=== PATIENT | male | born 1960 | race Caucasian/White ===

== ENCOUNTER 2016-11-24 10:34 | Emergency (ER) | payer OTHER ==
[~2016-11-24] VITALS: Ht 193 cm; Wt 58.2 kg
[~2016-11-24 10:34] MED LIST: IBUP-1050 PO
[2016-11-24 10:36] VITALS: TEMP 36.3; Ht 193 cm; Wt 58.2 kg
--- NOTE | 2016-11-24 11:20 | EMERGENCY ROOM VISIT NOTE ---
History First contact with patient: 10:48 Chief Complaint: WOUND INFECTION Stated Complaint: LEFT FOOT Nursing Triage Summary: Patient has wound to left inner heel that believes from shoe rubbing. Patient states put bandaid over it when it was still closed and took it off to find it was an open wound. History of Present Illness The patient is a 56 year old male who presents to the Emergency Room via private vehicle with complaints of "left foot-wound infection". The patient states that he has a history of infections on the medial aspect of the left distal foot which she has been seen at the local wound care center for. He states that he had been doing well up until 2 weeks ago he noticed a smaller sore/ulceration just inferior to the left medial malleolus and superior to the heel. This region does have evidence of prior surgical procedure of which the patient states left discoloration. He is here stating that he is hoping to catch the wound before progresses to all, because in the past he has been experiencing a lot of pain as well as many months at the wound care center for large ulcerations. He states that his tetanus is up-to-date. Review of Systems A complete 10-point Review of Systems was discussed with the patient, with pertinent positives and negatives listed in the History of Present Illness. All remaining Review of Systems questions can be considered negative unless otherwise specified. Past Medical/Surgical History Medical Problems: (1) No Known Active Medical Problems Family History Cancer Heart disease Hypertension Social History Smoking Status: Current Every Day Smoker Alcohol Use: occasionally Drug Use: none Marital Status: single Housing Status: lives with roommate Occupation Status: employed Current/Historical Medications Scheduled Cephalexin Monohydrate (Keflex), 500 MG PO TID Allergies Coded Allergies: No Known Allergies (Unverified , 11/24/16) Physical Exam Vital Signs Date Time Temp Pulse Resp B/P Pulse Ox O2 Delivery O2 Flow Rate FiO2 11/24/16 12:09 59 18 121/83 97 11/24/16 10:36 36.3 77 18 142/87 99 Room Air Physical Exam VITAL SIGNS - Vital signs and nursing notes were reviewed. Patient is afebrile , hypertensive at 142/87, non-tachycardic and is saturating well on room air at 99%. GENERAL -56-year-old male appearing his stated age who is in no acute distress. Communicates well with provider and answers questions appropriately. SKIN - the skin overlying the left medial malleolus extending to the left heel is dark, with slight amount of scale with an ulceration there is 1 cm x 1 cm circular in nature. This appears to be consistent with venous insufficiency. There is no evidence of gross infection, however there is possibility of minimal cellulitis surrounding the region. He is neurovascularly intact in this region. EXTREMITIES - No clubbing or peripheral cyanosis. No pretibial edema present. No calf tenderness. +5/5 strength noted in UE/LE bilaterally. He is neurovascularly intact in the left lower extremity. Medical Decision & Procedures Medical Decision Patient was seen and evaluated as above. His previous visits were extensively reviewed, and it appears he has been here in the past for similar. He has followed with the wound clinic in the past. He presents with what appears to be a venous ulcer in the left lower extremity. No evidence of DVT. No evidence of vomit sialitis. I do suspect that this time the patient will benefit from wound care, particularly since he has been previously established with our local wound care here. I did discuss the case with our correctional counselor/case manager who are to help the patient establish an appointment with the wound care center. The patient states his insurance does not begin until December 15, therefore do believe it is appropriate to place him on a short term course of antibiotics to help prevent any spread of potential infection. He'll be placed upon Keflex 500 mg 3 times a day for 10 days. He was educated upon management, the wound was cleansed, dressed with a bacitracin dressing at the parameter of the wound was secured in place with Telfa and then this was secured with an Hunter wrap. He was educated upon management, had questions regarding discharge, and was discharged home in good condition. No evidence of trauma. In evaluation treatment this patient following differential diagnoses were entertained: DVT, cellulitis, venous insufficiency, ulcer, injury, among others. Impression Primary Impression: Foot ulcer, left Departure Information Dispostion Home / Self-Care Condition GOOD Prescriptions Cephalexin Monohydrate (KEFLEX) 500 Mg Cap 500 MG PO TID for 10 Days, #30 CAP Prov: Isidro Casey PA-C 11/24/16 Referrals No Doctor, Assigned (PCP) Patient Instructions My [facility] Additional Instructions You were seen in the emergency Department for the ulcer on your left foot. Our case management team has called the wound care center who is to call you. If he did not receive a phone call within the next 5 days please call back to the emergency department at [phone] and asked to speak to a case advocate. You have been prescribed Keflex. This is 500 mg 3 times daily for 10 days. Please return to emergency department with any new/concerning symptoms.
[2016-11-24] MEDS ORDERED: CEPH500C2 PO (11:59)
[2016-11-24 12:09] VITALS: BP 121/83; PULSE 59; O2SAT 97
[2016-12-16] MEDS ORDERED: CEPH500C2 PO (11:53)
[2016-12-28] MEDS ORDERED: LPT/40 PO (12:08)
[2016-12-28] MEDS ORDERED: ASPI1TAB83 PO (12:08)
== END 2016-11-24 12:10 | disposition home or self-care (01) ==
LOC: C.EDB 10:36 → C.EDC 12:10
DX: L97.529 Non-pressure chronic ulcer of other part of left foot with unspecified severity (principal); F17.200 Nicotine dependence, unspecified, uncomplicated; Z80.9 Family history of malignant neoplasm, unspecified; Z82.49 Family history of ischemic heart disease and other diseases of the circulatory system

== ENCOUNTER 2016-12-07 15:10 | Emergency (ER) | payer OTHER ==
[~2016-12-07] VITALS: Ht 193 cm; Wt 59.8 kg
[2016-12-07 15:35] VITALS: TEMP 36.7; Ht 193 cm; Wt 59.8 kg
[2016-12-07] MEDS ORDERED: CEPH500C2 PO (15:56)
[2016-12-07] MEDS ORDERED: NORCO 5/325MG HOME PACK PO STA (16:14)
[2016-12-07] MEDS ORDERED: HYDR-5688 PO (16:17)
--- NOTE | 2016-12-07 16:19 | EMERGENCY ROOM VISIT NOTE ---
History First contact with patient: 15:51 Chief Complaint: WOUND INFECTION Stated Complaint: NON HEALING WOUND R FOOT Nursing Triage Summary: patient to ED via triage, c/o wound infection to "left foot around heel", states "its been going on since october, its my third infection in the same spot in ten years. I need paperwork for work and pain medicine." History of Present Illness The patient is a 56 year old male who presents to the Emergency Room via private vehicle with complaints of "nonhealing wound right foot". The patient states that he is here because he is experiencing increasing pain of the left medial foot secondary to chronic ulcer as well as paperwork to verify his presents for his employer. He states that he was seen here previously for an ulcer and an appointment was scheduled with the wound clinic of which is this coming Thursday. He states it is at 2 PM. He states that he plans on attending this appointment. He did take Keflex without relief. He now notes pain as an 8 /10 at the right medial foot just below the ankle. He states this is the pain he has had in the past with previous ulcers. He denies any fevers, chills, nausea, vomiting. Review of Systems A complete 6-point Review of Systems was discussed with the patient, with pertinent positives and negatives listed in the History of Present Illness. All remaining Review of Systems questions can be considered negative unless otherwise specified. Past Medical/Surgical History Medical Problems: (1) No Known Active Medical Problems Foot ulcer. Family History Cancer Heart disease Hypertension Social History Smoking Status: Current Every Day Smoker Alcohol Use: occasionally Drug Use: none Marital Status: single Housing Status: lives with roommate Occupation Status: employed Current/Historical Medications Scheduled Cephalexin Monohydrate (Keflex), 500 MG PO TID Scheduled PRN Hydrocodone/Acetaminophen 5MG/325MG (Blandford 5MG/325MG), 1-2 TABLET PO Q6 PRN for Pain Allergies Coded Allergies: No Known Allergies (Unverified , 11/24/16) Physical Exam Vital Signs Date Time Temp Pulse Resp B/P Pulse Ox O2 Delivery O2 Flow Rate FiO2 12/07/16 16:28 70 18 128/84 96 12/07/16 15:35 36.7 81 20 119/62 96 Room Air Physical Exam VITAL SIGNS - Vital signs and nursing notes were reviewed. Patient is afebrile , normotensive, non-tachycardic and is saturating well on room air at 96%. GENERAL -56-year-old male appearing his stated age who is in no acute distress. Communicates well with provider and answers questions appropriately. SKIN - there is a darkened hue to the medial aspect of the left distal leg which is chronic and unchanged from previous exam. There is evidence of a chronic ulcer posterior to the left medial malleolus in between the heel. This region is slightly enlarged compared to previous. There is a layer of biofilm developing with granulation tissue deep. No evidence of cellulitis or lymphangitis. There is no streaking noted. There is full range of motion of the region. The ulcer measures approximately 2 cm x 1.75cm. Medical Decision & Procedures Medications Administered Medications (Trade) Dose Ordered Sig/Mendy Route Start Time Stop Time Status Last Admin Dose Admin Acetaminophen/ Hydrocodone Bitart (Blandford 5/325mg Home Pack) 1 homepack UD STAT PO 12/07/16 16:14 12/07/16 16:15 DC 12/07/16 16:14 1 HOMEPACK Medical Decision Patient was seen and evaluated as above. I have over the patient case and have treated him on a previous visit. Patient has a history of chronic ulcers, and presents with a slight worsening of his left medial malleolus/heel ulcer. This region is slightly enlarged from previous visit. There is no evidence of cellulitis. I suspect the patient will need careful and close follow-up with wound care center for potential debridement but this time do not believe that there is any additional intervention necessary here in the emergency department setting. He will be provided with a short-term supply of pain medication as well as a note verifying that he was here today. I do not believe antibiotics are warranted at this time. He was educated on the importance of follow-up on Thursday. He was educated upon worrisome symptoms which to return, had questions prior to discharge and was discharged home in good condition. In evaluation treatment this patient the following differential diagnoses were entertained: Chronic ulcer of left medial foot, sialitis, lymphangitis, drug- seeking behavior, among others. [place] Drug Monitoring Program Search Results: patient reviewed within database, no issues identified Impression Primary Impression: Chronic ulcer Departure Information Dispostion Home / Self-Care Condition GOOD Prescriptions Hydrocodone/Acetaminophen 5MG/325MG (Blandford 5MG/325MG) Tab 1-2 TABLET PO Q6 Y for Pain, #15 TAB For Initial Treatment Prov: Isidro Casey PA-C 12/07/16 Referrals No Doctor, Assigned (PCP) Patient Instructions My [facility] Additional Instructions You were seen in the emergency Department for an ulcer on your right foot. At this time I do not suspect an infection requiring antibiotics. Please continue the dressings you have been applying. Please keep the area clean. You have been prescribed NORCO to be used for pain control. This is a narcotic medication. You cannot drive or consume alcohol while on this medicine. This medicine should only be used for pain that cannot be controlled with over-the- counter pain medicines. Please do not take Tylenol with this as this medication R he has ended. You may also use: - Regular strength (200 mg/tab) Advil (ibuprofen) 1-2 tabs every 4-6 hours as needed. Do not exceed a dose of 3200 mg per day. Please keep your appointment with the wound care center on Thursday. Please return to the emergency department with any new/concerning symptoms.
[2016-12-07 16:28] VITALS: BP 128/84; PULSE 70; O2SAT 96
[2016-12-16] MEDS ORDERED: CEPH500C2 PO (11:53)
[2016-12-28] MEDS ORDERED: LPT/40 PO (12:08)
[2016-12-28] MEDS ORDERED: ASPI1TAB83 PO (12:08)
== END 2016-12-07 16:29 | disposition home or self-care (01) ==
LOC: C.EDB 15:11 → C.EDD 16:29
DX: L97.529 Non-pressure chronic ulcer of other part of left foot with unspecified severity (principal); F17.200 Nicotine dependence, unspecified, uncomplicated; Z80.9 Family history of malignant neoplasm, unspecified; Z82.49 Family history of ischemic heart disease and other diseases of the circulatory system

== ENCOUNTER 2016-12-27 10:54 | Inpatient (IN) | payer OTHER ==
[~2016-12-27] VITALS: Ht 193 cm; Wt 56.8 kg
[~2016-12-27 10:54] MED LIST changes: +CEPH500C2 PO; +HYDR-5688 PO; -IBUP-1050 PO
[2016-12-27] MEDS ORDERED: SODIUM CHLORIDE 0.9% 1000ML 1,000 ML IV SCH (11:25)
[2016-12-27 11:36] LABS: BASO % 0.6 %; BASO ABS # 0.04 K/uL (0-0.2); COMPLETE YES; EOS % 2.5 %; HEMATOCRIT 49.2 % (42-52); IG% 0.1 %; LYMPH % 30.6 %; LYMPH ABS # 2.07 K/uL (1.2-3.4); MEAN CELL VOLUME 85.7 fL (80-100); MEAN CORPUSCULAR HEMOGLOBIN 28.4 pg (25-34); MEAN CORPUSCULAR HGB CONC 33.1 g/dl (32-36); MEAN PLATELET VOLUME 9.3 fL (7.4-10.4); MONO % 6.2 %; PLATELET COUNT 281 K/uL (130-400); RED BLOOD COUNT 5.74 M/uL (4.7-6.1); WHITE BLOOD COUNT 6.77 K/uL (4.8-10.8)
[2016-12-27 11:46] LABS: INR 1.1 (0.9-1.1); PROTHROMBIN TIME (PATIENT) 11.4 SECONDS (9.0-12.0)
--- NOTE | 2016-12-27 11:54 | DIAGNOSTIC IMAGING REPORT ---
HEAD CT NONCONTRAST CT DOSE: 614.27 mGy.cm HISTORY: Stroke TECHNIQUE: Multiaxial CT images of the head were performed without the use of intravenous contrast. Automated exposure control was utilized for this study. Comparison: None. Findings: The paranasal sinuses and mastoid air cells are clear. The calvarium and skull base are intact. There is no mass, hematoma, midline shift, acute infarct. White matter hypodensity is nonspecific but suggestive of microvascular ischemic change. The ventricles and sulci demonstrate mild age-related involutional changes. Old lacunar infarcts seen within the left basal ganglia. Impression: No acute intracranial abnormality. Atrophy and microvascular ischemic changes. Electronically signed by: Paxton Hanson M.D. 12/27/2016 11:53 AM Dictated Date/Time: 12/27/2016 11:51 AM
[2016-12-27 11:57] LABS: BLOOD UREA NITROGEN 17 mg/dl (7-18); BUN/CREATININE RATIO 26.4 (10-20); CALCIUM 8.9 mg/dl (8.5-10.1); CARBON DIOXIDE 27 mmol/L (21-32); CHLORIDE 105 mmol/L (98-107); CREATININE 0.66 mg/dl (0.60-1.40); GLUCOSE 105 mg/dl (70-99); POTASSIUM 4.3 mmol/L (3.5-5.1); SODIUM 140 mmol/L (136-145)
--- NOTE | 2016-12-27 11:59 | DIAGNOSTIC IMAGING REPORT ---
CHEST ONE VIEW PORTABLE HISTORY: stroke COMPARISON: Chest 02/01/2015. FINDINGS: No change in the mild volume loss within the right hemithorax and blunting of the right lateral costophrenic sulcus. Emphysema. The heart is stable in size. The left lung is clear. No new focal lung consolidations. No pneumothorax. No evidence for pulmonary edema. IMPRESSION: No significant change compared to the prior study. No acute process. Electronically signed by: Paxton Hanson M.D. 12/27/2016 11:58 AM Dictated Date/Time: 12/27/2016 11:56 AM
[2016-12-27 12:03] LABS: CKMB/CK RATIO 4.6 (0-3.0)
[2016-12-27] MEDS ORDERED: ASPIRIN 81 MG CHEW PO STA (12:34)
--- NOTE | 2016-12-27 13:48 | Medical Student: [facility] ---
Med Student History & Physical Date & Time of Service: December 27, 2016 at 13:04 Chief Complaint: Numbness In Face & Arms Primary Care Physician: No Doctor, Assigned History of Present Illness Source: patient Mr. Israel Bravo is a 56 yo male who appears older than actual age who presents to the ED with numbness and weakness of his R face and upper extremity that began last night around 10PM. He decided to go to sleep, and awoke this morning with persistent symptoms. He also notes weakness with gripping his coffee cup this morning, which is when he came to the ED. He notes that the R sided facial numbness has improved to just being a feeling of coldness in his lips on the right side of his face, and he only has tingling and numbness in his fingers on the right hand. He no longer feels weakness or the generalized numbness from last night. He denies changes in his speech, although he has always had a pronounced speech impediment. He did not notice facial drooping or weakness. Mr. Bravo denies previous TIA, stroke or heart attack, but states that his mother suffered both a stroke and [place] before she . He provides no other medical history other than multiple non-healing ulcers in his feet for which he sees the wound clinic. He is unsure whether he has peripheral vascular disease , although clinically it appears so. Mr. Bravo has an ~80 pack year smoking history and recently cut down on his drinking to once every few months. Before he states he drank "quite a bit". He denies elicit drug use. He denies N/V, Diarrhea, constipation, change in urinary symptoms, chest pain, shortness of breath, or loss of consciousness. Family History Mother: heart disease, stroke (~2 packs (rolls his own, unfiltered)) Social History Smoking Status: Current Every Day Smoker Smokeless Tobacco Use: No Alcohol Use: occasionally (previously heavy drinker) Drug Use: none Marital Status: single Housing status: lives alone, lives with family (daughers check in on him often) Occupational Status: employed Immunizations History of Influenza Vaccine: No History of Tetanus Vaccine?: Yes History of Pneumococcal: No History of Hepatitis B Vaccine: Unknown Allergies Coded Allergies: No Known Allergies (Unverified , 12/27/16) Medications Cephalexin Monohydrate (Keflex), 500 MG PO TID Review of Systems Constitutional: + weakness (R hand and arm, now resolved), No chills, No fatigue, No fever, No sweats, No weight loss Eyes: No problem reported ENT: No problem reported Respiratory: No problem reported Cardiovascular: No problem reported Abdomen: No problem reported Musculoskeletal: No problem reported Genitourinary - Male: No problem reported Neurologic: + numbness/tingling (R face, arm, hand, now just in R lips and R fingertips), + weakness, No balance problems, No memory loss, No paralysis, No vertigo Psychiatric: No problem reported Endocrine: No problem reported Integumentary: + problem reported (persistent foot ulcer) Physical Exam Vital Signs (24 Hours) Date Time Temp Pulse Resp B/P Pulse Ox O2 Delivery O2 Flow Rate FiO2 12/27/16 12:00 127/89 12/27/16 11:54 62 19 12/27/16 11:31 142/83 12/27/16 11:24 77 17 12/27/16 11:15 99 Room Air 12/27/16 11:14 141/90 12/27/16 10:58 36.4 79 18 144/87 100 Room Air General Appearance: no apparent distress, + cachetic, + thin Head: normocephalic, atraumatic Eyes: PERRL, EOMI, + pertinent finding (horizontal nystagmus) ENT: normal ENT inspection, hearing grossly normal, pharynx normal, + pertinent finding (poor dentition) Neck: supple, no adenopathy, thyroid normal, no JVD, no carotid bruits, trachea midline Respiratory/Chest: chest non-tender, lungs clear, normal breath sounds, no respiratory distress, no accessory muscle use Cardiovascular: regular rate, rhythm, no edema, no gallop, no JVD, no murmur, + abnormal peripheral pulses (very weak in feet b/l) Abdomen/GI: normal bowel sounds, non tender, soft Back: normal inspection, no CVA tenderness, + pertinent finding (two superficial lipomas) Extremities/Musculoskelatal: normal range of motion, non-tender Neurologic/Psych: jackaroo II-XII nml as tested (with exception of decreased sensation of V2 on R side), alert, normal mood/affect, normal reflexes, oriented x 3, + abnormal jackaroo II-XII, + pertinent finding (Numbness/tingling to touch of R fingers. Sensation otherwise normal. Rapid alternating movements slow bilaterally, more slow on R side. Finger to nose significatnly slower on R side compared to L. ) Skin: + mottled, + pertinent finding (Poorly healing wound on L foot with discoloration of skin) Diagnostics Laboratory Results Results Past 24 Hours Test 12/27/16 11:22 12/27/16 11:34 12/27/16 11:35 Range/Units White Blood Count 6.77 4.8-10.8 K/uL Red Blood Count 5.74 4.7-6.1 M/uL Hemoglobin 16.3 14.0-18.0 g/dL Hematocrit 49.2 42-52 % Mean Corpuscular Volume 85.7 80-100 fL Mean Corpuscular Hemoglobin 28.4 25-34 pg Mean Corpuscular Hemoglobin Concent 33.1 32-36 g/dl Platelet Count 281 130-400 K/uL Mean Platelet Volume 9.3 7.4-10.4 fL Neutrophils (%) (Auto) 60.0 % Lymphocytes (%) (Auto) 30.6 % Monocytes (%) (Auto) 6.2 % Eosinophils (%) (Auto) 2.5 % Basophils (%) (Auto) 0.6 % Neutrophils # (Auto) 4.06 1.4-6.5 K/uL Lymphocytes # (Auto) 2.07 1.2-3.4 K/uL Monocytes # (Auto) 0.42 0.11-0.59 K/uL Eosinophils # (Auto) 0.17 0-0.5 K/uL Basophils # (Auto) 0.04 0-0.2 K/uL RDW Standard Deviation 48.5 36.4-46.3 fL RDW Coefficient of Variation 15.4 11.5-14.5 % Immature Granulocyte % (Auto) 0.1 % Immature Granulocyte # (Auto) 0.01 0.00-0.02 K/uL Prothrombin Time 11.4 9.0-12.0 SECONDS Prothromb Time International Ratio 1.1 0.9-1.1 Activated Partial Thromboplast Time 26.9 21.0-31.0 SECONDS Partial Thromboplastin Ratio 1.0 Sodium Level 140 136-145 mmol/L Potassium Level 4.3 3.5-5.1 mmol/L Chloride Level 105 98-107 mmol/L Carbon Dioxide Level 27 21-32 mmol/L Anion Gap 8.0 3-11 mmol/L Blood Urea Nitrogen 17 7-18 mg/dl Creatinine 0.66 0.60-1.40 mg/dl Est Creatinine Clear Calc Drug Dose 107.5 ml/min Estimated GFR () 126.1 Estimated GFR (Non- 108.8 BUN/Creatinine Ratio 26.4 10-20 Random Glucose 105 70-99 mg/dl Calcium Level 8.9 8.5-10.1 mg/dl Total Creatine Kinase 50 39-308 U/L Creatine Kinase MB 2.3 0.5-3.6 ng/ml Creatine Kinase MB Ratio 4.6 0-3.0 Troponin I < 0.015 0-0.045 ng/ml Bedside Prothrombin Time INR 1.1 0.9-1.1 Bedside Glucose 104 70-99 mg/dl Diagnostic Radiology No acute change on CXR. Persistent emphysema, blunted right costophrenic angle Impression Assessment and Plan Mr. Israel Bravo is 56 yo male with a history of numbness, tingling and weakness of his R face and UE which began last night at 2200 who presented to the ED this morning with persistent symptoms. CT shows no acute cerebrovascular changes, and his symptoms are now improving. TIA suspected, as patient has several risk factors for smoke including peripheral vascular disease, 80 pack year smoking history, family history of stroke. Assessment and plan is as follows: 1. Acute CVA: Symptoms are now improving. Ddx includes acute CVA/ TIA. Possibly left MCA distribution or right mid-lateral pontine syndrome. Will consult neurology for further evaluation. Will order head MRI to rule out stroke definitively. Will check cholesterol and A1c for stroke risk determination. Will start on statin, 81mg ASA and clopidogrel for risk reduction. 2. PVD: Continue keflex per wound clinic. 3. DVT prophylaxis: heparin 4. Disposition: Admit to med/surg. Normal diet. Level of Care Med/Surg Resuscitation Status FULL RESUSCITATION DVT Prophylaxis unfractionated heparin SQ
[2016-12-27] MEDS ORDERED: ZOLPIDEM TARTRATE 5 MG TAB PO PRN (14:00)
[2016-12-27] MEDS ORDERED: ALUMINUM/MAGNESIUM/SIMETH (MAALOX MAX) 30 ML UDC PO PRN (14:00)
[2016-12-27] MEDS ORDERED: POLYETHYLENE (MIRALAX) 17 GM PACK PO PRN (14:00)
[2016-12-27] MEDS ORDERED: MAGNESIUM HYDROXIDE SUSP 30 ML UDC PO PRN (14:00)
[2016-12-27] MEDS ORDERED: ONDANSETRON INJ 2 MG/ML 2 ML VIAL IV PRN (14:00)
[2016-12-27] MEDS ORDERED: PHARMACIST DISCHARGE MED REC CONSULT PRN (14:00)
[2016-12-27 14:07] LABS: ESTIMATED AVERAGE GLUCOSE 123 mg/dl; HA1C FLAG Normal (Normal)
--- NOTE | 2016-12-27 14:14 | Progress Note ---
Progress Note Date of Service December 27, 2016. Progress Note possible cva [phone]
[2016-12-27] MEDS ORDERED: ALBUT/IPRATROP 3MG/0.5MG NEB 3 ML VIAL INH PRN (14:15)
--- NOTE | 2016-12-27 14:24 | EMERGENCY ROOM VISIT NOTE ---
History Report prepared by Sarina: Bi Petersen Under the Supervision of: Dr. Rojas Farooq D.O. First contact with patient: 11:14 Chief Complaint: NEURO SYMPTOMS Stated Complaint: NUMBNESS IN FACE & ARMS Nursing Triage Summary: pt reports tingling in numbness in right face and right arm since 1999 last night feeling of numbness remains. denies any problems with speech or vision History of Present Illness The patient is a 56 year old male who presents to the Emergency Room with complaints of persistent neurologic symptoms since last night. The patient became dizzy at 1999 last night. He also developed numbness in his face and right arm. The entire arm is numb. The whole face was initially numb but now he only feels the numbness in the right cheek area. He also had trouble gripping with the right arm this morning which has improved. His left arm as well as both legs are normal. He has never had a stroke but does have a family history of stroke. 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 Patient denies headache, change in vision, fevers, chest pain, shortness of breath, nausea, vomiting, diarrhea, pain with urination, and melena. Source of History: patient Onset: last night at 1999 Position: other (neurologic) Quality: numbness Timing: other (persistent) Associated Symptoms: + weakness (trouble gripping), No SOB, No chest pain, No diarrhea, No fevers, No headache, No melena, No nausea, No urinary symptoms, No vomiting Review of Systems See HPI for pertinent positives & negatives. A total of 10 systems reviewed and were otherwise negative. Past Medical & Surgical Medical Problems: (1) cva (2) CVA (cerebral vascular accident) (3) No Known Active Medical Problems Family History Cancer Heart disease Hypertension Social History Smoking Status: Current Every Day Smoker Alcohol Use: occasionally Drug Use: none Marital Status: single Housing Status: lives with roommate Occupation Status: employed Current/Historical Medications Scheduled Cephalexin Monohydrate (Keflex), 500 MG PO TID Allergies Coded Allergies: No Known Allergies (Unverified , 12/27/16) Physical Exam Vital Signs Date Time Temp Pulse Resp B/P Pulse Ox O2 Delivery O2 Flow Rate FiO2 12/27/16 13:10 61 16 140/69 98 Room Air 12/27/16 12:00 127/89 5/13/17 11:54 62 19 12/27/16 11:31 142/83 12/27/16 11:24 77 17 12/27/16 11:15 99 Room Air 12/27/16 11:14 141/90 12/27/16 10:58 36.4 79 18 144/87 100 Room Air Physical Exam GENERAL: Sitting up in bed, cachectic, chronically ill appearing, no acute distress. EYE EXAM: normal conjunctiva, PERRL and EOM's intact OROPHARYNX: no exudate, no erythema, lips, buccal mucosa, and tongue normal and mucous membranes are moist NECK: supple, no nuchal rigidity, no adenopathy, non-tender LUNGS: Clear to auscultation. Normal chest wall mechanics HEART: no murmurs, S1 normal and S2 normal ABDOMEN: abdomen soft, non-tender, normo-active bowel sounds, no masses, no rebound or guarding. BACK: Back is symmetrical on inspection and there is no deformity, no midline tenderness, no CVA tenderness. SKIN: no rashes and no bruising UPPER EXTREMITIES: upper extremities are grossly normal. LOWER EXTREMITIES: No pitting edema. NEURO EXAM: Normal sensorium, cranial nerves II-XII intact, normal speech, no weakness of arms, no weakness of legs. No drift. Finger to nose intact. Gross sensation intact. Medical Decision & Procedures ER Provider Diagnostic Interpretation: Radiology results as stated below per my review and the radiologist's interpretation: CHEST ONE VIEW PORTABLE HISTORY: stroke COMPARISON: Chest 02/01/2015. FINDINGS: No change in the mild volume loss within the right hemithorax and blunting of the right lateral costophrenic sulcus. Emphysema. The heart is stable in size. The left lung is clear. No new focal lung consolidations. No pneumothorax. No evidence for pulmonary edema. IMPRESSION: No significant change compared to the prior study. No acute process. Electronically signed by: Paxton Hanson M.D. 12/27/2016 11:58 AM Dictated Date/Time: 12/27/2016 11:[address] NONCONTRAST CT DOSE: 614.27 mGy.cm HISTORY: Stroke TECHNIQUE: Multiaxial CT images of the head were performed without the use of intravenous contrast. Automated exposure control was utilized for this study. Comparison: None. Findings: The paranasal sinuses and mastoid air cells are clear. The calvarium and skull base are intact. There is no mass, hematoma, midline shift, acute infarct. White matter hypodensity is nonspecific but suggestive of microvascular ischemic change. The ventricles and sulci demonstrate mild age-related involutional changes. Old lacunar infarcts seen within the left basal ganglia. Impression: No acute intracranial abnormality. Atrophy and microvascular ischemic changes. Electronically signed by: Paxton Hanson M.D. 12/27/2016 11:53 AM Dictated Date/Time: 12/27/2016 11:51 AM Laboratory Results 12/27/16 11:22 Red Blood Count 5.74, Mean Corpuscular Volume 85.7, Mean Corpuscular Hemoglobin 28.4, Mean Corpuscular Hemoglobin Concent 33.1, Mean Platelet Volume 9.3, Neutrophils (%) (Auto) 60.0, Lymphocytes (%) (Auto) 30.6, Monocytes (%) (Auto) 6.2, Eosinophils (%) (Auto) 2.5, Basophils (%) (Auto) 0.6, Neutrophils # (Auto) 4.06, Lymphocytes # (Auto) 2.07, Monocytes # (Auto) 0.42, Eosinophils # (Auto) 0.17, Basophils # (Auto) 0.04 12/27/16 11:22 Test 12/27/16 11:22 12/27/16 11:34 12/27/16 11:35 White Blood Count 6.77 K/uL (4.8-10.8) Red Blood Count 5.74 M/uL (4.7-6.1) Hemoglobin 16.3 g/dL (14.0-18.0) Hematocrit 49.2 % (42-52) Mean Corpuscular Volume 85.7 fL (80-100) Mean Corpuscular Hemoglobin 28.4 pg (25-34) Mean Corpuscular Hemoglobin Concent 33.1 g/dl (32-36) Platelet Count 281 K/uL (130-400) Mean Platelet Volume 9.3 fL (7.4-10.4) Neutrophils (%) (Auto) 60.0 % Lymphocytes (%) (Auto) 30.6 % Monocytes (%) (Auto) 6.2 % Eosinophils (%) (Auto) 2.5 % Basophils (%) (Auto) 0.6 % Neutrophils # (Auto) 4.06 K/uL (1.4-6.5) Lymphocytes # (Auto) 2.07 K/uL (1.2-3.4) Monocytes # (Auto) 0.42 K/uL (0.11-0.59) Eosinophils # (Auto) 0.17 K/uL (0-0.5) Basophils # (Auto) 0.04 K/uL (0-0.2) RDW Standard Deviation 48.5 fL (36.4-46.3) RDW Coefficient of Variation 15.4 % (11.5-14.5) Immature Granulocyte % (Auto) 0.1 % Immature Granulocyte # (Auto) 0.01 K/uL (0.00-0.02) Prothrombin Time 11.4 SECONDS (9.0-12.0) Prothromb Time International Ratio 1.1 (0.9-1.1) Activated Partial Thromboplast Time 26.9 SECONDS (21.0-31.0) Partial Thromboplastin Ratio 1.0 Anion Gap 8.0 mmol/L (3-11) Est Creatinine Clear Calc Drug Dose 107.5 ml/min Estimated GFR () 126.1 Estimated GFR (Non- 108.8 BUN/Creatinine Ratio 26.4 (10-20) Estimated Average Glucose 123 mg/dl Hemoglobin A1c 5.9 % (4.5-5.6) Calcium Level 8.9 mg/dl (8.5-10.1) Total Creatine Kinase 50 U/L (39-308) Creatine Kinase MB 2.3 ng/ml (0.5-3.6) Creatine Kinase MB Ratio 4.6 (0-3.0) Troponin I < 0.015 ng/ml (0-0.045) Bedside Prothrombin Time INR 1.1 (0.9-1.1) Bedside Glucose 104 mg/dl (70-99) Laboratory results per my review. Medications Administered Medications (Trade) Dose Ordered Sig/Mendy Route Start Time Stop Time Status Last Admin Dose Admin Sodium Chloride (Nss 1000ml) 1,000 ml @ 50 mls/hr Q20H IV 12/27/16 11:25 01/26/17 11:24 12/27/16 11:41 50 MLS/HR Aspirin (Aspirin Chew) 81 mg NOW STAT PO 12/27/16 12:34 12/27/16 12:35 DC 12/27/16 13:10 81 MG ECG Indication: other (neuro symptoms) Rate (beats per minute): 58 Rhythm: sinus bradycardia Findings: other (PRR' in the septal leads. normal axis. ) ED Course ED COURSE: Vital signs were reviewed and were normal. The patients medical record was reviewed The above diagnostic studies were performed and reviewed. ED treatments and interventions as stated above. 1120: The patient was evaluated in room B8. A complete history and physical examination was performed. 1125: NSS 1000 ml @ 50 mls/hr. 1233: Discussed the case with Dr. Lin. [facility] Hospitalist. The patient will be evaluated. 1234: Aspirin 81 mg PO. 1235: Upon reevaluation, the patient is stable.I discussed my findings with the patient and he understands and agrees with the treatment plan. Based on the patients age, coexisting illnesses, exam and lab findings the decision to treat as an inpatient was made. The patient remained stable while under my care. The patient will be evaluated for further management. Medical Decision Differential Diagnosis includes but is not limited to ischemic Stroke, hemorrhagic stroke, bells palsy, mass, neoplasm, migraine headache, seizure, subarachnoid hemorrhage, TIA, and transient global amnesia. Patient is a 56-year-old male who presents the ER for right arm numbness and right facial numbness which started last night around 1999. He notes that this morning when he got up he had difficulty with his grass and grabbing at. The weakness in his arm has gone away the numbness improving. Labs including CBC, BMP, troponin was unremarkable. INR was normal. His neurologic exam is completely unremarkable with exception of paresthesias. CT head was negative. Chest x-ray was unremarkable. EKG was normal. Patient was updated bedside and given aspirin and fluids. He is admitted to internal medicine for a likely TIA with numbness and weakness which has completely resolved with exception of mild paresthesias. Consults Time Called: 1220 Consulting Physician: Dr. Lin. [facility] Hospitalist Returned Call: 1233 The patient will be evaluated. Impression Primary Impression: TIA (transient ischemic attack) Scribe Attestation The scribe's documentation has been prepared under my direction and personally reviewed by me in its entirety. I confirm that the note above accurately reflects all work, treatment, procedures, and medical decision making performed by me. Departure Information Dispostion Being Evaluated By Hospitalist Referrals No Doctor, Assigned (PCP) Patient Instructions My [facility] Stroke History Time Last Known Well 1999 last night Stroke t-PA Criteria Reviewed Does NOT meet criteria for t-PA Reason t-PA Not Given Treatment not indicated Problem Qualifiers Primary Impression: TIA (transient ischemic attack) Transient cerebral ischemia type: unspecified Qualified Codes: G45.9 - Transient cerebral ischemic attack, unspecified
--- NOTE | 2016-12-27 14:44 | HISTORY & PHYSICAL EXAMINATION ---
DATE OF ADMISSION: 12/27/2016 This is a level 3 inpatient admission 35 minutes. CHIEF COMPLAINT: Right-sided tingling and numbness. HISTORY OF PRESENT ILLNESS: The patient is a 56-year-old white male with a significant past medical history of peripheral artery disease, left foot chronic ulceration, tobacco abuse disorder, heavy alcohol intake history coming to the hospital Emergency Department because of the above chief complaint. The patient reported he was having right-sided numbness and weakness in his left face and upper extremities that began last night around 10 p.m. He decided to go to sleep and woke up this morning with persistent symptoms. He also has weakness with gripping his coffee cup this morning. For this reason, he came to the hospital Emergency Room. He was noted right-sided facial numbness has been improved, but for now still has some coldness in his lips of right side of his face. There was still some tingling and numbness in his fingers and right hand. No longer has any generalized numbness, tingling or weakness. Denied slurry speeches currently. When I interviewed with him, he awake, alert and orientated confirming the above information. PAST MEDICAL HISTORY: Like I mentioned peripheral artery disease, heavy alcohol intake, left foot ulceration chronic. SOCIAL HISTORY: Heavy tobacco abuse disorder, half pack per day for now. Social alcohol intake. Denied illicit drug abuse. ALLERGIES: No known drug allergies. CURRENT MEDICATIONS: Include Keflex for the foot ulceration. REVIEW OF SYSTEMS: Please see HPI, otherwise 14 points organ system review were negative. PHYSICAL EXAMINATION: VITAL SIGNS: Temperature is 36.4, pulse 79, respiratory rate 18, blood pressure 144/87, pulse ox was 100% in room air. GENERAL: The patient is a white male, looks much older than his age, looks very thin. HEAD: Normocephalic. EYES: Pupils equal, round responds to light. EARS: Ear was normal. NOSE: Normal. NECK: Supple. Thyroid no enlargement. Trachea midline. HEART: Regular rhythm. S1, S2. He has no murmur. Carotid artery area has no bruits, no JVD. LUNGS: Bilateral lungs significant decreased breathing sounds. There was no wheezing, rhonchi and crackles. ABDOMEN: Soft, nontender. Bowel sound was positive. Bilateral CVA was nontender. LOWER EXTREMITIES: Normal motion. However, in the left lower extremity has some chronic wounds. There was currently no open wounds for now. NEUROLOGIC EVALUATION: Cranial nerves in the right side V2 trigeminal nerve is having some decreased sensations. Otherwise, cranial nerves II-XII was intact. SKIN: Has some pigmentation in the left lower extremity. There was no obvious open wound. LABORATORY STUDIES: WBC 6, hemoglobin 16, platelet 281. PT/INR was 11/1. Sodium 140, potassium 4.3, BUN 17, creatinine 0.66. A1c is pending. Cardiac enzyme troponin was negative x1 set. IMAGING STUDIES: Chest x-ray studies, no acute disease. Head CT studies, no ischemic changes. ASSESSMENT AND PLAN: A 56-year-old white male with the conditions seen below. 1. Right-sided tingling and numbness, very possible cerebrovascular accident. 2. Heavy tobacco abuse disorder. 3. Peripheral artery disease with left lower leg chronic wounds. 4. History of heavy alcohol intake. PLAN: 1. Likely acute CVA in a patient is a 56-year-old, however he looks much older than his age. He was having heavy tobacco abuse disorder which caused his peripheral artery disease with chronic left lower extremity wounds. Bilateral upper and lower extremity pulse was significantly decreased. Therefore, I feel the patient is in high risk of acute CVA. 2. The patient has tobacco abuse disorder, will give nicotine patch. 3. Chronic left lower extremity wounds. Will continue Keflex. 4. Heavy tobacco abuse with history of COPD. We will give DuoNeb as needed. Will check brain MRI to rule out CVA per stroke protocol. PT, OT evaluation and treatment and then go from there. I do request Dr. Gonzalez to see the patient. My question is if need to start Plavix or if still okay to start aspirin. My feeling is patient has peripheral artery disease, heavy smoking, I would start Plavix for now. I feel he xu to be on Plavix for PAD already. 5. GI and DVT prophylaxis is covered. Discussed with patient about the care plan. I answered all the questions. ANIRUDH
[2016-12-27 15:37] VITALS: BP 151/73; PULSE 61; TEMP 36.7; O2SAT 98; Ht 193 cm; Wt 56.8 kg
[2016-12-27] MEDS ORDERED: CLOPIDOGREL BISULFATE 75 MG TAB PO STA (15:38)
--- NOTE | 2016-12-27 17:18 | DIAGNOSTIC IMAGING REPORT ---
MR ANGIOGRAM OF THE BRAIN CLINICAL HISTORY: Strokelike symptoms. COMPARISON STUDY: CT of the brain dated 12/27/2016. TECHNIQUE: 3-D [id number] MR angiography of the intracranial circulation is performed. 3-D tumble views are created and assessed. IV contrast was not administered for this examination. The Examination is modestly degraded by motion artifact. FINDINGS: The [place] of Dave is developmentally complete. The internal carotid arteries are widely patent bilaterally, as are the anterior and middle cerebral arteries. The vertebrobasilar system and posterior cerebral arteries are widely patent. The vertebral arteries are codominant. There is no aneurysm, high-grade stenosis, or focal vessel cutoff seen throughout the intracranial circulation. IMPRESSION: Unremarkable MR angiogram of the brain. Electronically signed by: Morgan Philippe M.D. 12/27/2016 5:17 PM Dictated Date/Time: 12/27/2016 5:15 PM
[2016-12-27] MEDS: CEPHALEXIN MONOHYDRATE 500 MG CAP PO SCH ×2 (17:49→20:28)
--- NOTE | 2016-12-27 17:54 | DIAGNOSTIC IMAGING REPORT ---
MRI OF THE BRAIN COMBO CLINICAL HISTORY: Strokelike symptoms. COMPARISON STUDY: CT of the brain dated 12/27/2016. TECHNIQUE: MRI of the brain was performed utilizing various T1 and T2-weighted sequences in the axial, sagittal, and coronal planes. Contrast-enhanced sequences were acquired following the administration of 6 cc of Gadavist. FINDINGS: Brain parenchyma: There is an 8 mm focus of restricted diffusion identified in the left thalamus. This is consistent with acute to subacute lacunar infarct. No additional foci of restricted diffusion are identified. There is mild to moderate patchy subcortical and periventricular microangiopathic disease. There is no hemorrhage or mass effect. Chronic lacunar infarcts are identified within the right cerebellar hemisphere and the left thalamus. No enhancing mass lesion is identified on the postcontrast images. Aviles-white matter differentiation is preserved. No extra-axial fluid collection is seen. The cerebellar tonsils are normal in configuration. Ventricles, sulci, and cisterns: Normal in configuration. Pituitary and sella: Unremarkable. Intracranial vasculature: Normal flow voids are maintained at the skull base. Orbits: The bony orbits are grossly intact. Orbital contents are normal in appearance. Sinuses and mastoids: There is trace mucosal thickening within the maxillary antra. The remaining paranasal sinuses are clear. There is a trace left mastoid effusion. Calvarium: Unremarkable. Cervical cord: Partially visualized cervical spinal cord is normal in morphology and signal intensity. IMPRESSION: 1. There is an acute to subacute lacunar infarct identified in the left thalamus. 2. No additional foci of acute ischemia are identified. 3. There is no hemorrhage, enhancing mass, or midline shift. Electronically signed by: Morgan Philippe M.D. 12/27/2016 5:53 PM Dictated Date/Time: 12/27/2016 5:49 PM
--- NOTE | 2016-12-27 18:10 | DIAGNOSTIC IMAGING REPORT ---
MR ANGIOGRAM OF THE NECK COMBO CLINICAL HISTORY: Left thalamic infarct. COMPARISON STUDY: No priors. TECHNIQUE: Axial 3-D [id number] MR angiography of the neck is performed. Subsequently, following the IV administration of 6 cc of Gadavist coronal MR angiogram of the neck was performed to corroborate the findings. 3-D reformats are created and assessed. All measurements were calculated based on NASCET criteria. Subtraction imaging was performed. FINDINGS: Visualized portions of the thoracic aorta are normal in caliber. The aortic arch demonstrates standard 3-vessel anatomy. The subclavian arteries are widely patent bilaterally. The right common carotid artery is widely patent, as are the right internal and external carotid arteries. The right internal carotid artery is tortuous. The left common carotid artery is widely patent, as are the left internal and external carotid arteries. The vertebral arteries are widely patent and codominant. The partially visualized intracranial vessels are patent. IMPRESSION: Unremarkable MR angiogram of the neck. Electronically signed by: Morgan Philippe M.D. 12/27/2016 6:08 PM Dictated Date/Time: 12/27/2016 6:06 PM
[2016-12-27] MEDS: ACETAMINOPHEN 325 MG TAB PO PRN (19:52)
[2016-12-27 20:13] VITALS: BP 144/82; PULSE 54; TEMP 36.4; O2SAT 96
[2016-12-27] MEDS ORDERED: ENOXAPARIN 40 MG/0.4 ML SYR SC SCH (21:00)
[2016-12-27 23:56] VITALS: BP 138/80; PULSE 52; TEMP 36.6; O2SAT 98
[2016-12-28 03:13] VITALS: BP 112/68; PULSE 82; TEMP 36.8; O2SAT 96
[2016-12-28 05:53] LABS: BASO ABS # 0.06 K/uL (0-0.2); COMPLETE YES; EOS % 3.2 %; HEMATOCRIT 48.4 % (42-52); IG% 0.2 %; LYMPH % 34.9 %; MEAN CELL VOLUME 85.5 fL (80-100); MEAN CORPUSCULAR HEMOGLOBIN 28.6 pg (25-34); MEAN CORPUSCULAR HGB CONC 33.5 g/dl (32-36); MEAN PLATELET VOLUME 9.2 fL (7.4-10.4); NEUT % 53.7 %; PLATELET COUNT 264 K/uL (130-400); RED BLOOD COUNT 5.66 M/uL (4.7-6.1)
[2016-12-28 06:36] LABS: CALCIUM 8.6 mg/dl (8.5-10.1); CREATININE 0.55 mg/dl (0.60-1.40)
[2016-12-28 06:40] LABS: CHOLESTEROL/HDL RATIO 4.4
[2016-12-28 07:26] VITALS: BP 124/79; PULSE 75; TEMP 36.7; O2SAT 96
[2016-12-28] MEDS: CEPHALEXIN MONOHYDRATE 500 MG CAP PO SCH (08:18)
[2016-12-28] MEDS: ACETAMINOPHEN 325 MG TAB PO PRN (08:20)
--- NOTE | 2016-12-28 08:32 | Neurology Consultation ---
Neurology Consultation Date of Consultation: December 28, 2016. Attending Physician: Jeovanny Duron MD, PhD Primary Care Physician: No Doctor, Assigned Reason for Consultation: Patient is a 56-year-old, who was asked to see the request of Dr. Duron, for neurologic consultation regarding stroke History of Present Illness Source: patient, caregiver, hospital records The patient has no history of heart disease, diabetes, hypertension, or stroke in the past. He is a longtime cigarette smoker with over 80 pack years. He rolls his own cigarettes and doesn't use a filter, but figures he smokes about a pack and a half a day. He was a very heavy alcohol drinker in the past for proximally 20 years drinking at least 2 quarts of beer per day, cutting back about 15 years ago. He says he only rarely has a drink of alcohol now. The patient was seen as an outpatient in the spring of 2014. He had had right lower lobe pneumonia and I see from the chart that he was very negligent in getting his outpatient antibiotics after discharge from the hospital. He did follow-up enough to finish the course. I note that his weight in December 2014 was 134 pounds. Patient had left foot wound issues stemming back to the summer of 2013 and was seen wound clinic then. 2 months ago he's had an open wound in his left foot which wasn't healing and he has seen wound care again. Around 2000 hours on December 26, while at work, he noted the sudden onset of considerable numbness in the whole left side of his face and his whole right arm. The worst of this lasted for some minutes and then got better. It was not completely resolved however. 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 His leg was not numb and he had no pain or headache. No vision or speech problems. He went to bed and woke up the next morning at 0800 hours still with the numbness although not as bad as the night before when it first started. He arrived at the emergency room at 1058 hours on December 27 with a temperature 36.4 , pulse of 79 and regular, respiratory rate 18 and comfortable, blood pressure 144/87, and O2 saturation 100% on room air. His neurologic examination was noted to be unremarkable with no deficits. Chest x-ray was unremarkable CT scan of the head showed no acute changes but did show old ischemic changes CBC, chem profile, and lipid profile were unremarkable. MR angiography of the head and neck were unremarkable, there was no evidence for stenosis or aneurysm. MRI of the brain showed a small (8 mm) acute infarct in the left thalamus. There was mild to moderate, scattered old ischemic change bilaterally and mild generalized atrophy. Nursing reported no deficits overnight and had an NIH stroke scale of 0. The patient feels that he is back to baseline today although he may have some residual numbness in his fingers on the right hand. Patient tells me that his clothes are looser and that is probably been losing weight. He thought he was about 140 pounds but he weighed in at the hospital at 127 pounds. Past Medical/Surgical History Medical Problems: (1) TIA (transient ischemic attack) Status: Acute Left foot wound issue followed by wound clinic - this is healing. History of pneumonia November 2014 Long-standing history of left eye movement problems No history of previous surgery Family History Mother age 62 heart disease and stroke. Father age 77 of colon cancer and he had hypertension Mother: heart disease, stroke (~2 packs (rolls his own, unfiltered)) Social History Patient continues to smoke about 1-1/2 packs of cigarettes per day. He rolls his own and does not use a filter. He's been smoking since his teen years in a very heavy fashion. Patient was heavy alcohol user in the past. He drank at least 2 quarts of beer per day for 20 years cutting back around 15 years ago. Currently he will have a drink once every 1-3 months. 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 Smoking Status: Current every day smoker Smokeless Tobacco Use: No Alcohol Use: occasionally (previously heavy drinker) Drug Use: none Marital Status: single Housing Status: lives with roommate Occupation Status: employed Allergies Coded Allergies: No Known Allergies (Unverified , 12/27/16) Current Inpatient Medications Current Inpatient Medications Medications (Trade) Dose Ordered Sig/Mendy Route Start Time Stop Time Status Last Admin Dose Admin Clopidogrel Bisulfate (plAVix TAB) 75 mg QAM PO 12/28/16 09:00 01/27/17 08:59 Miscellaneous Information (Pharmacist Discharge Med Rec Consult) 1 ea UD PRN N/A 12/27/16 14:00 01/26/17 13:59 Enoxaparin Sodium (Lovenox Inj) 40 mg Q24H SC 12/27/16 21:00 01/26/17 20:59 12/27/16 20:28 40 MG Acetaminophen (Tylenol Tab) 650 mg Q4H PRN PO 12/27/16 14:00 01/26/17 13:59 12/27/16 19:52 650 MG Al Hydrox/Mg Hydrox/Simethicone (Maalox Max Susp) 15 ml Q4H PRN PO 12/27/16 14:00 01/26/17 13:59 Magnesium Hydroxide (Milk Of Magnesia Susp) 30 ml Q12H PRN PO 12/27/16 14:00 01/26/17 13:59 Zolpidem Tartrate (Ambien Tab) 5 mg HSZ PRN PO 12/27/16 14:00 01/26/17 13:59 Ondansetron HCl (Zofran Inj) 4 mg Q6H PRN IV 12/27/16 14:00 01/26/17 13:59 Polyethylene (Miralax Powder Packet) 17 gm DAILY PRN PO 12/27/16 14:00 01/26/17 13:59 Cephalexin Monohydrate (Keflex Cap) 500 mg TID PO 12/27/16 14:00 01/06/17 13:59 12/27/16 20:28 500 MG Nicotine (Nicoderm Cq 7 Mg Patch) 1 patch QAM TD 12/28/16 09:00 01/27/17 08:59 Miscellaneous (Remove Nicoderm Patch) 1 ea HS N/A 12/27/16 21:00 01/26/17 20:59 Albuterol/ Ipratropium (Duoneb) 3 ml Q4R PRN INH 12/27/16 14:15 01/26/17 14:14 Review of Systems Constitutional: + weight loss, No fatigue, No weakness Eyes: No diplopia, No worsening of vision ENT: No hearing loss, No sore throat, No trouble swallowing Respiratory: + cough, No shortness of breath Cardiovascular: No chest pain, No palpitations Abdomen: No nausea, No pain Musculoskeletal: No joint pain, No muscle pain Genitourinary - Male: No dysuria, No urinary incontinence Neurologic: + balance problems, + numbness/tingling, No memory loss, No vertigo , No weakness Psychiatric: No anxiety, No depression symptoms Endocrine: No fatigue Hematologic / Lymphatic: No abnormal bleeding/bruising Integumentary: No rash Allergic / Immunologic: No hives Physical Exam Vital Signs (Past 24 Hrs): Date Time Temp Pulse Resp B/P Pulse Ox O2 Delivery O2 Flow Rate FiO2 12/28/16 07:26 36.7 75 16 124/79 96 Room Air 12/28/16 04:00 Room Air 12/28/16 03:13 36.8 82 18 112/68 96 Room Air 12/28/16 00:00 Room Air 12/27/16 23:56 36.6 52 16 138/80 98 Room Air 12/27/16 20:13 36.4 54 18 144/82 96 Room Air 12/27/16 20:00 Room Air 12/27/16 15:37 36.7 61 20 151/73 98 Room Air 12/27/16 14:57 57 18 118/72 96 Room Air 12/27/16 13:10 61 16 140/69 98 Room Air 12/27/16 12:00 127/89 12/27/16 11:54 62 19 12/27/16 11:31 142/83 12/27/16 11:24 77 17 12/27/16 11:15 99 Room Air 12/27/16 11:14 141/90 12/27/16 10:58 36.4 79 18 144/87 100 Room Air Patient is right-handed. The patient is awake and alert. Speech has a nasal/lisp he quality to it but he does not have any actual dysarthria or aphasia. Mentation and thought processes are reasonable with conversation. Mood and affect are normal and appropriate. Appearance and grooming are normal, although he is very thin throughout. The discs are sharp with positive venous pulsations. Pupils are 4mm bilaterally and reactive to light. Extraocular eye muscles are intact except his left eye will not go past midline to the left and there is no nystagmus. Visual acuity and visual sandoval seem normal grossly to confrontation. There are no deficits to sensation of the face bilaterally. Corneal reflexes are positive bilaterally. Facial strength and symmetry is normal bilaterally. Hearing seems intact grossly to voice and finger rub. Palate moves well without asymmetry. There is normal sternocleidomastoid and trapezius strength bilaterally. Tongue is midline with good strength bilaterally. Neck is with full range of motion without discomfort. There are no cervical bruits. There are no cranial or ocular bruits. Heart is without murmur. Cervical, thoracic, and lumbar spine are nontender to palpation. Gait is narrow based but cautious. He has good arm swing and turns although he is cautious with turns. With outstretched arms there is a very slight drift on the right. There are no resting, postural, or action tremors. There is no ataxia with [id number] testing. There is good facility in the hands. There are no abnormal involuntary movements noted. Motor strength is 5/5 diffusely in the arms bilaterally including deltoids, biceps, brachioradialis, wrist flexors and extensors, special needs bus driver, and intrinsic hand muscles. Motor strength is 5/5 diffusely in the legs bilaterally including hip flexors, quadriceps, hamstring, gastrocnemius, tibialis anterior, tibialis posterior, and peroneii muscles bilaterally. Toe extensors are normal and there is good bulk in the extensor digitorum brevis muscle bilaterally. The limbs have good tone without rigidity or spasticity, and there is no atrophy noted. Muscle bulk is normal, there is no tenderness, no myotonia noted to percussion, and no fasciculations seen. Sensory examination is intact to pin and touch throughout all four limbs. Reflexes are 2/4 in the biceps, triceps, brachioradialis, quadriceps, and Achilles tendons bilaterally. Toes are downgoing with plantar stimulation bilaterally. Peripheral pulses are present and of normal quality distally in all four limbs. There is no peripheral edema noted. Laboratory Results Past 24 Hours: 12/28/16 05:37 Red Blood Count 5.66, Mean Corpuscular Volume 85.5, Mean Corpuscular Hemoglobin 28.6, Mean Corpuscular Hemoglobin Concent 33.5, Mean Platelet Volume 9.2, Neutrophils (%) (Auto) 53.7, Lymphocytes (%) (Auto) 34.9, Monocytes (%) (Auto) 7.0, Eosinophils (%) (Auto) 3.2, Basophils (%) (Auto) 1.0, Neutrophils # (Auto) 3.39, Lymphocytes # (Auto) 2.20, Monocytes # (Auto) 0.44, Eosinophils # (Auto) 0.20, Basophils # (Auto) 0.06 12/28/16 05:37 Test 12/27/16 11:22 12/27/16 11:34 12/27/16 11:35 12/28/16 05:37 Prothrombin Time 11.4 SECONDS (9.0-12.0) Prothromb Time International Ratio 1.1 (0.9-1.1) Activated Partial Thromboplast Time 26.9 SECONDS (21.0-31.0) Partial Thromboplastin Ratio 1.0 Estimated Average Glucose 123 mg/dl Hemoglobin A1c 5.9 % (4.5-5.6) Total Creatine Kinase 50 U/L (39-308) Creatine Kinase MB 2.3 ng/ml (0.5-3.6) Creatine Kinase MB Ratio 4.6 (0-3.0) Troponin I < 0.015 ng/ml (0-0.045) Bedside Prothrombin Time INR 1.1 (0.9-1.1) Bedside Glucose 104 mg/dl (70-99) White Blood Count 6.30 K/uL (4.8-10.8) Red Blood Count 5.66 M/uL (4.7-6.1) Hemoglobin 16.2 g/dL (14.0-18.0) Hematocrit 48.4 % (42-52) Mean Corpuscular Volume 85.5 fL (80-100) Mean Corpuscular Hemoglobin 28.6 pg (25-34) Mean Corpuscular Hemoglobin Concent 33.5 g/dl (32-36) Platelet Count 264 K/uL (130-400) Mean Platelet Volume 9.2 fL (7.4-10.4) Neutrophils (%) (Auto) 53.7 % Lymphocytes (%) (Auto) 34.9 % Monocytes (%) (Auto) 7.0 % Eosinophils (%) (Auto) 3.2 % Basophils (%) (Auto) 1.0 % Neutrophils # (Auto) 3.39 K/uL (1.4-6.5) Lymphocytes # (Auto) 2.20 K/uL (1.2-3.4) Monocytes # (Auto) 0.44 K/uL (0.11-0.59) Eosinophils # (Auto) 0.20 K/uL (0-0.5) Basophils # (Auto) 0.06 K/uL (0-0.2) RDW Standard Deviation 48.3 fL (36.4-46.3) RDW Coefficient of Variation 15.3 % (11.5-14.5) Immature Granulocyte % (Auto) 0.2 % Immature Granulocyte # (Auto) 0.01 K/uL (0.00-0.02) Anion Gap 7.0 mmol/L (3-11) Est Creatinine Clear Calc Drug Dose 124.1 ml/min Estimated GFR () 136.0 Estimated GFR (Non- 117.3 BUN/Creatinine Ratio 25.0 (10-20) Calcium Level 8.6 mg/dl (8.5-10.1) Triglycerides Level 97 mg/dl (0-150) Cholesterol Level 188 mg/dl (0-200) HDL Cholesterol 43 mg/dl LDL Cholesterol, Calculated 126 mg/dl VLDL Cholesterol, Calculated 19 mg/dl Cholesterol/HDL Ratio 4.4 Imaging MRI OF THE BRAIN COMBO CLINICAL HISTORY: Strokelike symptoms. COMPARISON STUDY: CT of the brain dated 12/27/2016. TECHNIQUE: MRI of the brain was performed utilizing various T1 and T2-weighted sequences in the axial, sagittal, and coronal planes. Contrast-enhanced sequences were acquired following the administration of 6 cc of Gadavist. FINDINGS: Brain parenchyma: There is an 8 mm focus of restricted diffusion identified in the left thalamus. This is consistent with acute to subacute lacunar infarct. No additional foci of restricted diffusion are identified. There is mild to moderate patchy subcortical and periventricular microangiopathic disease. There is no hemorrhage or mass effect. Chronic lacunar infarcts are identified within the right cerebellar hemisphere and the left thalamus. No enhancing mass lesion is identified on the postcontrast images. Aviles-white matter differentiation is preserved. No extra-axial fluid collection is seen. The cerebellar tonsils are normal in configuration. Ventricles, sulci, and cisterns: Normal in configuration. Pituitary and sella: Unremarkable. Intracranial vasculature: Normal flow voids are maintained at the skull base. Orbits: The bony orbits are grossly intact. Orbital contents are normal in appearance. Sinuses and mastoids: There is trace mucosal thickening within the maxillary antra. The remaining paranasal sinuses are clear. There is a trace left mastoid effusion. Calvarium: Unremarkable. Cervical cord: Partially visualized cervical spinal cord is normal in morphology and signal intensity. IMPRESSION: 1. There is an acute to subacute lacunar infarct identified in the left thalamus. 2. No additional foci of acute ischemia are identified. 3. There is no hemorrhage, enhancing mass, or midline shift. Electronically signed by: Morgan Philippe M.D. 12/27/2016 5:53 PM Dictated Date/Time: 12/27/2016 5:49 PM Impression 1. Acute, small (8 mm) left thalamic stroke, likely ischemic in nature from small vessel disease He had right face and arm numbness which is markedly improved as well as some clumsiness in the right hand which is improved. He has some slight drift on exam and some slight balance issues but otherwise he has no focal neurologic deficits and his NIH stroke scale equals 0. He has no meningeal signs or encephalopathy. His major risk factor for stroke is his heavy cigarette smoking. He does not have obvious hypertension or diabetes. 2. Chronic cerebral ischemia with some generalized atrophy This may be a chronic reflection of his heavy alcohol use in the past as well as the cigarette smoking. 3. Weight loss He does appear quite thin and has lost weight recently. I cannot exclude an underlying cancer. His chest x-ray was unremarkable. 4. 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 Awaiting echocardiogram 2. I counseled the patient regarding discontinuing cigarettes 3. Normally, I would agree with clopidogrel 75 mg daily. The patient, however, does have a history of noncompliance with medication and has issues with expensive medicine. Therefore it would be reasonable to switch to Plavix to 81 mg aspirin daily if desired. 4. This patient should obtain an follow-up with a PCP. He did see Dr. Whitaker and 2014 and could follow up with her I also can follow up this patient as an outpatient, if desired. I spoke with Dr. Silva regarding this case including differential diagnosis and treatment options
[2016-12-28] MEDS ORDERED: NICOTINE 7 MG/24 HR TDSY TD SCH (09:00)
[2016-12-28] MEDS ORDERED: CLOPIDOGREL BISULFATE 75 MG TAB PO SCH (09:00)
[2016-12-28] MEDS ORDERED: PERFLUTREN LIPID MICROSPHERE (DEFINITY) IV ONE (09:48)
[2016-12-28 11:46] VITALS: BP 127/81; PULSE 53; TEMP 36.7; O2SAT 98
[2016-12-28] MEDS ORDERED: BOOST PLUS VANILLA PO SCH ×2 (12:00)
[2016-12-28] MEDS ORDERED: ASPI1TAB83 PO (12:08)
[2016-12-28] MEDS ORDERED: LPT/40 PO (12:08)
--- NOTE | 2016-12-28 12:10 | Discharge Instructions ---
Discharge Instructions Date of Service December 28, 2016. Admission Reason for Admission: CVA Discharge Discharge Diagnosis / Problem: CVA Discharge Goals Goal(s): Decrease discomfort, Improve function, Increase independence, Improve disease control, Learn about illness, Diagnostic testing, Prevent Disease Progression Activity Recommendations Activity Limitations: resume your previous activity Exercise/Sports Limitations: none . Instructions / Follow-Up Instructions / Follow-Up Patient to be discharged home Counseled on smoking cessation and increase risk of stroke Please take baby aspirin once a day and atorvastatin once a day as well Please set up PCP on discharge, will need to follow up in 1-2 weeks Risk Factors for Stroke: You can reduce your chances of stroke by working with your medical provider to adopt a healthy lifestyle. Some specific ways to lower your chance of stroke are: * If you are a smoker, now is the time to stop smoking cigarettes * If you are diabetic, improve the control of your blood sugars * Avoid excessive amounts of alcohol * Control high blood pressure * Lose weight if you are overweight * Be sure to lead an active lifestyle * Eat a healthy diet low in salt, cholesterol and fat You should know about other risk factors for stroke that you are unable to control. These include: * Age 55 years or older * Male gender * Certain racial groups: , or / * Family History of Stroke, Mini stroke or Heart Attack * Sickle Cell Disease Follow Up: It is important for you to keep your follow up appointments with your medical provider. Current Hospital Diet Patient's current hospital diet: Low Sodium Diet (2gm Na), Low Fat Diet Discharge Diet Recommended Diet: Low Fat Diet Pending Studies Studies pending at discharge: no Laboratory Results Hemoglobin A1c Test 12/27/16 11:22 Range/Units Estimated Average Glucose 123 mg/dl Hemoglobin A1c 5.9 H 4.5-5.6 % Lipid Panel Test 12/28/16 05:37 Range/Units Triglycerides Level 97 0-150 mg/dl Cholesterol Level 188 0-200 mg/dl HDL Cholesterol 43 mg/dl Cholesterol/HDL Ratio 4.4 LDL Cholesterol, Calculated 126 mg/dl Medical Emergencies . Who to Call and When: Medical Emergencies: Call 911 immediately if you experience any of the following warning signs and symptoms of Stroke: * Sudden numbness or weakness of the face, arm or leg, especially on one side of the body * Sudden confusion, trouble speaking or understanding * Sudden trouble seeing in one or both eyes * Sudden trouble walking, dizziness, loss of balance or coordination * Sudden severe headache with no cause Do not delay calling 911 if you experience any warning signs or symptoms of a stroke. Delay in seeking medical attention may affect what treatments can be given to you. . Non-Emergent Contact Non-Emergency issues call your: Primary Care Provider Call Non-Emergent contact if: you have a fever, your pain is worsening . . "Provider Documentation" section prepared by Jonathan Silva. . Stroke Core Measures Reason no t-PA for Stroke: Treatment not indicated Reason no antithrom by day 2: Treatment provided - N/A Reason no antithrom at D/C: Treatment provided - N/A Reason no statin at D/C: Treatment provided - N/A Reason no anticoag w/a fib: Treatment not indicated VTE Core Measure Inpt VTE Proph given/why not?: Other Anticoagulation
--- NOTE | 2016-12-28 13:00 | ECHOCARDIOGRAM REPORT ---
*NOTICE TO RECEIVING REPUBLICAN AGENCY This information is strictly Confidential and protected under [place] law. [place] law prohibits you from making any further disclosure of this information unless further disclosure is expressly permitted by the written consent of the person to whom it pertains or is authorized by law. A general authorization for the release of medical or other information is not sufficient for this purpose. Hospital accepts no responsibility if the information is made available to any other person, INCLUDING THE PATIENT. Interpretation Summary * Name: NAYAN LAUREN Study Date: 12/28/2016 09:18 AM BP: 124/79 mmHg * Patient Location: [facility]\S\N288\S\2 HR: 57 * : 1960 (M/d/yyyy) Gender: Male Height: 76 in * Age: 56 yrs Ethnicity: [place] Weight: 132 lb * Ordering Physician: Jeovanny Duron * Referring Physician: Self, Referred * Performed By: Hussein Ricketts RDCS * * Reason For Study: CVA * BSA: 1.9 m2 * -- Conclusions -- * Left ventricular systolic function is normal. * Injection of contrast documented no interatrial shunt. * Right ventricular systolic pressure is elevated at 30-40mmHg. Procedure Details * A complete two-dimensional transthoracic echocardiogram was performed (2D, M-mode, Doppler and color flow Doppler). * The study was technically difficult. * There were technical limitations due to a congenital abnormal chest structure. * A saline contrast injection was performed to assess for cardiac shunting. * The injection was performed through an intravenous line in the right arm. * The attending nurse who injected the saline contrast was HADLEY Aleman. * A total of 10 cc of agitated saline was given. * A contrast injection of Definity was performed to improve assessment of LV function. * Contrast was injected into an intravenous site in the right arm. * Expiration date 3. * One vial of Definity ultrasound contrast was diluted in normal saline to a total volume of 10 ml. A total of '3' ml of solution was administered during imaging. * Lot # [id number] of Definity utilized for procedure. * The attending nurse who injected the contrast agent was HADLEY Aleman. Left Ventricle * The left ventricle is normal in size. * There is normal left ventricular wall thickness. * Left ventricular systolic function is normal. * Ejection Fraction = 60-65%. Right Ventricle * The right ventricle is normal in size and function. Atria * The left atrial size is normal. * Right atrial size is normal. * Injection of contrast documented no interatrial shunt. Mitral Valve * The mitral valve is grossly normal. * Significant mitral regurgitation is absent. Tricuspid Valve * The tricuspid valve is not well visualized, but is grossly normal. * There is mild tricuspid regurgitation. * Right ventricular systolic pressure is elevated at 30-40mmHg. Aortic Valve * The aortic valve is trileaflet. * Some calcification of the left coronary cusp at the coaptation * No hemodynamically significant valvular aortic stenosis. * Trace aortic regurgitation. Great Vessels * The aortic root is normal size. Pericardium/Pleural * There is no pericardial effusion. Great Vessels * Normal inferior vena cava diameter and respiratory variation suggests normal central venous pressure. MMode 2D Measurements and Calculations IVSd 0.93 cm IVSs 1.3 cm LVIDd 4.0 cm LVIDs 2.8 cm LVPWd 0.98 cm LVPWs 1.3 cm IVS/LVPW 0.95 FS 29.6 % EDV(Teich) 69.5 ml ESV(Teich) 29.7 ml EF(Teich) 57.2 % EDV(cubed) 63.4 ml ESV(cubed) 22.1 ml EF(cubed) 65.1 % % IVS thick 44.1 % % LVPW thick 30.5 % LV mass(C)d 118.9 grams LV mass(C)dI 64.0 grams/m\S\2 LV mass(C)s 115.6 grams LV mass(C)sI 62.3 grams/m\S\2 SV(Teich) 39.7 ml SI(Teich) 21.4 ml/m\S\2 SV(cubed) 41.3 ml SI(cubed) 22.2 ml/m\S\2 EPSS 0.52 cm Ao root diam 2.8 cm Ao root area 6.3 cm\S\2 ACS 2.1 cm LA dimension 2.4 cm asc Aorta Diam 3.2 cm LA/Ao 0.84 LVOT diam 1.9 cm LVOT area 3.0 cm\S\2 LVAd ap4 31.2 cm\S\2 LVLd ap4 7.7 cm EDV(MOD-sp4) 103.0 ml LVAs ap4 16.3 cm\S\2 LVLs ap4 6.1 cm ESV(MOD-sp4) 37.0 ml EF(MOD-sp4) 64.1 % LVAd ap2 26.9 cm\S\2 LVLd ap2 8.5 cm EDV(MOD-sp2) 67.0 ml LVAs ap2 14.0 cm\S\2 LVLs ap2 6.8 cm ESV(MOD-sp2) 24.0 ml EF(MOD-sp2) 64.2 % SV(MOD-sp4) 66.0 ml SI(MOD-sp4) 35.5 ml/m\S\2 SV(MOD-sp2) 43.0 ml SI(MOD-sp2) 23.2 ml/m\S\2 Doppler Measurements and Calculations MV E max aldo 80.8 cm/sec MV A max aldo 77.1 cm/sec MV E/A 1.0 MV dec time 0.31 sec Ao V2 max 153.1 cm/sec Ao max PG 9.4 mmHg Ao max PG (full) 3.4 mmHg ANGEL(V,A) 2.4 cm\S\2 ANGEL(V,D) 2.4 cm\S\2 AI max aldo 382.0 cm/sec AI max PG 58.4 mmHg AI dec slope 105.0 cm/sec\S\2 AI P1/2t 1065.6 msec LV V1 max PG 6.0 mmHg LV V1 mean PG 2.8 mmHg LV V1 max 122.6 cm/sec LV V1 mean 76.4 cm/sec LV V1 VTI 23.9 cm SV(LVOT) 71.1 ml SI(LVOT) 38.3 ml/m\S\2 PA V2 max 158.0 cm/sec PA max PG 10.0 mmHg TR max aldo 272.8 cm/sec
--- NOTE | 2016-12-28 14:08 | Pharmacy Progress Note ---
Pharmacist Stroke Counseling Date of Service December 28, 2016. Scope Pharmacy has been consulted to provide medication discharge counseling for this patient admitted with ischemic stroke/hemorrhagic stroke/ transient ischemic attack as per the Pharmacist Discharge Counseling for Stroke Patients Protocol. Medications on Discharge New Medications: Aspirin (Aspirin) 81 Mg Tab 1 TAB PO DAILY for 30 Days, #30 TAB 3 Refills Atorvastatin (Lipitor) 40 Mg Tab 40 MG PO DAILY for 30 Days, #30 TAB Continued Medications: Cephalexin Monohydrate (Keflex) 500 Mg Cap 500 MG PO TID, #30 CAP Action The above medications, specifically ones for stroke treatment/prophylaxis, have been reviewed in detail with the patient and/or patient lead generation representative(s) prior to discharge. This includes indication, common adverse reactions, drug interactions, and medication administration. Medication counseling has been employed using the teach-back method to ensure understanding. Outcome The patient and/or patient lead generation representative(s) have demonstrated understanding of the medications. Please note, they are aware that the pharmacist will call them within 72 hours post-discharge to confirm that the appropriate medications are being taken and answer any further medication related questions the patient might have at that time. Contact information Individual to be contacted: Israel Bravo Relationship to patient (if applicable): Self Phone number: [phone] Best time to call: 10:00 AM (patient works in the evening, morning is best) Additional comments: - Per provider progress notes, patient has history of non-adherence with Rx, possibly due to costs. Patient says he now has insurance as of 12/15/16 (he did not have last month). Assured patient that his new medications are not expensive and that he should have no problems obtaining. Patient not on any chronic medications. His only other Rx is Keflex, which he needs to complete for LE cellulitis. - Recommended enteric coated ASA. Advised to monitor for s/sx bleeding, bruising. - Advised to take Lipitor and ASA at same time to help with adherence. Advised to monitor for s/sx myopathy, discuss with provider if any concerns or problems. He actually does not have a PCP currently; he needs to get one. - He is unsure how he feels about smoking cessation. He apparently used to abuse alcohol, but has now abstained. Encouraged patient to utilize same willpower he had to quit eTOH to quit smoking. He has never tried to stop smoking before and is reluctant to quit as he has smoked his "whole life". He has never tried any smoking cessation pharmacotherapy. Advised that he can either purchase OTC nicotine replacement therapy or talk with provider about Rx (also informed him that some insurances will pay for OTC NRT, but he needs Rx from a provider... who he currently does not have). He is aware smoking incr' risk for recurrent stroke. Thank you for allowing pharmacy to be involved in the care of this patient. Please call [phone] or [phone] with any additional questions
--- NOTE | 2016-12-28 15:01 | Discharge Summary ---
Discharge Summary Date of Service December 28, 2016. Discharge Summary Admission Date: December 27, 2016 at 13:58 Discharge Date: December 28, 2016 Discharge Disposition: Home Principal Diagnosis: CVA Immunizations: Have You Had Influenza Vaccine: No History of Tetanus Vaccine?: Yes History of Pneumococcal: No History of Hepatitis B Vaccine: Unknown Consultations: Neurology Medication Reconciliation New Medications: Aspirin (Aspirin) 81 Mg Tab 1 TAB PO DAILY for 30 Days, #30 TAB 3 Refills Atorvastatin (Lipitor) 40 Mg Tab 40 MG PO DAILY for 30 Days, #30 TAB Continued Medications: Cephalexin Monohydrate (Keflex) 500 Mg Cap 500 MG PO TID, #30 CAP Discharge Exam Review of Systems: Constitutional: No chills, No fever Eyes: No eye pain, No worsening of vision Respiratory: No cough, No sputum Cardiovascular: No chest pain, No orthopnea Abdomen: No nausea, No pain, No vomiting Musculoskeletal: No joint pain, No muscle pain Genitourinary - Male: No dysuria, No hematuria Physical Exam: General Appearance: WD/WN, no apparent distress Neck: supple, no adenopathy Respiratory/Chest: chest non-tender, lungs clear Cardiovascular: regular rate, rhythm, no edema, no gallop Abdomen / GI: normal bowel sounds, non tender, soft Neurologic/Psychiatric: site planner II-XII nml as tested, no motor/sensory deficits , alert, oriented x 3 Hospital Course Acute, small (8 mm) left thalamic stroke on brain MRI, likely ischemic in nature from small vessel disease Head/Neck MRA completed as well. He had right face and arm numbness which is markedly improved as well as some clumsiness in the right hand which is improved. He has some slight drift on exam and some slight balance issues but otherwise he has no focal neurologic deficits and his NIH stroke scale equals 0. His major risk factor for stroke is his heavy cigarette smoking. He does not have obvious hypertension or diabetes. Cont ASA and statin on discharge, will need to find new PCP. Smoking cessation discussed Total Time Spent: Greater than 30 minutes This includes examination of the patient, discharge planning, medication reconciliation, and communication with other providers. Discharge Instructions Please refer to the electronic Patient Visit Report (Discharge Instructions) for additional information.
--- NOTE | 2017-01-02 13:45 | Pharmacy Progress Note ---
Pharmacist Post D/C Phone Note Date of phone call: Left message for patient on 12/31/16 @ 10 am The patient and/or patient sales representative rural power(s) were unable to be reached for a follow-up phone call within the 72 hour time frame. Discharge counseling pharmacist contact information has already been provided to the patient should questions arise. Thank you for allowing us to be involved in the care of this patient.
== END 2016-12-28 14:37 | disposition home or self-care (01) | DRG 65 ==
LOC: ENRESERVDT → ENRESERVTM → C.EDB 10:56 → C.MED 13:58
PROVIDERS: ADMIT Hospitalist; ATTEND Hospitalist
DX: I63.8 Other cerebral infarction (principal); L97.329 Non-pressure chronic ulcer of left ankle with unspecified severity; F17.200 Nicotine dependence, unspecified, uncomplicated; I73.9 Peripheral vascular disease, unspecified; F10.21 Alcohol dependence, in remission

== ENCOUNTER 2017-03-01 15:36 | Emergency (ER) | payer OTHER ==
[~2017-03-01] VITALS: Ht 193 cm; Wt 59.9 kg
[~2017-03-01 15:36] MED LIST changes: +ASPI1TAB83 PO; -CEPH500C2 PO; -HYDR-5688 PO
[2017-03-01 15:41] VITALS: TEMP 36.9; Ht 193 cm; Wt 59.9 kg
[2017-03-01] MEDS ORDERED: SODIUM CHLORIDE 0.9% 1000ML 1,000 ML IV STA (15:47)
[2017-03-01] MEDS ORDERED: ONDANSETRON INJ 2 MG/ML 2 ML VIAL IV STA (15:47)
[2017-03-01 16:00] VITALS: O2SAT 98
[2017-03-01 16:05] LABS: BASO % 0.4 %; BASO ABS # 0.03 K/uL (0-0.2); COMPLETE YES; EOS % 0.5 %; HEMATOCRIT 47.1 % (42-52); IG% 0.4 %; LYMPH % 10.8 %; LYMPH ABS # 0.83 K/uL (1.2-3.4); MEAN CELL VOLUME 84.7 fL (80-100); MEAN CORPUSCULAR HEMOGLOBIN 29.7 pg (25-34); MEAN PLATELET VOLUME 9.5 fL (7.4-10.4); MONO % 5.8 %; NEUT % 82.1 %; PLATELET COUNT 214 K/uL (130-400); RED BLOOD COUNT 5.56 M/uL (4.7-6.1); WHITE BLOOD COUNT 7.72 K/uL (4.8-10.8)
[2017-03-01] MEDS ORDERED: KETOROLAC TROMETHAMINE 30 MG/ML VIAL IV STA (16:11)
[2017-03-01 16:20] LABS: ALT/SGPT 19 U/L (12-78); BLOOD UREA NITROGEN 11 mg/dl (7-18); BUN/CREATININE RATIO 14.2 (10-20); CALCIUM 9.2 mg/dl (8.5-10.1); CARBON DIOXIDE 27 mmol/L (21-32); CHLORIDE 104 mmol/L (98-107); CREATININE 0.79 mg/dl (0.60-1.40); GLUCOSE 116 mg/dl (70-99); POTASSIUM 3.5 mmol/L (3.5-5.1); SODIUM 137 mmol/L (136-145)
--- NOTE | 2017-03-01 16:21 | DIAGNOSTIC IMAGING REPORT ---
CHEST ONE VIEW PORTABLE CLINICAL HISTORY: ABDOMINAL PAIN/GI pain COMPARISON STUDY: 12/27/2016 FINDINGS: Moderate emphysematous change. Lungs are clear. Diaphragms are flattened. No evidence for cardiac enlargement. IMPRESSION: Emphysematous change. No acute process. The above report was generated using voice recognition software. It may contain grammatical, syntax or spelling errors. Electronically signed by: Edgar Murillo M.D. 03/01/2017 4:20 PM Dictated Date/Time: 03/01/2017 4:19 PM
[2017-03-01 16:25] LABS: ALKALINE PHOSPHATASE 73 U/L (45-117); AST/SGOT 12 U/L (15-37)
[2017-03-01] MEDS ORDERED: ATOR-24 PO (16:33)
[2017-03-01 16:42] LABS: URINE APPEARANCE CLEAR (CLEAR); URINE BILIRUBIN NEG (NEG); URINE COLOR YELLOW; URINE NITRITE NEG (NEG); URINE PH 7.5 (4.5-7.5); URINE SPECIFIC GRAVITY 1.019 (1.000-1.030); UROBILINOGEN NEG (NEG); ZZUR CULT IF INDIC CLEAN CATCH NO
[2017-03-01 16:44] LABS: MANUAL MICROSCOPIC REQUIRED? NO; REVIEW REQ? NO
--- NOTE | 2017-03-01 17:07 | DIAGNOSTIC IMAGING REPORT ---
HEAD WITHOUT CONTRAST (CT) CT DOSE: 537.48 mGy.cm HISTORY: Headache headache frontal, n/v TECHNIQUE: Multiaxial CT images of the head were performed without the use of intravenous contrast. Comparison: None. Findings: The paranasal sinuses and mastoid air cells are clear. The calvarium and skull base are intact. The ventricles and sulci are within normal limits. There is no mass, hematoma, midline shift, or acute infarct. Age-related chronic small vessel change and frontal atrophy Impression: No acute intracranial abnormality. Chronic age-related change The above report was generated using voice recognition software. It may contain grammatical, syntax or spelling errors. Electronically signed by: Edgar Murillo M.D. 03/01/2017 5:05 PM Dictated Date/Time: 03/01/2017 5:04 PM
[2017-03-01 17:35] VITALS: BP 116/82; PULSE 70; O2SAT 98
--- NOTE | 2017-03-01 17:40 | EMERGENCY ROOM VISIT NOTE ---
History Report prepared by Coleenibberkley: Fannie Caro Under the Supervision of: Dr. Jose Vega D.O. First contact with patient: 15:47 Chief Complaint: ILLNESS Stated Complaint: WEAKNESS,HEADACHE,NAUSEA, VOMITING History of Present Illness The patient is a 56 year old male who presents to the Emergency Room with complaints of a constant difficulty breathing beginning this morning. The patient states that he had pneumonia several years ago and his symptoms today feel similar. He notes a history of stroke a few months ago. He reports that when he woke up this morning he began to have some difficulty breathing. He complains of shortness of breath, cough, nausea, vomiting, weakness, and headache. He denies any fever. The patient states that he took Tylenol for his headache without relief of his symptoms. He rates the pain as a 5/10 in severity. Source of History: patient Onset: this morning Position: other (global) Symptom Intensity: 5/10 Quality: other (difficulty breathing) Timing: constant Modifying Factors (Relieving): other (none) Associated Symptoms: + headache, + cough, + SOB, + nausea, + vomiting, + weakness, No fevers Review of Systems See HPI for pertinent positives & negatives. A total of 10 systems reviewed and were otherwise negative. Past Medical & Surgical Medical Problems: (1) cva (2) CVA (cerebral vascular accident) (3) No Known Active Medical Problems Family History Cancer Heart disease Hypertension Social History Smoking Status: Current Every Day Smoker Alcohol Use: occasionally Drug Use: none Marital Status: single Housing Status: lives with roommate Occupation Status: employed Current/Historical Medications Scheduled Aspirin (Aspirin), 1 TAB PO DAILY Atorvastatin (Lipitor), 40 MG PO DAILY Allergies Coded Allergies: No Known Allergies (Unverified , 12/27/16) Physical Exam Vital Signs Date Time Temp Pulse Resp B/P (MAP) Pulse Ox O2 Delivery O2 Flow Rate FiO2 03/01/17 17:35 70 16 116/82 98 Room Air 03/01/17 16:00 98 Room Air 03/01/17 16:00 64 03/01/17 15:41 36.9 79 18 126/75 95 Room Air Physical Exam CONSTITUTIONAL/VITAL SIGNS: Reviewed / noted above. GENERAL: Non-toxic in appearance. INTEGUMENTARY: Warm, dry, and [place]. HEAD: Normocephalic. EYES: without scleral icterus or trauma. ENT/OROPHARYNX: clear and moist. LYMPHADENOPATHY/NECK: Is supple without lymphadenopathy or meningismus. RESPIRATORY: Lungs clear and equal. CARDIOVASCULAR: Regular rate and rhythm. GI/ABDOMEN: Soft and nontender. No organomegaly or pulsatile mass. No rebound or guarding. Normal bowel sounds. EXTREMITIES: Warm and well perfused. BACK: No CVA tenderness. NEUROLOGICAL: Intact without focal deficits. PSYCHIATRIC: normal affect. MUSCULOSKELETAL: Normally developed with good muscle tone. Medical Decision & Procedures ER Provider Diagnostic Interpretation: Radiology results as stated below per my review and radiologist interpretation: CHEST ONE VIEW PORTABLE FINDINGS: Moderate emphysematous change. Lungs are clear. Diaphragms are flattened. No evidence for cardiac enlargement. IMPRESSION: Emphysematous change. No acute process. The above report was generated using voice recognition software. It may contain grammatical, syntax or spelling errors. Electronically signed by: Edgar Murillo M.D. 03/01/2017 4:20 PM Dictated Date/Time: 03/01/2017 4:19 PM HEAD WITHOUT CONTRAST (CT) Findings: The paranasal sinuses and mastoid air cells are clear. The calvarium and skull base are intact. The ventricles and sulci are within normal limits. There is no mass, hematoma, midline shift, or acute infarct. Age-related chronic small vessel change and frontal atrophy Impression: No acute intracranial abnormality. Chronic age-related change The above report was generated using voice recognition software. It may contain grammatical, syntax or spelling errors. Electronically signed by: Edgar Murillo M.D. 03/01/2017 5:05 PM Dictated Date/Time: 03/01/2017 5:04 PM Laboratory Results 03/01/17 15:55 Red Blood Count 5.56, Mean Corpuscular Volume 84.7, Mean Corpuscular Hemoglobin 29.7, Mean Corpuscular Hemoglobin Concent 35.0, Mean Platelet Volume 9.5, Neutrophils (%) (Auto) 82.1, Lymphocytes (%) (Auto) 10.8, Monocytes (%) (Auto) 5.8, Eosinophils (%) (Auto) 0.5, Basophils (%) (Auto) 0.4, Neutrophils # (Auto) 6.34, Lymphocytes # (Auto) 0.83, Monocytes # (Auto) 0.45, Eosinophils # (Auto) 0.04, Basophils # (Auto) 0.03 03/01/17 15:55 Test 03/01/17 15:55 03/01/17 16:28 White Blood Count 7.72 K/uL (4.8-10.8) Red Blood Count 5.56 M/uL (4.7-6.1) Hemoglobin 16.5 g/dL (14.0-18.0) Hematocrit 47.1 % (42-52) Mean Corpuscular Volume 84.7 fL (80-100) Mean Corpuscular Hemoglobin 29.7 pg (25-34) Mean Corpuscular Hemoglobin Concent 35.0 g/dl (32-36) Platelet Count 214 K/uL (130-400) Mean Platelet Volume 9.5 fL (7.4-10.4) Neutrophils (%) (Auto) 82.1 % Lymphocytes (%) (Auto) 10.8 % Monocytes (%) (Auto) 5.8 % Eosinophils (%) (Auto) 0.5 % Basophils (%) (Auto) 0.4 % Neutrophils # (Auto) 6.34 K/uL (1.4-6.5) Lymphocytes # (Auto) 0.83 K/uL (1.2-3.4) Monocytes # (Auto) 0.45 K/uL (0.11-0.59) Eosinophils # (Auto) 0.04 K/uL (0-0.5) Basophils # (Auto) 0.03 K/uL (0-0.2) RDW Standard Deviation 46.1 fL (36.4-46.3) RDW Coefficient of Variation 14.8 % (11.5-14.5) Immature Granulocyte % (Auto) 0.4 % Immature Granulocyte # (Auto) 0.03 K/uL (0.00-0.02) Anion Gap 6.0 mmol/L (3-11) Est Creatinine Clear Calc Drug Dose 89.5 ml/min Estimated GFR () 117.2 Estimated GFR (Non- 101.1 BUN/Creatinine Ratio 14.2 (10-20) Calcium Level 9.2 mg/dl (8.5-10.1) Total Bilirubin 1.3 mg/dl (0.2-1) Direct Bilirubin 0.2 mg/dl (0-0.2) Aspartate Amino Transf (AST/SGOT) 12 U/L (15-37) Alanine Aminotransferase (ALT/SGPT) 19 U/L (12-78) Alkaline Phosphatase 73 U/L (45-117) Troponin I < 0.015 ng/ml (0-0.045) Total Protein 7.5 gm/dl (6.4-8.2) Albumin 4.1 gm/dl (3.4-5.0) Lipase 130 U/L (73-393) Urine Color YELLOW Urine Appearance CLEAR (CLEAR) Urine pH 7.5 (4.5-7.5) Urine Specific [place] 1.019 (1.000-1.030) Urine Protein NEG (NEG) Urine Glucose (UA) NEG (NEG) Urine Ketones NEG (NEG) Urine Occult Blood NEG (NEG) Urine Nitrite NEG (NEG) Urine Bilirubin NEG (NEG) Urine Urobilinogen NEG (NEG) Urine Leukocyte Esterase SMALL (NEG) Urine WBC (Auto) 1-5 /hpf (0-5) Urine RBC (Auto) 0-4 /hpf (0-4) Urine Hyaline Casts (Auto) 0 /lpf (0-5) Urine Epithelial Cells (Auto) 10-20 /lpf (0-5) Urine Bacteria (Auto) NEG (NEG) Laboratory results as stated above per my review. Medications Administered Medications (Trade) Dose Ordered Sig/Mendy Route Start Time Stop Time Status Last Admin Dose Admin Sodium Chloride 1,000 ml @ 999 mls/hr Q1H1M STAT IV 03/01/17 15:47 03/01/17 16:47 DC 03/01/17 16:23 999 MLS/HR Ondansetron HCl (Zofran Inj) 4 mg NOW STAT IV 03/01/17 15:47 03/01/17 15:50 DC 03/01/17 16:24 4 MG Ketorolac Tromethamine (Toradol Inj) 30 mg NOW STAT IV 03/01/17 16:11 03/01/17 16:13 DC 03/01/17 16:24 30 MG ECG Indication: weakness Rate (beats per minute): 75 Rhythm: normal sinus Findings: no acute ischemic change, no ectopy ED Course 1547: Previous medical records were reviewed. The patient was evaluated in room B8. A complete history and physical examination was performed. 1547: Zofran Inj 4mg IV, Sodium Chloride 1000 ml @ 999 mls/hr IV. 1611: Toradol Inj 30mg IV. 1740: On reevaluation, the patient is doing well. I discussed the results and findings with the patient. He verbalized agreement of the treatment plan. The patient was discharged home. Medical Decision Differential includes acute coronary syndrome, myocardial infarction, CVA, TIA, anemia, infection, pneumonia, UTI, pyelonephritis, poor nutrition, dehydration, electrolyte disturbance,hypoglycemia. Medication Reconciliation: I attest that I have personally reviewed the patient' s current medication list. Blood pressure Screening: Patient was found to have normal blood pressure on screening and does not require follow-up. This is a 56-year-old male who presents to the ED with a chief complaint of some trouble breathing and a slight cough as well as a headache and some nausea and vomiting. The symptoms started this morning. They continued through the day today. The patient states his cough is nonproductive. He has not had fevers. No chest pains. No abdominal pains. No bloody stools. The patient's vital signs are normal. His physical exam was unremarkable. CT scan of the brain did not show acute process. Chest x-ray did not show acute process. CBC , complete metabolic panel, troponin, urine were within normal limits. EKG shows a normal sinus rhythm. The patient was treated with IV fluids, IV Zofran and IV Toradol. He was told the results the test. He is felt to be stable for discharge and outpatient follow-up. Impression Primary Impression: Headache Additional Impressions: Dyspnea Vomiting Scribe Attestation The scribe's documentation has been prepared under my direction and personally reviewed by me in its entirety. I confirm that the note above accurately reflects all work, treatment, procedures, and medical decision making performed by me. Departure Information Dispostion Home / Self-Care Referrals No Doctor, Assigned (PCP) Forms HOME CARE DOCUMENTATION FORM, IMPORTANT VISIT INFORMATION, WORK / SCHOOL INSTRUCTIONS Patient Instructions My [facility] Additional Instructions Follow-up with your doctor for further care and evaluation in 1-2 days. Return to the emergency department for worsening or new symptoms or any concerns. You have been examined and treated today on an emergency basis only. This is not a substitute for, or an effort to provide, complete comprehensive medical care. It is impossible to recognize and treat all injuries or illnesses in a single emergency department visit. It is therefore important that you follow up closely with your doctor. Call as soon as possible for an appointment. Problem Qualifiers
== END 2017-03-01 18:04 | disposition home or self-care (01) ==
LOC: C.EDB 15:37
DX: R51 Headache (principal); R06.00 Dyspnea, unspecified; R11.10 Vomiting, unspecified; Z86.73 Personal history of transient ischemic attack (TIA), and cerebral infarction without residual deficits; Z80.9 Family history of malignant neoplasm, unspecified; Z82.49 Family history of ischemic heart disease and other diseases of the circulatory system; F17.210 Nicotine dependence, cigarettes, uncomplicated; Z79.82 Long term (current) use of aspirin; Z79.899 Other long term (current) drug therapy

== ENCOUNTER → 2017-04-04 | Outpatient (CLI) | payer OTHER ==
[~2017-04-04] MED LIST changes: +ATOR-24 PO
[2017-04-04 10:58] LABS: THYROID STIMULATING HORMONE 0.918 uIu/ml (0.300-4.500)
== END | disposition home or self-care (01) ==
LOC: C.LAB 09:24
PROVIDERS: ATTEND Nurse Practitioner Family
DX: Z11.59 Encounter for screening for other viral diseases (principal); R63.4 Abnormal weight loss

== ENCOUNTER 2023-03-29 10:15 | Inpatient (IN) ==
[2023-03-29] MEDS ORDERED: ONDANSETRON INJ 2 MG/ML 2 ML VIAL IV STA ×2 (10:33→15:04)
[2023-03-29] MEDS ORDERED: HYDROmorphone INJ 1 MG/ML SYRINGE IV STA ×3 (10:33→13:48)
[2023-03-29] MEDS ORDERED: SODIUM CHLORIDE 0.9% 1000ML 1,000 ML IV ONE ×2 (10:33→11:25)
--- NOTE | 2023-03-29 10:38 | Emergency Department Note ---
Impression & Plan Cancer related pain, Left lower lobe pneumonia, Mass of left lung ED Provider Note Name: NAYAN LAUREN Age: 62 Sex: M Arrives Via: Walk-In Informant: Patient ED Provider: Jeovanny Lua MD Chief Complaint: Chest pain Impression: As per impressions above Medical Decision Makin-year-old gentleman with recently read diagnosis of lung cancer with metastasis. He is having pathologic fractures and is having significant pain due to his cancer. He arrives due to worsening pain, chills, cough, hypotension. Patient looks quite unwell on arrival. Blood cultures lactic acid along with other labs ordered. He was given empiric 2 and half liters IV fluids with improvement in his blood pressure. He had pain controlled with IV narcotics. He was given empiric IV Zosyn for concern for infection. Laboratory work-up with elevated white blood cell count. In the setting of hypotension elevated white count and concern for infection he likely does meet sepsis criteria. Following fluids patient is much improved. CT of the chest was obtained given amount of pain he is having. Necrotic mass consistent with his lung cancer noted which is worsening. He also has a left lower lobe pneumonia. Given these findings will need hospitalization especially given the fact he is a bit acidotic. Hospitalist consulted for further management. Prior Medical Record and Triage/Nursing Notes reviewed by Me Extensive external chart reviewed including outpatient primary care provider notes and hospitalization records Differentials:Pneumonia, pneumothorax, effusion, sepsis, ACS, dissection, PE, many other pathologies considered Vital Signs: reviewed and remarkable for hypertension Interventions: Normal saline bolus 2.5 L IV, Dilaudid 1 mg IV x3, Zosyn 4.5 g IV Labs:Reviewed and remarkable for elevated white blood cell count Imagin view chest x-ray reveals mass in the left mid chest no pneumothorax or large effusion appreciated. Old rib fractures on left ribs noted EKG:As per my interpretation. Indication sepsis. Normal sinus rhythm at 82 bpm QTc of 448. There is no ectopy no ischemia. When compared to an EKG of March 20, 2023 there is no significant change. Cardiac/Tele Monitoring: Cardiac Monitoring: An Order was placed for continuous cardiac monitoring. The monitor shows a rate of 80 with a normal sinus rhythm. Consults:Dr Green of the [facility] Hospitalist service Plan: Disposition: Hospitalization Condition: Fair History of Present Illness:62-year-old male arrives for evaluation of left chest pain. Patient notes posterior left chest pain over the last 1 to 2 weeks gradually worsening. Patient has a known history of metastatic lung cancer which is felt to be likely the but is awaiting further oncology input. Patient states the pain is getting so bad he is just vomiting constantly. He has been unable to keep any of his pain medications down has not been eating or drinking anything for the last few days. He gets lightheaded with standing. Patient admits diffuse entire body pains as well but primarily the left lower lateral ribs. Worse with deep inspiration and any movement. Does have some pain in the upper abdomen. He denies any syncope, headache, neck pain, fevers, concerning signs or symptoms. Taking Oxy IR at home but continues to vomited up. Past History:See Below Home Medications:See Below Allergies:See Below Vitals:Blood Pressure: 99/54, Pulse 87, RR 28, T 36.5C, O2 97% on RA Physical Exam: GENERAL: Patient is unwell/cachectic appearing and in moderate distress. Severely uncomfortable appearing. Dehydrated. RESPIRATORY: Patient is tachypneic and dyspneic without crackles or wheezing. CARDIOVASCULAR: Regular rate and rhythm.No murmurs, rubs, gallops appreciated. GASTROINTESTINAL: Abdomen soft, non-tender, no peritonitis.Bowel sounds positive.No masses appreciated. BACK: No midline tenderness, no CVA tenderness EXTREMITIES: Normal motion all extremities, no cyanosis, no edema. NEUROLOGIC: Alert and oriented, no focal neurologic deficit appreciated SKIN: No rash, no jaundice, no diaphoresis. PSYCH: Appropriate GCS: 15 ED Course: Times/Reassessments: Many repeat evaluations the patient throughout his stay. He is improving with IV pain medications he is comfortable with hospitalization. Repeat volume status exam. 1:30 PM. Patient is awake alert oriented he is breathing much more comfortably. He is still having some pain. Vital signs blood pressure 130/80, pulse 90, O2 sat 98% on room air. He has good cap refill. He has no significant distress other than the pain and review of systems is negative other than the pain he is having. Jeovanny Lua MD Past Med/Surg History Medical History Advanced care planning/counseling discussion Bladder diverticulum Bladder outlet obstruction Cachectic COPD with emphysema CVA (cerebral vascular accident) Approximately 6 years ago, no deficits History of CVA (cerebrovascular accident) History of rib fracture 2.5 months ago, medical management Hyperlipidemia Lower extremity ulceration Lymphadenopathy Pancreatic lesion Venous stasis ulcer resolved, "took out vein" Surgical History History of tooth extraction Hx of colonoscopy Status post left foot surgery Family History Mother Myocardial infarction Father Prostate cancer Family hx of colon cancer Hypertension Sister Diabetes Brother Lung cancer Thyroid cancer Other No family history of adverse response to anesthesia Denies family history of Ovarian cancer Breast cancer Social History Smoking Status: Current every day smoker Tobacco Type: Cigarettes Age Started Using Tobacco: 10; packs per day: 1; Cigarettes Per Day: at least 1 pack per day; Second Hand Exposure: Yes; Do You Dip or Chew Tobacco: No; Hx Alcohol Use: No (hx-quit 15-20 years ago) Hx Substance Use: No Preferred Language: Citizen Of [place] Communication Ability: Effective Visual Impairment: No Limitations Hearing Ability: Normal Proposal Review Analyst Required: No Beliefs That Will Affect Care: None marital status: Single Current Living Situation: Other Current Living Situation Comment: roommate current occupational status: unemployed 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 Feels Safe at Home: Yes Childhood Exposure to Second-Hand Smoke: No Diet: regular during the past year weight has: remained stable Dental Care, Regularly: No Physical Activity Frequency: Does not Exercise Seatbelt Use: always Sunscreen Use: No Do you think of yourself as: straight/heterosexual Assistive Devices: Glasses Allergies Allergies Allergy/AdvReac Type Severity Reaction Status Date / Time No Known Allergies Allergy Verified 03/29/23 13:34 Home Meds Home Medications Medication Instructions Recorded Confirmed acetaminophen 325 mg tablet 650 mg PO QID PRN Pain 01/03/21 03/29/23 (Tylenol) aspirin 81 mg tablet,delayed 81 mg PO QAM 01/03/21 03/29/23 release mirtazapine 15 mg tablet (Remeron) 15 mg PO HS 03/29/23 03/29/23 sennosides 8.6 mg tablet (Natural 8.6 mg PO HS 03/29/23 03/29/23 Senna Laxative) Previous Rx's Medication Instructions Recorded gabapentin 300 mg capsule 300 mg PO BID #60 caps 02/07/21 albuterol sulfate 90 mcg/actuation 1 inh inhalation Q4H PRN shortness 03/24/23 aerosol inhaler (Ventolin HFA) of breath or wheezing #18 grams fluticasone 250 mcg-salmeterol 50 1 inh inhalation QPM #60 ea 03/24/23 mcg/dose blistr powdr for inhalation (Advair Diskus) oxycodone 5 mg tablet 5 mg PO Q4H pain 30 days #180 tabs 03/24/23 Results & Data (ED) Vital Signs Vital Signs - 24 hr 03/29/23 10:18 03/29/23 10:36 03/29/23 10:48 Temperature 36.5 C Temperature Source Oral Pulse Rate 87 87 73 Respiratory Rate 28 H 20 Blood Pressure 99/54 L 107/71 Blood Pressure Mean 69 83 Blood Pressure Position Sitting Pulse Oximetry 97 95 Oxygen Delivery Method Room Air Room Air Sepsis Recent Fever Within 48 Hours No Sepsis New/Unexplained Change in Mental Status No Sepsis Action Taken by Nursing No Action Required 03/29/23 11:00 03/29/23 12:00 03/29/23 12:30 Temperature Temperature Source Pulse Rate 82 85 87 Respiratory Rate 20 20 20 Blood Pressure 109/68 113/66 103/67 Blood Pressure Mean 81 81 79 Blood Pressure Position Pulse Oximetry 96 98 98 Oxygen Delivery Method Room Air Room Air Room Air Sepsis Recent Fever Within 48 Hours Sepsis New/Unexplained Change in Mental Status Sepsis Action Taken by Nursing 03/29/23 13:31 Temperature Temperature Source Pulse Rate 90 Respiratory Rate 20 Blood Pressure 130/80 Blood Pressure Mean 96 Blood Pressure Position Pulse Oximetry 98 Oxygen Delivery Method Room Air Sepsis Recent Fever Within 48 Hours Sepsis New/Unexplained Change in Mental Status Sepsis Action Taken by Nursing Laboratory Data 03/29/23 10:37 03/29/23 12:25 Lab Results 03/29/23 03/29/23 03/29/23 Range/Units 10:37 10:37 10:37 WBC 17.15 H (4.8-10.8) K/ul RBC 4.12 L (4.70-6.10) M/uL Hgb 12.4 L (14.0-18.0) g/dl Hct 37.5 L (42.0-52.0) % MCV 91.0 (80.0-100.0) fL MCH 30.1 (25.0-34.0) pg MCHC 33.1 (32.0-36.0) g/dL RDW Std Deviation 50.4 H (36.4-46.3) fL RDW Coeff of Juan 15.1 H (11.5-14.5) % Plt Count 903 H (130-400) K/uL MPV 8.8 L (9.4-12.4) fL Immature Gran % (Auto) 0.4 % Neut % (Auto) 87.3 % Lymph % (Auto) 8.0 % Barron % (Auto) 3.3 % Eos % (Auto) 0.8 % Baso % (Auto) 0.2 % Neut # (Auto) 14.98 H (1.40-6.50) K/uL Lymph # (Auto) 1.37 (1.2-3.4) K/uL Barron # (Auto) 0.56 (0.11-0.59) K/uL Eos # (Auto) 0.13 (0-0.50) K/uL Baso # (Auto) 0.04 (0-0.2) K/uL Immature Gran # (Auto) 0.07 (0.01-0.20) K/uL VBG pH (7.36-7.41) Sodium Cancelled Potassium Cancelled Chloride Cancelled Carbon Dioxide Cancelled Anion Gap Cancelled BUN Cancelled Creatinine Cancelled Est Cr Clr Drug Dosing Cancelled Est GFR ( Amer) Cancelled Est GFR (Non-Af Amer) Cancelled BUN/Creatinine Ratio Cancelled Glucose Cancelled Lactate (0.4-2.0) mmol/L Calcium Cancelled Magnesium Cancelled Total Bilirubin Cancelled Direct Bilirubin Cancelled AST Cancelled ALT Cancelled Alkaline Phosphatase Cancelled Total Creatine Kinase Cancelled Troponin I High Sens Cancelled Total Protein Cancelled Albumin Cancelled Lipase Cancelled Procalcitonin Cancelled Urine Color Urine Appearance (Clear) Urine pH (4.5-7.5) Ur Specific Cornell (1.000-1.030) Urine Protein (Negative) Urine Glucose (UA) (Negative) Urine Ketones (Negative) Urine Blood (Negative) Urine Nitrite (Negative) Urine Bilirubin (Negative) Urine Urobilinogen (Negative) Ur Leukocyte Esterase (Negative) 03/29/23 03/29/23 03/29/23 Range/Units 11:35 12:25 12:59 WBC (4.8-10.8) K/ul RBC (4.70-6.10) M/uL Hgb (14.0-18.0) g/dl Hct (42.0-52.0) % MCV (80.0-100.0) fL MCH (25.0-34.0) pg MCHC (32.0-36.0) g/dL RDW Std Deviation (36.4-46.3) fL RDW Coeff of Juan (11.5-14.5) % Plt Count (130-400) K/uL MPV (9.4-12.4) fL Immature Gran % (Auto) % Neut % (Auto) % Lymph % (Auto) % Barron % (Auto) % Eos % (Auto) % Baso % (Auto) % Neut # (Auto) (1.40-6.50) K/uL Lymph # (Auto) (1.2-3.4) K/uL Barron # (Auto) (0.11-0.59) K/uL Eos # (Auto) (0-0.50) K/uL Baso # (Auto) (0-0.2) K/uL Immature Gran # (Auto) (0.01-0.20) K/uL VBG pH 7.30 L (7.36-7.41) Sodium 135 L Potassium 4.1 Chloride 102 Carbon Dioxide 27 Anion Gap 6 BUN 16 Creatinine 0.38 L Est Cr Clr Drug Dosing 166.9 Est GFR ( Amer) > 150.0 Est GFR (Non-Af Amer) 130.9 BUN/Creatinine Ratio 42.1 H Glucose 131 H Lactate 0.9 (0.4-2.0) mmol/L Calcium 8.2 L Magnesium 2.0 Total Bilirubin 0.5 Direct Bilirubin 0.2 AST 11 L ALT 20 Alkaline Phosphatase 246 H Total Creatine Kinase 11 L Troponin I High Sens 6.1 Total Protein 6.0 Albumin 3.0 L Lipase 4 L Procalcitonin Urine Color Urine Appearance (Clear) Urine pH (4.5-7.5) Ur Specific Cornell (1.000-1.030) Urine Protein (Negative) Urine Glucose (UA) (Negative) Urine Ketones (Negative) Urine Blood (Negative) Urine Nitrite (Negative) Urine Bilirubin (Negative) Urine Urobilinogen (Negative) Ur Leukocyte Esterase (Negative) 03/29/23 Range/Units 13:09 WBC (4.8-10.8) K/ul RBC (4.70-6.10) M/uL Hgb (14.0-18.0) g/dl Hct (42.0-52.0) % MCV (80.0-100.0) fL MCH (25.0-34.0) pg MCHC (32.0-36.0) g/dL RDW Std Deviation (36.4-46.3) fL RDW Coeff of Juan (11.5-14.5) % Plt Count (130-400) K/uL MPV (9.4-12.4) fL Immature Gran % (Auto) % Neut % (Auto) % Lymph % (Auto) % Barron % (Auto) % Eos % (Auto) % Baso % (Auto) % Neut # (Auto) (1.40-6.50) K/uL Lymph # (Auto) (1.2-3.4) K/uL Barron # (Auto) (0.11-0.59) K/uL Eos # (Auto) (0-0.50) K/uL Baso # (Auto) (0-0.2) K/uL Immature Gran # (Auto) (0.01-0.20) K/uL VBG pH (7.36-7.41) Sodium Potassium Chloride Carbon Dioxide Anion Gap BUN Creatinine Est Cr Clr Drug Dosing Est GFR ( Amer) Est GFR (Non-Af Amer) BUN/Creatinine Ratio Glucose Lactate (0.4-2.0) mmol/L Calcium Magnesium Total Bilirubin Direct Bilirubin AST ALT Alkaline Phosphatase Total Creatine Kinase Troponin I High Sens Total Protein Albumin Lipase Procalcitonin Urine Color Yellow Urine Appearance Clear (Clear) Urine pH 6.5 (4.5-7.5) Ur Specific Cornell 1.044 H (1.000-1.030) Urine Protein Negative (Negative) Urine Glucose (UA) Negative (Negative) Urine Ketones Negative (Negative) Urine Blood Negative (Negative) Urine Nitrite Negative (Negative) Urine Bilirubin Negative (Negative) Urine Urobilinogen Negative (Negative) Ur Leukocyte Esterase Negative (Negative) Administered Medications Discontinued Medications Hydromorphone HCl (Hydromorphone Inj 1 Mg/Ml Syringe) 1 mg IV NOW STA Stop: 03/29/23 10:34 Last Admin: 03/29/23 10:43 Dose: 1 mg Documented By: LAST Hydromorphone HCl (Hydromorphone Inj 1 Mg/Ml Syringe) 1 mg IV NOW STA Stop: 03/29/23 11:31 Last Admin: 03/29/23 11:50 Dose: 1 mg Documented By: LAST Sodium Chloride (Nss 1000ml) 1,000 mls @ 999 mls/hr IV .Q1H1M ONE Stop: 03/29/23 11:33 Last Infusion: 03/29/23 11:46 Dose: 0 mls/hr Documented By: Admin: 03/29/23 10:44 Dose: 999 mls/hr Documented By: LAST Sodium Chloride (Nss 1000ml) 1,000 mls @ 999 mls/hr IV .Q1H1M ONE Stop: 03/29/23 12:25 Last Infusion: 03/29/23 13:28 Dose: 0 mls/hr Documented By: Admin: 03/29/23 12:26 Dose: 999 mls/hr Documented By: LAST Sodium Chloride (Nss) 500 mls @ 999 mls/hr IV .Q31M ONE Stop: 03/29/23 11:55 Last Infusion: 03/29/23 12:22 Dose: 0 mls/hr Documented By: Admin: 03/29/23 11:51 Dose: 999 mls/hr Documented By: LAST Piperacillin Sod/Tazobactam Sod (Zosyn) 4.5 gm in 120 mls @ 240 mls/hr IV NOW ONE Stop: 03/29/23 11:54 Last Infusion: 03/29/23 12:22 Dose: 0 mls/hr Documented By: Admin: 03/29/23 11:51 Dose: 240 mls/hr Documented By: LAST Ioversol (Ioversol 350 Mg 125ml Prefilled Syringe) 120 ml IV ONCE ONE Stop: 03/29/23 12:46 Last Admin: 03/29/23 12:45 Dose: 120 ml Documented By: CORI Ondansetron HCl (Ondansetron Inj 2 Mg/Ml 2 Ml Vial) 4 mg IV NOW STA Stop: 03/29/23 10:34 Last Admin: 03/29/23 10:44 Dose: 4 mg Documented By: ANG Imaging Data Radiologist's Impression: Chest X-Ray 03/29/23 10:34 XR chest 1V portable CLINICAL HISTORY: left chest pain TECHNIQUE: Single frontal radiograph of the chest was obtained. Comparison: Comparison is made to chest radiograph 03/20/2023 FINDINGS: No lines and tubes are seen. The cardiomediastinal silhouette is normal. Left upper lobe mass is unchanged. Emphysema is again seen. No evidence of pleural effusion or pneumothorax. Left rib fractures are seen. IMPRESSION: No acute chest disease. ACT 112: Negative or not required by law. Electronically signed by: Ronaldo Hernández M.D. 03/29/2023 11:11 AM Chest CTA 03/29/23 11:30 CT angio chest PE protocol CLINICAL HISTORY: PE TECHNIQUE: Multidetector row helical CT of the chest was performed with angiographic protocol. Coronal and sagittal reformations were obtained. Coronal and sagittal MIPS were obtained from the axial data set and were submitted for review. Automated dose lowering techniques and/or adjustment according to patient size were utilized for this exam. CT DOSE: 563.98 mGy.cm Comparison: Comparison is made to CT chest 03/13/2023 and PET/CT 03/19/2023 FINDINGS: Lungs and pleura: Loculated mass the left upper lung is again seen, measuring approximately 87 x 70 mm compared to 79 x 16 mm on PET/CT. It has developed a few foci of cavitation. Emphysema is seen. There there are tree in bud nodular opacities in the left lower lung. A few tiny groundglass opacities are seen in the right lung, unchanged. Heart and pericardium: Heart size is normal. No pericardial effusion. Vessels: No evidence of pulmonary embolism. Mediastinum and vasquez: Multiple enlarged mediastinal lymph nodes measure up to 11 mm in diameter. Chest wall and lower neck: Unremarkable. Abdomen: Unremarkable. Bones: Unremarkable. IMPRESSION: 1. Interval mild enlargement of the left upper lobe mass with development of loculation and fluid. This may represent necrotic tumor. 2. Lymphadenopathy is again noted, likely metastatic. 3. Groundglass opacities are again noted in the right lung. 4. Left lower lung airspace opacities are seen, new from prior exam, which may represent pneumonia. ACT 112: Negative or not required by law. Electronically signed by: Ronaldo Hernández M.D. 03/29/2023 1:33 PM Discharge Plan Visit Data Chief Complaint: Back Injury/Pain Stated Complaint: BACK PAIN, CANCER PT ED Provider: Jeovanny Lua Discharge Problem: Cancer related pain, Left lower lobe pneumonia, Mass of left lung Forms Stand Alone Forms: [facility] Prescriptions Prescriptions: No Action albuterol sulfate [Ventolin HFA] 90 mcg/actuation HFA aerosol inhaler 1 inh inhalation Q4H PRN (Reason: shortness of breath or wheezing) Qty: 18 3RF fluticasone propion-salmeterol [Advair Diskus] 250-50 mcg/dose blister with device 1 inh inhalation QPM Qty: 60 3RF oxycodone 5 mg tablet 5 mg PO Q4H 30 Days Qty: 180 0RF gabapentin 300 mg capsule 300 mg PO BID Qty: 60 5RF acetaminophen [Tylenol] 325 mg Tablet 650 mg PO QID PRN (Reason: Pain) aspirin 81 mg Tablet,Delayed Release (Dr/Ec) 81 mg PO QAM sennosides [Natural Senna Laxative] 8.6 mg tablet 8.6 mg PO HS mirtazapine [Remeron] 15 mg tablet 15 mg PO HS Referrals Referrals: Libra Arciniega DO [Primary Care Provider] - Left lower lobe pneumonia Qualifiers: Pneumonia type: due to unspecified organism Qualified Code(s): J18.9 - Pneumonia, unspecified organism
--- NOTE | 2023-03-29 11:12 | XRay Report ---
XR chest 1V portable CLINICAL HISTORY: left chest pain TECHNIQUE: Single frontal radiograph of the chest was obtained. Comparison: Comparison is made to chest radiograph 03/20/2023 FINDINGS: No lines and tubes are seen. The cardiomediastinal silhouette is normal. Left upper lobe mass is unch anged. Emphysema is again seen. No evidence of pleural effusion or pneumothorax. Left rib fractures a re seen. IMPRESSION: No acute chest disease. ACT 112: Negative or not required by law. Electronically signed by: Ronaldo Hernández M.D. 03/29/2023 11:11 AM
[2023-03-29 11:18] LABS: Basophils # (auto) 0.04 K/uL (0-0.2); Basophils % (auto) 0.2 %; Eosinophils # (auto) 0.13 K/uL (0-0.50); Eosinophils % (auto) 0.8 %; Hematocrit (blood only) 37.5 % (42.0-52.0); Hemoglobin 12.4 g/dl (14.0-18.0); Immature Granulocytes # (auto) 0.07 K/uL (0.01-0.20); Immature Granulocytes % (auto) 0.4 %; Lymphocytes # (auto) 1.37 K/uL (1.2-3.4); Mean Corpuscular Hemoglobin 30.1 pg (25.0-34.0); Mean Corpuscular Hgb Conc 33.1 g/dL (32.0-36.0); Mean Platelet Volume 8.8 fL (9.4-12.4); Monocytes # (auto) 0.56 K/uL (0.11-0.59); Monocytes % (auto) 3.3 %; Neutrophils # (auto) 14.98 K/uL (1.40-6.50); Neutrophils % (auto) 87.3 %; Platelet Count 903 K/uL (130-400); RDW Coefficient of Variation 15.1 % (11.5-14.5); RDW Standard Deviation 50.4 fL (36.4-46.3); Red Blood Count 4.12 M/uL (4.70-6.10); White Blood Count 17.15 K/ul (4.8-10.8)
[2023-03-29] MEDS ORDERED: SODIUM CHLORIDE 0.9% 500 ML IV ONE (11:25)
[2023-03-29] MEDS ORDERED: PIPERACILLIN/TAZOBACTAM 4.5 GM/120 ML BAG IV ONE (11:25)
--- NOTE | 2023-03-29 11:52 | Electrocardiogram Report ---
Test Reason : Blood Pressure : / mmHG Vent. Rate : 082 BPM Atrial Rate : 082 BPM P-R Int : 138 ms QRS Dur : 084 ms QT Int : 384 ms P-R-T Axes : 061 100 067 degrees QTc Int : 448 ms Normal sinus rhythm Possible Left atrial enlargement Rightward axis Anterior infarct , age undetermined Abnormal ECG When compared with ECG of 20-MAR-2023 08:43, Premature atrial complexes are no longer Present Confirmed by Lanre Vargas ([id number]) on 03/29/2023 11:51:42 AM Referred By: REFERRED SELF Confirmed By:Lanre Vargas
--- NOTE | 2023-03-29 12:41 | History & Physical Report ---
Date of Service March 29, 2023 Assessment & Plan (1) Lung cancer: Plan: Attending: Dr. Green Israel Bravo is a 62-year-old male with a past medical history of recently diagnosed left upper lobe mass non-small cell lung adenocarcinoma, pancreatic cyst, COPD, tobacco use who presents for chest pain evaluation with gradually worsening constant pain over 1 to 2 weeks with suspected pathologic fractures. Patient underwent diagnostic EBUS 03/13/[address] Quijano. Pathology with transbronchial biopsy to the left upper lobe revealed non-small cell lung carcinoma consistent with adenocarcinoma. PET/CT performed 03/19/2023 showed FDG avid metastatic uptake the left suprahilar lymph region. There is also evidence of FDG avidity to the centrally necrotic mass lesion left upper lobe. No brain imaging has been performed as patient cannot lay flat. Patient has not seen oncology at this point. Hypotensive in ER to 99/50s Acute leukocytosis of 17, neutrophilic predominance without left shift CMP: Electrolytes currently are stable. Sodium is at 135. Other electrolytes are within normal limits. - VBG with pH of 7.30 Lactate normal, 0.9 Patient received a bolus of normal saline in the emergency department and systolic blood pressure improved and is currently maintaining stability at 119 systolically. -We will continue with normal saline at 125 mL/h on transfer to the floor. Repeat BMP at 8:00 tonight. Chest pain No acute findings. Chronic left rib fractures noted. No pleural effusion or pneumothorax Subacute rib fractures were previously noted on CT/CTA 02/2023; 6.5 cm left upper lobe mass suggestive of bronchogenic carcinoma and pathologic left suprahilar lymphadenopathy.. Partially healed displaced fractures were seen at the left eighth, ninth, 10th, 11th ribs. No lesions suggestive of bony metastasis were noted at that time -Patient tender to palpation on examination but no evidence of displaced rib. -In addition to narcotic analgesia, will prescribe Lidoderm pain patch to be applied at the area of the most sensitivity per patient. -Dilaudid 1 mg IV to be ordered every 4 hours as needed for severe pain. Patient currently is nauseous and not able to retain medications once ingested. We will continue with patient's oxycodone 5 mg every 4 hours scheduled per outpatient regimen. NSCL/Adenocarcinoma of the Lung - CT-A/P 01/2023: 6.5 cm spiculated and centrally necrotic mass lesion at the posterior left apex. There is metastatic left suprahilar lymphadenopathy. Additional small pulmonary nodules and groundglass pulmonary lesions as above. The groundglass lesions in the right lung are suspicious for additional adenomatous neoplasms. There is an approximately 6 cm septated/cystic lesion which may arise from the posterior aspect of the pancreas. A lesion such as a serous cystadenoma is favored. -PET/CT copied below suspicious for multi focal neoplasm, additional lymphoproliferative process, and unchanged pancreatic lesion without FDG uptake suspicious for cyst. No evidence of bony metastasis. - PET/CT 03/2023:1. A large and centrally necrotic mass lesion in the left upper lobe is markedly FDG avid and similar to the 03/13/2023 examination. There is FDG avid metastatic left suprahilar lymphadenopathy. There are 2 groundglass lesions identified in the right lung, one of which shows faint FDG uptake. These are highly suspicious for low-grade adenomatous lesions and favor multifocal neoplasm as opposed to metastatic disease. A 5 mm right lower lobe pulmonary nodule is indeterminate and too small for PET characterization. Again seen is bulky retroperitoneal and mesenteric lymphadenopathy. This was not demonstrably FDG avid, and the appearance is not typical for metastatic lung cancer. A lymphoproliferative process is favored. A septated cystic lesion arising from or posterior to the pancreas is unchanged. This did not show abnormal FDG uptake. -Patient reports that he is scheduled to see oncology on Thursday but has not seen anyone yet. We will request oncology consultation comment due to the apparent severity of the patient's malignancy. -At this time, patient has no evidence of hemoptysis. We will treat necrosis with Zosyn 4.5 mg every 8 hours IV. Patient has elevation of procalcitonin. No need to trend at this time. -Patient has not had any imaging of the brain at this time as he is not able to lay flat. 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 - Follows with Dr. Quijano in the outpatient clinic - Will continue with ICS/LAMA/LABA while inpatient and also order as needed Duonebs Venous stasis ulcer Class V recurrent left ankle venous stasis ulcer in the past which had gradually healed, last follow-up 02/2021 Tobacco abuse - Current everyday smoker - Will order nicoderm patch and request smoking cessation information on discharge History of bladder outlet obstruction -Patient denies difficulty with uriniation - Bladder scan q6h as needed - Follow I&Os Cachexia -Known malignancy with recent 20 pound weight loss -Nutrition/pet care worker consulted -Boost daily and as requested in between meals Thrombocytosis -Current platelet count is 903k/uL -Continue outpatient ASA 81mg daily -Heme/onc consulted for lung CA as above Patient seen and examined, chart reviewed, case discussed with Morgan Ellsworth PA-C and I agree with the assessment and plan as above except as otherwise noted Labs and images reviewed. Seen at bedside. Patient is cachectic, reports he has chronic shortness of breath and labored breathing although this has not changed. His pain improves after oxycodone, currently is pending a dose at around 730 but feels otherwise unchanged. Lungs are grossly clear without wheezes/rales, patient is ill and frail appearing. Case reviewed and agree with assessment and plan as noted in detailed above (2) Left lower lobe pneumonia: (3) COPD with emphysema: (4) Cachectic: History of Present Illness Chief Complaint: Refractory pain Primary Care Provider: Libra Arciniega DO Attending: Dr. Green Israel Bravo is a 62-year-old male with a past medical history of recently diagnosed left upper lobe mass non-small cell lung adenocarcinoma, pancreatic cyst, COPD, tobacco use who presents for chest pain evaluation with gradually worsening constant pain over 1 to 2 weeks with suspected pathologic fractures. Patient underwent diagnostic EBUS 03/13/[address] Quijano. Pathology with transbronchial biopsy to the left upper lobe revealed non-small cell lung carcinoma consistent with adenocarcinoma. PET/CT performed 03/19/2023 showed FDG avid metastatic uptake the left suprahilar lymph region. There is also evidence of FDG avidity to the centrally necrotic mass lesion left upper lobe. No brain imaging has been performed as patient cannot lay flat. Patient has not seen oncology at this point. Patient reports that he currently has significant back pain on the left flank and around ribs 10 through 12 on the left. He also is having nausea secondary to pain. Patient does have significant cough but has no hemoptysis and no significant sputum production. Patient denies any fever, chills, sweats, rigors. He does report weakness but is ambulating at home. Patient has never been and has no children. He currently lives with roommates. Heterosexual. No history of HIV, hepatitis. No prior blood transfusions. 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 Current everyday smoker. Allergies Allergy/AdvReac Type Severity Reaction Status Date / Time No Known Allergies Allergy Verified 03/29/23 13:34 Home Medications Medication Instructions Recorded Confirmed Type acetaminophen 325 mg tablet 650 mg PO QID PRN Pain 01/03/21 03/29/23 History (Tylenol) aspirin 81 mg tablet,delayed 81 mg PO QAM 01/03/21 03/29/23 History release gabapentin 300 mg capsule 300 mg PO BID #60 caps 02/07/21 03/29/23 Rx albuterol sulfate 90 mcg/actuation 1 inh inhalation Q4H PRN shortness 03/24/23 03/29/23 Rx aerosol inhaler (Ventolin HFA) of breath or wheezing #18 grams fluticasone 250 mcg-salmeterol 50 1 inh inhalation QPM #60 ea 03/24/23 03/29/23 Rx mcg/dose blistr powdr for inhalation (Advair Diskus) oxycodone 5 mg tablet 5 mg PO Q4H pain 30 days #180 tabs 03/24/23 03/29/23 Rx mirtazapine 15 mg tablet (Remeron) 15 mg PO HS 03/29/23 03/29/23 History sennosides 8.6 mg tablet (Natural 8.6 mg PO HS 03/29/23 03/29/23 History Senna Laxative) Past Med/Surg History Medical History Advanced care planning/counseling discussion Bladder diverticulum Bladder outlet obstruction Cachectic COPD with emphysema CVA (cerebral vascular accident) Approximately 6 years ago, no deficits History of CVA (cerebrovascular accident) History of rib fracture 2.5 months ago, medical management Hyperlipidemia Lower extremity ulceration Lymphadenopathy Pancreatic lesion Venous stasis ulcer resolved, "took out vein" Surgical History History of tooth extraction Hx of colonoscopy Status post left foot surgery Family History Mother Myocardial infarction Father Prostate cancer Family hx of colon cancer Hypertension Sister Diabetes Brother Lung cancer Thyroid cancer Other No family history of adverse response to anesthesia Denies family history of Ovarian cancer Breast cancer Social History Smoking Status: Current every day smoker Tobacco Type: Cigarettes Age Started Using Tobacco: 10; packs per day: 1; Cigarettes Per Day: 2-3; Second Hand Exposure: Yes; Do You Dip or Chew Tobacco: No; Hx Alcohol Use: No Hx Substance Use: No Preferred Language: Yoruba Communication Ability: Effective Visual Impairment: No Limitations Hearing Ability: Normal Mold Insert Changer Required: No Beliefs That Will Affect Care: None marital status: Single Current Living Situation: Other Current Living Situation Comment: Roomate- [place] current occupational status: unemployed 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 Cachectic. No acute distress but appears ill EYES: No icterus, gaze conjugate NOSE: No evidence of epistaxis MOUTH: No lesions or candidiasis NECK: Supple LUNGS: CTA B/L, no wheezes, rales or rhonchi HEART: Regular, rate controlled BACK: Posteriro left back lesion that appeared ulcerated without discharge ABDOMEN: Soft, NT, ND, BS Present EXTREMITIES: No LE edema, pedal pulses intact NEURO: A&OX3 Results & Data Results & Data Vital Signs (Past 12 Hours) Vital Signs Temp Pulse Resp BP Pulse Ox O2 Del Method 03/29/23 10:36 87 03/29/23 10:18 36.5 C 87 28 H 99/54 L 97 Room Air Critical Care Results & Data Vital Signs (Past 12 Hours) Vital Signs Temp Pulse Resp BP Pulse Ox O2 Del Method 03/29/23 14:40 81 21 119/94 96 Room Air 03/29/23 14:00 85 20 124/80 99 Room Air 03/29/23 14:22 82 03/29/23 13:31 90 20 130/80 98 Room Air 03/29/23 12:30 87 20 103/67 98 Room Air 03/29/23 12:00 85 20 113/66 98 Room Air 03/29/23 11:00 82 20 109/68 96 Room Air 03/29/23 10:48 73 20 107/71 95 Room Air 03/29/23 10:36 87 03/29/23 10:18 36.5 C 87 28 H 99/54 L 97 Room Air Lab & Micro Results (Past 24 Hours) RBC 4.12 M/uL (4.70-6.10) L 03/29/23 WBC 17.15 K/ul (4.8-10.8) H 03/29/23 Hgb 12.4 g/dl (14.0-18.0) L 03/29/23 Hct 37.5 % (42.0-52.0) L 03/29/23 MCV 91.0 fL (80.0-100.0) 03/29/23 MCH 30.1 pg (25.0-34.0) 03/29/23 MCHC 33.1 g/dL (32.0-36.0) 03/29/23 RDW Standard Deviation 50.4 fL (36.4-46.3) H 03/29/23 RDW Coefficient of Variation 15.1 % (11.5-14.5) H 03/29/23 Plt Count 903 K/uL (130-400) H 03/29/23 MPV 8.8 fL (9.4-12.4) L 03/29/23 Neutrophils (%) (Auto) 87.3 % 03/29/23 Lymphocytes (%) (Auto) 8.0 % 03/29/23 Monocytes # (Auto) 0.56 K/uL (0.11-0.59) 03/29/23 Eosinophils # (Auto) 0.13 K/uL (0-0.50) 03/29/23 Immature Granulocyte % (Auto) 0.4 % 03/29/23 Neutrophils # (Auto) 14.98 K/uL (1.40-6.50) H 03/29/23 Lymphocytes # (Auto) 1.37 K/uL (1.2-3.4) 03/29/23 Monocytes # (Auto) 0.56 K/uL (0.11-0.59) 03/29/23 Eosinophils # (Auto) 0.13 K/uL (0-0.50) 03/29/23 Basophils # (Auto) 0.04 K/uL (0-0.2) 03/29/23 Immature Granulocyte # (Auto) 0.07 K/uL (0.01-0.20) 3 Na 135 mmol/L (136-145) L 03/29/23 K 4.1 mmol/L (3.5-5.1) 03/29/23 Cl 102 mmol/L (98-107) 03/29/23 CO2 27 mmol/L (21-32) 03/29/23 Anion Gap 6 (3-11) 03/29/23 BUN 16 mg/dl (6-23) 03/29/23 Creatinine 0.38 mg/dl (0.6-1.4) L 03/29/23 Estimated GFR ( Amer) > 150.0 ml/min 03/29/23 Estimated GFR (Non-Af Amer) 130.9 ml/min 03/29/23 BUN/Creatinine Ratio 42.1 (10-20) H 03/29/23 Glu 131 mg/dl (70-99(Fasting)) H 03/29/23 Ca 8.2 mg/dl (8.6-10.3) L 03/29/23 Total Bilirubin 0.5 mg/dl (0.2-1.0) 03/29/23 Direct Bilirubin 0.2 mg/dl (0-0.2) 03/29/23 AST 11 U/L (13-39) L 03/29/23 ALT 20 U/L (7-52) 03/29/23 Alkaline Phosphatase 246 U/L (34-104) H 03/29/23 TP 6.0 gm/dl (6.0-8.3) 03/29/23 Albumin 3.0 gm/dl (3.4-5.0) L 03/29/23 Mg 2.0 mg/dl (1.7-2.4) 03/29/23 12:25 Calcium Level 8.2 mg/dl (8.6-10.3) L 03/29/23 12:25 Venous Blood pH 7.30 (7.36-7.41) L 03/29/23 12:59 Diagnostic Findings (Past 24 Hours) Chest X-Ray 03/29/23 10:34 XR chest 1V portable CLINICAL HISTORY: left chest pain TECHNIQUE: Single frontal radiograph of the chest was obtained. Comparison: Comparison is made to chest radiograph 03/20/2023 FINDINGS: No lines and tubes are seen. The cardiomediastinal silhouette is normal. Left upper lobe mass is unchanged. Emphysema is again seen. No evidence of pleural effusion or pneumothorax. Left rib fractures are seen. IMPRESSION: No acute chest disease. ACT 112: Negative or not required by law. Electronically signed by: Ronaldo Hernández M.D. 03/29/2023 11:11 AM Chest CTA 03/29/23 11:30 CT angio chest PE protocol CLINICAL HISTORY: PE TECHNIQUE: Multidetector row helical CT of the chest was performed with an giographic protocol. Coronal and sagittal reformations were obtained. Coronal and sagittal MIPS were obtained from the axial data set and were submitted for review. Automated dose lowering techniques and/or adjustment according to patient size were utilized for this exam. CT DOSE: 563.98 mGy.cm Comparison: Comparison is made to CT chest 03/13/2023 and PET/CT 03/19/2023 FINDINGS: Lungs and pleura: Loculated mass the left upper lung is again seen, measuring approximately 87 x 70 mm compared to 79 x 16 mm on PET/CT. It has developed a few foci of cavitation. Emphysema is seen. There there are tree in bud nodular opacities in the left lower lung. A few tiny groundglass opacities are seen in t he right lung, unchanged. Heart and pericardium: Heart size is normal. No pericardial effusion. Vessels: No evidence of pulmonary embolism. Mediastinum and vasquez: Multiple enlarged mediastinal lymph nodes measure up to 11 mm in diameter. Chest wall and lower neck: Unremarkable. Abdomen: Unremarkable. Bones: Unremarkable. IMPRESSION: 1. Interval mild enlargement of the left upper lobe mass with development of loculation and fluid. This may represent necrotic tumor. 2. Lymphadenopathy is again noted, likely metastatic. 3. Groundglass opacities are again noted in the right lung. 4. Left lower lung airspace opacities are seen, new from prior exam, which may represent pneumonia. ACT 112: Negative or not required by law. Electronically signed by: Ronaldo Hernández M.D. 03/29/2023 1:33 PM I & O Totals 24 Hours 03/28/23 03/29/23 03/30/23 06:59 06:59 06:59 Intake Total 2620 / 2620 Balance 2620 / 2620 Cumulative 03/29/23 10:15 thru 03/29/23 13:28 Intake Total 2620 Balance 2620 RT Ventilator Mngmt (Last Documented) Ventilator Ordered Settings Respiratory Rate 21 03/29/23 14:40 Ventilator - PT Measurements Respiratory Rate 21 Code Status & VTE Plan Code Status Patient desires to be full resuscitation. PG Care Time/CCT Total # of Minutes Spent Total Time Spent with Patient: Total time spent is greater than 50% in coordination of care (as documented) at patient's floor/unit and/or counseling patient: 80 minutes Coding Level of Care Code 89399 INT INP/OBS CARE 3/75MIN Diagnoses Lung cancer C34.90 Left lower lobe pneumonia J18.9 Pneumonia type: due to unspecified organism COPD with emphysema J43.9 Emphysema type: unspecified Cachectic R64 Time Spent (min) 80 (2) Left lower lobe pneumonia Pneumonia type: due to unspecified organism Qualified Code(s): J18.9 - Pneumonia, unspecified organism (3) COPD with emphysema Emphysema type: unspecified Qualified Code(s): J43.9 - Emphysema, unspecified
[2023-03-29] MEDS ORDERED: IOVERSOL 350 MG 125mL Prefilled Syringe IV ONE (12:45)
[2023-03-29 13:15] LABS: Alanine Aminotransferase 20 U/L (7-52); Alkaline Phosphatase 246 U/L (34-104); Anion Gap 6 (3-11); Aspartate Aminotransferase 11 U/L (13-39); BUN Creatinine Ratio 42.1 (10-20); Bilirubin Direct 0.2 mg/dl (0-0.2); Bilirubin,Total 0.5 mg/dl (0.2-1.0); Blood Urea Nitrogen 16 mg/dl (6-23); Calcium 8.2 mg/dl (8.6-10.3); Carbon Dioxide 27 mmol/L (21-32); Chloride 102 mmol/L (98-107); Creatine Kinase 11 U/L (30-223); Creatinine Clr Calc Pharmacy 166.9 ml/min; Est GFR (African American) > 150.0 ml/min; Est GFR (Non-African American) 130.9 ml/min; Glucose 131 mg/dl (70-99(Fasting)); Lipase 4 U/L (11-82); Potassium 4.1 mmol/L (3.5-5.1); Sodium 135 mmol/L (136-145)
[2023-03-29 13:21] LABS: Troponin I High Sensitivity 6.1 pg/ml (0-20)
[2023-03-29 13:36] LABS: Appearance Urine Clear (Clear); Bilirubin Urine Negative (Negative); Blood Urine Negative (Negative); Color Urine Yellow; Glucose Urine UA Negative (Negative); Ketones Urine Negative (Negative); Leukocyte Esterase Urine Negative (Negative); Nitrite Urine Negative (Negative); Protein Urine Negative (Negative); Specific Gravity Urine 1.044 (1.000-1.030); Urobilinogen Urine Negative (Negative); pH Urine 6.5 (4.5-7.5)
--- NOTE | 2023-03-29 13:36 | CT Scan Report ---
CT angio chest PE protocol CLINICAL HISTORY: PE TECHNIQUE: Multidetector row helical CT of the chest was performed with angiographic protocol. Dave l and sagittal reformations were obtained. Coronal and sagittal MIPS were obtained from the axial maxwell a set and were submitted for review. Automated dose lowering techniques and/or adjustment according to patient size were utilized for this exam. CT DOSE: 563.98 mGy.cm Comparison: Comparison is made to CT chest 03/13/2023 and PET/CT 03/19/2023 FINDINGS: Lungs and pleura: Loculated mass the left upper lung is again seen, measuring approximately 87 x 70 m m compared to 79 x 16 mm on PET/CT. It has developed a few foci of cavitation. Emphysema is seen. The re there are tree in bud nodular opacities in the left lower lung. A few tiny groundglass opacities a re seen in the right lung, unchanged. Heart and pericardium: Heart size is normal. No pericardial effusion. Vessels: No evidence of pulmonary embolism. Mediastinum and vasquez: Multiple enlarged mediastinal lymph nodes measure up to 11 mm in diameter. Chest wall and lower neck: Unremarkable. Abdomen: Unremarkable. Bones: Unremarkable. IMPRESSION: 1. Interval mild enlargement of the left upper lobe mass with development of loculation and fluid. T his may represent necrotic tumor. 2. Lymphadenopathy is again noted, likely metastatic. 3. Groundglass opacities are again noted in the right lung. 4. Left lower lung airspace opacities are seen, new from prior exam, which may represent pneumonia. ACT 112: Negative or not required by law. Electronically signed by: Ronaldo Hernández M.D. 03/29/2023 1:33 PM
[2023-03-29] MEDS ORDERED: HYDROmorphone INJ 1 MG/ML SYRINGE IV PRN (13:48)
[2023-03-29] MEDS ORDERED: SODIUM CHLORIDE 0.9% 1000ML 1,000 ML IV SCH (14:00)
[2023-03-29] MEDS ORDERED: ONDANSETRON 4 MG OD TAB PO PRN (17:03)
[2023-03-29] MEDS ORDERED: ALBUTEROL HFA 8 GM INHALER INH PRN (17:03)
[2023-03-29] MEDS ORDERED: IPRATROPIUM BROMIDE/ALBUTEROL respimat INH INH PRN (17:03)
[2023-03-29] MEDS ORDERED: NALOXONE HCL 0.4 MG/1 ML VIAL/CARP IV PRN (17:03)
[2023-03-29] MEDS: oxyCODONE HCL IR 5 MG TAB (IMMEDIATE RELEASE) PO SCH ×2 (17:36→21:42)
[2023-03-29] MEDS: ONDANSETRON INJ 2 MG/ML 2 ML VIAL IV PRN (17:36)
[2023-03-29] MEDS: LIDOCAINE 5% 1 PATCH TD SCH (18:22)
[2023-03-29] MEDS: PIPERACILLIN/TAZOBACTAM 4.5 GM in DEXTROSE 5% 100 ML IV SCH (18:23)
[2023-03-29] MEDS: HEPARIN SOD 5,000 UNIT/0.5 ML VIAL SQ SCH ×2 (18:23→21:43)
[2023-03-29] MEDS: SODIUM CHLORIDE 0.9% 1000ML 1,000 ML IV SCH (18:33)
[2023-03-29] MEDS: ALBUTEROL HFA 8 GM INHALER INH SCH (19:19)
[2023-03-29] MEDS: IPRATROPIUM BROMIDE HFA INHALER INH SCH (19:20)
[2023-03-29] MEDS: HYDROmorphone INJ 1 MG/ML SYRINGE IV PRN (19:51)
[2023-03-29] MEDS: MIRTAZAPINE TAB 15 MG TAB PO SCH (20:03)
[2023-03-29] MEDS: GABAPENTIN 300 MG CAP PO SCH (20:03)
[2023-03-29] MEDS: SENNA 8.6 MG TAB PO SCH (20:04)
--- NOTE | 2023-03-29 22:07 | XRay Report ---
XR chest 1V portable CLINICAL HISTORY: Necrotic Lung Cancer TECHNIQUE: Single frontal radiograph of the chest was obtained. Comparison: Comparison is made to chest radiograph 03/29/2023 and CTA chest 03/29/2023 FINDINGS: No lines and tubes are seen. The cardiomediastinal silhouette is normal. Cavitary appearing mass in t he left upper lobe is unchanged. Faint airspace opacities in the left lower lung slightly more conspi cuous than in the prior exam. No evidence of pleural effusion or pneumothorax. Left rib fractures are again seen. IMPRESSION: Interval stability of left upper lobe pulmonary mass. More conspicuous airspace opacities in the left lower lung likely represent worsening pneumonia, atelectasis, and/or aspiration. ACT 112: Negative or not required by law. Electronically signed by: Ronaldo Hernández M.D. 03/29/2023 10:06 PM
[2023-03-30] MEDS: PIPERACILLIN/TAZOBACTAM 4.5 GM in DEXTROSE 5% 100 ML IV SCH ×3 (02:05→17:50)
[2023-03-30] MEDS: SODIUM CHLORIDE 0.9% 1000ML 1,000 ML IV SCH ×2 (02:05→09:07)
[2023-03-30] MEDS: oxyCODONE HCL IR 5 MG TAB (IMMEDIATE RELEASE) PO SCH ×6 (02:05→22:08)
[2023-03-30] MEDS: HEPARIN SOD 5,000 UNIT/0.5 ML VIAL SQ SCH ×3 (06:00→17:04)
[2023-03-30] MEDS: ALBUTEROL HFA 8 GM INHALER INH SCH ×4 (07:16→19:34)
[2023-03-30] MEDS: IPRATROPIUM BROMIDE HFA INHALER INH SCH ×4 (07:17→19:34)
--- NOTE | 2023-03-30 07:29 | XRay Report ---
XR chest 1V portable HISTORY: Necrotic Lung Cancer COMPARISON: Chest 03/29/2023. FINDINGS: No pneumothorax. No pleural effusions. The heart is normal in size. There is diffuse inters titial thickening, unchanged. Left mid to lower lung zone airspace opacities have slightly progressed . The left upper lobe cavitary mass is again noted. There is emphysema. Healing left lower rib fractu res. IMPRESSION: 1. Interval progression of the left mid to lower lung zone airspace opacities. This is consistent wit h a pneumonia and could be due to aspiration. 2. The cavitary left upper lobe mass is again noted. 3. Emphysema. ACT 112: Negative or not required by law. Electronically signed by: Paxton Hanson M.D. 03/30/2023 7:28 AM
[2023-03-30 07:49] LABS: Basophils # (auto) 0.04 K/uL (0-0.2); Basophils % (auto) 0.2 %; Eosinophils # (auto) 0.12 K/uL (0-0.50); Eosinophils % (auto) 0.6 %; Hematocrit (blood only) 30.3 % (42.0-52.0); Hemoglobin 10.3 g/dl (14.0-18.0); Immature Granulocytes # (auto) 0.14 K/uL (0.01-0.20); Immature Granulocytes % (auto) 0.7 %; Lymphocytes # (auto) 1.89 K/uL (1.2-3.4); Lymphocytes % (auto) 9.7 %; Mean Corpuscular Hemoglobin 30.7 pg (25.0-34.0); Mean Corpuscular Volume 90.2 fL (80.0-100.0); Mean Platelet Volume 8.4 fL (9.4-12.4); Monocytes # (auto) 0.76 K/uL (0.11-0.59); Monocytes % (auto) 3.9 %; Neutrophils # (auto) 16.47 K/uL (1.40-6.50); Neutrophils % (auto) 84.9 %; Platelet Count 886 K/uL (130-400); RDW Coefficient of Variation 14.8 % (11.5-14.5); RDW Standard Deviation 48.5 fL (36.4-46.3); Red Blood Count 3.36 M/uL (4.70-6.10); White Blood Count 19.42 K/ul (4.8-10.8)
[2023-03-30 08:03] LABS: Albumin Level 2.6 gm/dl (3.4-5.0); BUN Creatinine Ratio 17.5 (10-20); Bilirubin Direct 0.2 mg/dl (0-0.2); Bilirubin,Total 0.5 mg/dl (0.2-1.0); Calcium 7.9 mg/dl (8.6-10.3); Creatinine Clr Calc Pharmacy 167.9 ml/min; Est GFR (African American) 148.6 ml/min; Est GFR (Non-African American) 128.2 ml/min; Magnesium 1.8 mg/dl (1.7-2.4); Phosphorus 2.5 mg/dl (2.5-4.9); Potassium 3.7 mmol/L (3.5-5.1); Total Protein 5.1 gm/dl (6.0-8.3)
--- NOTE | 2023-03-30 08:18 | Hospitalist Progress Note ---
Date of Service March 30, 2023 Assessment & Plan (1) Lung cancer: Plan: 62-year-old male with a past medical history of recently diagnosed left upper lobe mass non-small cell lung adenocarcinoma, pancreatic cyst, COPD, tobacco use who presents for chest pain evaluation with gradually worsening constant pain over 1 to 2 weeks with suspected pathologic fractures along with 15lb weight loss over past 6 months. [id number] on admission. Lactic 0.9, hypotension w/ BP 99/50s NSCL/Adenocarcinoma of the Lung/Pneumonia CT-A/P 01/2023: 6.5 cm spiculated and centrally necrotic mass lesion at the posterior left apex. There is metastatic left suprahilar lymphadenopathy. Additional small pulmonary nodules and groundglass pulmonary lesions as above. The groundglass lesions in the right lung are suspicious for additional adenom atous neoplasms. There is an approximately 6 cm septated/cystic lesion which may arise from the posterior aspect of the pancreas. A lesion such as a serous cystadenoma is favored. PET/CT suspicious for multi focal neoplasm, additional lymphoproliferative process, and unchanged pancreatic lesion without FDG uptake suspicious for cyst. No evidence of bony metastasis. * PET/CT 03/2023:1. A large and centrally necrotic mass lesion in the left upper lobe is markedly FDG avid and similar to the 03/13/2023 examination. There is FDG avid metastatic left suprahilar lymphadenopathy. There are 2 groundglass lesions identified in the right lung, one of which shows faint FDG uptake. These are highly suspicious for low-grade adenomatous lesions and favor multifocal neoplasm as opposed to metastatic disease. A 5 mm right lower lobe pulmonary nodule is indeterminate and too small for PET characterization. Again seen is bulky retroperitoneal and mesenteric lymphadenopathy. This was not demonstrably FDG avid, and the appearance is not typical for metastatic lung cancer. A lymphoproliferative process is favored. A septated cystic lesion arising from or posterior to the pancreas is unchanged. This did not show abnormal FDG uptake. s/p diagnostic EBUS 03/13/[address] Quijano. Pathology with transbronchial biopsy to the left upper lobe revealed non-small cell lung carcinoma consistent with adenocarcinoma. PET/CT performed 03/19/2023 showed FDG avid metastatic uptake the left suprahilar lymph region. There is also evidence of FDG avidity to the centrally necrotic mass lesion left upper lobe. Reports feeling better this morning, less pain since starting antibiotics/IVF on admission for hypotension, no further chest pain reported (aside from rib pain, remote fractures in November reported, noted on CT February as below) * Subacute rib fractures were previously noted on CT/CTA 02/2023; 6.5 cm left u pper lobe mass suggestive of bronchogenic carcinoma and pathologic left suprahilar lymphadenopathy.. Partially healed displaced fractures were seen at the left eighth, ninth, 10th, 11th ribs. No lesions suggestive of bony metastasis were noted at that time Continue ABX to treat necrosis with IV Zosyn. Procal 12.6 PNA most likely from malignant tumor, Quant gold/AFB negative as outpatient, no need for isolation at this time Aspiration precautions in place, will consult speech Blood cultures pending Incentive spirometer added, flutter valve. Albuterol/atrovent QID scheduled, albuterol HFA prn Supplemental O2 if needed -- currently on room air Smoking cessation encouraged -- reported quit a couple of days ago, declined nicotine patch at present Pain control w/ IV dilaudid utilized w/ good response. Continues on home oxycodone scheduled as well. Could consider starting low dose fentayl patch/titrating for pain Antiemetics as prn - one episode emesis this morning, nothing further reported Checking iron studies/B12/folate given anemia/thrombocytosis/elevated procalcitonin Reporting able to lay flat today and MRI BRAIN w/wo contrast ordered, read pending. ?need for radiation/oncology consult/steroids/etc pending results if evidence for metastasis Heme/onc consulted -- pending Although patient may be a candidate for palliative care consultation, at this time we will await comment from oncology given patient reporting wanting any/all treatments that would be available Monitor labs on repeat (2) Hypotension: Plan: Hypotensive in ER to 99/50s Secondary to n/v, dehydration, infection. VBG 7.3, lactic wnl 0.9 Received 2.5L IVF on admission, continued on 125cc/hr overnight which was decreased to 75cc/hr this morning . Suspect Na level likely 2nd to lung ca as above BP 110/68 given BP remaining stable will discontinue for now. 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 Follows with Dr. 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 daily and as requested in between meals (6) Thrombocytosis: Plan: Plt 903k on admission, 886k on repeat Remains on ASA 81mg daily Heme/onc consulted as above, iron studies/b12/folate added Monitor (7) Nicotine dependence: Plan: Most recent everyday smoker -- reports quit a couple days ago, suspect in light of new diagnosis as above Continued cessation encouraged Can order nicotine patch if needed (8) Bladder outlet obstruction: Plan: Patient denies difficulty with urination however no output recorded in system Placed order for I&O for today to ensure no issues, also order for bladder scan as needed Follow I&Os (9) Chest pain: Plan: CXR No acute findings. Chronic left rib fractures noted. No pleural effusion or pneumothorax Subacute rib fractures were previously noted on CT/CTA 02/2023; 6.5 cm left upper lobe mass suggestive of bronchogenic carcinoma and pathologic left suprahilar lymphadenopathy.. Partially healed displaced fractures were seen at the left eighth, ninth, 10th, 11th ribs. No lesions suggestive of bony metastasis were noted at that time Patient tender to palpation on examination but no evidence of displaced rib and rx for lidocaine patch as well as IV Dilaudid for breakthrough w/ usual home oxycodone q4h prn scheduled ordered and can transition to prn for tomorrow as long as pain remains stable Consider reaching out to palliative about recs for pain control moving forward ?consideration for fentanyl given oxycodone (10) Cancer related pain: Plan: as above, ,?consideration for starting low dose fentanyl patch to help with pain monitor IV Dilaudid use w/ his baseline oxycodone DVT prophylaxis: Heparin SQ given high risk/cancer Admission and Anticipated Discharge Date Admission Date: March 29, 2023 Supervising Physician Co-Signing Physician Notes PA Supervision Note: I did not personally see or examine the patient. I verified all mcclain points and agree with DEVAN Diez with the following exceptions and/or additions: none Subjective Eval this afternoon, just got back from MRI. Reports pain much improved since admission and antibiotics and not having as much at all this morning. Had one episode of emesis, reports his breath made him nauseated, brushed his teeth. Feeling better, no further emesis or nausea reported. He notes about 15lb weight loss over past 6 months, broken ribs in november. Aware of lung dx but awaiting MRI to see if need for radiation/oncology. He is agreeable to any/all treatment that would be available. Questions/concerns addressed at this time. Physical Exam Physical Exam: GENERAL :thin, cachectic , ill appearing male sitting up in bed, just got back from MRI, NAD HEENT: head normocephalic, atraumatic, pupils anicteric, EOMI intact chest: tender to palpation, lidocaine patch in place Resp: no distress, RR ~22, +cough at times, no significant wheezing/rales, slightly diminished in the bases/associated crackles, on room air CV: regular rhythm, rates 90-100s, no significant m/r/g, no pitting edema or calf tenderness bilaterally, cap refill wnl GI: +BS, soft/NT : no rucker MSK/Neuro: no focal deficits, answering questions appropriately but slightly muffled speech Psych: alert to person/place/time, cooperative with exam Results & Data Results & Data Vital Signs (Past 12 Hours) Vital Signs Temp Pulse Resp BP Pulse Ox O2 Del Method 03/30/23 07:38 Room Air 03/30/23 07:19 86 18 92 Room Air 03/30/23 06:53 37.5 C 91 H 18 110/68 94 Room Air 03/29/23 20:37 37 C 98 H 18 117/58 L 94 Room Air Laboratory Results 03/30/23 03/30/23 03/30/23 Range/Units 07:07 07:07 07:07 WBC 19.42 H (4.8-10.8) K/ul RBC 3.36 L (4.70-6.10) M/uL Hgb 10.3 L (14.0-18.0) g/dl Hct 30.3 L (42.0-52.0) % MCV 90.2 (80.0-100.0) fL MCH 30.7 (25.0-34.0) pg MCHC 34.0 (32.0-36.0) g/dL RDW Std Deviation 48.5 H (36.4-46.3) fL RDW Coeff of Juan 14.8 H (11.5-14.5) % Plt Count 886 H (130-400) K/uL MPV 8.4 L (9.4-12.4) fL Immature Gran % (Auto) 0.7 % Neut % (Auto) 84.9 % Lymph % (Auto) 9.7 % Hartley % (Auto) 3.9 % Eos % (Auto) 0.6 % Baso % (Auto) 0.2 % Neut # (Auto) 16.47 H (1.40-6.50) K/uL Lymph # (Auto) 1.89 (1.2-3.4) K/uL Hartley # (Auto) 0.76 H (0.11-0.59) K/uL Eos # (Auto) 0.12 (0-0.50) K/uL Baso # (Auto) 0.04 (0-0.2) K/uL Immature Gran # (Auto) 0.14 (0.01-0.20) K/uL Sodium 134 L (136-145) mmol/L Potassium 3.7 (3.5-5.1) mmol/L Chloride 102 (98-107) mmol/L Carbon Dioxide 25 (21-32) mmol/L Anion Gap 7 (3-11) BUN 7 (6-23) mg/dl Creatinine 0.40 L (0.6-1.4) mg/dl Est Cr Clr Drug Dosing 167.9 ml/min Est GFR ( Amer) 148.6 ml/min Est GFR (Non-Af Amer) 128.2 ml/min BUN/Creatinine Ratio 17.5 (10-20) Glucose 92 (70-99(Fasting)) mg/dl Calcium 7.9 L (8.6-10.3) mg/dl Phosphorus 2.5 (2.5-4.9) mg/dl Magnesium 1.8 (1.7-2.4) mg/dl Iron 11 L (35-175) mcg/dl TIBC 152 L (250-450) mcg/dl Unsaturated IBC 141 L (155-355) mcg/dl Transferrin % Sat 7 L (20-50) % Ferritin 159.3 (8-388) ng/ml Total Bilirubin 0.5 (0.2-1.0) mg/dl Direct Bilirubin 0.2 (0-0.2) mg/dl AST 9 L (13-39) U/L ALT 13 (7-52) U/L Alkaline Phosphatase 195 H (34-104) U/L Total Protein 5.1 L (6.0-8.3) gm/dl Albumin 2.6 L (3.4-5.0) gm/dl Vitamin B12 873 (180-914) pg/ml Folate 8.97 (>5.38) ng/ml Procalcitonin (0-0.5) ng/ml 03/29/23 Range/Units 12:25 WBC (4.8-10.8) K/ul RBC (4.70-6.10) M/uL Hgb (14.0-18.0) g/dl Hct (42.0-52.0) % MCV (80.0-100.0) fL MCH (25.0-34.0) pg MCHC (32.0-36.0) g/dL RDW Std Deviation (36.4-46.3) fL RDW Coeff of Juan (11.5-14.5) % Plt Count (130-400) K/uL MPV (9.4-12.4) fL Immature Gran % (Auto) % Neut % (Auto) % Lymph % (Auto) % Hartley % (Auto) % Eos % (Auto) % Baso % (Auto) % Neut # (Auto) (1.40-6.50) K/uL Lymph # (Auto) (1.2-3.4) K/uL Hartley # (Auto) (0.11-0.59) K/uL Eos # (Auto) (0-0.50) K/uL Baso # (Auto) (0-0.2) K/uL Immature Gran # (Auto) (0.01-0.20) K/uL Sodium (136-145) mmol/L Potassium (3.5-5.1) mmol/L Chloride (98-107) mmol/L Carbon Dioxide (21-32) mmol/L Anion Gap (3-11) BUN (6-23) mg/dl Creatinine (0.6-1.4) mg/dl Est Cr Clr Drug Dosing ml/min Est GFR ( Amer) ml/min Est GFR (Non-Af Amer) ml/min BUN/Creatinine Ratio (10-20) Glucose (70-99(Fasting)) mg/dl Calcium (8.6-10.3) mg/dl Phosphorus (2.5-4.9) mg/dl Magnesium (1.7-2.4) mg/dl Iron (35-175) mcg/dl TIBC (250-450) mcg/dl Unsaturated IBC (155-355) mcg/dl Transferrin % Sat (20-50) % Ferritin (8-388) ng/ml Total Bilirubin (0.2-1.0) mg/dl Direct Bilirubin (0-0.2) mg/dl AST (13-39) U/L ALT (7-52) U/L Alkaline Phosphatase (34-104) U/L Total Protein (6.0-8.3) gm/dl Albumin (3.4-5.0) gm/dl Vitamin B12 (180-914) pg/ml Folate (>5.38) ng/ml Procalcitonin 12.62 H (0-0.5) ng/ml Diagnostic Findings Chest X-Ray 03/29/23 10:34 XR chest 1V portable CLINICAL HISTORY: left chest pain TECHNIQUE: Single frontal radiograph of the chest was obtained. Comparison: Comparison is made to chest radiograph 03/20/2023 FINDINGS: No lines and tubes are seen. The cardiomediastinal silhouette is normal. Left upper lobe mass is unchanged. Emphysema is again seen. No evidence of pleural effusion or pneumothorax. Left rib fractures are seen. IMPRESSION: No acute chest disease. ACT 112: Negative or not required by law. Electronically signed by: Ronaldo Hernández M.D. 03/29/2023 11:11 AM Chest CTA 03/29/23 11:30 CT angio chest PE protocol CLINICAL HISTORY: PE TECHNIQUE: Multidetector row helical CT of the chest was performed with angiographic protocol. Coronal and sagittal reformations were obtained. Coronal and sagittal MIPS were obtained from the axial data set and were submitted for review. Automated dose lowering techniques and/or adjustment according to pa tient size were utilized for this exam. CT DOSE: 563.98 mGy.cm Comparison: Comparison is made to CT chest 03/13/2023 and PET/CT 03/19/2023 FINDINGS: Lungs and pleura: Loculated mass the left upper lung is again seen, measuring approximately 87 x 70 mm compared to 79 x 16 mm on PET/CT. It has developed a few foci of cavitation. Emphysema is seen. There there are tree in bud nodular opacities in the left lower lung. A few tiny groundglass opacities are seen in the right lung, unchanged. Heart and pericardium: Heart size is normal. No pericardial effusion. Vessels: No evidence of pulmonary embolism. Mediastinum and vasquez: Multiple enlarged mediastinal lymph nodes measure up to 11 mm in diameter. Chest wall and lower neck: Unremarkable. Abdomen: Unremarkable. Bones: Unremarkable. IMPRESSION: 1. Interval mild enlargement of the left upper lobe mass with development of loculation and fluid. This may represent necrotic tumor. 2. Lymphadenopathy is again noted, likely metastatic. 3. Groundglass opacities are again noted in the right lung. 4. Left lower lung airspace opacities are seen, new from prior exam, which may represent pneumonia. ACT 112: Negative or not required by law. Electronically signed by: Ronaldo Hernández M.D. 03/29/2023 1:33 PM Chest X-Ray 03/29/23 17:03 XR chest 1V portable CLINICAL HISTORY: Necrotic Lung Cancer TECHNIQUE: Single frontal radiograph of the chest was obtained. Comparison: Comparison is made to chest radiograph 03/29/2023 and CTA chest 03/29/2023 FINDINGS: No lines and tubes are seen. The cardiomediastinal silhouette is normal. Cavitary appearing mass in the left upper lobe is unchanged. Faint airspace opacities in the left lower lung slightly more conspicuous than in the prior exam. No evidence of pleural effusion or pneumothorax. Left rib fractures are again seen. IMPRESSION: Interval stability of left upper lobe pulmonary mass. More conspicuous airspace opacities in the left lower lung likely represent worsening pneumonia, atelectasis, and/or aspiration. ACT 112: Negative or not required by law. Electronically signed by: Ronaldo Hernández M.D. 03/29/2023 10:06 PM Brain MRI 03/30/23 11:40 MR brain wo/w con HISTORY: 62 years-old Male lung ca, eval brain mets Screening study in a patient with lung cancer and possible intracranial metastasis. COMPARISON: Head CT 03/19/2023, brain MRI 12/27/2016. TECHNIQUE: Multiplanar and multisequence MRI of the brain was obtained both with and without IV contrast. FINDINGS: No restricted diffusion. Midline structures are unremarkable. Degenerative changes of the imaged cervical spine. No acute intracranial hemorrhage, midline shift, abnormal extra-axial collection, hydrocephalus or intracranial mass. Cerebral venous sinuses and major arterial flow voids appear patent. The skull, orbits and soft tissues are unremarkable. Trace mastoid effusions. Mild mucosal thickening of the paranasal sinuses. Involutional changes with extensive T2/FLAIR hyperintense foci throughout the white matter, progressed from prior. Encephalomalacia and gliosis are noted within the portions of the right front oparietal lobes, new from prior suggestive of chronic infarcts. Additional chronic lacunar infarcts of the basal ganglia and left thalamus. There is no abnormal enhancement. IMPRESSION: 1. No acute intracranial abnormality. 2. No abnormal intracranial enhancement to suggest metastatic disease. 3. Involutional changes with advanced chronic microvascular ischemic disease. 4. Chronic infarcts as above. ACT 112: Negative or not required by law. The above report was generated using voice recognition software. It may contain grammatical, syntax or spelling errors. Dictated: 03/30/2023 1:33 PM Transcribed: 03/30/2023 2:00 PM Rafael [id number] [email or web address] Electronically signed by: Tristan Vick M.D. 03/30/2023 2:19 PM Chest X-Ray 03/30/23 17:03 XR chest 1V portable HISTORY: Necrotic Lung Cancer COMPARISON: Chest 03/29/2023. FINDINGS: No pneumothorax. No pleural effusions. The heart is normal in size. There is diffuse interstitial thickening, unchanged. Left mid to lower lung zone airspace opacities have slightly progressed. The left upper lobe cavitary mass is again noted. There is emphysema. Healing left lower rib fractures. IMPRESSION: 1. Interval progression of the left mid to lower lung zone airspace opacities. This is consistent with a pneumonia and could be due to aspiration. 2. The cavitary left upper lobe mass is again noted. 3. Emphysema. ACT 112: Negative or not required by law. Electronically signed by: Paxton Hanson M.D. 03/30/2023 7:28 AM PG Care Time/CCT Total # of Minutes Spent Total Time Spent with Patient: Total time spent is greater than 50% in coordination of care (as documented) at patient's floor/unit and/or counseling patient: Coding Level of Care Code 56914 SUB INP/OBS CARE 3/50MIN Diagnoses Lung cancer C34.90 Hypotension I95.9 Left lower lobe pneumonia J18.9 Pneumonia type: due to unspecified organism COPD with emphysema J43.9 Emphysema type: unspecified Cachectic R64 Thrombocytosis D47.3 Nicotine dependence F17.210 Nicotine product type: cigarettes Substance use status: uncomplicated Bladder outlet obstruction N32.0 Chest pain R07.9 Cancer related pain G89.3 (3) Left lower lobe pneumonia Pneumonia type: due to unspecified organism Qualified Code(s): J18.9 - Pneumonia, unspecified organism (4) COPD with emphysema Emphysema type: unspecified Qualified Code(s): J43.9 - Emphysema, unspecified (7) Nicotine dependence Nicotine product type: cigarettes Substance use status: uncomplicated Dhaval lified Code(s): F17.210 - Nicotine dependence, cigarettes, uncomplicated
[2023-03-30] MEDS: GABAPENTIN 300 MG CAP PO SCH ×2 (09:10→20:21)
[2023-03-30] MEDS: ASPIRIN 81 MG ECTAB PO SCH (09:10)
[2023-03-30] MEDS: LIDOCAINE 5% 1 PATCH TD SCH (09:11)
[2023-03-30 10:33] LABS: Folate (Folic Acid),Ser orPlas 8.97 ng/ml (>5.38)
[2023-03-30] MEDS: HYDROmorphone INJ 1 MG/ML SYRINGE IV PRN ×2 (11:21→20:17)
[2023-03-30] MEDS ORDERED: GADOBUTROL 65ML VIAL IV ONE (12:49)
[2023-03-30 13:45] LABS: Ferritin 159.3 ng/ml (8-388)
--- NOTE | 2023-03-30 14:20 | Magnetic Resonance Report ---
MR brain wo/w con HISTORY: 62 years-old Male lung ca, eval brain mets Screening study in a patient with lung cancer an d possible intracranial metastasis. COMPARISON: Head CT 03/19/2023, brain MRI 12/27/2016. TECHNIQUE: Multiplanar and multisequence MRI of the brain was obtained both with and without IV contr ast. FINDINGS: No restricted diffusion. Midline structures are unremarkable. Degenerative changes of the imaged cerv ical spine. No acute intracranial hemorrhage, midline shift, abnormal extra-axial collection, hydroce phalus or intracranial mass. Cerebral venous sinuses and major arterial flow voids appear patent. The skull, orbits and soft tissues are unremarkable. Trace mastoid effusions. Mild mucosal thickening of the paranasal sinuses. Involutional changes with extensive T2/FLAIR hyperintense foci throughout the white matter, progressed from prior. Encephalomalacia and gliosis are noted within the portions of t he right frontoparietal lobes, new from prior suggestive of chronic infarcts. Additional chronic lacu marlo infarcts of the basal ganglia and left thalamus. There is no abnormal enhancement. IMPRESSION: 1. No acute intracranial abnormality. 2. No abnormal intracranial enhancement to suggest metastatic disease. 3. Involutional changes with advanced chronic microvascular ischemic disease. 4. Chronic infarcts as above. ACT 112: Negative or not required by law. The above report was generated using voice recognition software. It may contain grammatical, syntax o r spelling errors. Dictated: 03/30/2023 1:33 PM Transcribed: 03/30/2023 2:00 PM Rafael [id number] [email or web address] Electronically signed by: Tristan Vick M.D. 03/30/2023 2:19 PM
[2023-03-30] MEDS ORDERED: ALBUT/IPRATROP 3MG/0.5MG NEB 3 ML VIAL NEB PRN (14:33)
--- NOTE | 2023-03-30 14:57 | Oncology Consultation ---
Date of Consultation March 30, 2023 Assessment & Plan (1) Left lower lobe pneumonia: (2) Adenocarcinoma of left lung: Plan Gentleman recently diagnosed with at least stage III lung cancer admitted for pneumonia. Symptoms appear to have improved since he was started on antibiotics. For recently diagnosed lung cancer, PET/CT and brain MRI does not show any evidence to suggest distant metastatic disease and so he would likely require concurrent chemoradiation treatment followed by 1 year of immunotherapy with durvalumab. This was discussed briefly with patient today. Plan to see him outpatient to discuss this in detail. We will check with radiation oncology to make sure he has an appointment with them as well. Thank you for this consult. Oncology will plan to see him in clinic upon discharge. Please feel free to call if you have any further questions History of Present Illness Reason for Consultation: Lung cancer Attending Physician: Radha Longoria, DO History of Present Illness Very pleasant 62-year-old male who was recently diagnosed with at least stage III adenocarcinoma of the left lung who presented with worsening chest pain. Chest x-ray obtained on admission revealed Interval stability of left upper lobe pulmonary mass, more conspicuous airspace opacities in the left lower lung likely represent worsening pneumonia, atelectasis, and/or aspiration.he was started on Zosyn for possible pneumonia. During my evaluation of patient today, he indicates that his chest pain has significantly improved since admission. He was scheduled to see me for initial oncology visit at [facility] tomorrow Allergies Allergy/AdvReac Type Severity Reaction Status Date / Time No Known Allergies Allergy Verified 03/29/23 13:34 Home Medications Medication Instructions Recorded Confirmed Type acetaminophen 325 mg tablet 650 mg PO QID PRN Pain 01/03/21 03/29/23 History (Tylenol) aspirin 81 mg tablet,delayed 81 mg PO QAM 01/03/21 03/29/23 History release gabapentin 300 mg capsule 300 mg PO BID #60 caps 02/07/21 03/29/23 Rx albuterol sulfate 90 mcg/actuation 1 inh inhalation Q4H PRN shortness 03/24/23 03/29/23 Rx aerosol inhaler (Ventolin HFA) of breath or wheezing #18 grams fluticasone 250 mcg-salmeterol 50 1 inh inhalation QPM #60 ea 03/24/23 03/29/23 Rx mcg/dose blistr powdr for inhalation (Advair Diskus) oxycodone 5 mg tablet 5 mg PO Q4H pain 30 days #180 tabs 03/24/23 03/29/23 Rx mirtazapine 15 mg tablet (Remeron) 15 mg PO HS 03/29/23 03/29/23 History sennosides 8.6 mg tablet (Natural 8.6 mg PO HS 03/29/23 03/29/23 History Senna Laxative) Patient History Medical History Advanced care planning/counseling discussion Bladder diverticulum Bladder outlet obstruction Cachectic COPD with emphysema CVA (cerebral vascular accident) Approximately 6 years ago, no deficits History of CVA (cerebrovascular accident) History of rib fracture 2.5 months ago, medical management Hyperlipidemia Lower extremity ulceration Lymphadenopathy Pancreatic lesion Venous stasis ulcer resolved, "took out vein" Surgical History History of tooth extraction Hx of colonoscopy Status post left foot surgery Family History Mother Myocardial infarction Father Prostate cancer Family hx of colon cancer Hypertension Sister Diabetes Brother Lung cancer Thyroid cancer Other No family history of adverse response to anesthesia Denies family history of Ovarian cancer Breast cancer Social History Smoking Status: Current every day smoker Tobacco Type: Cigarettes Age Started Using Tobacco: 10; packs per day: 1; Cigarettes Per Day: 2-3; Second Hand Exposure: Yes; Do You Dip or Chew Tobacco: No; Hx Alcohol Use: No Hx Substance Use: No Preferred Language: German Communication Ability: Effective Visual Impairment: No Limitations Hearing Ability: Normal Chief Contract Officer Required: No Beliefs That Will Affect Care: None marital status: Single Current Living Situation: Other Current Living Situation Comment: [facility]ate- [place] current occupational status: unemployed 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 Results & Data Vital Signs (Past 12 Hours) Vital Signs Temp Pulse Resp BP Pulse Ox O2 Del Method 03/30/23 11:09 96 H 22 90 Room Air 03/30/23 07:38 Room Air 03/30/23 07:19 86 18 92 Room Air 03/30/23 06:53 37.5 C 91 H 18 110/68 94 Room Air (1) Left lower lobe pneumonia Pneumonia type: due to unspecified organism Qualified Code(s): J18.9 - Pneumonia, unspecified organism
[2023-03-30] MEDS: ONDANSETRON INJ 2 MG/ML 2 ML VIAL IV PRN (15:12)
[2023-03-30] MEDS: SENNA 8.6 MG TAB PO SCH (20:21)
[2023-03-30] MEDS: MIRTAZAPINE TAB 15 MG TAB PO SCH (20:21)
[2023-03-30] MEDS: ACETAMINOPHEN 325 MG TAB PO PRN (20:31)
[2023-03-30] MEDS: FLUTICASONE/VILANTEROL 100/25MCG 14 PUFFS/INHALER INH SCH (21:54)
[2023-03-31] MEDS: oxyCODONE HCL IR 5 MG TAB (IMMEDIATE RELEASE) PO SCH ×3 (02:08→09:29)
[2023-03-31] MEDS: PIPERACILLIN/TAZOBACTAM 4.5 GM in DEXTROSE 5% 100 ML IV SCH ×3 (02:09→18:16)
[2023-03-31] MEDS: HEPARIN SOD 5,000 UNIT/0.5 ML VIAL SQ SCH ×2 (05:45→16:21)
--- NOTE | 2023-03-31 07:25 | XRay Report ---
XR chest 1V portable HISTORY: 62 years-old Male Necrotic Lung Cancer acute shortness of breath COMPARISON: CT chest 03/29/2023 TECHNIQUE: AP view of the chest FINDINGS: Cardiomediastinal and hilar silhouettes are unchanged. Large cavitary left upper lobe mass redemonstr ated. Additional patchy airspace opacities throughout the left greater than right lungs redemonstrate d, mildly progressed in the left lung base. Small left pleural effusion. Unchanged appearance of the left-sided rib fractures. Pulmonary emphysema. IMPRESSION: 1. Mildly progressive left lung base predominant airspace opacities suggestive of pneumonia. 2. Large cavitary left upper lobe mass redemonstrated. ACT 112: Negative or not required by law. The above report was generated using voice recognition software. It may contain grammatical, syntax o r spelling errors. Electronically signed by: Tristan Vick M.D. 03/31/2023 7:23 AM
[2023-03-31] MEDS: ALBUTEROL HFA 8 GM INHALER INH SCH ×4 (07:33→19:18)
[2023-03-31] MEDS: IPRATROPIUM BROMIDE HFA INHALER INH SCH ×4 (07:33→19:18)
[2023-03-31 08:23] LABS: Basophils # (auto) 0.04 K/uL (0-0.2); Basophils % (auto) 0.2 %; Eosinophils # (auto) 0.18 K/uL (0-0.50); Eosinophils % (auto) 1.1 %; Hematocrit (blood only) 30.5 % (42.0-52.0); Immature Granulocytes # (auto) 0.13 K/uL (0.01-0.20); Immature Granulocytes % (auto) 0.8 %; Lymphocytes # (auto) 1.69 K/uL (1.2-3.4); Lymphocytes % (auto) 10.2 %; Mean Corpuscular Hemoglobin 29.7 pg (25.0-34.0); Mean Corpuscular Hgb Conc 32.8 g/dL (32.0-36.0); Mean Corpuscular Volume 90.5 fL (80.0-100.0); Mean Platelet Volume 8.1 fL (9.4-12.4); Monocytes # (auto) 0.55 K/uL (0.11-0.59); Monocytes % (auto) 3.3 %; Neutrophils # (auto) 13.96 K/uL (1.40-6.50); Neutrophils % (auto) 84.4 %; Platelet Count 806 K/uL (130-400); RDW Coefficient of Variation 14.6 % (11.5-14.5); RDW Standard Deviation 48.7 fL (36.4-46.3); Red Blood Count 3.37 M/uL (4.70-6.10); White Blood Count 16.55 K/ul (4.8-10.8)
--- NOTE | 2023-03-31 08:30 | Hospitalist Progress Note ---
Date of Service March 31, 2023 Assessment & Plan (1) Lung cancer: Plan: 62-year-old male with a past medical history of recently diagnosed left upper lobe mass non-small cell lung adenocarcinoma, pancreatic cyst, COPD, tobacco use who presents for chest pain evaluation with gradually worsening constant pain over 1 to 2 weeks with suspected pathologic fractures along with 15lb weight loss over past 6 months. [id number] on admission. Lactic 0.9, hypotension w/ BP 99/50s NSCL/Adenocarcinoma of the Lung/Pneumonia CT-A/P 01/2023: 6.5 cm spiculated and centrally necrotic mass lesion at the posterior left apex. There is metastatic left suprahilar lymphadenopathy. Additional small pulmonary nodules and groundglass pulmonary lesions as above. The groundglass lesions in the right lung are suspicious for additional adenom atous neoplasms. There is an approximately 6 cm septated/cystic lesion which may arise from the posterior aspect of the pancreas. A lesion such as a serous cystadenoma is favored. PET/CT suspicious for multi focal neoplasm, additional lymphoproliferative process, and unchanged pancreatic lesion without FDG uptake suspicious for cyst. No evidence of bony metastasis. * PET/CT 03/2023:1. A large and centrally necrotic mass lesion in the left upper lobe is markedly FDG avid and similar to the 03/13/2023 examination. There is FDG avid metastatic left suprahilar lymphadenopathy. There are 2 groundglass lesions identified in the right lung, one of which shows faint FDG uptake. These are highly suspicious for low-grade adenomatous lesions and favor multifocal neoplasm as opposed to metastatic disease. A 5 mm right lower lobe pulmonary nodule is indeterminate and too small for PET characterization. Again seen is bulky retroperitoneal and mesenteric lymphadenopathy. This was not demonstrably FDG avid, and the appearance is not typical for metastatic lung cancer. A lymphoproliferative process is favored. A septated cystic lesion arising from or posterior to the pancreas is unchanged. This did not show abnormal FDG uptake. s/p diagnostic EBUS 03/13/[address] Quijano. Pathology with transbronchial biopsy to the left upper lobe revealed non-small cell lung carcinoma consistent with adenocarcinoma. PET/CT performed 03/19/2023 showed FDG avid metastatic uptake the left suprahilar lymph region. There is also evidence of FDG avidity to the centrally necrotic mass lesion left upper lobe. Reports feeling better/less pain since starting antibiotics/IVF on admission for hypotension Hypotension resolved and no further IVF no further chest pain reported (aside from rib pain, remote fractures in November reported, noted on CT February as below) Subacute rib fractures were previously noted on CT/CTA 02/2023; 6.5 cm left upper lobe mass suggestive of bronchogenic carcinoma and pathologic left suprahilar lymphadenopathy.. Partially healed displaced fractures were seen at the left eig hth, ninth, 10th, 11th ribs. No lesions suggestive of bony metastasis were noted at that time Continue ABX to treat necrosis with IV Zosyn. Procal 12.6 PNA most likely from malignant tumor, Quant gold/AFB negative as outpatient, no need for isolation at this time Aspiration precautions in place, will consult speech -- possible silent aspiration, further eval for tomorrow Blood cultures remain NGTD WBC improving on labs today however low grade temps 37.7C . Will check MRSA nares/consider adding coverage but typically necrotic covered w/ gram neg/anaerobe but will monitor Pulmonary toilet with added IS/flutter valve/nebs on 03/30 O2 overnight but on room air this morning Utilizing IV Dilaudid/usual pain medications --> discussed w/ patient as wants to be full code. Initially held off palliative consult however discussed with Dr Shell as received outpt message from Dr Barrios about seeing patient as he will be following with CCP and consult placed Plan to start fentayl patch 25mcg and monitor response Heme/onc consulted Brain MRI NEGATIVE for metastatic disease. Planning outpt tx w/ chemoradiation to be discussed w/ radiation oncology. Outpt f/u to be arranged at discharge Nutrition consulted -- supplements provided. Vit D checked given COPD/malnutrition and low -- supplementation started Patient hopeful to dc when able. Discussed monitoring blood cultures to ensure n egative and possible transition to PO tomorrow at earliest if BCx remain negative Would plan to 2step prior to discharge to ensure no supplemental O2 required Monitor labs in AM on repeat (2) Hypotension: Plan: Hypotensive in ER to 99/50s Secondary to n/v, dehydration, infection. VBG 7.3, lactic wnl 0.9 Received 2.5L IVF on admission, continued on 125cc/hr overnight of admission which decreased to 75cc/hr and discontinued BP stable off IVF, good PO intake. 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 Follows with Dr. Quijano in the outpatient clinic Will continue with ICS/LAMA/LABA while inpatient and also order as needed Duonebs Venous stasis ulcer Class V recurrent left ankle venous stasis ulcer in the past which had gradually healed, last follow-up 02/2021 would 2step prior to discharge (5) Cachectic: Plan: Known malignancy with recent 20 pound weight loss Boost daily and as requested in between meals SEVERE protein calorie malnutrition, dietary/nutriton consulted and following. Vit D supplementation (6) Thrombocytosis: Plan: Plt 903k Remains on ASA 81mg daily Heme/onc consulted as above, iron studies/b12/folate added iron c/w acute on chronic anemia, b12/folate wnl Plt trending down on repeat w/ abx/tx above On heparin SQ for DVT prophylaxis Monitor (7) Nicotine dependence: Plan: Most recent everyday smoker -- reports quit a couple days ago, suspect in light of new diagnosis as above Continued cessation encouraged Can order nicotine patch if needed (8) Bladder outlet obstruction: Plan: Patient denies difficulty with urination however no output recorded in system Placed order for I&O for today to ensure no issues, also order for bladder scan as needed Follow I&Os (9) Chest pain: Plan: CXR No acute findings. Chronic left rib fractures noted. No pleural effusion or pneumothorax Subacute rib fractures were previously noted on CT/CTA 02/2023; 6.5 cm left upper lobe mass suggestive of bronchogenic carcinoma and pathologic left suprahilar lymphadenopathy.. Partially healed displaced fractures were seen at the left eighth, ninth, 10th, 11th ribs. No lesions suggestive of bony metastasis were noted at that time Patient tender to palpation on examination but no evidence of displaced rib and rx for lidocaine patch as well as IV Dilaudid for breakthrough w/ usual home oxycodone q4h scheduled Pain control as outlined - see below (10) Cancer related pain: Plan: as above, ,?consideration for starting low dose fentanyl patch to help with pain monitor IV Dilaudid use w/ his baseline oxycodone Palliative consulted --> starting fentanyl patch 03/31, monitor response Will need outpt f/u DVT prophylaxis: Heparin SQ given high risk/cancer (11) Adenocarcinoma of left lung: (12) Severe protein-calorie malnutrition: Admission and Anticipated Discharge Date Admission Date: March 29, 2023 Supervising Physician Co-Signing Physician Notes PA Supervision Note: I did not personally see or examine the patient. I verified all mcclain points and agree with DEVAN Diez with the following exceptions and/or additions: none Subjective eval this afternoon with lunch, doing well, great improvement in appetite and reports typically gets meals on wheels and difficult to eat. Seen by speech, also palliative for cancer related pain. He was hopeful for dc but I discussed monitoring his fever/WBC/exam and blood cultures but if negative tomorrow could CONSIDER discharge on oral abx but wanting to ensure services/follow up arranged. Discussed brain MRI negative. He is currently on room air but will check 2step prior to dischage but hold off testing until tomorrow to ensure good within 48 hours. Starting low dose fentanyl patch for pain and will monitor response and have f/u with Dr Shell at discharge. Questions/concerns addressed at this time. Physical Exam Physical Exam: GENERAL :thin, cachectic , ill appearing male sitting up in bed, eating lunch, reporting good appetite, no acute distress, on room air HEENT: head normocephalic, atraumatic, pupils anicteric, EOMI intact chest: tender to palpation L sided, lidocaine patch in place Resp: no distress, occasional cough, diminished int he bases with associated crackles, L posterior crackles, no wheezing, on room air, no tachypnea CV: regular rhythm, rates 80-90s today, no significant m/r/g, no pitting edema or calf tenderness bilaterally, cap refill wnl GI: +BS, soft/NT : no rucker MSK/Neuro: no focal deficits, answering questions appropriately, ?intellectual deficit at baseline Psych: alert to person/place/time, cooperative with exam Results & Data Results & Data Vital Signs (Past 12 Hours) Vital Signs Temp Pulse Resp BP Pulse Ox O2 Del Method O2 Flow Rate 03/31/23 07:35 94 H 24 92 Nasal Cannula 3 03/31/23 07:08 37.7 C H 94 H 16 103/54 L 94 Nasal Cannula 3 03/31/23 02:00 86 L Room Air 03/31/23 02:10 37.4 C 93 Nasal Cannula 3 03/30/23 20:34 94 Nasal Cannula 3 Laboratory Results 03/31/23 03/31/23 03/31/23 Range/Units 07:49 07:49 07:49 WBC 16.55 H (4.8-10.8) K/ul RBC 3.37 L (4.70-6.10) M/uL Hgb 10.0 L (14.0-18.0) g/dl Hct 30.5 L (42.0-52.0) % MCV 90.5 (80.0-100.0) fL MCH 29.7 (25.0-34.0) pg MCHC 32.8 (32.0-36.0) g/dL RDW Std Deviation 48.7 H (36.4-46.3) fL RDW Coeff of Juan 14.6 H (11.5-14.5) % Plt Count 806 H (130-400) K/uL MPV 8.1 L (9.4-12.4) fL Immature Gran % (Auto) 0.8 % Neut % (Auto) 84.4 % Lymph % (Auto) 10.2 % [place] % (Auto) 3.3 % Eos % (Auto) 1.1 % Baso % (Auto) 0.2 % Neut # (Auto) 13.96 H (1.40-6.50) K/uL Lymph # (Auto) 1.69 (1.2-3.4) K/uL [place] # (Auto) 0.55 (0.11-0.59) K/uL Eos # (Auto) 0.18 (0-0.50) K/uL Baso # (Auto) 0.04 (0-0.2) K/uL Immature Gran # (Auto) 0.13 (0.01-0.20) K/uL Sodium 134 L (136-145) mmol/L Potassium 3.7 (3.5-5.1) mmol/L Chloride 100 (98-107) mmol/L Carbon Dioxide 28 (21-32) mmol/L Anion Gap 6 (3-11) BUN 8 (6-23) mg/dl Creatinine 0.48 L (0.6-1.4) mg/dl Est Cr Clr Drug Dosing 138.9 ml/min Est GFR ( Amer) 137.9 ml/min Est GFR (Non-Af Amer) 118.9 ml/min BUN/Creatinine Ratio 16.7 (10-20) Glucose 101 H (70-99(Fasting)) mg/dl Calcium 8.2 L (8.6-10.3) mg/dl Phosphorus 2.5 (2.5-4.9) mg/dl Magnesium 1.8 (1.7-2.4) mg/dl Iron (35-175) mcg/dl TIBC (250-450) mcg/dl Unsaturated IBC (155-355) mcg/dl Transferrin % Sat (20-50) % Ferritin (8-388) ng/ml Triglycerides 110 (0-150) mg/dl Cholesterol 74 (0-200) mg/dl LDL Cholesterol, Calc 33 mg/dl VLDL Cholesterol, Calc 22 (0-30) mg/dl HDL Cholesterol 19 mg/dl Cholesterol/HDL Ratio 3.9 (0-5) Vitamin B12 (180-914) pg/ml 25-OH Vitamin D Total Pending Folate (>5.38) ng/ml 03/30/23 03/30/23 Range/Units 07:07 07:07 WBC (4.8-10.8) K/ul RBC (4.70-6.10) M/uL Hgb (14.0-18.0) g/dl Hct (42.0-52.0) % MCV (80.0-100.0) fL MCH (25.0-34.0) pg MCHC (32.0-36.0) g/dL RDW Std Deviation (36.4-46.3) fL RDW Coeff of Juan (11.5-14.5) % Plt Count (130-400) K/uL MPV (9.4-12.4) fL Immature Gran % (Auto) % Neut % (Auto) % Lymph % (Auto) % [place] % (Auto) % Eos % (Auto) % Baso % (Auto) % Neut # (Auto) (1.40-6.50) K/uL Lymph # (Auto) (1.2-3.4) K/uL [place] # (Auto) (0.11-0.59) K/uL Eos # (Auto) (0-0.50) K/uL Baso # (Auto) (0-0.2) K/uL Immature Gran # (Auto) (0.01-0.20) K/uL Sodium (136-145) mmol/L Potassium (3.5-5.1) mmol/L Chloride (98-107) mmol/L Carbon Dioxide (21-32) mmol/L Anion Gap (3-11) BUN (6-23) mg/dl Creatinine (0.6-1.4) mg/dl Est Cr Clr Drug Dosing ml/min Est GFR ( Amer) ml/min Est GFR (Non-Af Amer) ml/min BUN/Creatinine Ratio (10-20) Glucose (70-99(Fasting)) mg/dl Calcium (8.6-10.3) mg/dl Phosphorus (2.5-4.9) mg/dl Magnesium (1.7-2.4) mg/dl Iron 11 L (35-175) mcg/dl TIBC 152 L (250-450) mcg/dl Unsaturated IBC 141 L (155-355) mcg/dl Transferrin % Sat 7 L (20-50) % Ferritin 159.3 (8-388) ng/ml Triglycerides (0-150) mg/dl Cholesterol (0-200) mg/dl LDL Cholesterol, Calc mg/dl VLDL Cholesterol, Calc (0-30) mg/dl HDL Cholesterol mg/dl Cholesterol/HDL Ratio (0-5) Vitamin B12 873 (180-914) pg/ml 25-OH Vitamin D Total Folate 8.97 (>5.38) ng/ml Diagnostic Findings Brain MRI 03/30/23 11:40 MR brain wo/w con HISTORY: 62 years-old Male lung ca, eval brain mets Screening study in a patient with lung cancer and possible intracranial metastasis. COMPARISON: Head CT 03/19/2023, brain MRI 12/27/2016. TECHNIQUE: Multiplanar and multisequence MRI of the brain was obtained both with and without IV contrast. FINDINGS: No restricted diffusion. Midline structures are unremarkable. Degenerative changes of the imaged cervical spine. No acute intracranial hemorrhage, midline shift, abnormal extra-axial collection, hydrocephalus or intracranial mass. Cerebral venous sinuses and major arterial flow voids appear patent. The skull, orbits and soft tissues are unremarkable. Trace mastoid effusions. Mild mucosal thickening of the paranasal sinuses. Involutional changes with extensive T2/FLAIR hyperintense foci throughout the white matter, progressed from prior. Encephalomalacia and gliosis are noted within the portions of the right frontoparietal lobes, new from prior suggestive of chronic infarcts. Additional chronic lacunar infarcts of the basal ganglia and left thalamus. There is no abnormal enhancement. IMPRESSION: 1. No acute intracranial abnormality. 2. No abnormal intracranial enhancement to suggest metastatic disease. 3. Involutional changes with advanced chronic microvascular ischemic disease. 4. Chronic infarcts as above. ACT 112: Negative or not required by law. The above report was generated using voice recognition software. It may contain grammatical, syntax or spelling errors. Dictated: 03/30/2023 1:33 PM Transcribed: 03/30/2023 2:00 PM Rafael [id number] [email or web address] Electronically signed by: Tristan Vick M.D. 03/30/2023 2:19 PM Chest X-Ray 03/31/23 17:03 XR chest 1V portable HISTORY: 62 years-old Male Necrotic Lung Cancer acute shortness of breath COMPARISON: CT chest 03/29/2023 TECHNIQUE: AP view of the chest FINDINGS: Cardiomediastinal and hilar silhouettes are unchanged. Large cavitary left upper lobe mass redemonstrated. Additional patchy airspace opacities throughout the left greater than right lungs redemonstrated, mildly progressed in the left lung base. Small left pleural effusion. Unchanged appearance of the left-sided rib fractures. Pulmonary emphysema. IMPRESSION: 1. Mildly progressive left lung base predominant airspace opacities suggestive of pneumonia. 2. Large cavitary left upper lobe mass redemonstrated. ACT 112: Negative or not required by law. The above report was generated using voice recognition software. It may contain grammatical, syntax or spelling errors. Electronically signed by: Tristan Vick M.D. 03/31/2023 7:23 AM PG Care Time/CCT Total # of Minutes Spent Total Time Spent with Patient: Total time spent is greater than 50% in coordination of care (as documented) at patient's floor/unit and/or counseling patient: Coding Level of Care Code 04956 SUB INP/OBS CARE 350MIN Diagnoses Lung cancer C34.90 Hypotension I95.9 Left lower lobe pneumonia J18.9 Pneumonia type: due to unspecified organism COPD with emphysema J43.9 Emphysema type: unspecified Cachectic R64 Thrombocytosis D47.3 Nicotine dependence F17.210 Nicotine product type: cigarettes Substance use status: uncomplicated Bladder outlet obstruction N32.0 Chest pain R07.9 Cancer related pain G89.3 Adenocarcinoma of left lung C34.92 Severe protein-calorie malnutrition E43 (3) Left lower lobe pneumonia Pneumonia type: due to unspecified organism Qualified Code(s): J18.9 - Pneumonia, unspecified organism (4) COPD with emphysema Emphysema type: unspecified Qualified Code(s): J43.9 - Emphysema, unspecified (7) Nicotine dependence Nicotine product type: cigarettes Substance use status: uncomplicated Qualified Code(s): F17.210 - Nicotine dependence, cigarettes, uncomplicated
[2023-03-31] MEDS: ASPIRIN 81 MG ECTAB PO SCH (08:31)
[2023-03-31] MEDS: GABAPENTIN 300 MG CAP PO SCH ×2 (08:31→20:08)
[2023-03-31] MEDS: LIDOCAINE 5% 1 PATCH TD SCH (08:31)
[2023-03-31 08:36] LABS: BUN Creatinine Ratio 16.7 (10-20); Calcium 8.2 mg/dl (8.6-10.3); Chol HDL Ratio 3.9 (0-5); Creatinine Clr Calc Pharmacy 138.9 ml/min; Est GFR (African American) 137.9 ml/min; Est GFR (Non-African American) 118.9 ml/min; Magnesium 1.8 mg/dl (1.7-2.4); Phosphorus 2.5 mg/dl (2.5-4.9); Potassium 3.7 mmol/L (3.5-5.1)
[2023-03-31] MEDS: CHOLECALCIFEROL 5,000 UNITS 125 MCG TAB PO SCH (10:36)
--- NOTE | 2023-03-31 10:58 | Palliative Care Consultation ---
Date of Consultation March 31, 2023 Assessment & Plan (1) Cancer related pain: Cancer related pain is the most important concern in patients suffering with cancer. More than 80% with advanced disease experience cancer related pain caused by their tumor invasion. This severe cancer pain disturbs their ADLs and deteriorates their QOL. Pt is currently is using oxycodone 35mg PO daily without optimal pain relief. Oxy 35mg PO = MS 70mg PO = 23.3 mg IV MS equiv Initial conversion from 10-20mg/day oral oxycodone to 12.5mcg TDF is generally safe and reasonable. TDF is an alternative analgesic option for stable cancer pain in patients with thoracic malignancies (Oseas S, Lorene T, Anthony T, et al. Opioid switch from low dose of oral oxycodone to transdermal fentanyl matrix patch for patients with stable thoracic malignancy-related pain. [facility]iat [facility]. 2014;13:46.) Will begin TDF 25mcg/hr q72h, new orders written as follows: * TDF 25mcg / hr q72hr * Stop OXY IR q4h ATC * Move to OxyIR 5mg PO q4h prn BTP/HOLD for somnolence or RR<14/min, document RR with each dose administration * Move Dilaudid to 1mg IV q4h prn very severe BTP or dyspnea unrelieved by oral meds/HOLD for somnolence or RR<14/min, document RR with each dose administration (2) Dyspnea and respiratory abnormalities: see #1 above (3) Palliative care by specialist: Met with pt at bedside. I provided overview of Palliative Medicine, a subspecialty that provides specialized medical care for people living with a serious illness by offering a focus on quality of life. Palliative Medicine is often conflated with hospice: I advised patient/family that Palliative and hospice can be partners but we are not the same. we reviewed how it is important to understand the difference so that we may be informed, and not afraid. Palliative Medicine works to improve QOL through reduction of symptom burden/more control over their illness, for both the patient and family. Palliative medicine clinicians are board certified, specially-trained and another member of the patient's medical care team. We often provide an extra layer of support because our care is based on the needs of the patient, not the prognosis; as such, it's appropriate at any age/advancing stage of a serious illness and can be provided along with curative treatment. We discussed that cancer patients experience significant symptom and psychosocial burden for which the early integration of supportive oncology with palliative medicine (early findings from the research of [place]) help address a growing need to manage patients comprehensively, with an emphasis on symptom control, nutritional and psychosocial support, and pharmaceutical review. Palliative care consultation in patients with advanced cancer is not only associated with an improvement in the quality of oncology care, but also a reduction in downstream healthcare utilization. In Haris et al 2017, when the automatic palliative medicine consult was triggered by specific oncology criteria, 30-day readmission rates and use of chemotherapy after discharge declined, whereas hospice referrals and uptake of support services post- discharge increased. Patients with advanced cancer admitted to an acute care hospital often have short life expectancies and high morbidity - for these patients, the integration of palliative care has improved symptom burden, reduced patient and caregiver distress, increased referral to hospice, and improved outcomes. (4) Advanced care planning/counseling discussion: face to face ACP with pt approx 35min Krishna wants "everything" but is less specific about what everything may entail. For now he interprets "everything" as treating the cancer to "get rid of it." He perceives this is going to be a short term of therapy ("a couple of doses then I'll be fine") and he does not want to complete an AD. He is not close with his brother or sister. He identifies roommate Coreen as his best friend but her capacity to be engaged in his care/how much she can help/can she help make decisions etc., remains unknown. It also does not appear that she drives as pt commented "she stays in the trailer, she can't go out." We briefly spoke about CPR which he understands as "keep my heart going for the chemo." (5) Intellectual disability: (6) Dysphagia: Plan * Krishna has some limited insight to his illness and was unable to fully engage in a exploratory discussion about goals of care for advanced care planning. He perceives that for now "just do everything and get rid of the cancer, and let me go home, you can manage things there." Advised we cannot administer current IV Abtx and meds from home nor can chemo be given at home. He will need to come to [facility] for ongoing treatment. He is very non specific about how he will come for appt/could not elucidate a plan. * Krishna lives in a trailer home with roommate and friend of 20+ years, "Coreen." She does not drive. He has a brother and sister but they are not close. They are not involved in his care. He is unsure how he will come to [facility] for appointments. I advised him there are cancer clinic navigators who are there to assist with these issues. I will communicate his case to them and cc this note to them as well. * He is agreeable to long acting pain med options, as having to take oxy so frequently can be overwhelming. We reviewed the TDF patch and how it works. I specifically advised him it is not a medicine that works "right away" and will take some to come up to effect, anticipate approx 16hr. In the meantime he can use Oxy 5mg q4h prn and I have added the hold parameters for safety. * I will continue cancer pain and sx mgt in [facility], he was advised I have clinic on and he can be seen on those days. * Patient should ideally have a cognitive assessment once dc and back to his usual baseline. Suspect there is a degree of intell disability. He could not tell me if he was dx with any learning disorders but did state he has trouble understanding large amounts of information or "big words." He comprehends and learns better when information is presented simply and in short bursts over time. He does not read very much and may not be able to comprehend chemo education. He will need face to face chemo education with simplified language and ongoing, close supervision and monitoring from cancer navigators and home VNS if he can be approved for this at discharge. * TS 75min Thank you for allowing us to participate in the ongoing care of this patient. Please don't hesitate to call or page with any additional concerns. Dr. Michelle Shell DNP Director, Palliative Care History of Present Illness Reason for Consultation: On 03/31/23 @ 10:42 Lidya Diez Wrote To Michelle Shell cancer related pain, provider aware of consult Attending Physician: Radha Longoria, DO History of Present Illness Israel Bravo is a 62yo male with hx recently diagnosed ROSA M NSCLC (adenocarcino ma), pancreatic cyst, along with COPD, active tobacco abuse who came to our ED with c/o chest pain worsening x 2 weeks, ? pathologic fractures. He is seen bedside, no family present. He tells me he knows he has a lung cancer. He does not comprehend it is related to his smoking He believes " a few doses of the chemo will fix it" and states he wants to go home He shares a trailer home with Coreen, friend, x 20+ years He has a brother and sister who are not local and he is not close to either sibling He demonstrates some impaired speech with a ?impediment Concern for stroke/brain mets led to Brain MRI yesterday which found some chronic infarcts and advanced chronic microvascular ischemic disease. He has been losing weight, not eating and was found here to have s/s aspiration - video swallow pending. Oncology met with pt yesterday. He has at least stage III lung adenoca (NSCLC) and they are planning chemoradiation. Imaging review: Diagnostic EBUS 03/13/[address] Quijano. Pathology with transbronchial biopsy to the left upper lobe revealed non-small cell lung carcinoma consistent with adenocarcinoma. PET/CT performed 03/19/2023 showed FDG avid metastatic uptake the left suprahilar lymph region. There is also evidence of FDG avidity to the centrally necrotic mass lesion left upper lobe. CXR this mornin. Mildly progressive left lung base predominant airspace opacities suggestive of pneumonia. 2. Large cavitary left upper lobe mass redemonstrated. 03/30/23 BRAIN MRI revealed the followin. No acute intracranial abnormality. 2. No abnormal intracranial enhancement to suggest metastatic disease. 3. Involutional changes with advanced chronic microvascular ischemic disease. 4. Chronic infarcts as above. Chest CTA 03/30/23: 1. Interval mild enlargement of the left upper lobe mass with development of loculation and fluid. This may represent necrotic tumor. 2. Lymphadenopathy is again noted, likely metastatic. 3. Groundglass opacities are again noted in the right lung. 4. Left lower lung airspace opacities are seen, new from prior exam, which may represent pneumonia. PETCT 03/19/23: 1. A large and centrally necrotic mass lesion in the left upper lobe is markedly FDG avid and similar to the 03/13/2023 examination. 2. There is FDG avid metastatic left suprahilar lymphadenopathy. 3. There are 2 groundglass lesions identified in the right lung, one of which shows faint FDG uptake. These are highly suspicious for low-grade adenomatous lesions and favor multifocal neoplasm as opposed to metastatic disease. 4. A 5 mm right lower lobe pulmonary nodule is indeterminate and too small for PET characterization. Attention at follow-up is recommend. 5. Again seen is bulky retroperitoneal and mesenteric lymphadenopathy. This was not demonstrably FDG avid, and the appearance is not typical for metastatic lung cancer. A lymphoproliferative process is favored. 6. No additional foci of FDG avid disease are identified. 7. Emphysema. 8. Trace left pleural effusion. 9. A septated cystic lesion arising from or posterior to the pancreas is unchanged. This did not show abnormal FDG uptake. 10. Additional findings as above. Allergies Allergy/AdvReac Type Severity Reaction Status Date / Time No Known Allergies Allergy Verified 03/29/23 13:34 Home Medications Medication Instructions Recorded Confirmed Type acetaminophen 325 mg tablet 650 mg PO QID PRN Pain 01/03/21 03/29/23 History (Tylenol) aspirin 81 mg tablet,delayed 81 mg PO QAM 01/03/21 03/29/23 History release gabapentin 300 mg capsule 300 mg PO BID #60 caps 02/07/21 03/29/23 Rx albuterol sulfate 90 mcg/actuation 1 inh inhalation Q4H PRN shortness 03/24/23 03/29/23 Rx aerosol inhaler (Ventolin HFA) of breath or wheezing #18 grams fluticasone 250 mcg-salmeterol 50 1 inh inhalation QPM #60 ea 03/24/23 03/29/23 Rx mcg/dose blistr powdr for inhalation (Advair Diskus) oxycodone 5 mg tablet 5 mg PO Q4H pain 30 days #180 tabs 03/24/23 03/29/23 Rx mirtazapine 15 mg tablet (Remeron) 15 mg PO HS 03/29/23 03/29/23 History sennosides 8.6 mg tablet (Natural 8.6 mg PO HS 03/29/23 03/29/23 History Senna Laxative) Patient History Medical History (Updated 03/31/23 @ 12:36 by Michelle Shell DNP) Advanced care planning/counseling discussion Bladder diverticulum Bladder outlet obstruction Cachectic Cancer related pain COPD with emphysema CVA (cerebral vascular accident) Approximately 6 years ago, no deficits History of CVA (cerebrovascular accident) History of rib fracture 2.5 months ago, medical management Hyperlipidemia Intellectual disability Lower extremity ulceration Lymphadenopathy Pancreatic lesion Venous stasis ulcer resolved, "took out vein" Surgical History History of tooth extraction Hx of colonoscopy Status post left foot surgery ulcer on left foot Family History Mother Myocardial infarction Father Prostate cancer Family hx of colon cancer Hypertension Sister Diabetes Brother Lung cancer Thyroid cancer Other No family history of adverse response to anesthesia Denies family history of Ovarian cancer Breast cancer Social History Smoking Status: Current every day smoker Tobacco Type: Cigarettes Age Started Using Tobacco: 10; packs per day: 1; Cigarettes Per Day: 2-3; Second Hand Exposure: Yes; Do You Dip or Chew Tobacco: No; Hx Alcohol Use: No Hx Substance Use: No Preferred Language: Tam[place] Communication Ability: Effective Visual Impairment: No Limitations Hearing Ability: Normal Ceo & Founder Required: No Beliefs That Will Affect Care: None marital status: Single Current Living Situation: Other Current Living Situation Comment: [employer] current occupational status: unemployed 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 Review of Systems Constitutional: + fever, + body aches, + fatigue, + weakness, + anorexia and + weight loss Ear, Nose, Mouth, Throat: + dry mouth, + dental caries, + loose teeth and + dysphagia Respiratory: + cough, + dyspnea and + dyspnea on exertion Cardiovascular: + dyspnea, + dyspnea on exertion and + orthopnea Gastrointestinal: + early satiety, + heartburn and + change in bowel habits Musculoskeletal: + stiffness, + limited range of motion, + myalgia, + muscle weakness and + muscle atrophy Integumentary: + dry skin and + unusual bruising Neurologic: + generalized weakness Endocrine: + fatigue Hematologic / Lymphatic: + easy bruising and + unexplained weight loss Physical Exam Constitutional: + cachectic and + frail appearing Eyes: PERRL, conjunctivae normal, anicteric sclerae ENMT: Nose: + dry nasal mucous membranes Mouth: + dry oral mucous membranes, + dentition abnormality, + dental caries, + edentulous, + poor dentition and + chipped teeth Throat: uvula midline Neck: trachea midline, no thyromegaly Respiratory: + cough, able to speak in complete sentences and + prolonged expiratory phase Auscultation: + diminished lung sounds, + crackles and + wheezes diminished to near absent LLL Cardiovascular: Rate/Rhythm: + tachycardic Heart Sounds: normal S1 and normal S2 Palpation: normal PMI Vessels: normal peripheral pulses Extremities: normal capillary refill Gastrointestinal (Abdomen): normal bowel sounds, soft, nontender, no hepatosplenomegaly Musculoskeletal: gen weakness Skin: pale, dry, warm scatt blocked comedones back/upper shoulder blades dry patches back healed scar lower back/mid line, hyperpigmented multiple ovoid and circular brown to ward flat lesions, no crusting or oozing Neurologic: AAOx3, sometimes slow to reply to more complex questions following simple commands strength equal bilat but diminished insight and comprehension limited Results & Data Vital Signs (Past 12 Hours) Vital Signs Temp Pulse Resp BP Pulse Ox O2 Del Method O2 Flow Rate 03/31/23 07:40 Room Air 03/31/23 07:35 94 H 24 92 Nasal Cannula 3 03/31/23 07:08 37.7 C H 94 H 16 103/54 L 94 Nasal Cannula 3 03/31/23 02:00 86 L Room Air 03/31/23 02:10 37.4 C 93 Nasal Cannula 3 Laboratory Results data reviewed/see HPI Diagnostic Findings data reviewed/see HPI PG Care Time/CCT Total # of Minutes Spent Total Time Spent: 75 Total Time Spent with Patient: Total time spent is greater than 50% in coordination of care (as documented) at patient's floor/unit and/or counseling patient: I spent 75 minutes overall addressing this case: 15 in medical data review/discussion with referring provider(s) and/or preparation for the visit 15 in direct interaction with the patient 35 Advance Care Planning/Goals of Care discussions as detailed above in note (must be >16min) 5 in subsequent review and synthesis of assessment and plan 5 in communicating with other providers regarding the patient's case: [] Advanced Care Planning 96745 Advanced Care Planning 30 [place] [address] IN/OBS CONSULT LVL 5,80M Patient Type New Medical Decision Making High Complexity Diagnoses Cancer related pain G89.3 Dyspnea and respiratory abnormalities R06.00; R06.89 Palliative care by specialist Z51.5 Advanced care planning/counseling discussion Z71.89 Intellectual disability F79 Dysphagia R13.10 Additional Codes Advanced Care Planning - 30326 Advanced Care Planning 30 Min: 57597 Advanced Care Planning 30 Min ([id number])
[2023-03-31] MEDS ORDERED: HYDROmorphone INJ 1 MG/ML SYRINGE IV PRN (11:48)
[2023-03-31] MEDS: fentaNYL 25 MCG/HR TDSY TD SCH (12:24)
[2023-03-31] MEDS: CHECK fentaNYL PATCH PLACEMENT SCH ×2 (16:20→23:10)
[2023-03-31] MEDS: oxyCODONE HCL IR 5 MG TAB (IMMEDIATE RELEASE) PO PRN (18:23)
[2023-03-31] MEDS: FLUTICASONE/VILANTEROL 100/25MCG 14 PUFFS/INHALER INH SCH (20:07)
[2023-03-31] MEDS: MIRTAZAPINE TAB 15 MG TAB PO SCH (20:08)
[2023-03-31] MEDS: SENNA 8.6 MG TAB PO SCH (20:10)
[2023-03-31] MEDS: ACETAMINOPHEN 325 MG TAB PO PRN (22:25)
[2023-04-01] MEDS: PIPERACILLIN/TAZOBACTAM 4.5 GM in DEXTROSE 5% 100 ML IV SCH ×2 (01:16→10:14)
[2023-04-01] MEDS: HEPARIN SOD 5,000 UNIT/0.5 ML VIAL SQ SCH ×2 (05:11→17:30)
[2023-04-01] MEDS: IPRATROPIUM BROMIDE HFA INHALER INH SCH ×3 (07:18→14:55)
[2023-04-01] MEDS: ALBUTEROL HFA 8 GM INHALER INH SCH ×3 (07:18→14:55)
[2023-04-01] MEDS: CHECK fentaNYL PATCH PLACEMENT SCH ×3 (08:11→23:58)
[2023-04-01] MEDS: GABAPENTIN 300 MG CAP PO SCH ×2 (08:12→19:35)
[2023-04-01] MEDS: CHOLECALCIFEROL 5,000 UNITS 125 MCG TAB PO SCH (08:12)
[2023-04-01] MEDS: ASPIRIN 81 MG ECTAB PO SCH (08:12)
[2023-04-01] MEDS: LIDOCAINE 5% 1 PATCH TD SCH (08:12)
[2023-04-01 08:18] LABS: Basophils # (auto) 0.03 K/uL (0-0.2); Basophils % (auto) 0.2 %; Eosinophils % (auto) 1.3 %; Hematocrit (blood only) 29.8 % (42.0-52.0); Immature Granulocytes # (auto) 0.11 K/uL (0.01-0.20); Immature Granulocytes % (auto) 0.7 %; Lymphocytes # (auto) 1.66 K/uL (1.2-3.4); Lymphocytes % (auto) 10.5 %; Mean Corpuscular Hemoglobin 29.8 pg (25.0-34.0); Mean Corpuscular Hgb Conc 33.6 g/dL (32.0-36.0); Mean Corpuscular Volume 88.7 fL (80.0-100.0); Mean Platelet Volume 8.2 fL (9.4-12.4); Monocytes # (auto) 0.52 K/uL (0.11-0.59); Monocytes % (auto) 3.3 %; Neutrophils # (auto) 13.26 K/uL (1.40-6.50); Platelet Count 853 K/uL (130-400); RDW Coefficient of Variation 14.8 % (11.5-14.5); Red Blood Count 3.36 M/uL (4.70-6.10); White Blood Count 15.78 K/ul (4.8-10.8)
[2023-04-01 08:46] LABS: Calcium 8.2 mg/dl (8.6-10.3); Creatinine Clr Calc Pharmacy 141.9 ml/min; Est GFR (African American) 139.1 ml/min; Potassium 3.4 mmol/L (3.5-5.1)
[2023-04-01] MEDS: CEFEPIME 2,000 MG in SYRINGE 0 ML IV SCH ×2 (11:20→18:16)
[2023-04-01] MEDS: DOXYCYCLINE HYCLATE 100 MG in DEXTROSE 5% 100 ML IV SCH ×2 (11:20→21:46)
[2023-04-01] MEDS: ADVANCED PROBIOTIC 1250 MG CAPSULE PO SCH (11:20)
[2023-04-01] MEDS: metroNIDAZOLE 500 MG/100 ML BAG IV SCH ×2 (12:34→17:31)
[2023-04-01 13:09] LABS: Influenza A virus by PCR Negative (Neg); Influenza B virus by PCR Negative (Neg); RSV by PCR Negative (Neg); SARS CoV2 RNA(COVID-19) Ceph NEGATIVE (Negative)
--- NOTE | 2023-04-01 14:35 | Palliative Care Progress Note ---
Date of Service April 01, 2023 Assessment & Plan (1) Cancer related pain: (2) Palliative care by specialist: (3) Dyspnea and respiratory abnormalities: Plan * Pin improved, minimal use of BTP med x 1 dose and no use of IV option [facility] of TDF 25mcg dose to see if he needs prior auth, this should be completed prior to dc * patient has been offered follow up with me however prior to this admission his OSH provider ordered referral to [facility], so will defer final decision to pt. For now it is unclear who he will be following with but oncology or PCP can provide routine refills if his pain remains stable. * TS 45min Thank you for allowing us to participate in the ongoing care of this patient. Please don't hesitate to call or page with any additional concerns. Dr. Michelle Shell DNP Director, Palliative Care Admission and Anticipated Discharge Date Admission Date: March 29, 2023 Subjective pain better used one dose BTP oxy IR and no IV Dilaudid Review of Systems Review of Systems: All systems reviewed & are unremarkable except as noted in Subjective Physical Exam Constitutional: + cachectic and + frail appearing Eyes: PERRL, conjunctivae normal, anicteric sclerae ENMT: Nose: + dry nasal mucous membranes Mouth: + dry oral mucous membrane s, + dentition abnormality, + dental caries, + edentulous, + poor dentition and + chipped teeth Throat: uvula midline Neck: trachea midline, no thyromegaly Respiratory: + cough, able to speak in complete sentences and + prolonged expiratory phase Auscultation: + diminished lung sounds, + crackles and + wheezes diminished to near absent LLL Cardiovascular: Rate/Rhythm: regular rate, regular rhythm and + tachycardic Heart Sounds: normal S1 and normal S2 Palpation: normal PMI Vessels: normal peripheral pulses Extremities: normal capillary refill Gastrointestinal (Abdomen): normal bowel sounds, soft, nontender, no hepatosplenomegaly Musculoskeletal: gen weakness Skin: pale, dry, warm scatt blocked comedones back/upper shoulder blades dry patches back healed scar lower back/mid line, hyperpigmented multiple ovoid and circular brown to ward flat lesions, no crusting or oozing Neurologic: AAOx3, sometimes slow to reply to more complex questions following simple commands strength equal bilat but diminished insight and comprehension limited Results & Data Vital Signs (Past 12 Hours) Vital Signs Temp Pulse Resp BP Pulse Ox O2 Del Method O2 Flow Rate 04/01/23 11:27 83 12 95 Nasal Cannula 2 04/01/23 07:53 Nasal Cannula 2 04/01/23 07:33 37.0 C 81 17 107/65 95 Nasal Cannula 2 04/01/23 07:19 84 22 95 Nasal Cannula 2 PG Care Time/CCT Total # of Minutes Spent Total Time Spent: 45 Total Time Spent with Patient: Total time spent is greater than 50% in coordination of care (as documented) at patient's floor/unit and/or counseling patient: Coding [place] [address] SUB INP/OBS CARE 3/50MIN Patient Type Established History Comprehensive Exam Comprehensive Medical Decision Making Moderate Complexity Diagnoses Cancer related pain G89.3 Palliative care by specialist Z51.5 Dyspnea and respiratory abnormalities R06.00; R06.89
[2023-04-01] MEDS: oxyCODONE HCL IR 5 MG TAB (IMMEDIATE RELEASE) PO PRN (17:32)
[2023-04-01] MEDS ORDERED: POTASSIUM CHLORIDE CRTAB 20 MEQ TABCR PO STA (17:34)
--- NOTE | 2023-04-01 17:51 | Hospitalist Progress Note ---
Date of Service April 01, 2023 Assessment & Plan (1) Pneumonia: Plan: b/l as seen on CTA chest and mulitiple cxr's despite zosyn therapy he continues with fevers & leukocytosis he has increased work of breathing on examination will stop zosyn change to cefepime/doxy/flagyl MRSA swab neg - defer on MRSA coverage for now I ordered RSV/COVID/flu today COREMAKER BENCH swab --> negative if he fails to improve then pulmonary consultation - perhaps he has MDR pathogen or atypical pathogen (fungus, etc) ?? 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 Follows with Dr. Quijano in the outpatient clinic Will continue with ICS/LAMA/LABA while inpatient and also order SCHEDULED Duonebs (4) Cachectic: Plan: SEVERE protein calorie malnutrition 2nd lung cancer eating has been better here in the hospital (5) Thrombocytosis: Plan: cont asa 81mg daily suspect reactive to his pneumonia iron deficiency can also contribute daily CBC (6) Nicotine dependence: Plan: quit just prior to admission (7) Bladder outlet obstruction: Plan: has been able to void on own w/o rucker (8) Chest pain: Plan: 2nd to partially healed displaced fractures of left eighth, ninth, 10th, 11th ribs pain improved with fentanyl patch, etc appreciate palliative care consult & recs (9) Cancer related pain: Plan: fentanyl patch started 03/31 and tolerating such thus far dilaudid prn oxycodone prn (10) Adenocarcinoma of left lung: Plan: dx made via bronch biopsies by Dr Quijano on 03/13/23 (11) Severe protein-calorie malnutrition: Plan: add MVI cont remeron (12) CVA (cerebral vascular accident): Plan: recent MRI brain with multiple old CVAs no brain mets on that MRI (13) Acute respiratory failure with hypoxia: Plan: 2nd to pneumonia + lung cancer see above Plan DVT proph - heparin 5000 BID Admission and Anticipated Discharge Date Admission Date: March 29, 2023 Subjective pt's pain over left ribs improved today s/p fentanyl patch instituted by palliative he is definitely more comfortable has dyspnea with just moving from the bed to the chair ongoing cough with some sputum had fever last pm appetite is surprisingly ok/good; he likes the food here no chills is weak & tired continues with NC O2 requirement Review of Systems Review of Systems: gen - weight loss last few months; fatigue gi - no diarrhea or pain pulm - ongoing cough/congestion/dyspnea GI - no nausea or emesis during the visit he was using an albuterol inhaler; he states he has taken 10+ puffs today Physical Exam Physical Exam: gen - cachectic, dysmorphic in appearance, tachypneic with some retractions neck - no JVD mouth - MMM w/o lesions heart - RRR, s1 s2 lungs - rales L anterior chest; rales b/l bases worse on right posterior; mild end-exp wheeze; tachypnea abd - soft NT ND BS+ ext - no edema, pulses 2+ b/l Results & Data Results & Data Vital Signs (Past 12 Hours) Vital Signs Temp Pulse Resp BP Pulse Ox O2 Del Method O2 Flow Rate 04/01/23 14:59 37.1 C 86 19 119/63 94 Nasal Cannula 2 04/01/23 14:57 87 24 92 Room Air 04/01/23 11:27 83 12 95 Nasal Cannula 2 04/01/23 07:53 Nasal Cannula 2 04/01/23 07:33 37.0 C 81 17 107/65 95 Nasal Cannula 2 04/01/23 07:19 84 22 95 Nasal Cannula 2 Laboratory Results Laboratory Results - last 24 hr 04/01/23 04/01/23 04/01/23 07:38 07:38 Unknown WBC 15.78 H RBC 3.36 L Hgb 10.0 L Hct 29.8 L MCV 88.7 MCH 29.8 MCHC 33.6 RDW Std Deviation 48.0 H RDW Coeff of Juan 14.8 H Plt Count 853 H MPV 8.2 L Immature Gran % (Auto) 0.7 Neut % (Auto) 84.0 Lymph % (Auto) 10.5 [place] % (Auto) 3.3 Eos % (Auto) 1.3 Baso % (Auto) 0.2 Neut # (Auto) 13.26 H Lymph # (Auto) 1.66 [place] # (Auto) 0.52 Eos # (Auto) 0.20 Baso # (Auto) 0.03 Immature Gran # (Auto) 0.11 Sodium 136 Potassium 3.4 L Chloride 99 Carbon Dioxide 31 Anion Gap 6 BUN 8 Creatinine 0.47 L Est Cr Clr Drug Dosing 141.9 Est GFR ( Amer) 139.1 Est GFR (Non-Af Amer) 120.0 BUN/Creatinine Ratio 17.0 Glucose 132 H Calcium 8.2 L SARS-CoV-2 (PCR) NEGATIVE Influenza Type A (PCR) Negative Influenza Type B (PCR) Negative RSV (RT-PCR) Negative PG Care Time/CCT Total # of Minutes Spent Total Time Spent with Patient: Total time spent is greater than 50% in coordination of care (as documented) at patient's floor/unit and/or counseling patient: Coding Level of Care Code 91192 SUB INP/OBS CARE 235MIN Diagnoses Pneumonia J18.9 Hypotension I95.9 COPD with emphysema J43.9 Emphysema type: unspecified Cachectic R64 Thrombocytosis D47.3 Nicotine dependence F17.210 Nicotine product type: cigarettes Substance use status: uncomplicated Bladder outlet obstruction N32.0 Chest pain R07.9 Cancer related pain G89.3 Adenocarcinoma of left lung C34.92 Severe protein-calorie malnutrition E43 CVA (cerebral vascular accident) I63.9 Acute respiratory failure with hypoxia J96.01 (3) COPD with emphysema Emphysema type: unspecified Qualified Code(s): J43.9 - Emphysema, unspecified (6) Nicotine dependence Nicotine product type: cigarettes Substance use status: uncomplicated Qualified Code(s): F17.210 - Nicotine dependence, cigarettes, uncomplicated
[2023-04-01] MEDS: FLUTICASONE/VILANTEROL 100/25MCG 14 PUFFS/INHALER INH SCH (19:33)
[2023-04-01] MEDS: MIRTAZAPINE TAB 15 MG TAB PO SCH (19:34)
[2023-04-01] MEDS: SENNA 8.6 MG TAB PO SCH (19:35)
[2023-04-01] MEDS: ALBUT/IPRATROP 3MG/0.5MG NEB 3 ML VIAL NEB SCH (20:18)
[2023-04-02] MEDS: metroNIDAZOLE 500 MG/100 ML BAG IV SCH ×3 (02:29→18:12)
[2023-04-02] MEDS: CEFEPIME 2,000 MG in SYRINGE 0 ML IV SCH ×3 (02:29→18:10)
[2023-04-02] MEDS: HEPARIN SOD 5,000 UNIT/0.5 ML VIAL SQ SCH ×2 (03:39→16:05)
[2023-04-02] MEDS: ALBUT/IPRATROP 3MG/0.5MG NEB 3 ML VIAL NEB SCH ×4 (07:29→19:03)
[2023-04-02 07:59] LABS: Basophils # (auto) 0.04 K/uL (0-0.2); Basophils % (auto) 0.2 %; Eosinophils # (auto) 0.18 K/uL (0-0.50); Hemoglobin 9.9 g/dl (14.0-18.0); Immature Granulocytes # (auto) 0.16 K/uL (0.01-0.20); Immature Granulocytes % (auto) 0.9 %; Lymphocytes # (auto) 1.78 K/uL (1.2-3.4); Lymphocytes % (auto) 9.9 %; Mean Corpuscular Hemoglobin 29.9 pg (25.0-34.0); Mean Corpuscular Hgb Conc 34.1 g/dL (32.0-36.0); Mean Corpuscular Volume 87.6 fL (80.0-100.0); Mean Platelet Volume 8.3 fL (9.4-12.4); Monocytes # (auto) 0.76 K/uL (0.11-0.59); Monocytes % (auto) 4.2 %; Neutrophils # (auto) 15.15 K/uL (1.40-6.50); Neutrophils % (auto) 83.8 %; Platelet Count 886 K/uL (130-400); RDW Coefficient of Variation 14.7 % (11.5-14.5); RDW Standard Deviation 47.5 fL (36.4-46.3); Red Blood Count 3.31 M/uL (4.70-6.10); White Blood Count 18.07 K/ul (4.8-10.8)
[2023-04-02 08:08] LABS: BUN Creatinine Ratio 21.4 (10-20); C Reactive Protein 8.82 mg/dl (0-0.5); Calcium 8.3 mg/dl (8.6-10.3); Creatinine Clr Calc Pharmacy 158.8 ml/min; Est GFR (African American) 145.6 ml/min; Est GFR (Non-African American) 125.7 ml/min
[2023-04-02] MEDS: CHECK fentaNYL PATCH PLACEMENT SCH ×3 (08:19→23:53)
[2023-04-02] MEDS: ASPIRIN 81 MG ECTAB PO SCH (08:20)
[2023-04-02] MEDS: CHOLECALCIFEROL 5,000 UNITS 125 MCG TAB PO SCH (08:20)
[2023-04-02] MEDS: GABAPENTIN 300 MG CAP PO SCH ×2 (08:21→19:20)
[2023-04-02] MEDS: LIDOCAINE 5% 1 PATCH TD SCH (08:21)
[2023-04-02] MEDS: ADVANCED PROBIOTIC 1250 MG CAPSULE PO SCH (08:21)
[2023-04-02] MEDS: oxyCODONE HCL IR 5 MG TAB (IMMEDIATE RELEASE) PO PRN ×2 (08:26→18:11)
[2023-04-02] MEDS: DOXYCYCLINE HYCLATE 100 MG in DEXTROSE 5% 100 ML IV SCH ×2 (11:01→21:43)
[2023-04-02] MEDS: FLUTICASONE/VILANTEROL 100/25MCG 14 PUFFS/INHALER INH SCH (19:19)
[2023-04-02] MEDS: SENNA 8.6 MG TAB PO SCH (19:21)
[2023-04-02] MEDS: MIRTAZAPINE TAB 15 MG TAB PO SCH (19:21)
--- NOTE | 2023-04-02 20:30 | Hospitalist Progress Note ---
Date of Service April 02, 2023 Assessment & Plan (1) Pneumonia: Plan: b/l as seen on CTA chest and mulitiple cxr's improving - no fever now in 48 hours although wbc count is still high he looks better today cont cefepime/doxy/flagyl - day #2 of each MRSA swab neg - deferred on MRSA coverage RSV/COVID/flu negative if he fails to improve then pulmonary consultation - perhaps he has MDR pathogen or atypical pathogen (fungus, etc) ?? 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 Follows with Dr. Quijano in the outpatient clinic Will continue with ICS/LAMA/LABA while inpatient and also order SCHEDULED Duonebs (4) Cachectic: Plan: SEVERE protein calorie malnutrition 2nd lung cancer 20+ pounds of weight loss by report he is eating 100% of meals here (5) Thrombocytosis: Plan: cont asa 81mg daily suspect reactive to his pneumonia iron deficiency can also contribute daily CBC (6) Nicotine dependence: Plan: quit just prior to admission (7) Bladder outlet obstruction: Plan: has been able to void on own w/o rucker (8) Chest pain: Plan: 2nd to partially healed displaced fractures of left eighth, ninth, 10th, 11th ribs pain improved with fentanyl patch, etc appreciate palliative care consult & recs adjust pain meds as needed (9) Cancer related pain: Plan: fentanyl patch started 03/31 and tolerating such thus far dilaudid prn oxycodone prn (10) Adenocarcinoma of left lung: Plan: dx made via bronch biopsies by Dr Quijano on 03/13/23 (11) Severe protein-calorie malnutrition: Plan: MVI cont remeron (12) CVA (cerebral vascular accident): Plan: recent MRI brain with multiple old CVAs no brain mets on that MRI (13) Acute respiratory failure with hypoxia: Plan: 2nd to pneumonia + lung cancer see above slowly improving (14) Phlebitis: Plan: left arm - 2nd to recent IV (this area is just distal to elbow) warm compresses elevate arm if the area worsens then doppler of left arm to rule out DVT Plan DVT proph - heparin 5000 BID need to update pt's sister dispo - SNF Admission and Anticipated Discharge Date Admission Date: March 29, 2023 Subjective still w/ mild pain over L rib cage cough improved no dyspnea at rest wheezing improved eating 100% of meals had BM today asks when he can leave asks when he can start doing chemo for his cancer Review of Systems Review of Systems: gen - no fevers or chills; +weakness cv - no chest pain pulm - no dyspnea at rest GI - no nausea/emesis Physical Exam Physical Exam: gen - cachectic, dysmorphic in appearance, increased work of breathing improved today neck - no JVD mouth - MMM w/o lesions heart - RRR, s1 s2, no murmur lungs - rales L anterior chest (mild); rales right base; wheezes - improved; tachypnea and increased work of breathing improved today abd - soft NT ND BS+ ext - no edema, pulses 2+ b/l vascular - left forearm - small area of superficial phlebitis just distal to left elbow; about 4-5cm in length with palpable cord Results & Data Results & Data Vital Signs (Past 12 Hours) Vital Signs Temp Pulse Resp BP Pulse Ox O2 Del Method O2 Flow Rate 04/02/23 19:03 89 18 90 Room Air 04/02/23 15:29 37.5 C 83 20 105/62 94 Room Air 04/02/23 15:17 18 Room Air 04/02/23 11:04 87 18 96 Nasal Cannula 2 Laboratory Results Laboratory Results - last 24 hr 04/02/23 04/02/23 06:56 06:56 WBC 18.07 H RBC 3.31 L Hgb 9.9 L Hct 29.0 L MCV 87.6 MCH 29.9 MCHC 34.1 RDW Std Deviation 47.5 H RDW Coeff of Juan 14.7 H Plt Count 886 H MPV 8.3 L Immature Gran % (Auto) 0.9 Neut % (Auto) 83.8 Lymph % (Auto) 9.9 [place] % (Auto) 4.2 Eos % (Auto) 1.0 Baso % (Auto) 0.2 Neut # (Auto) 15.15 H Lymph # (Auto) 1.78 [place] # (Auto) 0.76 H Eos # (Auto) 0.18 Baso # (Auto) 0.04 Immature Gran # (Auto) 0.16 Sodium 133 L Potassium 4.0 Chloride 98 Carbon Dioxide 30 Anion Gap 5 BUN 9 Creatinine 0.42 L Est Cr Clr Drug Dosing 158.8 Est GFR ( Amer) 145.6 Est GFR (Non-Af Amer) 125.7 BUN/Creatinine Ratio 21.4 H Glucose 108 H Calcium 8.3 L C-Reactive Protein 8.82 H PG Care Time/CCT Total # of Minutes Spent Total Time Spent with Patient: Total time spent is greater than 50% in coordination of care (as documented) at patient's floor/unit and/or counseling patient: Coding Level of Care Code 67598 SUB INP/OBS CARE 2MIN Diagnoses Pneumonia J18.9 Hypotension I95.9 COPD with emphysema J43.9 Emphysema type: unspecified Cachectic R64 Thrombocytosis D47.3 Nicotine dependence F17.210 Nicotine product type: cigarettes Substance use status: uncomplicated Bladder outlet obstruction N32.0 Chest pain R07.9 Cancer related pain G89.3 Adenocarcinoma of left lung C34.92 Severe protein-calorie malnutrition E43 CVA (cerebral vascular accident) I63.9 Acute respiratory failure with hypoxia J96.01 Phlebitis I80.9 (3) COPD with emphysema Emphysema type: unspecified Qualified Code(s): J43.9 - Emphysema, unspecified (6) Nicotine dependence Nicotine product type: cigarettes Substance use status: uncomplicated Qualified Code(s): F17.210 - Nicotine dependence, cigarettes, uncomplicated
[2023-04-03] MEDS: metroNIDAZOLE 500 MG/100 ML BAG IV SCH ×3 (02:30→18:03)
[2023-04-03] MEDS: CEFEPIME 2,000 MG in SYRINGE 0 ML IV SCH ×3 (02:30→18:01)
[2023-04-03] MEDS: HEPARIN SOD 5,000 UNIT/0.5 ML VIAL SQ SCH ×2 (03:40→16:25)
[2023-04-03] MEDS: oxyCODONE HCL IR 5 MG TAB (IMMEDIATE RELEASE) PO PRN ×3 (03:45→20:10)
[2023-04-03] MEDS: ALBUT/IPRATROP 3MG/0.5MG NEB 3 ML VIAL NEB SCH ×4 (07:09→19:13)
[2023-04-03] MEDS: GABAPENTIN 300 MG CAP PO SCH ×2 (08:35→20:07)
[2023-04-03] MEDS: CHOLECALCIFEROL 5,000 UNITS 125 MCG TAB PO SCH (08:35)
[2023-04-03] MEDS: ADVANCED PROBIOTIC 1250 MG CAPSULE PO SCH (08:35)
[2023-04-03] MEDS: ASPIRIN 81 MG ECTAB PO SCH (08:36)
[2023-04-03] MEDS: LIDOCAINE 5% 1 PATCH TD SCH (08:37)
[2023-04-03] MEDS: CHECK fentaNYL PATCH PLACEMENT SCH ×2 (08:39→16:23)
[2023-04-03] MEDS: DOXYCYCLINE HYCLATE 100 MG in DEXTROSE 5% 100 ML IV SCH ×2 (10:21→22:15)
[2023-04-03] MEDS: CEROVITE ADV FORMULA TAB PO SCH (10:26)
[2023-04-03 10:27] LABS: Basophils # (auto) 0.06 K/uL (0-0.2); Basophils % (auto) 0.3 %; Eosinophils # (auto) 0.15 K/uL (0-0.50); Eosinophils % (auto) 0.7 %; Hematocrit (blood only) 32.4 % (42.0-52.0); Hemoglobin 10.7 g/dl (14.0-18.0); Immature Granulocytes # (auto) 0.12 K/uL (0.01-0.20); Immature Granulocytes % (auto) 0.6 %; Lymphocytes # (auto) 1.43 K/uL (1.2-3.4); Lymphocytes % (auto) 6.8 %; Mean Corpuscular Hemoglobin 29.6 pg (25.0-34.0); Mean Corpuscular Volume 89.8 fL (80.0-100.0); Mean Platelet Volume 8.2 fL (9.4-12.4); Monocytes # (auto) 0.51 K/uL (0.11-0.59); Monocytes % (auto) 2.4 %; Neutrophils # (auto) 18.61 K/uL (1.40-6.50); Neutrophils % (auto) 89.2 %; Platelet Count 889 K/uL (130-400); RDW Coefficient of Variation 14.6 % (11.5-14.5); Red Blood Count 3.61 M/uL (4.70-6.10); White Blood Count 20.88 K/ul (4.8-10.8)
[2023-04-03 10:38] LABS: Calcium 8.8 mg/dl (8.6-10.3); Creatinine Clr Calc Pharmacy 133.4 ml/min; Est GFR (African American) 135.6 ml/min; Potassium 3.6 mmol/L (3.5-5.1)
[2023-04-03] MEDS: fentaNYL 25 MCG/HR TDSY TD SCH (11:56)
--- NOTE | 2023-04-03 13:33 | XRay Report ---
XR chest 2V PA/lateral HISTORY: 62 years-old Male pneumonia/lung ca, interval change follow-up study in a patient with left -sided pneumonia COMPARISON: 03/31/2023, 03/29/2023 TECHNIQUE: PA and lateral views of the chest FINDINGS: Cardiomediastinal and hilar silhouettes are unchanged. Large cavitary left upper lobe mass redemonstr ated. Additional patchy airspace opacities throughout the left greater than right lungs redemonstrate d, mildly progressed within the left mid lung and mildly improved within the left lung base. Interval development of mild right midlung airspace densities as well. Small left pleural effusion. Probable chondromalacia proximal right humerus. Unchanged appearance of the left-sided rib fractures. Pulmonar y emphysema. IMPRESSION: 1. Persistent left lung airspace opacities suggestive of multifocal pneumonia with interval developme nt of mild airspace opacities throughout the right lung. 2. Large cavitary left upper lobe mass redemonstrated. ACT 112: Negative or not required by law. The above report was generated using voice recognition software. It may contain grammatical, syntax o r spelling errors. Electronically signed by: Tristan Vick M.D. 04/03/2023 1:32 PM
[2023-04-03] MEDS ORDERED: SODIUM CHLORIDE 0.9% 1000ML 500 ML IV ONE (16:06)
[2023-04-03] MEDS: ACETAMINOPHEN 325 MG TAB PO PRN (16:16)
--- NOTE | 2023-04-03 17:50 | Hospitalist Progress Note ---
Date of Service April 03, 2023 Assessment & Plan (1) Pneumonia: Plan: b/l as seen on CTA chest and mulitiple cxr's today's cxr - worsening infiltrates this is consistent with ongoing low-grade fevers (37.8 today) and worsening leukocytosis despite broadspectrum IV abx therapy fortunately he does not look worse clinically at the bedside - 2 L NC O2 requirement, still eating robustly, etc remains on cefepime/doxy/flagyl - day #3 of each cxr today with obvious air-fluid level of ROSA M mass - developing pulmonary abscess component?? MRSA swab neg - deferred on MRSA coverage RSV/COVID/flu negative could consider a full [employer] panel I am going to consult Dr Montoya from [facility] [place] [facility] due to the above factors - perhaps he has MDR pathogen or atypical pathogen (fungus, PJP, etc) ?? However, cultures from bronch from late February [address] Quijano neg for fungus and neg for AFB he did vomit yesterday multiple times - did he aspirate then? low-grade fever theoretically could also be from phlebitis seen in left arm await Dr Montoya's consult for additional recs add a sputum cx if he can produce (2) Hypotension: Plan: resolved -- 2nd dehydration at time of admission then recurred today in context of fever - s/p fluid bolus with resolution consider restarting maintenance fluids (3) COPD with emphysema: Plan: COPD with emphysema and chronic bronchitis Gold class II/C on Advair/Spiriva at home PFTs 02/2023: FVC 3.57 (64% predicted), FEV1 2.23 (53% predicted), FEV1/FVC 62, moderate obstructive dysfunction insignificant bronchodilator response, severe decrease in DLCO. Follows with Dr. Quijano in the outpatient clinic Will continue with ICS/LAMA/LABA while inpatient and also SCHEDULED Duonebs defer on systemic steroids (4) Cachectic: Plan: SEVERE protein calorie malnutrition 2nd lung cancer 20+ pounds of weight loss by report he is eating 100% of meals here (5) Thrombocytosis: Plan: cont asa 81mg daily suspect reactive to his pneumonia iron deficiency can also contribute daily CBC for stability (6) Nicotine dependence: Plan: quit just prior to admission (7) Bladder outlet obstruction: Plan: has been able to void on own w/o rucker (8) Chest pain: Plan: 2nd to partially healed displaced fractures of left eighth, ninth, 10th, 11th ribs pain improved with fentanyl patch, etc appreciate palliative care consult & recs adjust pain meds as needed (9) Cancer related pain: Plan: fentanyl patch started 03/31 and tolerating such thus far dilaudid prn oxycodone prn (10) Adenocarcinoma of left lung: Plan: dx made via bronch biopsies by Dr Quijano on 03/13/[address] x-[address] CT suggest necrosis of the ROSA M mass there is obvious air-fluid level on today's CXR does he now have abscess?? (11) Severe protein-calorie malnutrition: Plan: MVI cont remeron (12) CVA (cerebral vascular accident): Plan: recent MRI brain with multiple old CVAs no brain mets on that MRI (13) Acute respiratory failure with hypoxia: Plan: 2nd to pneumonia + lung cancer see above ongoing (14) Phlebitis: Plan: left arm - 2nd to recent IV (this area is just distal to elbow) lengthy of phlebitis is worse today will obtain doppler to make sure no DVT and to measure size of phlebitis warm compresses elevate arm increase aspirin to 325mg daily Plan DVT proph - heparin 5000 BID called pt's sister this evening - no answer, left message for her on voicemail dispo - SNF Admission and Anticipated Discharge Date Admission Date: March 29, 2023 Subjective patient had low-grade fever this afternoon along with low BP in the 90s systolic gave 500cc saline bolus + tylenol --> fever resolved, BP improved I saw him shortly after the fever he did endorse feeling very warm and unwell this afternoon he states his cough is improved but while I was with him he was coughing frequently denies PERDOMO states he had multiple episodes of emesis yesterday (post-tussive ??) but none today moving bowels Review of Systems Review of Systems: gen - some chills, some fatigue cv - no orthopnea or PND pulm - some wheezing GI - no abd pain - voiding ok Physical Exam Physical Exam: gen - cachectic, dysmorphic in appearance, increased work of breathing (mild tachypnea) present neck - no JVD mouth - MMM w/o lesions, poor dentition heart - RRR, s1 s2, no murmur lungs - rales L anterior chest (mild); rales b/l bases - worse today; scattered wheezes b/l; mild tachypnea but no retractions today abd - soft NT ND BS+ ext - no edema, pulses 2+ b/l vascular - left forearm - superficial phlebitis just distal to left elbow has worsened; it now extends proximally past the elbow with palpable cord, mild overlying erythema, and mild tenderness to palpation Results & Data Results & Data Vital Signs (Past 12 Hours) Vital Signs Temp Pulse Resp BP Pulse Ox O2 Del Method O2 Flow Rate 04/03/23 17:04 37.5 C 82 18 115/65 94 Nasal Cannula 2 04/03/23 15:10 37.7 C H 96 H 18 95/54 L 95 Nasal Cannula 2 04/03/23 15:02 37.8 C H 94 H 22 98/59 L 93 Nasal Cannula 2 04/03/23 10:51 97 H 18 92 Nasal Cannula 2 04/03/23 07:23 Nasal Cannula 2 04/03/23 08:08 36.8 C 82 20 107/57 L 94 Nasal Cannula 2 04/03/23 07:09 87 16 95 Nasal Cannula 3 Laboratory Results Laboratory Results - last 24 hr 04/03/23 04/03/23 09:53 09:53 WBC 20.88 H RBC 3.61 L Hgb 10.7 L Hct 32.4 L MCV 89.8 MCH 29.6 MCHC 33.0 RDW Std Deviation 48.0 H RDW Coeff of Juan 14.6 H Plt Count 889 H MPV 8.2 L Immature Gran % (Auto) 0.6 Neut % (Auto) 89.2 Lymph % (Auto) 6.8 [place] % (Auto) 2.4 Eos % (Auto) 0.7 Baso % (Auto) 0.3 Neut # (Auto) 18.61 H Lymph # (Auto) 1.43 [place] # (Auto) 0.51 Eos # (Auto) 0.15 Baso # (Auto) 0.06 Immature Gran # (Auto) 0.12 Sodium 133 L Potassium 3.6 Chloride 96 L Carbon Dioxide 29 Anion Gap 8 BUN 14 Creatinine 0.50 L Est Cr Clr Drug Dosing 133.4 Est GFR ( Amer) 135.6 Est GFR (Non-Af Amer) 117.0 BUN/Creatinine Ratio 28.0 H Glucose 144 H Calcium 8.8 Diagnostic Findings Chest X-Ray 04/03/23 11:00 XR chest 2V PA/lateral HISTORY: 62 years-old Male pneumonia/lung ca, interval change follow-up study in a patient with left-sided pneumonia COMPARISON: 03/31/2023, 03/29/2023 TECHNIQUE: PA and lateral views of the chest FINDINGS: Cardiomediastinal and hilar silhouettes are unchanged. Large cavitary left upper lobe mass redemonstrated. Additional patchy airspace opacities throughout the left greater than right lungs redemonstrated, mildly progressed within the left mid lung and mildly improved within the left lung base. Interval development of mild right midlung airspace densities as well. Small left pleural effusion. Probable chondromalacia proximal right humerus. Unchanged appearance of the left-sided rib fractures. Pulmonary emphysema. IMPRESSION: 1. Persistent left lung airspace opacities suggestive of multifocal pneumonia with interval development of mild airspace opacities throughout the right lung. 2. Large cavitary left upper lobe mass redemonstrated. ACT 112: Negative or not required by law. The above report was generated using voice recognition software. It may contain grammatical, syntax or spelling errors. PG Care Time/CCT Total # of Minutes Spent Total Time Spent with Patient: Total time spent is greater than 50% in coordination of care (as documented) at patient's floor/unit and/or counseling patient: Coding Level of Care Code 83968 SUB INP/OBS CARE 3/50MIN Diagnoses Pneumonia J18.9 Hypotension I95.9 COPD with emphysema J43.9 Emphysema type: unspecified Cachectic R64 Thrombocytosis D47.3 Nicotine dependence F17.210 Nicotine product type: cigarettes Substance use status: uncomplicated Bladder outlet obstruction N32.0 Chest pain R07.9 Cancer related pain G89.3 Adenocarcinoma of left lung C34.92 Severe protein-calorie malnutrition E43 CVA (cerebral vascular accident) I63.9 Acute respiratory failure with hypoxia J96.01 Phlebitis I80.9 (3) COPD with emphysema Emphysema type: unspecified Qualified Code(s): J43.9 - Emphysema, unspecified (6) Nicotine dependence Nicotine product type: cigarettes Substance use status: uncomplicated Qualified Code(s): F17.210 - Nicotine dependence, cigarettes, uncomplicated
[2023-04-03] MEDS: FLUTICASONE/VILANTEROL 100/25MCG 14 PUFFS/INHALER INH SCH (20:06)
[2023-04-03] MEDS: MIRTAZAPINE TAB 15 MG TAB PO SCH (20:07)
[2023-04-03] MEDS: SENNA 8.6 MG TAB PO SCH (20:08)
[2023-04-04] MEDS: CHECK fentaNYL PATCH PLACEMENT SCH ×4 (00:11→23:04)
--- NOTE | 2023-04-04 01:00 | Ultrasound Report ---
Exam(s): US VENOUS LEFT UPPER EXTREMITY EXAM: US Duplex Left Upper Extremity Veins CLINICAL HISTORY: Reason for exam: area of phlebitis near L elbow; assess 4 DVT. TECHNIQUE: Real-time duplex ultrasound scan of the left upper extremity veins integrating B-mode two-dimensional vascular structure, Doppler spectral analysis, color flow Doppler imaging and compression. COMPARISON: No relevant prior studies available. FINDINGS: Deep veins: Unremarkable. No evidence for deep venous thrombosis. Superficial veins: There is superficial venous thrombosis within the left forearm. Soft tissues: No acute findings. IMPRESSION: Superficial venous thrombosis within the left forearm without evidence for deep and thrombosis. Electronically signed by: Santana Huggins MD 04/04/23 00:59 AM
[2023-04-04] MEDS: metroNIDAZOLE 500 MG/100 ML BAG IV SCH (02:13)
[2023-04-04] MEDS: CEFEPIME 2,000 MG in SYRINGE 0 ML IV SCH ×3 (02:14→10:17)
[2023-04-04] MEDS: HEPARIN SOD 5,000 UNIT/0.5 ML VIAL SQ SCH ×2 (04:48→16:29)
[2023-04-04] MEDS: oxyCODONE HCL IR 5 MG TAB (IMMEDIATE RELEASE) PO PRN ×3 (07:20→20:42)
[2023-04-04] MEDS: ALBUT/IPRATROP 3MG/0.5MG NEB 3 ML VIAL NEB SCH ×4 (07:53→19:13)
[2023-04-04] MEDS: LIDOCAINE 5% 1 PATCH TD SCH (08:17)
[2023-04-04] MEDS: ADVANCED PROBIOTIC 1250 MG CAPSULE PO SCH (08:19)
[2023-04-04] MEDS: CEROVITE ADV FORMULA TAB PO SCH (08:19)
[2023-04-04] MEDS: ASPIRIN 325 MG ECTAB PO SCH (08:19)
[2023-04-04] MEDS: GABAPENTIN 300 MG CAP PO SCH ×2 (08:21→20:39)
[2023-04-04] MEDS: CHOLECALCIFEROL 5,000 UNITS 125 MCG TAB PO SCH (08:21)
[2023-04-04] MEDS ORDERED: metroNIDAZOLE 500 MG TAB PO SCH (09:00)
[2023-04-04] MEDS ORDERED: DOXYCYCLINE HYCLATE 100 MG CAP PO SCH (09:00)
[2023-04-04 10:01] LABS: Basophils # (auto) 0.07 K/uL (0-0.2); Basophils % (auto) 0.4 %; Eosinophils # (auto) 0.24 K/uL (0-0.50); Eosinophils % (auto) 1.3 %; Hematocrit (blood only) 29.7 % (42.0-52.0); Hemoglobin 10.1 g/dl (14.0-18.0); Immature Granulocytes # (auto) 0.12 K/uL (0.01-0.20); Immature Granulocytes % (auto) 0.7 %; Lymphocytes # (auto) 1.55 K/uL (1.2-3.4); Lymphocytes % (auto) 8.4 %; Mean Corpuscular Hemoglobin 30.3 pg (25.0-34.0); Mean Corpuscular Volume 89.2 fL (80.0-100.0); Mean Platelet Volume 8.1 fL (9.4-12.4); Monocytes % (auto) 3.3 %; Neutrophils # (auto) 15.78 K/uL (1.40-6.50); Neutrophils % (auto) 85.9 %; Platelet Count 890 K/uL (130-400); RDW Coefficient of Variation 14.5 % (11.5-14.5); RDW Standard Deviation 46.6 fL (36.4-46.3); Red Blood Count 3.33 M/uL (4.70-6.10); White Blood Count 18.36 K/ul (4.8-10.8)
[2023-04-04 10:14] LABS: Anion Gap 8 (3-11); BUN Creatinine Ratio 35.9 (10-20); Blood Urea Nitrogen 14 mg/dl (6-23); C Reactive Protein 12.68 mg/dl (0-0.5); Calcium 8.6 mg/dl (8.6-10.3); Carbon Dioxide 27 mmol/L (21-32); Chloride 98 mmol/L (98-107); Creatinine Clr Calc Pharmacy 165.1 ml/min; Est GFR (African American) > 150.0 ml/min; Est GFR (Non-African American) 129.5 ml/min; Glucose 173 mg/dl (70-99(Fasting)); Potassium 3.8 mmol/L (3.5-5.1); Sodium 133 mmol/L (136-145)
--- NOTE | 2023-04-04 11:46 | Pulmonary Consultation ---
Date of Consultation April 04, 2023 Assessment & Plan (1) Lung abscess: (2) Adenocarcinoma of left lung: (3) Leukocytosis: Plan Impression: 62-year-old male with recent diagnosis of T4 N1/N0 M0 adenocarcinoma of the lung (stage IIIa). Does have underlying COPD. He was admitted with pain issues which have improved. He has been treated empirically for pneumonia/lung abscess with improvement in procalcitonin his white count has remained elevated although it is decreasing today. Patient is not toxic and is on room air. Recommendations: 1. Potential lung abscess: Cultures from bronchoscopy if showed no growth to date and his procalcitonin is improving suggestive of appropriate treatment of infectious etiologies. I think his antibiotic regimen can be de-escalated down to Augmentin oral and would plan on completing 3 weeks of antimicrobial therapy with follow-up CT scan. It is difficult to ascertain how much of this may be infection and how much may be necrotic tumor. Again he is improving procalcitonin and lack of fever and other respiratory symptoms is somewhat encouraging. No role for repeat bronchoscopy currently. 2. Advanced adenocarcinoma of the lung: The patient's performance status is poor. Recommended therapy would be concurrent chemoradiation therapy. Unclear if the patient's performance status would tolerate and if his psychosocial situation would allow for concurrent therapy. Follow-up in the outpatient setting with medical oncology. It appears the palliative care consultations in the outpatient setting have been initiated. Unclear if the patient wishes to pursue aggressive chemo/radiation therapy at this point in time. 3. Patient does have adenopathy that lights up in his retroperitoneum and abdomen. This may be consistent with a low-grade lymphoproliferative disorder as it did not demonstrate significant PET avidity. This could be the etiology of his leukocytosis as well. Follow-up imaging per medical oncology. 4. COPD: Not bronchospastic. No indication for steroids currently. Use inhalers on an as-needed basis. The patient appears to be stable at this point in time. If the patient can tolerate oral antibiotics, he can likely be dismissed from the hospital outpatient follow-up CT scan in 3 to 4 weeks. The opportunity participating the care of this patient. Feel free to contact us with questions or concerns History of Present Illness Attending Physician: Cortez Gonzalez MD History of Present Illness Asked by hospitalist to assist in evaluation management of this patient with recently diagnosed adenocarcinoma of the lung and CT scan showing necrotic tumor with air-fluid levels versus lung abscess. Was concerned about persistent infection given his persistently elevated white blood cell count and pulmonary was consulted for additional evaluation and management. The patient is established and follows with Dr. Quijano in the outpatient setting but follow-up is difficult due to the patient's logistical issues and psychosocial limitations. This 62-year-old male initially seen by pulmonary back in 2020. He was lost to follow-up due to insurance issues. He represented and was found to have a left upper lobe mass. He was taken to bronchoscopy. Biopsies were taken which revealed adenocarcinoma staining for a lung primary. His EBUS mediastinal evaluation was negative. Patient's antibiotic history is as follows: 03/29-03/31 Zosyn 04/01 to current cefepime doxycycline Flagyl Cultures including bronchoscopic cultures no growth to date. This includes fungal and AFB cultures as well as routine respiratory cultures Procalcitonin down to 0.67 from 12.6 He has been afebrile throughout this hospitalization. He reports occasional cough and some phlegm production. He is not wheezing. He denies any chest pain. Allergies Allergy/AdvReac Type Severity Reaction Status Date / Time No Known Allergies Allergy Verified 03/29/23 13:34 Home Medications Medication Instructions Recorded Confirmed Type acetaminophen 325 mg tablet 650 mg PO QID PRN Pain 01/03/21 03/29/23 History (Tylenol) aspirin 81 mg tablet,delayed 81 mg PO QAM 01/03/21 03/29/23 History release gabapentin 300 mg capsule 300 mg PO BID #60 caps 02/07/21 03/29/23 Rx albuterol sulfate 90 mcg/actuation 1 inh inhalation Q4H PRN shortness 03/24/23 03/29/23 Rx aerosol inhaler (Ventolin HFA) of breath or wheezing #18 grams fluticasone 250 mcg-salmeterol 50 1 inh inhalation QPM #60 ea 03/24/23 03/29/23 Rx mcg/dose blistr powdr for inhalation (Advair Diskus) oxycodone 5 mg tablet 5 mg PO Q4H pain 30 days #180 tabs 03/24/23 03/29/23 Rx mirtazapine 15 mg tablet (Remeron) 15 mg PO HS 03/29/23 03/29/23 History sennosides 8.6 mg tablet (Natural 8.6 mg PO HS 03/29/23 03/29/23 History Senna Laxative) fentanyl 25 mcg/hr transdermal 25 mcg transdermal Q72H #10 ea 04/02/23 Rx patch Patient History Medical History (Updated 04/04/23 @ 11:58 by Thom Montoya MD) Advanced care planning/counseling discussion Bladder diverticulum Bladder outlet obstruction Cachectic Cancer related pain COPD with emphysema CVA (cerebral vascular accident) Approximately 6 years ago, no deficits History of CVA (cerebrovascular accident) History of rib fracture 2.5 months ago, medical management Hyperlipidemia Intellectual disability Lower extremity ulceration Lymphadenopathy Pancreatic lesion Venous stasis ulcer resolved, "took out vein" Surgical History History of tooth extraction Hx of colonoscopy Status post left foot surgery ulcer on left foot Family History Mother Myocardial infarction Father Prostate cancer Family hx of colon cancer Hypertension Sister Diabetes Brother Lung cancer Thyroid cancer Other No family history of adverse response to anesthesia Denies family history of Ovarian cancer Breast cancer Social History Smoking Status: Current every day smoker Tobacco Type: Cigarettes Age Started Using Tobacco: 10; packs per day: 1; Cigarettes Per Day: 2-3; Second Hand Exposure: Yes; Do You Dip or Chew Tobacco: No; Hx Alcohol Use: No Hx Substance Use: No Preferred Language: Icelandic Communication Ability: Effective Visual Impairment: No Limitations Hearing Ability: Normal Bag 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 Required: No Beliefs That Will Affect Care: None marital status: Single Current Living Situation: Other Current Living Situation Comment: [facility]- [facility] current occupational status: unemployed 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 Review of Systems Review of Systems: Please refer to the hospitalist note. No additions or deletions Physical Exam Constitutional: + cachectic and + frail appearing Eyes: PERRL, conjunctivae normal, anicteric sclerae ENMT: Nose: + dry nasal mucous membranes Mouth: + dry oral mucous membranes, + dentition abnormality, + dental caries, + edentulous, + poor dentition and + chipped teeth Throat: uvula midline Neck: trachea midline, no thyromegaly Respiratory: + cough, able to speak in complete sentences and + prolonged expiratory phase Auscultation: + diminished lung sounds, + crackles and + wheezes diminished to near absent LLL Cardiovascular: Rate/Rhythm: regular rate, regular rhythm and + tachycardic Heart Sounds: normal S1 and normal S2 Palpation: normal PMI Vessels: normal peripheral pulses Extremities: normal capillary refill Gastrointestinal (Abdomen): normal bowel sounds, soft, nontender, no hepatosplenomegaly Musculoskeletal: gen weakness Skin: pale, dry, warm scatt blocked comedones back/upper shoulder blades dry patches back healed scar lower back/mid line, hyperpigmented multiple ovoid and circular brown to ward flat lesions, no crusting or oozing Neurologic: AAOx3, sometimes slow to reply to more complex questions following simple commands strength equal bilat but diminished insight and comprehension limited Results & Data Results & Data Vital Signs (Past 12 Hours) Vital Signs Temp Pulse Resp BP Pulse Ox O2 Del Method O2 Flow Rate 04/04/23 11:04 85 18 95 Room Air 04/04/23 07:15 Nasal Cannula 2 04/04/23 07:55 80 18 92 Room Air 04/04/23 06:25 37.0 C 83 16 102/54 L 96 Nasal Cannula 2.0 Laboratory Results Cultures no growth today Diagnostic Findings Brain MRI 03/30/2023 without metastatic disease. PET/CT 03/19/23 independently reviewed CLINICAL HISTORY: Lung mass. COMPARISON STUDY: Chest CT dated 03/13/2023. CT scan of the abdomen and pelvis dated 02/02/2023. TECHNIQUE: One hour following the IV administration of 12.54 mCi of F-18 FDG, PET/CT examination was performed from the orbital meatal line through the bony pelvis. Noncontrast CT is performed for the purposes of anatomic correlation and attenuation correction. Note that this does not reflect a diagnostic CT examination. Images were reviewed on a separate [employer] independent workstation. Fused images were obtained. Standard uptake values reported are maximum values within the region of interest expressed in gm/mL. FINDINGS: PET FINDINGS: Head and neck: There is expected physiologic activity within the visualized brain parenchyma at the skull base and the salivary glands. Thorax: Evaluation of the thorax demonstrates expected physiologic myocardial activity. Again seen is a centrally necrotic mass lesion at the left apex with surrounding consolidation. The lesion measures approximately 8 x 6 cm in axial dimension. This closely approximates and may cross the major fissure, and the lesion demonstrates a maximum SUV of 11.0. There is FDG avid left suprahilar lymphadenopathy. This is not well-visualized on low-dose CT images and shows a maximum SUV of 8.3. No pathologically enlarged or FDG avid mediastinal lymph nodes are seen. There are additional groundglass lesions in the right upper lobe on image #68 and the right lower lobe on the major fissure on image #88. The lesion on image #88 was previously measured 1.4 cm and shows low level FDG uptake with a maximum SUV of 0.9. A 5 mm right lower lobe pulmonary nodule image #98 is indeterminate and too small for PET characterization. Abdomen and pelvis: There is expected activity within the liver, spleen, kidneys, renal collecting system, and bladder. Low-level bowel activity is likely within physiologic limits. A 4.7 x 1.8 cm multiloculated lesion arising from or adjacent to the pancreatic head is again seen on image #170. Again seen is retroperitoneal and mesenteric lymphadenopathy. A mesenteric dereck aggregate on image #199 measures 4.6 x 2.9 cm and a left periaortic dereck aggregate on image #163 measures 2.7 x 1.8 cm. The lymphadenopathy is not demonstrated FDG avid. Unenhanced CT images: The visualized brain parenchyma at the skull base is normal in appearance. The bony orbits are intact. Orbital contents are within normal limits. There is trace mucosal thickening in the right maxillary antrum. Remaining paranasal sinuses are clear. The mastoid air cells are well pneumatized. The salivary glands are normal in appearance. The thyroid gland is heterogeneous. No cervical lymphadenopathy is seen. The thoracic aorta is normal in course and caliber. The heart is normal in size and without pericardial effusion. Emphysematous change is noted. Trace left pleural effusion is noted. See above under PET findings for discussion of lung lesions. No axillary lymphadenopathy is seen. The unenhanced liver, gallbladder, spleen, adrenal glands, and kidneys are grossly normal. A multiloculated cystic lesion is again seen adjacent to the pancreas. See above. The unenhanced pancreas is otherwise grossly unremarkable. The abdominal aorta is normal in course and caliber noting moderate atherosclerotic calcification. There is no bowel obstruction. A normal appendix is seen in the right lower quadrant. There is colonic diverticulosis without CT evidence of acute diverticulitis. No intraperitoneal free air or abdominal ascites is seen. The prostate gland is mildly enlarged and heterogeneous. The bladder is distended, the wall appears thickened/trabeculated indicating chronic outlet obstruction. A 7.5 cm bladder diverticulum is again seen posteriorly on the right. The patient is cachectic. The skeletal structures are osteopenic. No lytic or blastic lesion is identified. There are subacute- appearing left-sided rib fractures. These show faint FDG uptake. A benign- appearing chondroid lesion is again seen in the right proximal humerus. IMPRESSION: 1. A large and centrally necrotic mass lesion in the left upper lobe is markedly FDG avid and similar to the 03/13/2023 examination. 2. There is FDG avid metastatic left suprahilar lymphadenopathy. 3. There are 2 groundglass lesions identified in the right lung, one of which shows faint FDG uptake. These are highly suspicious for low-grade adenomatous lesions and favor multifocal neoplasm as opposed to metastatic disease. 4. A 5 mm right lower lobe pulmonary nodule is indeterminate and too small for PET characterization. Attention at follow-up is recommend. 5. Again seen is bulky retroperitoneal and mesenteric lymphadenopathy. This was not demonstrably FDG avid, and the appearance is not typical for metastatic lung cancer. A lymphoproliferative process is favored. 6. No additional foci of FDG avid disease are identified. 7. Emphysema. 8. Trace left pleural effusion. 9. A septated cystic lesion arising from or posterior to the pancreas is unchanged. This did not show abnormal FDG uptake. 10. Additional findings as above. Critical Care Results & Data Vital Signs (Past 12 Hours) Vital Signs Temp Pulse Resp BP Pulse Ox O2 Del Method O2 Flow Rate 04/04/23 11:04 85 18 95 Room Air 04/04/23 07:15 Nasal Cannula 2 04/04/23 07:55 80 18 92 Room Air 04/04/23 06:25 37.0 C 83 16 102/54 L 96 Nasal Cannula 2.0 Lab & Micro Results (Past 24 Hours) RBC 3.33 M/uL (4.70-6.10) L 04/04/23 WBC 18.36 K/ul (4.8-10.8) H 04/04/23 Hgb 10.1 g/dl (14.0-18.0) L 04/04/23 Hct 29.7 % (42.0-52.0) L 04/04/23 MCV 89.2 fL (80.0-100.0) 04/04/23 MCH 30.3 pg (25.0-34.0) 04/04/23 MCHC 34.0 g/dL (32.0-36.0) 04/04/23 RDW Standard Deviation 46.6 fL (36.4-46.3) H 04/04/23 RDW Coefficient of Variation 14.5 % (11.5-14.5) 04/04/23 Plt Count 890 K/uL (130-400) H 04/04/23 MPV 8.1 fL (9.4-12.4) L 04/04/23 Neutrophils (%) (Auto) 85.9 % 04/04/23 Lymphocytes (%) (Auto) 8.4 % 04/04/23 Monocytes # (Auto) 0.60 K/uL (0.11-0.59) H 04/04/23 Eosinophils # (Auto) 0.24 K/uL (0-0.50) 04/04/23 Immature Granulocyte % (Auto) 0.7 % 04/04/23 Neutrophils # (Auto) 15.78 K/uL (1.40-6.50) H 04/04/23 Lymphocytes # (Auto) 1.55 K/uL (1.2-3.4) 04/04/23 Monocytes # (Auto) 0.60 K/uL (0.11-0.59) H 04/04/23 Eosinophils # (Auto) 0.24 K/uL (0-0.50) 04/04/23 Basophils # (Auto) 0.07 K/uL (0-0.2) 04/04/23 Immature Granulocyte # (Auto) 0.12 K/uL (0.01-0.20) 3 Na 133 mmol/L (136-145) L 04/04/23 K 3.8 mmol/L (3.5-5.1) 04/04/23 Cl 98 mmol/L (98-107) 04/04/23 CO2 27 mmol/L (21-32) 04/04/23 Anion Gap 8 (3-11) 04/04/23 BUN 14 mg/dl (6-23) 04/04/23 Creatinine 0.39 mg/dl (0.6-1.4) L 04/04/23 Estimated GFR ( Amer) > 150.0 ml/min 04/04/23 Estimated GFR (Non-Af Amer) 129.5 ml/min 04/04/23 BUN/Creatinine Ratio 35.9 (10-20) H 04/04/23 Glu 173 mg/dl (70-99(Fasting)) H 04/04/23 Ca 8.6 mg/dl (8.6-10.3) 04/04/23 Calcium Level 8.6 mg/dl (8.6-10.3) 04/04/23 09:30 Microbiology 03/29/23 11:35 Aerobic Blood Culture - Final Blood No growth in Aerobic bottle after 5 days. Anaerobic Blood Culture - Final No growth in Anaerobic bottle after 5 days. 03/29/23 11:35 Aerobic Blood Culture - Final Blood No growth in Aerobic bottle after 5 days. Anaerobic Blood Culture - Final No growth in Anaerobic bottle after 5 days. Diagnostic Findings (Past 24 Hours) Chest X-Ray 04/03/23 11:00 XR chest 2V PA/lateral HISTORY: 62 years-old Male pneumonia/lung ca, interval change follow-up study in a patient with left-sided pneumonia COMPARISON: 03/31/2023, 03/29/2023 TECHNIQUE: PA and lateral views of the chest FINDINGS: Cardiomediastinal and hilar silhouettes are unchanged. Large cavitary left upper lobe mass redemonstrated. Additional patchy airspace opacities throughout the left greater than right lungs redemonstrated, mildly progressed within the left mid lung and mildly improved within the left lung base. Interval development of mild right midlung airspace densities as well. Small left pleural effusion. Probable chondromalacia proximal right humerus. Unchanged appearance of the left-sided rib fractures. Pulmonary emphysema. IMPRESSION: 1. Persistent left lung airspace opacities suggestive of multifocal pneumonia with interval development of mild airspace opacities throughout the right lung. 2. Large cavitary left upper lobe mass redemonstrated. ACT 112: Negative or not required by law. The above report was generated using voice recognition software. It may contain grammatical, syntax or spelling errors. Electronically signed by: Tristan Vick M.D. 04/03/2023 1:32 PM Extremity Venous Study 04/03/23 17:49 Exam(s): US VENOUS LEFT UPPER EXTREMITY EXAM: US Duplex Left Upper Extremity Veins CLINICAL HISTORY: Reason for exam: area of phlebitis near L elbow; assess 4 DVT. TECHNIQUE: Real-time duplex ultrasound scan of the left upper extremity veins integrating B-mode two-dimensional vascular structure, Doppler spectral analysis, color flow Doppler imaging and compression. COMPARISON: No relevant prior studies available. FINDINGS: Deep veins: Unremarkable. No evidence for deep venous thrombosis. Superficial veins: There is superficial venous thrombosis within the left forearm. Soft tissues: No acute findings. IMPRESSION: Superficial venous thrombosis within the left forearm without evidence for deep and thrombosis. Electronically signed by: Santana Huggins MD 04/04/23 00:59 AM I & O Totals 24 Hours 04/03/23 04/04/23 04/05/23 06:59 06:59 06:59 Intake Total 1390 / 1390 1730 / 1730 Output Total Balance 1389 / 1389 1730 / 1730 Cumulative 03/29/23 10:15 thru 04/04/23 06:25 Intake Total 23803.750 Output Total 1751 Balance 69647.750 RT Ventilator Mngmt (Last Documented) Ventilator Ordered Settings Respiratory Rate 18 04/04/23 11:04 Ventilator - PT Measurements Respiratory Rate 18 PG Care Time/CCT Total # of Minutes Spent Total Time Spent with Patient: Total time spent is greater than 50% in coordination of care (as documented) at patient's floor/unit and/or counseling patient: Coding Level of Care Code 52792 IN/OBS CONSULT LVL 4,60M Diagnoses Lung abscess J85.2 Adenocarcinoma of left lung C34.92 Leukocytosis D72.829
[2023-04-04] MEDS: AMOXICILLIN/CLAVULANATE 875 MG TAB PO SCH (16:28)
--- NOTE | 2023-04-04 20:13 | Hospitalist Progress Note ---
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 Follows with Dr. Quijano in the outpatient clinic Will continue with ICS/LAMA/LABA while inpatient and also SCHEDULED Duonebs defer on systemic steroids (6) Cachectic: Plan: SEVERE protein calorie malnutrition 2nd lung cancer 20+ pounds of weight loss by report he is eating 100% of meals here (7) Thrombocytosis: Plan: cont asa 81mg daily suspect reactive to his pneumonia iron deficiency can also contribute check CBC QOD for stability (8) Nicotine dependence: Plan: quit tobacco just prior to admission (9) Bladder outlet obstruction: Plan: has been able to void on own w/o rucker (10) Chest pain: Plan: 2nd to partially healed displaced fractures of left eighth, ninth, 10th, 11th ribs pain improved with fentanyl patch, etc but using oxy 3-4 times a day consider increasing oxy to 10mg q6h prn appreciate palliative care consult & recs (11) Cancer related pain: Plan: fentanyl patch started 03/31 and tolerating such thus far dilaudid prn oxycodone prn see above (12) Adenocarcinoma of left lung: Plan: dx made via bronch biopsies by Dr Quijano on 03/13/[address] x-rays [address] CT suggest necrosis of the ROSA M mass there is obvious air-fluid level on CXRs pulmonary abscess? 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 Admission and Anticipated Discharge Date Admission Date: March 29, 2023 Subjective no new issues overnight cough improved eating 100% of meals no dyspnea only complaint is his pain over the left chest wall but he is very comfortable during my visit asks about discharge Review of Systems Review of Systems: cv - left chest wall pain pulm - no dyspnea; no PERDOMO GI - no abd pain gen - feels good Physical Exam Physical Exam: gen - cachectic, dysmorphic in appearance, looks good today neck - no JVD mouth - MMM w/o lesions, poor dentition heart - RRR, s1 s2, no murmur lungs - rales L anterior chest (mild); rales b/l bases improved; no wheezes b/l; no tachypnea or retractions today abd - soft NT ND BS+ ext - no edema, pulses 2+ b/l vascular - left forearm - superficial phlebitis just distal to left elbow with mild overlying erythema; no worsening of the palpable cord present; nontender Results & Data Results & Data Vital Signs (Past 12 Hours) Vital Signs Temp Pulse Resp BP Pulse Ox O2 Del Method O2 Flow Rate 04/04/23 20:00 Room Air 04/04/23 19:13 87 20 93 Nasal Cannula 04/04/23 15:32 37.0 C 79 20 100/51 L 96 Nasal Cannula 2 04/04/23 14:14 88 22 98 Nasal Cannula 2 04/04/23 11:04 85 18 95 Room Air Laboratory Results Laboratory Results - last 24 hr 04/04/23 04/04/23 04/04/23 09:30 09:30 09:30 WBC 18.36 H RBC 3.33 L Hgb 10.1 L Hct 29.7 L MCV 89.2 MCH 30.3 MCHC 34.0 RDW Std Deviation 46.6 H RDW Coeff of Juan 14.5 Plt Count 890 H MPV 8.1 L Immature Gran % (Auto) 0.7 Neut % (Auto) 85.9 Lymph % (Auto) 8.4 [place] % (Auto) 3.3 Eos % (Auto) 1.3 Baso % (Auto) 0.4 Neut # (Auto) 15.78 H Lymph # (Auto) 1.55 [place] # (Auto) 0.60 H Eos # (Auto) 0.24 Baso # (Auto) 0.07 Immature Gran # (Auto) 0.12 Sodium 133 L Potassium 3.8 Chloride 98 Carbon Dioxide 27 Anion Gap 8 BUN 14 Creatinine 0.39 L Est Cr Clr Drug Dosing 165.1 Est GFR ( Amer) > 150.0 Est GFR (Non-Af Amer) 129.5 BUN/Creatinine Ratio 35.9 H Glucose 173 H Calcium 8.6 C-Reactive Protein 12.68 H Procalcitonin 0.67 H PG Care Time/CCT Total # of Minutes Spent Total Time Spent with Patient: Total time spent is greater than 50% in coordination of care (as documented) at patient's floor/unit and/or counseling patient: Coding Level of Care Code 59692 SUB INP/OBS CARE 235MIN Diagnoses Pneumonia J18.9 Lung abscess J85.2 Sepsis A41.9 Hypotension I95.9 COPD with emphysema J43.9 Emphysema type: unspecified Cachectic R64 Thrombocytosis D47.3 Nicotine dependence F17.210 Nicotine product type: cigarettes Substance use status: uncomplicated Bladder outlet obstruction N32.0 Chest pain R07.9 Cancer related pain G89.3 Adenocarcinoma of left lung C34.92 Severe protein-calorie malnutrition E43 CVA (cerebral vascular accident) I63.9 Acute respiratory failure with hypoxia J96.01 Phlebitis I80.9 (5) COPD with emphysema Emphysema type: unspecified Qualified Code(s): J43.9 - Emphysema, unspecified (8) Nicotine dependence Nicotine product type: cigarettes Substance use status: uncomplicated Qualified Code(s): F17.210 - Nicotine dependence, cigarettes, uncomplicated
[2023-04-04] MEDS: SENNA 8.6 MG TAB PO SCH (20:38)
[2023-04-04] MEDS: FLUTICASONE/VILANTEROL 100/25MCG 14 PUFFS/INHALER INH SCH (20:39)
[2023-04-04] MEDS: MIRTAZAPINE TAB 15 MG TAB PO SCH (20:39)
[2023-04-05] MEDS: HEPARIN SOD 5,000 UNIT/0.5 ML VIAL SQ SCH ×2 (05:16→16:26)
[2023-04-05] MEDS: ALBUT/IPRATROP 3MG/0.5MG NEB 3 ML VIAL NEB SCH ×4 (07:54→20:12)
--- NOTE | 2023-04-05 08:24 | Pulmonology Progress Note ---
Date of Service April 05, 2023 Assessment & Plan (1) Lung abscess: (2) Adenocarcinoma of left lung: (3) Leukocytosis: Plan Impression: 62-year-old male with recent diagnosis of T4 N1/N0 M0 adenocarcinoma of the lung (stage IIIa). Does have underlying COPD. He was admitted with pain issues which have improved. He has been treated empirically for pneumonia/lung abscess with improvement in procalcitonin his white count has remained elevated although it is decreasing today. Patient is not toxic and is on room air. Recommendations: 1. Probable lung abscess: Cultures from bronchoscopy if showed no growth to date and his procalcitonin is improving suggestive of appropriate treatment of infectious etiologies. Complete 21-day course of Augmentin. It is difficult to ascertain how much of this may be infection and how much may be necrotic tumor. Again he is improving procalcitonin and lack of fever and other respiratory symptoms is somewhat encouraging. No role for repeat bronchoscopy currently. 2. Advanced adenocarcinoma of the lung: The patient's performance status is poor. Recommended therapy would be concurrent chemoradiation therapy. Unclear if the patient's performance status would tolerate and if his psychosocial situation would allow for concurrent therapy. Follow-up in the outpatient setting with medical oncology. It appears the palliative care consultations in the outpatient setting have been initiated. Unclear if the patient wishes to pursue aggressive chemo/radiation therapy at this point in time. 3. Patient does have adenopathy in his retroperitoneum and abdomen. This may be consistent with a low-grade lymphoproliferative disorder as it did not demonstrate significant PET avidity. This could be the etiology of his leukocytosis as well. Follow-up imaging per medical oncology. 4. COPD: Not bronchospastic. No indication for steroids currently. Use inhalers on an as-needed basis. The patient appears to be stable at this point in time. Disposition per primary service. Pulmonary will sign off. Feel free to contact us with questions or concerns Admission and Anticipated Discharge Date Admission Date: March 29, 2023 Subjective Patient seen and examined. EMR reviewed. He is awake alert and conversant. He does not report any chest pain. No cough. No fevers chills or night sweats. He is tolerating a diet. Review of Systems Review of Systems: All systems reviewed & are unremarkable except as noted in Subjective Physical Exam Constitutional: + cachectic and + frail appearing Eyes: PERRL, conjunctivae normal, anicteric sclerae ENMT: Nose: + dry nasal mucous membranes Mouth: + dry oral mucous membranes, + dentition abnormality, + dental caries, + edentulous, + poor dentition and + chipped teeth Throat: uvula midline Neck: trachea midline, no thyromegaly Respiratory: + cough, able to speak in complete sentences and + prolonged expiratory phase Auscultation: + diminished lung sounds, + crackles and + wheezes Cardiovascular: Rate/Rhythm: regular rate, regular rhythm and + tachycardic Heart Sounds: normal S1 and normal S2 Palpation: normal PMI Vessels: normal peripheral pulses Extremities: normal capillary refill Gastrointestinal (Abdomen): normal bowel sounds, soft, nontender, no hepatosplenomegaly Results & Data Results & Data Vital Signs (Past 12 Hours) Vital Signs Temp Pulse Resp BP Pulse Ox O2 Del Method O2 Flow Rate 04/04/23 21:14 36.9 C 87 16 117/67 96 Nasal Cannula 2.0 Laboratory Results No labs from today Diagnostic Findings No new image PG Care Time/CCT Total # of Minutes Spent Total Time Spent with Patient: Total time spent is greater than 50% in coordination of care (as documented) at patient's floor/unit and/or counseling patient: Coding Level of Care Code 48741 SUB INP/OBS CARE 2/35MIN Diagnoses Lung abscess J85.2 Adenocarcinoma of left lung C34.92 Leukocytosis D72.829
[2023-04-05] MEDS: LIDOCAINE 5% 1 PATCH TD SCH (08:30)
[2023-04-05] MEDS: CHOLECALCIFEROL 5,000 UNITS 125 MCG TAB PO SCH (08:31)
[2023-04-05] MEDS: ADVANCED PROBIOTIC 1250 MG CAPSULE PO SCH (08:31)
[2023-04-05] MEDS: CEROVITE ADV FORMULA TAB PO SCH (08:31)
[2023-04-05] MEDS: GABAPENTIN 300 MG CAP PO SCH ×2 (08:31→20:21)
[2023-04-05] MEDS: AMOXICILLIN/CLAVULANATE 875 MG TAB PO SCH ×2 (08:31→16:24)
[2023-04-05] MEDS: ASPIRIN 325 MG ECTAB PO SCH (08:31)
[2023-04-05] MEDS: CHECK fentaNYL PATCH PLACEMENT SCH ×2 (08:32→16:23)
[2023-04-05] MEDS: oxyCODONE HCL IR 5 MG TAB (IMMEDIATE RELEASE) PO PRN ×2 (11:36→20:20)
[2023-04-05] MEDS: ACETAMINOPHEN 325 MG TAB PO PRN (15:15)
[2023-04-05] MEDS: FLUTICASONE/VILANTEROL 100/25MCG 14 PUFFS/INHALER INH SCH (20:08)
[2023-04-05] MEDS: SENNA 8.6 MG TAB PO SCH (20:09)
[2023-04-05] MEDS: MIRTAZAPINE TAB 15 MG TAB PO SCH (20:22)
--- NOTE | 2023-04-05 21:19 | Hospitalist Progress Note ---
Date of Service April 05, 2023 Assessment & Plan (1) Pneumonia: Plan: b/l, with possible pulmonary abscess of ROSA M where his adenocarcinoma mass is located was seen by Dr Montoya, pulmonary, in consult - he advises 3 week course of augmentin in the event he indeed has an abscess his cefepime/doxy/flagyl were d/c and augmentin was started BID MRSA swab neg - deferred on MRSA coverage RSV/COVID/flu negative appreciate Dr Montoya's assistance (2) Lung abscess: Plan: see #1 above ROSA M (3) Sepsis: Plan: 2nd #1, #2 resolving cbc in am no further fever (4) Hypotension: Plan: resolved 2nd to sepsis from #1 (5) COPD with emphysema: Plan: COPD with emphysema and chronic bronchitis Gold class II/C on Advair/Spiriva at home PFTs 02/2023: FVC 3.57 (64% predicted), FEV1 2.23 (53% predicted), FEV1/FVC 62, moderate obstructive dysfunction insignificant bronchodilator response, severe decrease in DLCO. Follows with Dr. Quijano in the outpatient clinic Will continue with ICS/LAMA/LABA while inpatient and also SCHEDULED Duonebs defer on systemic steroids (6) Cachectic: Plan: SEVERE protein calorie malnutrition 2nd lung cancer 20+ pounds of weight loss by report he is eating 100% of meals here (7) Thrombocytosis: Plan: cont asa 81mg daily suspect reactive to his pneumonia iron deficiency can also contribute check CBC in am (8) Nicotine dependence: Plan: quit tobacco just prior to admission but tried to elope last night to smoke (9) Bladder outlet obstruction: Plan: has been able to void on own w/o rucker (10) Chest pain: Plan: 2nd to partially healed displaced fractures of left eighth, ninth, 10th, 11th ribs pain improved with fentanyl patch, etc but using oxy 3-4 times a day I increased the oxy to 10mg q6h prn yesterday appreciate palliative care consult & recs (11) Cancer related pain: Plan: fentanyl patch started 03/31 and tolerating such thus far dilaudid prn oxycodone prn see above (12) Adenocarcinoma of left lung: Plan: dx made via bronch biopsies by Dr Quijano on 03/13/[address] x-rays and CT suggest necrosis of the ROSA M mass there is obvious air-fluid level on CXRs pulmonary abscess? 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 no brain mets on that MRI (15) Acute respiratory failure with hypoxia: Plan: 2nd to pneumonia + lung cancer see above ongoing reinforced with patient that he needs to use the oxygen with ambulation asked nursing staff to get longer tubing to accommodate such will need 2-step at d/c (16) Phlebitis: Plan: left arm - 2nd to recent IV (this area is just distal to elbow) doppler of LUE without DVT warm compresses elevate arm cont aspirin 325mg daily IMPROVED nicely Plan DVT proph - heparin 5000 BID called & spoke with pt's sister by phone yesterday evening plan of care discussed in detail PT/OT notes reviewed - can return home with HH services?? will d/w social work tomorrow - I am concerned about him living alone after d/c Admission and Anticipated Discharge Date Admission Date: March 29, 2023 Subjective when I walked in the room the patient had just walked from the bathroom he was visibly & audibly dyspneic with retractions and tachypnea he had not worn the O2 during the walk I placed the O2 back on took a few minutes for above symptoms to improve after things calmed down he stated he "felt fine" consistently tells me that the cough is better but most days he is coughing in the room continues to eat well apparently last night pt tried to elope to smoke a cigarette downstairs Review of Systems Review of Systems: cv - left sided rib pain/chest pain continue pulm - see HPI GI - no abd pain Physical Exam Physical Exam: gen - cachectic, dysmorphic in appearance, severe pulmonary distress upon walking to bed - resolved after about 2 minutes neck - no JVD mouth - MMM w/o lesions, poor dentition heart - RRR, s1 s2, no murmur lungs - b/l rales with increased work of breathing as above abd - soft NT ND BS+ ext - no edema, pulses 2+ b/l vascular - left forearm - superficial phlebitis just distal to left elbow improved today with less redness ; nontender to palpation Results & Data Results & Data Vital Signs (Past 12 Hours) Vital Signs Temp Pulse Resp BP Pulse Ox O2 Del Method O2 Flow Rate 04/05/23 20:55 36.6 C 85 16 108/54 L 100 Nasal Cannula 3.0 04/05/23 20:13 78 22 98 Nasal Cannula 3 04/05/23 20:28 Nasal Cannula 2 04/05/23 15:12 36.6 C 87 18 119/74 96 Room Air 04/05/23 14:54 90 18 96 Room Air 04/05/23 10:21 89 20 95 Room Air PG Care Time/CCT Total # of Minutes Spent Total Time Spent with Patient: Total time spent is greater than 50% in coordination of care (as documented) at patient's floor/unit and/or counseling patient: Coding Level of Care Code 21714 SUB INP/OBS CARE 2MIN Diagnoses Pneumonia J18.9 Lung abscess J85.2 Sepsis A41.9 Hypotension I95.9 COPD with emphysema J43.9 Emphysema type: unspecified Cachectic R64 Thrombocytosis D47.3 Nicotine dependence F17.210 Nicotine product type: cigarettes Substance use status: uncomplicated Bladder outlet obstruction N32.0 Chest pain R07.9 Cancer related pain G89.3 Adenocarcinoma of left lung C34.92 Severe protein-calorie malnutrition E43 CVA (cerebral vascular accident) I63.9 Acute respiratory failure with hypoxia J96.01 Phlebitis I80.9 (5) COPD with emphysema Emphysema type: unspecified Qualified Code(s): J43.9 - Emphysema, unspecified (8) Nicotine dependence Nicotine product type: cigarettes Substance use status: uncomplicated Q ualified Code(s): F17.210 - Nicotine dependence, cigarettes, uncomplicated
[2023-04-06] MEDS: CHECK fentaNYL PATCH PLACEMENT SCH ×3 (00:55→16:05)
[2023-04-06] MEDS: HEPARIN SOD 5,000 UNIT/0.5 ML VIAL SQ SCH ×2 (05:18→16:29)
[2023-04-06] MEDS: ALBUT/IPRATROP 3MG/0.5MG NEB 3 ML VIAL NEB SCH ×4 (07:19→19:25)
[2023-04-06 07:24] LABS: Basophils # (auto) 0.07 K/uL (0-0.2); Basophils % (auto) 0.4 %; Eosinophils # (auto) 0.29 K/uL (0-0.50); Eosinophils % (auto) 1.8 %; Hematocrit (blood only) 31.4 % (42.0-52.0); Hemoglobin 10.4 g/dl (14.0-18.0); Immature Granulocytes # (auto) 0.15 K/uL (0.01-0.20); Immature Granulocytes % (auto) 0.9 %; Lymphocytes # (auto) 1.57 K/uL (1.2-3.4); Lymphocytes % (auto) 9.6 %; Mean Corpuscular Hgb Conc 33.1 g/dL (32.0-36.0); Mean Corpuscular Volume 87.5 fL (80.0-100.0); Mean Platelet Volume 8.2 fL (9.4-12.4); Monocytes # (auto) 0.94 K/uL (0.11-0.59); Monocytes % (auto) 5.7 %; Neutrophils # (auto) 13.35 K/uL (1.40-6.50); Neutrophils % (auto) 81.6 %; Platelet Count 915 K/uL (130-400); RDW Coefficient of Variation 14.6 % (11.5-14.5); RDW Standard Deviation 46.7 fL (36.4-46.3); Red Blood Count 3.59 M/uL (4.70-6.10); White Blood Count 16.37 K/ul (4.8-10.8)
[2023-04-06 07:44] LABS: BUN Creatinine Ratio 31.1 (10-20); C Reactive Protein 12.92 mg/dl (0-0.5); Calcium 8.7 mg/dl (8.6-10.3); Creatinine Clr Calc Pharmacy 143.1 ml/min; Est GFR (African American) 141.6 ml/min; Est GFR (Non-African American) 122.1 ml/min; Potassium 4.1 mmol/L (3.5-5.1)
[2023-04-06] MEDS: LIDOCAINE 5% 1 PATCH TD SCH (08:13)
[2023-04-06] MEDS: GABAPENTIN 300 MG CAP PO SCH ×2 (08:14→20:58)
[2023-04-06] MEDS: CHOLECALCIFEROL 5,000 UNITS 125 MCG TAB PO SCH (08:15)
[2023-04-06] MEDS: ADVANCED PROBIOTIC 1250 MG CAPSULE PO SCH (08:15)
[2023-04-06] MEDS: ASPIRIN 325 MG ECTAB PO SCH (08:15)
[2023-04-06] MEDS: CEROVITE ADV FORMULA TAB PO SCH (08:16)
[2023-04-06] MEDS: AMOXICILLIN/CLAVULANATE 875 MG TAB PO SCH ×2 (08:16→16:31)
[2023-04-06] MEDS: oxyCODONE HCL IR 5 MG TAB (IMMEDIATE RELEASE) PO PRN ×2 (09:04→16:04)
--- NOTE | 2023-04-06 12:33 | XRay Report ---
TWO VIEW CHEST CLINICAL HISTORY: Lung cancer. Cough. FINDINGS: PA and lateral chest radiographs are compared to study dated 04/03/2023 and correlated with chest CT dated 03/29/2023. The cardiomediastinal silhouette is unremarkable. Emphysema and chronic int erstitial thickening is similar to previous. A rounded masslike opacity at the left apex with air-flu id level is similar to previous. Patchy airspace consolidation is seen in the left midlung. There is a small left pleural effusion. The right lung is grossly clear. No pneumothorax is identified. The sk eletal structures are osteopenic. The bony thorax appears intact. IMPRESSION: 1. Emphysema. 2. An ovoid masslike opacity with an air-fluid level at the left apex is similar to previous. 3. Patchy airspace consolidation is seen more inferiorly in the left lung and there is a left pleural effusion. ACT 112: Negative or not required by law. Electronically signed by: Morgan Philippe M.D. 04/06/2023 12:32 PM
[2023-04-06] MEDS: fentaNYL 25 MCG/HR TDSY TD SCH (12:53)
--- NOTE | 2023-04-06 14:47 | Palliative Care Progress Note ---
Date of Service April 06, 2023 Assessment & Plan (1) Cancer related pain: Plan: Krishna used Oxy IR 30mg in 24hr which is 60mg PO MS equivalent or 20mg IV MS equivalent No change to TDF 25mcg dose now. IF use of oxy OR increases to 5 or more tabs per day, please adjust dose to 50mcg. I do not believe pt will do well using multiple patches for a dose. Please dc home with VNS for ongoing medication mgt and oversight. He will not be able to handle his med regimen on his own. (2) Dyspnea and respiratory abnormalities: Plan: See #1 (3) Palliative care by specialist: (4) Intellectual disability: Plan: Pt will require VNS and intensive cancer navigator support for his cancer journey. He has an undefined level of intellectual disability. He has not required support for his day to day routine so long as things stayed predictable and in a regular routine i.e., work, home, activities. (5) Adenocarcinoma of left lung: (6) Severe protein-calorie malnutrition: Plan * Pt will need VNS and intensive cancer navigator support moving forward from hospital DC * Continue TDF 25mcg and use Oxy IR 10mg PO q4h prn for BTP, hold for somnolence or RR< 14 * Pt can be followed in [facility] for ongoing supportive oncology TS 35min Thank you for allowing us to participate in the ongoing care of this patient. Please don't hesitate to call or page with any additional concerns. Dr. Michelle Shell DNP Director, Palliative Care Admission and Anticipated Discharge Date Admission Date: March 29, 2023 Subjective pain is better he has used oxycodone 30mg po in past 24hr no use of IV Dilaudid remains on TDF 25mcg awaiting repeat CXR Review of Systems Review of Systems: All systems reviewed & are unremarkable except as noted in Subjective Physical Exam Constitutional: + cachectic and + frail appearing Eyes: PERRL, conjunctivae normal, anicteric sclerae ENMT: Nose: + dry nasal mucous membranes Mouth: + dry oral mucous membranes, + dentition abnormality, + dental caries, + edentulous, + poor dentition and + chipped teeth Throat: uvula midline Neck: trachea midline, no thyromegaly Respiratory: + cough, able to speak in complete sentences and + prolonged expiratory phase Auscultation: + diminished lung sounds, + crackles and + wheezes diminished to near absent LLL Cardiovascular: Rate/Rhythm: regular rate, regular rhythm and + tachycardic Heart Sounds: normal S1 and normal S2 Palpation: normal PMI Vessels: normal peripheral pulses Extremities: normal capillary refill Gastrointestinal (Abdomen): normal bowel sounds, soft, nontender, no hepatosplenomegaly Musculoskeletal: gen weakness Skin: pale, dry, warm scatt blocked comedones back/upper shoulder blades dry patches back healed scar lower back/mid line, hyperpigmented multiple ovoid and circular brown to ward flat lesions, no crusting or oozing Neurologic: AAOx3, sometimes slow to reply to more complex questions Insight and comprehension limited Results & Data Vital Signs (Past 12 Hours) Vital Signs Temp Pulse Resp BP Pulse Ox O2 Del Method O2 Flow Rate 04/06/23 14:29 76 24 97 Nasal Cannula 2 04/06/23 10:46 90 18 95 Nasal Cannula 2 04/06/23 08:11 37.2 C 99 H 18 99/60 L 96 Nasal Cannula 2 04/06/23 07:43 Nasal Cannula 2 04/06/23 07:20 82 20 95 Nasal Cannula 2 Laboratory Results data reviewed Diagnostic Findings data reviewedw PG Care Time/CCT Total # of Minutes Spent Total Time Spent: 35 Total Time Spent with Patient: Total time spent is greater than 50% in coordination of care (as documented) at patient's floor/unit and/or counseling patient: Coding [place] [address] SUB INP/OBS CARE 2/35MIN Patient Type Established History Comprehensive Exam Comprehensive Medical Decision Making Moderate Complexity Diagnoses Cancer related pain G89.3 Dyspnea and respiratory abnormalities R06.00; R06.89 Palliative care by specialist Z51.5 Intellectual disability F79 Adenocarcinoma of left lung C34.92 Severe protein-calorie malnutrition E43
--- NOTE | 2023-04-06 14:49 | Pulmonology Progress Note ---
Date of Service April 06, 2023 Assessment & Plan (1) Lung abscess: (2) Adenocarcinoma of left lung: (3) Leukocytosis: (4) Acute respiratory failure with hypoxia: Plan Impression: 62-year-old male with recent diagnosis of T4 N1/N0 M0 adenocarcinoma of the lung (stage IIIa). Does have underlying COPD. He was admitted with pain issues which have improved. He has been treated empirically for pneumonia/lung abscess with improvement in procalcitonin his white count has remained elevated although it is decreasing today -- Acute hypoxic respiratory failure with abnormal chest CT Patient had necrotic adenocarcinoma of the left upper lobe Patient was spiking fever The cancer itself could also be one of the reason for spiking fever along with leukocytosis Okay to give antibiotic for total of 21 days O2 supplementation to keep oxygen saturation between 90-92% --Adenocarcinoma of the left upper lobe S/p navigational bronchoscopy 03/13/2020 Left upper lobe 6.5 cm spiculated Has left hilar lymphadenopathy No other mediastinal lymphadenopathy Patient was incarcerated for 1 year in [id number]. No other exposure to tuberculosis, goal QuantiFERON negative CT chest 3personally reviewed: Centrilobular emphysema appreciated bilaterally Left upper lobe 6.5 x 5.7 cm spiculated nodule Mixed solid groundglass pulmonary nodule right lower lobe perifissural 13 mm, l ingular 4 mm pulmonary nodule on the periphery Another solid 4 mm right lower lobe pulmonary nodule Station 10 L lymphadenopathy, no other mediastinal lymphadenopathy Minimal left-sided pleural effusion -- Multiple pulmonary nodules Groundglass up to13 mmright upper and right lower lobe We will need continuous surveillance given the significant smoking history --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 Yoo on 03/30/2023. Note personally reviewed. Patient has at least stage III adenocarcinoma of the left lung. It would be in the best interest of the patient to be started on chemoradiation as soon as possible. There has been issues with the patient with getting appointment given this social-economical status. Complete the course of antibiotics for total 21 days. Case was discussed with Dr. Gonzalez Please note the above document was generated using voice recognition software. It may contain grammatical, syntax or spelling errors.Any formal questions or concerns about the content, text or information contained within the body of this dictation should be directly addressed to the provider for clarification. Admission and Anticipated Discharge Date Admission Date: March 29, 2023 Subjective Patient seen and examined at bedside. No acute distress, no adverse events overnight He was saturating 98% on 2 L nasal cannula at rest He said overall he is feeling better compared to before Coughing and bringing up clear phlegm. No hemoptysis Does complain of some left-sided chest pain. It is nonpleuritic. No headache, blurry vision Fair appetite Review of Systems Review of Systems: All systems reviewed & are unremarkable except as noted in Subjective Physical Exam Physical Exam: Constitutional: No acute distress HEENT: EOMI, PERRLA frail-appearing Respiratory system: Decreased air entry bilaterally, no wheeze, no rhonchi, positive crackles bilateral lower lobes CVS: S1-S2 positive, no murmurs or gallops Abdomen: Soft, nontender, nondistended, positive bowel sounds x4 Extremities: +2 pulses bilaterally radialis/ dorsalis pedis, no cyanosis, no edema Neuro: Awake alert oriented x3 Psych: Normal mood and affect G/U: No Posada Results & Data Results & Data Vital Signs (Past 12 Hours) Vital Signs Temp Pulse Resp BP Pulse Ox O2 Del Method O2 Flow Rate 04/06/23 14:29 76 24 97 Nasal Cannula 2 04/06/23 10:46 90 18 95 Nasal Cannula 2 04/06/23 08:11 37.2 C 99 H 18 99/60 L 96 Nasal Cannula 2 04/06/23 07:43 Nasal Cannula 2 04/06/23 07:20 82 20 95 Nasal Cannula 2 Laboratory Results 04/06/23 06:41 04/06/23 06:41 PG Care Time/CCT Total # of Minutes Spent Total Time Spent with Patient: Total time spent is greater than 50% in coordination of care (as documented) at patient's floor/unit and/or counseling patient: Coding Level of Care Code 80309 SUB INP/OBS CARE 50MIN Diagnoses Lung abscess J85.2 Adenocarcinoma of left lung C34.92 Leukocytosis D72.829 Acute respiratory failure with hypoxia J96.01
[2023-04-06] MEDS: SODIUM CHLORIDE 1 GM TABLET PO SCH ×2 (16:05→20:57)
--- NOTE | 2023-04-06 19:43 | Hospitalist Progress Note ---
Date of Service April 06, 2023 Assessment & Plan (1) Pneumonia: Plan: b/l, with possible pulmonary abscess of ROSA M where his adenocarcinoma mass is located was seen by Dr Montoya, pulmonary, in consult - he advises 3 week course of augmentin in the event he indeed has an abscess his cefepime/doxy/flagyl were d/c and augmentin was started BID on 04/04/23 MRSA swab neg - deferred on MRSA coverage RSV/COVID/flu negative appreciate Dr Montoya's assistance appreciate Dr Quijano's assistance (2) Lung abscess: Plan: see #1 above ROSA M possible thus, Rx x 3 weeks with augmentin (3) Sepsis: Plan: 2nd #1, #2 resolving no further fever leukocytosis improved today (4) Hypotension: Plan: resolved 2nd to sepsis from #1 (5) COPD with emphysema: Plan: COPD with emphysema and chronic bronchitis Gold class II/C on Advair/Spiriva at home PFTs 02/2023: FVC 3.57 (64% predicted), FEV1 2.23 (53% predicted), FEV1/FVC 62, moderate obstructive dysfunction insignificant bronchodilator response, severe decrease in DLCO. Follows with Dr. Quijano in the outpatient clinic Will continue with ICS/LAMA/LABA while inpatient and also SCHEDULED Duonebs defer on systemic steroids (6) Cachectic: Plan: SEVERE protein calorie malnutrition 2nd lung cancer 20+ pounds of weight loss by report he is eating 100% of meals here (7) Thrombocytosis: Plan: cont asa daily; 81mg dose increased to 325mg due to phlebitis on left arm suspect high platelet count is reactive to his pneumonia iron deficiency can also contribute check CBC in am for stability (8) Nicotine dependence: Plan: quit tobacco just prior to admission but tried to elope over the weekend to smoke outside declines nicoderm patch declines nicorette gum counseled him that if he goes home on O2 he CANNOT SMOKE INSIDE WITH O2 DUE TO HIGH RISK OF A HOUSE FIRE (9) Bladder outlet obstruction: Plan: has been able to void on own w/o rucker (10) Chest pain: Plan: 2nd to partially healed displaced fractures of left eighth, ninth, 10th, 11th ribs pain improved with fentanyl patch + oxy 10mg q6h prn appreciate palliative care consult & recs (11) Cancer related pain: Plan: fentanyl patch started 03/31 and tolerating such thus far oxycodone prn see above (12) Adenocarcinoma of left lung: Plan: dx made via bronch biopsies by Dr Quijano on 03/13/[address] x-rays [address] CT suggest necrosis of the ROSA M mass there is obvious air-fluid level on CXRs pulmonary abscess? 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 no brain mets on that MRI (15) Acute respiratory failure with hypoxia: Plan: 2nd to pneumonia + lung cancer see above ongoing BUT only on small amount of NC O2 reinforced with patient that he needs to use the oxygen with ambulation will need 2-step at d/c (16) Phlebitis: Plan: left arm - 2nd to recent IV (this area is just distal to elbow) doppler of LUE without DVT warm compresses elevate arm cont aspirin 325mg daily IMPROVED nicely -- nearly resolved today (17) Periodontal disease, unspecified: Plan: tooth pain, right maxillary molars easily could have dental abscess the augmentin for his lungs will cover the oral cavity start Peridex rinse BID as well (18) Intellectual disability: Plan: there are times when it is uncertain if patient truly has insight into the seriousness of his lung cancer and how much understanding he has of what lies ahead in terms of treatment, etc I have considerable concerns about his ability to continue living independently and safely social work aware of his situation (19) Hyponatremia: Plan: patient appears euvolemic urine Osm is high urine Na is high check serum Osm in am 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 04/08? care d/w Dr Quijaon from pulmonary patient was seen by Dr Kaitlin Yoo early in admission he will need f/u within a week or two of discharge in Dr Yoo's clinic to discuss Rx options Admission and Anticipated Discharge Date Admission Date: March 29, 2023 Subjective patient resting comfortably in bed during my visit shortly after I came to see him his sister & niece arrived for a visit we discussed plan of care, potential d/c date (Tomorrow??), possible need for home O2 and that the smoking cannot happen due to risk of house-fire, etc I did share my concerns about him living independently; although he has a roommate that person doesn't help him with day to day activities patient continues to eat well drinking well cough/dyspnea is about the same as usual apparently he has had a maxillary tooth on the right that has been hurting him "for months" just unable to get to a dentist Review of Systems Review of Systems: gen - no fevers or chills cv - no chest pain pulm - no dyspnea at rest; ongoing PERDOMO GI - no pain or Nausea/Emesis Physical Exam Physical Exam: gen - cachectic, dysmorphic in appearance, comfortable at rest, making jokes today neck - no JVD mouth - MMM w/o lesions, poor dentition including broken teeth right maxillary molars; there is considerable gingivitis with gum swelling near these tooth remnants heart - RRR, s1 s2, no murmur lungs - b/l rales improved today; no wheeze abd - soft NT ND BS+ ext - no edema, pulses 2+ b/l vascular - left forearm - superficial phlebitis just distal to left elbow nearly resolved; minimal erythema today; nontender Results & Data Results & Data Vital Signs (Past 12 Hours) Vital Signs Temp Pulse Resp BP Pulse Ox O2 Del Method O2 Flow Rate 04/06/23 19:27 88 18 94 Nasal Cannula 1 04/06/23 15:45 36.6 C 87 16 111/64 99 Room Air 04/06/23 14:29 76 24 97 Nasal Cannula 2 04/06/23 10:46 90 18 95 Nasal Cannula 2 04/06/23 08:11 37.2 C 99 H 18 99/60 L 96 Nasal Cannula 2 Laboratory Results Laboratory Results - last 24 hr 04/06/23 04/06/23 04/06/23 06:41 06:41 12:36 WBC 16.37 H RBC 3.59 L Hgb 10.4 L Hct 31.4 L MCV 87.5 MCH 29.0 MCHC 33.1 RDW Std Deviation 46.7 H RDW Coeff of Juan 14.6 H Plt Count 915 H MPV 8.2 L Immature Gran % (Auto) 0.9 Neut % (Auto) 81.6 Lymph % (Auto) 9.6 [place] % (Auto) 5.7 Eos % (Auto) 1.8 Baso % (Auto) 0.4 Neut # (Auto) 13.35 H Lymph # (Auto) 1.57 [place] # (Auto) 0.94 H Eos # (Auto) 0.29 Baso # (Auto) 0.07 Immature Gran # (Auto) 0.15 Sodium 131 L Potassium 4.1 Chloride 94 L Carbon Dioxide 30 Anion Gap 7 BUN 14 Creatinine 0.45 L Est Cr Clr Drug Dosing 143.1 Est GFR ( Amer) 141.6 Est GFR (Non-Af Amer) 122.1 BUN/Creatinine Ratio 31.1 H Glucose 109 H Calcium 8.7 C-Reactive Protein 12.92 H Urine Osmolality 568 Ur Random Sodium 04/06/23 Unknown WBC RBC Hgb Hct MCV MCH MCHC RDW Std Deviation RDW Coeff of Juan Plt Count MPV Immature Gran % (Auto) Neut % (Auto) Lymph % (Auto) [place] % (Auto) Eos % (Auto) Baso % (Auto) Neut # (Auto) Lymph # (Auto) [place] # (Auto) Eos # (Auto) Baso # (Auto) Immature Gran # (Auto) Sodium Potassium Chloride Carbon Dioxide Anion Gap BUN Creatinine Est Cr Clr Drug Dosing Est GFR ( Amer) Est GFR (Non-Af Amer) BUN/Creatinine Ratio Glucose Calcium C-Reactive Protein Urine Osmolality Ur Random Sodium 108 PG Care Time/CCT Total # of Minutes Spent Total Time Spent with Patient: Total time spent is greater than 50% in coordination of care (as documented) at patient's floor/unit and/or counseling patient: Coding Level of Care Code 91570 SUB INP/OBS CARE 3/50MIN Diagnoses Pneumonia J18.9 Lung abscess J85.2 Sepsis A41.9 Hypotension I95.9 COPD with emphysema J43.9 Emphysema type: unspecified Cachectic R64 Thrombocytosis D47.3 Nicotine dependence F17.210 Nicotine product type: cigarettes Substance use status: uncomplicated Bladder outlet obstruction N32.0 Chest pain R07.9 Cancer related pain G89.3 Adenocarcinoma of left lung C34.92 Severe protein-calorie malnutrition E43 CVA (cerebral vascular accident) I63.9 Acute respiratory failure with hypoxia J96.01 Phlebitis I80.9 Periodontal disease, unspecified K05.6 Intellectual disability F79 Hyponatremia E87.1 (5) COPD with emphysema Emphysema type: unspecified Qualified Code(s): J43.9 - Emphysema, unspecified (8) Nicotine dependence Nicotine product type: cigarettes Substance use status: uncomplicated Qualified Code(s): F17.210 - Nicotine dependence, cigarettes, uncomplicated
[2023-04-06] MEDS: FLUTICASONE/VILANTEROL 100/25MCG 14 PUFFS/INHALER INH SCH (20:55)
[2023-04-06] MEDS: ACETAMINOPHEN 325 MG TAB PO PRN (20:55)
[2023-04-06] MEDS: CHLORHEXIDINE GLUCONATE 0.12% 480 ML MT SCH (20:56)
[2023-04-06] MEDS: SENNA 8.6 MG TAB PO SCH (20:57)
[2023-04-06] MEDS: MIRTAZAPINE TAB 15 MG TAB PO SCH (20:58)
[2023-04-07] MEDS: CHECK fentaNYL PATCH PLACEMENT SCH ×4 (00:05→23:22)
[2023-04-07] MEDS: HEPARIN SOD 5,000 UNIT/0.5 ML VIAL SQ SCH ×2 (04:24→15:39)
[2023-04-07] MEDS: ALBUT/IPRATROP 3MG/0.5MG NEB 3 ML VIAL NEB SCH ×4 (07:35→19:48)
[2023-04-07 07:56] LABS: Hematocrit (blood only) 31.7 % (42.0-52.0); Hemoglobin 10.3 g/dl (14.0-18.0); Mean Corpuscular Hemoglobin 29.7 pg (25.0-34.0); Mean Corpuscular Hgb Conc 32.5 g/dL (32.0-36.0); Mean Corpuscular Volume 91.4 fL (80.0-100.0); Mean Platelet Volume 8.1 fL (9.4-12.4); Platelet Count 860 K/uL (130-400); RDW Coefficient of Variation 14.4 % (11.5-14.5); RDW Standard Deviation 47.8 fL (36.4-46.3); Red Blood Count 3.47 M/uL (4.70-6.10); White Blood Count 12.91 K/ul (4.8-10.8)
[2023-04-07 08:14] LABS: BUN Creatinine Ratio 39.1 (10-20); Calcium 8.8 mg/dl (8.6-10.3); Est GFR (African American) 140.3 ml/min; Potassium 4.2 mmol/L (3.5-5.1)
--- NOTE | 2023-04-07 08:37 | Pulmonology Progress Note ---
Date of Service April 07, 2023 Assessment & Plan (1) Lung abscess: (2) Adenocarcinoma of left lung: (3) Leukocytosis: (4) Acute respiratory failure with hypoxia: Plan Impression: 62-year-old male with recent diagnosis of T4 N1/N0 M0 adenocarcinoma of the lung (stage IIIa). Does have underlying COPD. He was admitted with pain issues which have improved. He has been treated empirically for pneumonia/lung abscess with improvement in procalcitonin his white count has remained elevated although it is decreasing today -- Acute hypoxic respiratory failure with abnormal chest CT Patient had necrotic adenocarcinoma of the left upper lobe Patient was spiking fever The cancer itself could also be one of the reason for spiking fever along with leukocytosis Okay to give antibiotic for total of 21 days O2 supplementation to keep oxygen saturation between 90-92%. Off O2 at this time. --Adenocarcinoma of the left upper lobe S/p navigational bronchoscopy 03/13/2020 Left upper lobe 6.5 cm spiculated Has left hilar lymphadenopathy No other mediastinal lymphadenopathy Patient was incarcerated for 1 year in [id number]. No other exposure to tuberculosis, goal QuantiFERON negative CT chest 3personally reviewed: Centrilobular emphysema appreciated bilaterally Left upper lobe 6.5 x 5.7 cm spiculated nodule Mixed solid groundglass pulmonary nodule right lower lobe perifissural 13 mm, lingular 4 mm pulmonary nodule on the periphery Another solid 4 mm right lower lobe pulmonary nodule Station 10 L lymphadenopathy, no other mediastinal lymphadenopathy Minimal left-sided pleural effusion -- Multiple pulmonary nodules Groundglass up to13 mmright upper and right lower lobe We will need continuous surveillance given the significant smoking history --COPD with emphysema and chronic bronchitis Gold class E On Advair Diskus 250-50 and Spiriva at home Absolute eosinophil count 110 on 05/10/2020 PFTs 08/20/2020: Moderate obstructive lung dysfunction with no bronchodilator response, air trapping, moderate decrease in DLCO which partially corrects for VA FVC 4.06 L, 74%, FEV1 2.57 L, 60%, FEV1/FVC 63%, RV 169%, TLC 95%, RV/TLC 171%, DLCO 45%, DLCO/VA 63% --Active smoker Greater than 22-oiez-jawh smoking history Importance of quitting explained to the patient in depth Please note the above document was generated using voice recognition software. It may contain grammatical, syntax or spelling errors.Any formal questions or concerns about the content, text or information contained within the body of this dictation should be directly addressed to the provider for clarification. Admission and Anticipated Discharge Date Admission Date: March 29, 2023 Supervising Physician Co-Signing Physician Notes I saw and evaluated the patient with Quentin Ragland PA-C, and agree with findings and plan as documented in the note. Patient seen and examined at bedside. No acute distress, no adverse events overnight Patient said he is feeling better compared to yesterday Bringing up clear phlegm. Denies any hemoptysis No left-sided chest pain today. He was saturating 97% on room air at the time of examination with heart rate in the high 100s Constitutional: No acute distress HEENT: EOMI, PERRLA, frail-appearing Respiratory system: Decreased air entry bilaterally, no wheeze, no rhonchi, positive crackles bilateral lower lobes CVS: S1-S2 positive, no murmurs or gallops Abdomen: Soft, nontender, nondistended, positive bowel sounds x4 Extremities: +2 pulses bilaterally radialis/ dorsalis pedis, no cyanosis, no edema Neuro: Awake alert oriented x3 Psych: Normal mood and affect G/U: No [place]ada Plan: Patient was seen by Dr. Yoo on 03/30/2023. Note personally reviewed. Patient has at least stage III adenocarcinoma of the left lung. It would be in the best interest of the patient to be started on chemoradiation as soon as possible. Complete the course of antibiotics for total 21 days. Case was discussed with Dr. Gonzalez No further recommendation from pulmonary perspective. We will sign off, please call directly with any questions Please note the above document was generated using voice recognition software. It may contain grammatical, syntax or spelling errors.Any formal questions or concerns about the content, text or information contained within the body of this dictation should be directly addressed to the provider for clarification. Subjective Patient seen and evaluated today. He reports that he is breathing well, but does report persistent cough. He is off oxygen at this time. He reports no pain. He offers no other complaints at this time. Review of Systems Review of Systems: Please refer to the hospitalist note. No additions or deletions Physical Exam Physical Exam: VITAL SIGNS - Vital signs and nursing notes were reviewed. GENERAL - 62-year-old male appearing his stated age who is in no acute distress. Communicates well with provider and answers questions appropriately. LUNGS - Auscultation reveals coarse breath sounds without wheezes, rales, or rhonchi. CARDIAC - RRR with S1/S2. No murmur, rubs, or gallops appreciated. PSYCH - A&Ox3 and cooperates fully with examiner. Pt is very pleasant and interacts well with examiner. Results & Data Results & Data Vital Signs (Past 12 Hours) Vital Signs Temp Pulse Resp BP Pulse Ox O2 Del Method O2 Flow Rate 04/07/23 08:16 36.9 C 82 16 106/59 L 93 Room Air 04/07/23 08:02 Room Air 04/07/23 07:37 84 20 94 Room Air 04/06/23 21:05 Nasal Cannula 2 PG Care Time/CCT Total # of Minutes Spent Total Time Spent with Patient: Total time spent is greater than 50% in coordination of care (as documented) at patient's floor/unit and/or counseling patient: Coding Level of Care Code 85930 SUB INP/OBS CARE 2/35MIN Diagnoses Lung abscess J85.2 Adenocarcinoma of left lung C34.92 Leukocytosis D72.829 Acute respiratory failure with hypoxia J96.01
[2023-04-07] MEDS: LIDOCAINE 5% 1 PATCH TD SCH (08:49)
[2023-04-07] MEDS: GABAPENTIN 300 MG CAP PO SCH ×2 (08:50→20:01)
[2023-04-07] MEDS: ADVANCED PROBIOTIC 1250 MG CAPSULE PO SCH (08:51)
[2023-04-07] MEDS: SODIUM CHLORIDE 1 GM TABLET PO SCH ×2 (08:51→20:01)
[2023-04-07] MEDS: CHOLECALCIFEROL 5,000 UNITS 125 MCG TAB PO SCH (08:51)
[2023-04-07] MEDS: CEROVITE ADV FORMULA TAB PO SCH (08:51)
[2023-04-07] MEDS: ASPIRIN 325 MG ECTAB PO SCH (08:52)
[2023-04-07] MEDS: AMOXICILLIN/CLAVULANATE 875 MG TAB PO SCH ×2 (08:52→17:06)
[2023-04-07] MEDS: CHLORHEXIDINE GLUCONATE 0.12% 480 ML MT SCH ×2 (08:53→20:01)
[2023-04-07] MEDS: oxyCODONE HCL IR 5 MG TAB (IMMEDIATE RELEASE) PO PRN ×2 (11:11→20:05)
[2023-04-07] MEDS: ACETAMINOPHEN 325 MG TAB PO PRN (14:04)
--- NOTE | 2023-04-07 18:14 | Hospitalist Progress Note ---
Date of Service April 07, 2023 Assessment & Plan (1) Pneumonia: Plan: b/l, with possible pulmonary abscess of ROSA M where his adenocarcinoma mass is located was seen by pulmonary, in consult - advises 3 week course of augmentin in the event he indeed has an abscess his cefepime/doxy/flagyl were d/c and augmentin was started BID on 04/04/23 MRSA swab neg - deferred on MRSA coverage RSV/COVID/flu negative Appreciate pulmonary input (2) Lung abscess: Plan: see #1 above ROSA M possible thus, Rx x 3 weeks with augmentin (3) Sepsis: Plan: 2nd #1, #2 resolving no further fever leukocytosis continues to improve (4) Hypotension: Plan: resolved 2nd to sepsis from #1 (5) COPD with emphysema: Plan: COPD with emphysema and chronic bronchitis Gold class II/C on Advair/Spiriva at home PFTs 02/2023: FVC 3.57 (64% predicted), FEV1 2.23 (53% predicted), FEV1/FVC 62, moderate obstructive dysfunction insignificant bronchodilator response, severe decrease in DLCO. Follows with Dr. Quijano in the outpatient clinic Will continue with ICS/LAMA/LABA while inpatient and also SCHEDULED Duonebs defer on systemic steroids (6) Cachectic: Plan: SEVERE protein calorie malnutrition 2nd lung cancer 20+ pounds of weight loss by report he is eating 100% of meals here (7) Thrombocytosis: Plan: cont asa daily; 81mg dose increased to 325mg due to phlebitis on left arm suspect high platelet count is reactive to his pneumonia iron deficiency can also contribute check CBC in am for stability (8) Nicotine dependence: Plan: quit tobacco just prior to admission but tried to elope over the weekend to smoke outside declines nicoderm patch declines nicorette gum counseled him that if he goes home on O2 he CANNOT SMOKE INSIDE WITH O2 DUE TO HIGH RISK OF A HOUSE FIRE (9) Bladder outlet obstruction: Plan: has been able to void on own w/o rucker (10) Chest pain: Plan: 2nd to partially healed displaced fractures of left eighth, ninth, 10th, 11th ribs pain improved with fentanyl patch + oxy 10mg q6h prn appreciate palliative care consult & recs (11) Cancer related pain: Plan: fentanyl patch started 03/31 and tolerating such thus far oxycodone prn see above (12) Adenocarcinoma of left lung: Plan: dx made via bronch biopsies by Dr Quijano on 03/13/[address] x-rays [address] CT suggest necrosis of the ROSA M mass there is obvious air-fluid level on CXRs pulmonary abscess? 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 no brain mets on that MRI (15) Acute respiratory failure with hypoxia: Plan: 2nd to pneumonia + lung cancer see above ongoing BUT only on small amount of NC O2 reinforced with patient that he needs to use the oxygen with ambulation will need 2-step at d/c (16) Phlebitis: Plan: left arm - 2nd to recent IV (this area is just distal to elbow) doppler of LUE without DVT warm compresses elevate arm cont aspirin 325mg daily IMPROVED nicely -- nearly resolved today (17) Periodontal disease, unspecified: Plan: tooth pain, right maxillary molars easily could have dental abscess the augmentin for his lungs will cover the oral cavity start Peridex rinse BID as well (18) Intellectual disability: Plan: there are times when it is uncertain if patient truly has insight into the seriousness of his lung cancer and how much understanding he has of what lies ahead in terms of treatment, etc I have considerable concerns about his ability to continue living independently and safely social work aware of his situation (19) Hyponatremia: Plan: patient appears euvolemic urine Osm is high urine Na is high check serum Osm in am suspect he has SIADH from his lung ca start NaCL tabs - 1gm BID repeat BMP am Plan DVT proph - heparin 5000 BID home with [facility] care d/w Dr Quijano from pulmonary patient was seen by Dr Kaitlin Yoo early in admission he will need f/u within a week or two of discharge in Dr Yoo's clinic to discuss Rx options Admission and Anticipated Discharge Date Admission Date: March 29, 2023 Subjective Patient feels better overall. Less short of breath. Pain is improving. Not using IV Dilaudid. Using oxycodone for pain relief. Review of Systems Review of Systems: All systems reviewed & are unremarkable except as noted in Subjective Physical Exam Physical Exam: General: Awake, conversant, cachectic, frail looking Heart: S1, S2/regular rate and rhythm, no murmur rubs or gallops Lungs: Diminished breath sounds bilaterally. Normal effort Abdomen: Soft/nontender/nondistended. No hepatosplenomegaly Extremities: No clubbing/cyanosis. No edema Behavior: Appropriate, cooperative Results & Data Results & Data Vital Signs (Past 12 Hours) Vital Signs Temp Pulse Resp BP Pulse Ox O2 Del Method O2 Flow Rate 04/07/23 16:13 37.1 C 84 16 107/62 98 Room Air 04/07/23 14:38 84 18 96 Room Air 04/07/23 11:20 89 18 97 Nasal Cannula 2 04/07/23 08:16 36.9 C 82 16 106/59 L 93 Room Air 04/07/23 08:02 Room Air 04/07/23 07:37 84 20 94 Room Air Laboratory Results Abnormal lab results 04/07/23 04/07/23 04/07/23 Range/Units 07:23 07:23 07:52 WBC 12.91 H (4.8-10.8) K/ul RBC 3.47 L (4.70-6.10) M/uL Hgb 10.3 L (14.0-18.0) g/dl Hct 31.7 L (42.0-52.0) % RDW Std Deviation 47.8 H (36.4-46.3) fL Plt Count 860 H (130-400) K/uL MPV 8.1 L (9.4-12.4) fL Chloride 97 L (98-107) mmol/L Creatinine 0.46 L (0.6-1.4) mg/dl BUN/Creatinine Ratio 39.1 H (10-20) Glucose 125 H (70-99(Fasting)) mg/dl POC Glucose 126 H (70-99) mg/dl PG Care Time/CCT Total # of Minutes Spent Total Time Spent with Patient: Total time spent is greater than 50% in coordination of care (as documented) at patient's floor/unit and/or counseling patient: Coding Level of Care Code 20686 SUB INP/OBS CARE 2/35MIN Diagnoses Pneumonia J18.9 Lung abscess J85.2 Sepsis A41.9 Hypotension I95.9 COPD with emphysema J43.9 Emphysema type: unspecified Cachectic R64 Thrombocytosis D47.3 Nicotine dependence F17.210 Nicotine product type: cigarettes Substance use status: uncomplicated Bladder outlet obstruction N32.0 Chest pain R07.9 Cancer related pain G89.3 Adenocarcinoma of left lung C34.92 Severe protein-calorie malnutrition E43 CVA (cerebral vascular accident) I63.9 Acute respiratory failure with hypoxia J96.01 Phlebitis I80.9 Periodontal disease, unspecified K05.6 Intellectual disability F79 Hyponatremia E87.1 Time Spent (min) 35 (5) COPD with emphysema Emphysema type: unspecified Qualified Code(s): J43.9 - Emphysema, unspecified (8) Nicotine dependence Nicotine product type: cigarettes Substance use status: uncomplicated Qualified Code(s): F17.210 - Nicotine dependence, cigarettes, uncomplicated
[2023-04-07] MEDS: FLUTICASONE/VILANTEROL 100/25MCG 14 PUFFS/INHALER INH SCH (20:00)
[2023-04-07] MEDS: SENNA 8.6 MG TAB PO SCH (20:01)
[2023-04-07] MEDS: MIRTAZAPINE TAB 15 MG TAB PO SCH (20:01)
[2023-04-08] MEDS: oxyCODONE HCL IR 5 MG TAB (IMMEDIATE RELEASE) PO PRN ×2 (05:08→12:23)
[2023-04-08] MEDS: HEPARIN SOD 5,000 UNIT/0.5 ML VIAL SQ SCH (05:09)
[2023-04-08] MEDS: ALBUT/IPRATROP 3MG/0.5MG NEB 3 ML VIAL NEB SCH ×2 (07:13→11:25)
[2023-04-08] MEDS: LIDOCAINE 5% 1 PATCH TD SCH (08:02)
[2023-04-08] MEDS: ASPIRIN 325 MG ECTAB PO SCH (08:03)
[2023-04-08] MEDS: CHLORHEXIDINE GLUCONATE 0.12% 480 ML MT SCH (08:03)
[2023-04-08] MEDS: SODIUM CHLORIDE 1 GM TABLET PO SCH (08:03)
[2023-04-08] MEDS: CEROVITE ADV FORMULA TAB PO SCH (08:03)
[2023-04-08] MEDS: ADVANCED PROBIOTIC 1250 MG CAPSULE PO SCH (08:03)
[2023-04-08] MEDS: CHOLECALCIFEROL 5,000 UNITS 125 MCG TAB PO SCH (08:03)
[2023-04-08] MEDS: GABAPENTIN 300 MG CAP PO SCH (08:03)
[2023-04-08] MEDS: AMOXICILLIN/CLAVULANATE 875 MG TAB PO SCH (08:04)
[2023-04-08] MEDS: CHECK fentaNYL PATCH PLACEMENT SCH (08:09)
--- NOTE | 2023-04-08 11:33 | Pulmonology Progress Note ---
Date of Service April 08, 2023 Assessment & Plan (1) Lung abscess: (2) Adenocarcinoma of left lung: (3) Leukocytosis: (4) Acute respiratory failure with hypoxia: Plan Impression: 62-year-old male with recent diagnosis of T4 N1/N0 M0 adenocarcinoma of the lung (stage IIIa). Does have underlying COPD. He was admitted with pain issues which have improved. He has been treated empirically for pneumonia/lung abscess with improvement in procalcitonin his white count has remained elevated although it is decreasing today -- Acute hypoxic respiratory failure with abnormal chest CT Patient had necrotic adenocarcinoma of the left upper lobe Patient was spiking fever The cancer itself could also be one of the reason for spiking fever along with leukocytosis Okay to give antibiotic for total of 21 days O2 supplementation to keep oxygen saturation between 90-92%. Off O2 at this time. --Adenocarcinoma of the left upper lobe S/p navigational bronchoscopy 03/13/2020 Left upper lobe 6.5 cm spiculated Has left hilar lymphadenopathy No other mediastinal lymphadenopathy Patient was seen by Dr. Yoo on 03/30/2023. Note personally reviewed. Patient was incarcerated for 1 year in [id number]. No other exposure to tuberculosis, GOLD QuantiFERON negative CT chest 3personally reviewed: Centrilobular emphysema appreciated bilaterally Left upper lobe 6.5 x 5.7 cm spiculated nodule Mixed solid groundglass pulmonary nodule right lower lobe perifissural 13 mm, lingular 4 mm pulmonary nodule on the periphery Another solid 4 mm right lower lobe pulmonary nodule Station 10 L lymphadenopathy, no other mediastinal lymphadenopathy Minimal left-sided pleural effusion -- Multiple pulmonary nodules Groundglass up to13 mmright upper and right lower lobe We will need continuous surveillance given the significant smoking history --COPD with emphysema and chronic bronchitis Gold class E On Advair Diskus 250-50 and Spiriva at home Absolute eosinophil count 110 on 05/10/2020 PFTs 08/20/2020: Moderate obstructive lung dysfunction with no bronchodilator response, air trapping, moderate decrease in DLCO which partially corrects for VA FVC 4.06 L, 74%, FEV1 2.57 L, 60%, FEV1/FVC 63%, RV 169%, TLC 95%, RV/TLC 171%, DLCO 45%, DLCO/VA 63% --Active smoker Greater than 23-[id number] smoking history Importance of quitting explained to the patient in depth Plan: Complete the course of antibiotics for total 21 days. Patient has at least stage III adenocarcinoma of the left lung. It would be in the best interest of the patient to be started on chemoradiation as soon as possible. No further recommendation from pulmonary perspective. Please note the above document was generated using voice recognition software. It may contain grammatical, syntax or spelling errors.Any formal questions or concerns about the content, text or information contained within the body of this dictation should be directly addressed to the provider for clarification. Admission and Anticipated Discharge Date Admission Date: March 29, 2023 Subjective Patient seen and examined at bedside. No acute distress, no devices overnight He was saturating 95 to 96% on room air As per the patient he had a walk around the corridor he did not desaturate He is excited to go home today. No cough, no hemoptysis Review of Systems Review of Systems: All systems reviewed & are unremarkable except as noted in Subjective Physical Exam Physical Exam: Constitutional: No acute distress HEENT: EOMI, PERRLA frail-appearing Respiratory system: Decreased air entry bilaterally, no wheeze, no rhonchi, positive crackles bilateral lower lobes CVS: S1-S2 positive, no murmurs or gallops Abdomen: Soft, nontender, nondistended, positive bowel sounds x4 Extremities: +2 pulses bilaterally radialis/ dorsalis pedis, no cyanosis, no edema Neuro: Awake alert oriented x3 Psych: Normal mood and affect G/U: No Posada Results & Data Results & Data Vital Signs (Past 12 Hours) Vital Signs Temp Pulse Pulse Pulse Pulse Resp Resp 04/08/23 11:26 76 18 04/08/23 07:30 04/08/23 08:59 36.7 C 59 L 20 04/08/23 08:57 111 H 98 H 93 H 22 04/08/23 07:41 36.7 C 82 14 04/08/23 07:13 86 18 Resp Resp BP Pulse Ox Pulse Ox Pulse Ox Pulse Ox 04/08/23 11:26 95 04/08/23 07:30 04/08/23 08:59 111/68 92 04/08/23 08:57 20 18 96 94 95 04/08/23 07:41 95/57 L 93 04/08/23 07:13 92 O2 Del Method 04/08/23 11:26 Room Air 04/08/23 07:30 Room Air 04/08/23 08:59 Room Air 04/08/23 08:57 04/08/23 07:41 Room Air 04/08/23 07:13 Room Air Laboratory Results 04/07/23 07:23 04/07/23 07:23 PG Care Time/CCT Total # of Minutes Spent Total Time Spent with Patient: Total time spent is greater than 50% in coordination of care (as documented) at patient's floor/unit and/or counseling patient: Coding Level of Care Code 86434 SUB INP/OBS CARE 2/35MIN Diagnoses Lung abscess J85.2 Adenocarcinoma of left lung C34.92 Leukocytosis D72.829 Acute respiratory failure with hypoxia J96.01
--- NOTE | 2023-04-08 13:38 | Discharge Summary ---
Date of Service April 08, 2023 Admission HPI Per Admitting Provider Attending: Dr. Green Israel Bravo is a 62-year-old male with a past medical history of recently diagnosed left upper lobe mass non-small cell lung adenocarcinoma, pancreatic cyst, COPD, tobacco use who presents for chest pain evaluation with gradually worsening constant pain over 1 to 2 weeks with suspected pathologic fractures. Patient underwent diagnostic EBUS 03/13/[address] Quijano. Pathology with transbronchial biopsy to the left upper lobe revealed non-small cell lung carcinoma consistent with adenocarcinoma. PET/CT performed 03/19/2023 showed FDG avid metastatic uptake the left suprahilar lymph region. There is also evidence of FDG avidity to the centrally necrotic mass lesion left upper lobe. No brain imaging has been performed as patient cannot lay flat. Patient has not seen oncology at this point. Patient reports that he currently has significant back pain on the left flank and around ribs 10 through 12 on the left. He also is having nausea secondary to pain. Patient does have significant cough but has no hemoptysis and no significant sputum production. Patient denies any fever, chills, sweats, rigors. He does report weakness but is ambulating at home. Patient has never been and has no children. He currently lives with roommates. Heterosexual. No history of HIV, hepatitis. No prior blood transfusions. 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 Current everyday smoker. Admission Exam Per Admitting Provider GENERAL : No acute distress. Cachectic. No acute distress but appears ill EYES: No icterus, gaze conjugate NOSE: No evidence of epistaxis MOUTH: No lesions or candidiasis NECK: Supple LUNGS: CTA B/L, no wheezes, rales or rhonchi HEART: Regular, rate controlled BACK: Posteriro left back lesion that appeared ulcerated without discharge ABDOMEN: Soft, NT, ND, BS Present EXTREMITIES: No LE edema, pedal pulses intact NEURO: A&OX3 Principal Diagnosis bilateral pneumonia with possible pulmonary abscess of left upper lobe Sepsis, present on admission, now resolved Cachexia with severe protein calorie malnutrition Thrombocytosis Nicotine dependence Adenocarcinoma of the left lung, recently diagnosed. Will need to follow-up with oncology and palliative care Left rib fractures Discharge Exam General: Awake, conversant, cachectic, frail looking Heart: S1, S2/regular rate and rhythm, no murmur rubs or gallops Lungs: Diminished breath sounds bilaterally. Normal effort Abdomen: Soft/nontender/nondistended. No hepatosplenomegaly Extremities: No clubbing/cyanosis. No edema Behavior: Appropriate, cooperative Discharge Data Allergies Allergy/AdvReac Type Severity Reaction Status Date / Time No Known Allergies Allergy Verified 03/29/23 13:34 Consultations 03/29/23 17:03 Consult Oncology Routine 03/31/23 10:42 Consult Palliative Care Routine 04/03/23 13:38 Consult Pulmonology Routine Ordered Studies 03/29/23 11:30 CT angio chest PE protocol Stat 03/30/23 11:40 MRI Brain [MR brain wo/w con] Urgent 04/03/23 17:49 US venous doppler UE LT Urgent Hospital Course (1) Pneumonia: b/l, with possible pulmonary abscess of ROSA M where his adenocarcinoma mass is located was seen by pulmonary, in consult - advises 3 week course of augmentin in the event he indeed has an abscess his cefepime/doxy/flagyl were d/c and augmentin was started BID on 04/04/23. End date 04/25/2023 MRSA swab neg - deferred on MRSA coverage RSV/COVID/flu negative Appreciate pulmonary input (2) Lung abscess: see #1 above ROSA M possible thus, Rx x 3 weeks with augmentin (3) Sepsis: 2nd #1, #2 resolving no further fever leukocytosis continues to improve (4) Hypotension: resolved 2nd to sepsis from #1 (5) COPD with emphysema: COPD with emphysema and chronic bronchitis Gold class II/C on Advair/Spiriva at home PFTs 02/2023: FVC 3.57 (64% predicted), FEV1 2.23 (53% predicted), FEV1/FVC 62, moderate obstructive dysfunction insignificant bronchodilator response, severe decrease in DLCO. Follows with Dr. Quijano in the outpatient clinic Will continue with ICS/LAMA/LABA while inpatient and also SCHEDULED Duonebs defer on systemic steroids (6) Cachectic: SEVERE protein calorie malnutrition 2nd lung cancer 20+ pounds of weight loss by report he is eating 100% of meals here (7) Thrombocytosis: cont asa daily; 81mg dose increased to 325mg due to phlebitis on left arm suspect high platelet count is reactive to his pneumonia iron deficiency can also contribute (8) Nicotine dependence: quit tobacco just prior to admission but tried to elope over the weekend to smoke outside declines nicoderm patch declines nicorette gum counseled him that if he goes home on O2 he CANNOT SMOKE INSIDE WITH O2 DUE TO HIGH RISK OF A HOUSE FIRE (9) Bladder outlet obstruction: has been able to void on own w/o rucker (10) Chest pain: 2nd to partially healed displaced fractures of left eighth, ninth, 10th, 11th ribs pain improved with fentanyl patch + oxy 10mg q6h prn appreciate palliative care consult & recs (11) Cancer related pain: fentanyl patch started 03/31 and tolerating such thus far oxycodone prn see above (12) Adenocarcinoma of left lung: dx made via bronch biopsies by Dr Quijano on 03/13/23 x-rays and CT suggest necrosis of the ROSA M mass there is obvious air-fluid level on CXRs patient will need close follow-up with oncology to be started on chemotherapy. I personally spoke to his sister who will take care of his follow-up appointments. Patient agreed to home health services. (13) Severe protein-calorie malnutrition: MVI cont remeron (14) CVA (cerebral vascular accident): recent MRI brain with multiple old CVAs no brain mets on that MRI (15) Acute respiratory failure with hypoxia: 2nd to pneumonia + lung cancer see above ongoing BUT only on small amount of NC O2 reinforced with patient that he needs to use the oxygen with ambulation ambulatory sats completed today, prove that he is not needing home oxygen (16) Phlebitis: left arm - 2nd to recent IV (this area is just distal to elbow) doppler of LUE without DVT warm compresses elevate arm cont aspirin 325mg daily IMPROVED nicely -- nearly resolved today (17) Periodontal disease, unspecified: tooth pain, right maxillary molars easily could have dental abscess the augmentin for his lungs will cover the oral cavity start Peridex rinse BID as well (18) Intellectual disability: there are times when it is uncertain if patient truly has insight into the seriousness of his lung cancer and how much understanding he has of what lies ahead in terms of treatment, etc I have considerable concerns about his ability to continue living independently and safely social work aware of his situation I personally spoke to his sister who will help him with his follow-up appointments. (19) Hyponatremia: patient appears euvolemic urine Osm is high urine Na is high check serum Osm in am suspect he has SIADH from his lung ca start NaCL tabs - 1gm BID repeat BMP am Plan DVT proph - heparin 5000 BID home with HH Today patient was seen by Dr Kaitlin Yoo early in admission he will need f/u within a week of discharge in Dr Yoo's clinic to discuss Rx options Total Time Total Time Spent Total Time Spent (In Minutes): 35 Discharge Plan Discharge Items Patient Disposition: Home - Home Health Services Reason For Visit: SIRS SECONDARY TO NECROTIC PNEUMONIA Discharge Diagnosis: rib fractures Bilateral pneumonia Lung abscess Adenocarcinoma of the left lung Activity: Resume your previous activity Non-emergency contact: Primary Care Provider Call non-emergency contact if: you have any medication questions and your symptoms worsen Follow-up/Referrals: Libra Arciniega DO [Primary Care Provider] - 04/09/23 2:15 pm Silvia Barrios MD [Outside Practitioners] - 04/29/23 1:00 pm ([facility] appointment Arrival time of 12:45) Diet: Regular Addtl Attending Provider Instructions: Advised to follow-up with PCP in 1 week Advised to follow-up with oncology in 1 week. The office will call your sister with an appointment Advised to follow-up with palliative care Pending Studies at Discharge: No Stand-Alone Forms: My DLS, Smoking Cessation Medications and DC Order Prescriptions: New fentanyl 25 mcg/hr Patch 72 Hour 25 mcg transdermal Q72H Qty: 10 0RF amoxicillin-pot clavulanate 875-125 mg Tablet 1 tab PO BIDM 18 Days Qty: 36 0RF Continued albuterol sulfate [Ventolin HFA] 90 mcg/actuation HFA aerosol inhaler 1 inh inhalation Q4H PRN (Reason: shortness of breath or wheezing) Qty: 18 3R F fluticasone propion-salmeterol [Advair Diskus] 250-50 mcg/dose blister with device 1 inh inhalation QPM Qty: 60 3RF oxycodone 5 mg tablet 5 mg PO Q4H 30 Days Qty: 180 0RF gabapentin 300 mg capsule 300 mg PO BID Qty: 60 5RF acetaminophen [Tylenol] 325 mg Tablet 650 mg PO QID PRN (Reason: Pain) aspirin 81 mg Tablet,Delayed Release (Dr/Ec) 81 mg PO QAM sennosides [Natural Senna Laxative] 8.6 mg tablet 8.6 mg PO HS mirtazapine [Remeron] 15 mg tablet 15 mg PO HS Discharge Orders: Discharge Order (Routine); Ordered 04/08/23 Ordered By: Liza Norman/Other Patient Handouts: What Is Palliative Care, Pain Management Opioids Admission Data Admit Date/Time: 03/29/23 15:51 Attending Provider: Liza Ball Admit Provider: Xavier Green Primary Care Provider: Libra Arciniega Other Providers: Wander Hernandes ; Xavier Green ; Michelle Shell ; Thom Montoya ; [facility] Coding Level of Care Code 68815 INP/OBS DISCH >30 MIN Diagnoses Pneumonia J18.9 Lung abscess J85.2 Sepsis A41.9 Hypotension I95.9 COPD with emphysema J43.9 Emphysema type: unspecified Cachectic R64 Thrombocytosis D47.3 Nicotine dependence F17.210 Nicotine product type: cigarettes Substance use status: uncomplicated Bladder outlet obstruction N32.0 Chest pain R07.9 Cancer related pain G89.3 Adenocarcinoma of left lung C34.92 Severe protein-calorie malnutrition E43 CVA (cerebral vascular accident) I63.9 Acute respiratory failure with hypoxia J96.01 Phlebitis I80.9 Periodontal disease, unspecified K05.6 Intellectual disability F79 Hyponatremia E87.1
== END 2023-04-08 14:58 | disposition home health service (06) | DRG 871 ==
LOC: ED 10:15 → SUATTDRO 15:51 → 3W 15:51

== ENCOUNTER 2023-08-25 04:08 | Observation (INO) ==
[2023-08-25] MEDS ORDERED: OPTIRAY 320 125ml IV ONE (04:29)
[2023-08-25 04:32] LABS: iSTAT Creatinine 0.6 mg/dl (0.6-1.3); iSTAT Hemoglobin 13.9 g/dl (14.0-18.0); iSTAT Ionized Calcium 1.15 mmol/l (1.12-1.32); iSTAT Potassium 4.6 mmol/L (3.3-5.0)
--- NOTE | 2023-08-25 04:37 | CT Scan Report ---
Exam(s): CT HEAD Without Contrast EXAM: CT Head Without Intravenous Contrast CLINICAL HISTORY: Reason for exam: neuro deficit, acute stroke suspected. TECHNIQUE: Axial computed tomography images of the head/brain without intravenous contrast. CTDI is 36.79 mGy and DLP is 624.41 mGy-cm. Automated exposure control was utilized for the study. A dose lowering technique was utilized adhering to the principles of ALARA. COMPARISON: 02/02/2023 FINDINGS: Brain: Acute right parietal lobe infarct. Right parietal lobe infarct. Chronic right superior temporal lobe infarct. Chronic left thalamic lacunar infarct. No significant white matter disease. No acute intracranial hemorrhage. No acute intracranial hemorrhage. No acute intracranial hemorrhage. Ventricles: Unremarkable. No ventriculomegaly. Bones/joints: Unremarkable. No acute fracture. Soft tissues: Unremarkable. Sinuses: Unremarkable as visualized. No acute sinusitis. Mastoid air cells: Unremarkable as visualized. No mastoid effusion. IMPRESSION: No acute findings in the head/brain. Communications: Call Doctor Stroke Electronically signed by: Rojas Trejo MD 08/25/23 04:37 AM
[2023-08-25 04:42] LABS: Basophils # (auto) 0.06 K/uL (0.00-0.20); Basophils % (auto) 0.7 %; Eosinophils # (auto) 0.15 K/uL (0.00-0.50); Eosinophils % (auto) 1.6 %; Hematocrit (blood only) 40.8 % (42.0-52.0); Immature Granulocytes # (auto) 0.04 K/uL (0.01-0.20); Immature Granulocytes % (auto) 0.4 %; Lymphocytes # (auto) 0.81 K/uL (1.20-3.40); Lymphocytes % (auto) 8.9 %; Mean Corpuscular Hemoglobin 31.3 pg (25.0-34.0); Mean Corpuscular Hgb Conc 31.9 g/dL (32.0-36.0); Mean Corpuscular Volume 98.3 fL (80.0-100.0); Mean Platelet Volume 8.7 fL (9.4-12.4); Monocytes # (auto) 0.57 K/uL (0.11-0.59); Monocytes % (auto) 6.2 %; Neutrophils # (auto) 7.52 K/uL (1.40-6.50); Neutrophils % (auto) 82.2 %; Platelet Count 454 K/uL (130-400); RDW Coefficient of Variation 19.9 % (11.5-14.5); RDW Standard Deviation 72.5 fL (36.4-46.3); Red Blood Count 4.15 M/uL (4.70-6.10); White Blood Count 9.15 K/ul (4.8-10.8)
[2023-08-25 04:46] LABS: Albumin Globulin Ratio 1.5 (0.9-2); Albumin Level 4.6 gm/dl (3.4-5.0); BUN Creatinine Ratio 35.9 (10-20); Bilirubin,Total 0.3 mg/dl (0.2-1.0); Calcium 10.1 mg/dl (8.6-10.3); Creatinine Clr Calc Pharmacy 133.2 ml/min; Est GFR (African American) 122.5 ml/min; Est GFR (Non-African American) 105.7 ml/min; Magnesium 2.2 mg/dl (1.7-2.4); Potassium 4.5 mmol/L (3.5-5.1); Total Protein 7.6 gm/dl (6.0-8.3)
--- NOTE | 2023-08-25 04:49 | CT Scan Report ---
Exam(s): CTA HEAD With Contrast IV Amt: 116 ML OPTIRAY 320 EXAM: CT Angiography Head With Intravenous Contrast CLINICAL HISTORY: Reason for exam: neuro deficit, acute stroke suspected. TECHNIQUE: Axial computed tomographic angiography images of the head with intravenous contrast. CTDI is 36.79 mGy and DLP is 624.41 mGy-cm. Automated exposure control was utilized for the study. A dose lowering technique was utilized adhering to the principles of ALARA. MIP reconstructed images were created and reviewed. CONTRAST: Patient received 116 ML OPTIRAY 320 of IV contrast COMPARISON: No relevant prior studies available. FINDINGS: Right internal carotid artery: No acute findings. Intracranial segment is patent with no significant stenosis. No aneurysm. Right anterior cerebral artery: Unremarkable. No occlusion or significant stenosis. No aneurysm. Right middle cerebral artery: Unremarkable. No occlusion or significant stenosis. No aneurysm. Right posterior cerebral artery: Unremarkable. No occlusion or significant stenosis. No aneurysm. Right vertebral artery: Unremarkable as visualized. Left internal carotid artery: No acute findings. Intracranial segment is patent with no significant stenosis. No aneurysm. Left anterior cerebral artery: Unremarkable. No occlusion or significant stenosis. No aneurysm. Left middle cerebral artery: Unremarkable. No occlusion or significant stenosis. No aneurysm. Left posterior cerebral artery: Unremarkable. No occlusion or significant stenosis. No aneurysm. Left vertebral artery: Unremarkable as visualized. Basilar artery: Unremarkable. No occlusion or significant stenosis. No aneurysm. IMPRESSION: No severe stenosis or major intracranial branch occlusion. Communications: Call Doctor Stroke Electronically signed by: Familia Roque MD 08/25/23 04:48 AM
--- NOTE | 2023-08-25 04:51 | CT Scan Report ---
Exam(s): CTA NECK With Contrast IV Amt: 116 ML OPTIRAY 320 EXAM: CT Angiography Neck With Intravenous Contrast CLINICAL HISTORY: Reason for exam: neuro deficit, acute stroke suspected. TECHNIQUE: Routine carotid CT angiography protocol was performed with intravenous contrast. NASCET criteria using the distal ICAs for comparison were used for evaluation of stenoses. CTDI is 36.79 mGy and DLP is 624.41 mGy-cm. Automated exposure control was utilized for the study. A dose lowering technique was utilized adhering to the principles of ALARA. MIP reconstructed images were created and reviewed. CONTRAST: Patient received 116 ML OPTIRAY 320 of IV contrast COMPARISON: None. FINDINGS: VASCULATURE: Right common carotid artery: Unremarkable. No occlusion or significant stenosis. No dissection. Right internal carotid artery: Unremarkable. Extracranial segment is patent with no occlusion or significant stenosis. No dissection. Right external carotid artery: Unremarkable. No occlusion. Right vertebral artery: Unremarkable. No occlusion or significant stenosis. No dissection. Left common carotid artery: Unremarkable. No occlusion or significant stenosis. No dissection. Left internal carotid artery: Unremarkable. Extracranial segment is patent with no occlusion or significant stenosis. No dissection. Left external carotid artery: Unremarkable. No occlusion. Left vertebral artery: Unremarkable. No occlusion or significant stenosis. No dissection. NECK: Bones/joints: Unremarkable. No acute fracture. Soft tissues: Unremarkable. Lung apices: Large cavitary mass or area of consolidation in the left upper lobe. CAROTID STENOSIS REFERENCE USING NASCET CRITERIA: % ICA stenosis = (1 - narrowest ICA diameter/diameter of distal cervical ICA) x 100. Mild - <50% stenosis. Moderate - 50-69% stenosis. Severe - 70-94% stenosis. Near occlusion - 95-99% stenosis. Occluded - 100% stenosis. IMPRESSION: No significant stenosis or occlusion in the carotid or vertebral arteries. Large cavitary mass or area of consolidation in the left upper lobe. Communications: Call Doctor Stroke Electronically signed by: Familia Roque MD 08/25/23 04:50 AM
[2023-08-25 04:53] LABS: Troponin I High Sensitivity 5.6 pg/ml (0-20)
[2023-08-25 04:55] LABS: Partial Thromboplastin Time 27 Seconds (21-31); Prothrombin Time 10.7 Seconds (9.0-12.0)
--- NOTE | 2023-08-25 05:12 | Emergency Department Note ---
Impression & Plan Stroke ED Provider Note NAME: NAYAN LAUREN AGE: 62 SEX: M : 1960 ARRIVES VIA: Ambulance INFORMANT: Patient, ED PROVIDER(S): Christina Graves MD CHIEF COMPLAINT: Stroke alert HPI: This is a 62-year-old male with history of adenocarcinoma of the left lung, intellectual disability, malnutrition, history of CVA presents for stroke alert. Patient reports that throughout the course of the last day he had intermittent numbness throughout his left upper extremity. He went to sleep and 11:30 PM, woke up at 2:30 AM. He thinks he was at his baseline 230 when he woke up within a few minutes later began noticing numbness in his left arm. This also weakness associated this. He then called 911. Upon EMS arrival they did note significant left upper and lower extremity weakness. They called medical command and told me that he was having weakness but 30 seconds prior to the call, he had resolution/improvement of his weakness on the left upper and lower extremity. On my evaluation patient has a 4/5 strength in the left upper extremity, sensation intact in all extremities, left motor drift otherwise. No blood thinners, only aspirin. ROS: See above HPI for pertinent positives & negatives. A total of 10 systems reviewed and were otherwise negative. PAST MEDICAL HISTORY: See Below PAST SURGICAL HISTORY: See Below FAMILY HISTORY: See Below SOCIAL HISTORY: See Below HOME MEDICATIONS: See Below ALLERGIES: See Below VITALS: See Below PHYSICAL EXAMINATION: General: resting comfortably in no acute distress Head: Normocephalic and atraumatic Eyes: Normal inspection, extraocular muscles intact Ear, nose, throat: Normal external exam Neck: Normal range of motion Respiratory: lungs clear to auscultation bilaterally Cardiovascular: Regular rate/rhythm, no murmur GI: soft, nontender, no guarding or rebound Extremities: nontender, moves all extremities Neuro: The patient awake and alert, appropriately conversive, symmetric faces, left upper extremity 4/5 strength, left motor drift Skin: Warm, dry, and intact MEDICAL DECISION MAKING: This is a 62-year-old male with history of adenocarcinoma the left lung presenting for stroke alert. Patient had episode of profound left upper and lower extremity weakness and sensation deficits. All this is resolved aside from a slight residual left upper extremity weakness, 4/5 strength with left motor drift. After discussed with stroke neurology, appears that symptoms have been more persistent. Dr. Vann is the stroke neurologist. He evaluated the CT and noted changes in the right parietal lobe. As per Dr Vann, not a TNKase candidate due to length of time of symptoms and low NIH. -Sta rad called me for acute right infarct in the parietal lobe -Stat rad called me with reports of CTA head/neck without LVO. -Patient required admission for further stroke workup. Differential diagnosis: Stroke, TIA, hemorrhage ER treatment provided: See below Diagnostics interpreted by me: ECG: ECG independently interpreted by me with normal sinus rhythm, rate of 88, right axis deviation, normal NM, normal QRS, normal QTc, no ST segment elevations consistent with STEMI criteria Cardiac Monitoring: An order was placed for continuous cardiac monitoring. The monitor shows a rate of 90 with sinus rhythm. Laboratory studies: As stated above and show below. Imaging studies: See below. Critical Care Note: I have personally spent 35 minutes of critical care time in the direct management of this patient. This includes bedside care, interpretation of diagnostic studies, and testing, discussion with consultants, patient, and family members, and other required patient management activities. This 35 minutes is in excess of all separately billable procedures. Past Med/Surg History Medical History Intellectual disability Adenocarcinoma of left lung Cancer related pain Bladder diverticulum Bladder outlet obstruction Lymphadenopathy Pancreatic lesion Advanced care planning/counseling discussion History of CVA (cerebrovascular accident) Cachectic History of rib fracture 2.5 months ago, medical management COPD with emphysema Lower extremity ulceration Hyperlipidemia Venous stasis ulcer resolved, "took out vein" Surgical History Hx of colonoscopy Status post left foot surgery ulcer on left foot History of tooth extraction Family History Mother Myocardial infarction Father Family hx of colon cancer Hypertension Sister Diabetes Cancer thyroid Brother Lung cancer Thyroid cancer Other No family history of adverse response to anesthesia Denies family history of Ovarian cancer Breast cancer Social History Smoking Status: Current every day smoker Tobacco Type: Cigarettes Age Started Using Tobacco: 10; packs per day: 1; Cigarettes Per Day: 2-3; Second Hand Exposure: Yes; Do You Dip or Chew Tobacco: No; Hx Alcohol Use: No Hx Substance Use: No Preferred Language: Uzbek Communication Ability: Effective Visual Impairment: No Limitations Hearing Ability: Normal Cistern Room Working Supervisor Required: No Beliefs That Will Affect Care: None marital status: Single Current Living Situation: Other Current Living Situation Comment: [facility]ate- [facility] current occupational status: unemployed 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 Feels Safe at Home: Yes Childhood Exposure to Second-Hand Smoke: No Diet: regular during the past year weight has: remained stable Dental Care, Regularly: No Physical Activity Frequency: Does not Exercise Seatbelt Use: always Sunscreen Use: No Do you think of yourself as: straight/heterosexual Assistive Devices: Walker Allergies Allergies Allergy/AdvReac Type Severity Reaction Status Date / Time No Known Allergies Allergy Verified 06/29/23 10:59 Home Meds Home Medications Medication Instructions Recorded Confirmed acetaminophen 325 mg tablet 650 mg PO QID PRN Pain 01/03/21 06/29/23 (Tylenol) aspirin 81 mg tablet,delayed 81 mg PO QAM 01/03/21 06/29/23 release mirtazapine 15 mg tablet (Remeron) 15 mg PO HS 03/29/23 06/29/23 ondansetron HCl 8 mg tablet 8 mg PO Q8H PRN 06/25/23 06/29/23 prochlorperazine maleate 10 mg 10 mg PO Q6H PRN 06/25/23 06/29/23 tablet (Compazine) Previous Rx's Medication Instructions Recorded cephalexin 250 mg capsule 250 mg PO QID Radiation dermatitis 06/22/23 #28 caps gabapentin 300 mg capsule 300 mg PO BID #60 caps 06/29/23 albuterol sulfate 90 mcg/actuation 2 inh inhalation Q4H PRN shortness 07/28/23 aerosol inhaler (Ventolin HFA) of breath or wheezing #18 grams fluticasone 250 mcg-salmeterol 50 1 inh inhalation QPM #60 ea 07/28/23 mcg/dose blistr powdr for inhalation (Advair Diskus) tiotropium bromide 2.5 2 puff inhalation DAILY #4 grams 07/28/23 mcg/actuation mist for inhalation (Spiriva Respimat) fentanyl 50 mcg/hr transdermal 1 patch transdermal Q72H very 08/24/23 patch severe cancer pain 1 month #10 ea lorazepam 1 mg tablet 1 mg PO Q12H PRN anxiety prior to 08/24/23 radiation, insomnia, panic attack 1 month #50 tabs oxycodone 10 mg tablet 10 mg PO Q6H PRN vry severe 08/24/23 breakthrough cancer pain 1 month #120 tabs Results & Data (ED) Vital Signs Vital Signs - 24 hr 08/25/23 04:12 08/25/23 04:12 08/25/23 04:15 Temperature 36.5 C Temperature Source Oral Pulse Rate 90 89 93 H Pulse Rhythm Regular Respiratory Rate 14 23 Respiratory Effort / Characteristics Non-Labored Respiratory Depth Normal Blood Pressure 138/85 132/78 Blood Pressure Mean 102 96 Pulse Oximetry 95 94 Oxygen Delivery Method Room Air Oxygen Flow Rate Sepsis Recent Fever Within 48 Hours No Sepsis New/Unexplained Change in Mental Status No Sepsis Action Taken by Nursing No Action Required 08/25/23 04:27 08/25/23 04:30 08/25/23 04:30 Temperature Temperature Source Pulse Rate 92 H 92 H Pulse Rhythm Respiratory Rate 27 H 17 Respiratory Effort / Characteristics Respiratory Depth Blood Pressure 132/78 138/67 Blood Pressure Mean 96 90 Pulse Oximetry 94 95 97 Oxygen Delivery Method Room Air Oxygen Flow Rate 0 Sepsis Recent Fever Within 48 Hours Sepsis New/Unexplained Change in Mental Status Sepsis Action Taken by Nursing 08/25/23 04:34 08/25/23 05:00 Temperature Temperature Source Pulse Rate 86 90 Pulse Rhythm Respiratory Rate 25 H 21 Respiratory Effort / Characteristics Respiratory Depth Blood Pressure 130/73 142/90 H Blood Pressure Mean 92 107 Pulse Oximetry 96 95 Oxygen Delivery Method Oxygen Flow Rate Sepsis Recent Fever Within 48 Hours Sepsis New/Unexplained Change in Mental Status Sepsis Action Taken by Nursing Laboratory Data 08/25/23 04:15 08/25/23 04:15 Lab Results 08/25/23 08/25/23 08/25/23 Range/Units 04:14 04:15 04:19 WBC 9.15 (4.8-10.8) K/ul RBC 4.15 L (4.70-6.10) M/uL Hgb 13.0 L (14.0-18.0) g/dl POC Hgb 13.9 L (14.0-18.0) g/dl Hct 40.8 L (42.0-52.0) % POC Hct 41 L (42-52) % MCV 98.3 (80.0-100.0) fL MCH 31.3 (25.0-34.0) pg MCHC 31.9 L (32.0-36.0) g/dL RDW Std Deviation 72.5 H (36.4-46.3) fL RDW Coeff of Juan 19.9 H (11.5-14.5) % Plt Count 454 H (130-400) K/uL MPV 8.7 L (9.4-12.4) fL Immature Gran % (Auto) 0.4 % Neut % (Auto) 82.2 % Lymph % (Auto) 8.9 % Cherry % (Auto) 6.2 % Eos % (Auto) 1.6 % Baso % (Auto) 0.7 % Neut # (Auto) 7.52 H (1.40-6.50) K/uL Lymph # (Auto) 0.81 L (1.20-3.40) K/uL Cherry # (Auto) 0.57 (0.11-0.59) K/uL Eos # (Auto) 0.15 (0.00-0.50) K/uL Baso # (Auto) 0.06 (0.00-0.20) K/uL Immature Gran # (Auto) 0.04 (0.01-0.20) K/uL PT 10.7 (9.0-12.0) Seconds INR 1.0 (0.9-1.1) APTT 27 (21-31) Seconds PTT Ratio 1.0 POC Sodium 139 (135-144) mmol/L Sodium 138 (136-145) mmol/L POC Potassium 4.6 (3.3-5.0) mmol/L Potassium 4.5 (3.5-5.1) mmol/L POC Chloride 103 (101-112) mmol/L Chloride 102 (98-107) mmol/L Carbon Dioxide 29 (21-32) mmol/L POC Total CO2 27 (24-31) mmol/L Anion Gap 7 (3-11) POC Anion Gap 15.0 L (16-25) mmol/L POC BUN 23 H (7-18) mg/dl BUN 23 (6-23) mg/dl Creatinine 0.64 (0.6-1.4) mg/dl POC Creatinine 0.6 (0.6-1.3) mg/dl Est Cr Clr Drug Dosing 133.2 ml/min Est GFR ( Amer) 122.5 ml/min Est GFR (Non-Af Amer) 105.7 ml/min BUN/Creatinine Ratio 35.9 H (10-20) Glucose 115 H (70-99(Fasting)) mg/dl POC Glucose 114 H (70-99) mg/dl POC Glucose (other) 117 H (70-99) mg/dl Calcium 10.1 (8.6-10.3) mg/dl POC Ioniz Calcium Kate 1.15 (1.12-1.32) mmol/l Magnesium 2.2 (1.7-2.4) mg/dl Total Bilirubin 0.3 (0.2-1.0) mg/dl AST 20 (13-39) U/L ALT 19 (7-52) U/L Alkaline Phosphatase 94 (34-104) U/L Troponin I High Sens 5.6 (0-20) pg/ml Total Protein 7.6 (6.0-8.3) gm/dl Albumin 4.6 (3.4-5.0) gm/dl Globulin 3.0 (2.5-4.0) gm/dl Albumin/Globulin Ratio 1.5 (0.9-2) Administered Medications Discontinued Medications Ioversol (Optiray 320 125ml) 125 ml IV ONCE ONE Stop: 08/25/23 04:30 Last Admin: 08/25/23 04:30 Dose: 116 ml Documented By: [facility] Imaging Data Radiologist's Impression: Head CT 08/25/23 04:14 CR Exam(s): CT HEAD Without Contrast EXAM: CT Head Without Intravenous Contrast CLINICAL HISTORY: Reason for exam: neuro deficit, acute stroke suspected. TECHNIQUE: Axial computed tomography images of the head/brain without intravenous contrast. CTDI is 36.79 mGy and DLP is 624.41 mGy-cm. Automated exposure control was utilized for the study. A dose lowering technique was utilized adhering to the principles of ALARA. COMPARISON: 02/02/2023 FINDINGS: Brain: Acute right parietal lobe infarct. Right parietal lobe infarct. Chronic right superior temporal lobe infarct. Chronic left thalamic lacunar infarct. No significant white matter disease. No acute intracranial hemorrhage. No acute intracranial hemorrhage. No acute intracranial hemorrhage. Ventricles: Unremarkable. No ventriculomegaly. Bones/joints: Unremarkable. No acute fracture. Soft tissues: Unremarkable. Sinuses: Unremarkable as visualized. No acute sinusitis. Mastoid air cells: Unremarkable as visualized. No mastoid effusion. IMPRESSION: No acute findings in the head/brain. Communications: Call Doctor Stroke Electronically signed by: Rojas Trejo MD 08/25/23 04:37 AM Head CTA 08/25/23 04:14 CR Exam(s): CTA HEAD With Contrast IV Amt: 116 ML OPTIRAY 320 EXAM: CT Angiography Head With Intravenous Contrast CLINICAL HISTORY: Reason for exam: neuro deficit, acute stroke suspected. TECHNIQUE: Axial computed tomographic angiography images of the head with intravenous contrast. CTDI is 36.79 mGy and DLP is 624.41 mGy-cm. Automated exposure control was utilized for the study. A dose lowering technique was utilized adhering to the principles of ALARA. MIP reconstructed images were created and reviewed. CONTRAST: Patient received 116 ML OPTIRAY 320 of IV contrast COMPARISON: No relevant prior studies available. FINDINGS: Right internal carotid artery: No acute findings. Intracranial segment is patent with no significant stenosis. No aneurysm. Right anterior cerebral artery: Unremarkable. No occlusion or significant stenosis. No aneurysm. Right middle cerebral artery: Unremarkable. No occlusion or significant stenosis. No aneurysm. Right posterior cerebral artery: Unremarkable. No occlusion or significant stenosis. No aneurysm. Right vertebral artery: Unremarkable as visualized. Left internal carotid artery: No acute findings. Intracranial segment is patent with no significant stenosis. No aneurysm. Left anterior cerebral artery: Unremarkable. No occlusion or significant stenosis. No aneurysm. Left middle cerebral artery: Unremarkable. No occlusion or significant stenosis. No aneurysm. Left posterior cerebral artery: Unremarkable. No occlusion or significant stenosis. No aneurysm. Left vertebral artery: Unremarkable as visualized. Basilar artery: Unremarkable. No occlusion or significant stenosis. No aneurysm. IMPRESSION: No severe stenosis or major intracranial branch occlusion. Communications: Call Doctor Stroke Electronically signed by: Familia Roque MD 08/25/23 04:48 AM Neck CTA 08/25/23 04:14 CR Exam(s): CTA NECK With Contrast IV Amt: 116 ML OPTIRAY 320 EXAM: CT Angiography Neck With Intravenous Contrast CLINICAL HISTORY: Reason for exam: neuro deficit, acute stroke suspected. TECHNIQUE: Routine carotid CT angiography protocol was performed with intravenous contrast. NASCET criteria using the distal ICAs for comparison were used for evaluation of stenoses. CTDI is 36.79 mGy and DLP is 624.41 mGy-cm. Automated exposure control was utilized for the study. A dose lowering technique was utilized adhering to the principles of ALARA. MIP reconstructed images were created and reviewed. CONTRAST: Patient received 116 ML OPTIRAY 320 of IV contrast COMPARISON: None. FINDINGS: VASCULATURE: Right common carotid artery: Unremarkable. No occlusion or significant stenosis. No dissection. Right internal carotid artery: Unremarkable. Extracranial segment is patent with no occlusion or significant stenosis. No dissection. Right external carotid artery: Unremarkable. No occlusion. Right vertebral artery: Unremarkable. No occlusion or significant stenosis. No dissection. Left common carotid artery: Unremarkable. No occlusion or significant stenosis. No dissection. Left internal carotid artery: Unremarkable. Extracranial segment is patent with no occlusion or significant stenosis. No dissection. Left external carotid artery: Unremarkable. No occlusion. Left vertebral artery: Unremarkable. No occlusion or significant stenosis. No dissection. NECK: Bones/joints: Unremarkable. No acute fracture. Soft tissues: Unremarkable. Lung apices: Large cavitary mass or area of consolidation in the left upper lobe. CAROTID STENOSIS REFERENCE USING NASCET CRITERIA: % ICA stenosis = (1 - narrowest ICA diameter/diameter of distal cervical ICA) x 100. Mild - <50% stenosis. Moderate - 50-69% stenosis. Severe - 70-94% stenosis. Near occlusion - 95-99% stenosis. Occluded - 100% stenosis. IMPRESSION: No significant stenosis or occlusion in the carotid or vertebral arteries. Large cavitary mass or area of consolidation in the left upper lobe. Communications: Call Doctor Stroke Electronically signed by: Familia Roque MD 08/25/23 04:50 AM Discharge Plan Visit Data Chief Complaint: Neuro Symptoms/Deficit Stated Complaint: ?STROKE ED Provider: Christian Graves Discharge Problem: Stroke Patient Disposition: Admitted As Inpatient Discharge Instructions Interventions: ED Discharge Assessment Last Done: 08/25/23 06:13
--- NOTE | 2023-08-25 06:07 | History & Physical Report ---
Date of Service August 25, 2023 Assessment & Plan (1) Infarction of parietal lobe: (2) Adenocarcinoma of left lung: (3) Cancer related pain: (4) Intellectual disability: (5) Severe protein-calorie malnutrition: (6) Palliative care by specialist: (7) Cachectic: (8) COPD with emphysema: (9) Current smoker: (10) Multiple pulmonary nodules: (11) Long-term use of high-risk medication: Plan Acute infarction of right parietal lobe- Symptoms of left facial numbness, left arm numbness and weakness and left leg numbness and weakness have all resolved Case was discussed by ED with telestroke neurology, with decision that TNKase was not indicated Patient reports having had the symptoms 4-5 times over the past month, with duration of a few minutes. Stroke without tPA order set Consult PT/OT/speech Check hemoglobin A1c and fasting lipid panel Order echocardiogram Smoking cessation encouraged Patient reports that he is unable to do an MRI due to severe claustrophobia Continue aspirin 81 mg daily Consult neurology Left upper lobe adenocarcinoma/COPD- Follows with pulmonology Dr. Quijano Follows with oncology Dr. Yoo Will leave imaging of lung and ongoing treatment to their discretion Continue usual inhalers Cancer pain- Continue fentanyl patch Acetaminophen 650 mg by mouth every 6 hours as needed for mild pain or fever Oxycodone 5 mg every 4 hours as needed for moderate to severe pain Of note, patient reports that he will only stay in the hospital 1 day History of Present Illness Chief Complaint: The patient presents to the emergency department with complaint of left face, arm and leg weakness on and off since about 230 this morning, that for most part has resolved prior to my examination this evening. He does note that he has had 4-5 episodes of the symptoms occurring over the past month, however, he became more concerned because these symptoms lasted longer. Primary Care Provider: Libra Arciniega DO The patient is a 62-year-old male with a past medical history including adenocarcinoma of left lung, cancer-related pain, intellectual disability, severe protein calorie malnutrition, bladder outlet obstruction, pancreatic lesion, history of CVA, cachexia, current tobacco user, and multiple pulmonary nodules patient follows with pulmonology Dr. Quijano and oncology Dr. Yoo. He presents to the emergency department with symptoms as noted above. Imaging in the emergency department: CT of head without contrast showed acute right parietal lobe infarct. CTA of head was negative, CTA of neck showed a large cavitary mass in the left upper lobe. Patient denies any associated difficulty with speech, swallowing, vision or hearing. Of note, patient continues to smoke tobacco. Patient reports that he will stay in the hospital for 1 day only Allergies Allergy/AdvReac Type Severity Reaction Status Date / Time No Known Allergies Allergy Verified 06/29/23 10:59 Home Medications Medication Instructions Recorded Confirmed Type acetaminophen 325 mg tablet 650 mg PO QID PRN Pain 01/03/21 06/29/23 History (Tylenol) aspirin 81 mg tablet,delayed 81 mg PO QAM 01/03/21 06/29/23 History release mirtazapine 15 mg tablet (Remeron) 15 mg PO HS 03/29/23 06/29/23 History cephalexin 250 mg capsule 250 mg PO QID Radiation dermatitis 06/22/23 06/29/23 Rx #28 caps ondansetron HCl 8 mg tablet 8 mg PO Q8H PRN 06/25/23 06/29/23 History prochlorperazine maleate 10 mg 10 mg PO Q6H PRN 06/25/23 06/29/23 History tablet (Compazine) gabapentin 300 mg capsule 300 mg PO BID #60 caps 06/29/23 06/29/23 Rx albuterol sulfate 90 mcg/actuation 2 inh inhalation Q4H PRN shortness 07/28/23 07/28/23 Rx aerosol inhaler (Ventolin HFA) of breath or wheezing #18 grams fluticasone 250 mcg-salmeterol 50 1 inh inhalation QPM #60 ea 07/28/23 07/28/23 Rx mcg/dose blistr powdr for inhalation (Advair Diskus) tiotropium bromide 2.5 2 puff inhalation DAILY #4 grams 07/28/23 07/28/23 Rx mcg/actuation mist for inhalation (Spiriva Respimat) fentanyl 50 mcg/hr transdermal 1 patch transdermal Q72H very 08/24/23 Rx patch severe cancer pain 1 month #10 ea lorazepam 1 mg tablet 1 mg PO Q12H PRN anxiety prior to 08/24/23 Rx radiation, insomnia, panic attack 1 month #50 tabs oxycodone 10 mg tablet 10 mg PO Q6H PRN vry severe 08/24/23 Rx breakthrough cancer pain 1 month #120 tabs Past Med/Surg History Medical History Intellectual disability Adenocarcinoma of left lung Cancer related pain Bladder diverticulum Bladder outlet obstruction Lymphadenopathy Pancreatic lesion Advanced care planning/counseling discussion History of CVA (cerebrovascular accident) Cachectic History of rib fracture 2.5 months ago, medical management COPD with emphysema Lower extremity ulceration Hyperlipidemia Venous stasis ulcer resolved, "took out vein" Surgical History Hx of colonoscopy Status post left foot surgery ulcer on left foot History of tooth extraction Family History Mother Myocardial infarction Father Family hx of colon cancer Hypertension Sister Diabetes Cancer thyroid Brother Lung cancer Thyroid cancer Other No family history of adverse response to anesthesia Denies family history of Ovarian cancer Breast cancer Social History Smoking Status: Current every day smoker Tobacco Type: Cigarettes Age Started Using Tobacco: 10; packs per day: 1; Cigarettes Per Day: 2-3; Second Hand Exposure: Yes; Do You Dip or Chew Tobacco: No; Hx Alcohol Use: No Hx Substance Use: No Preferred Language: Algerian Communication Ability: Effective Visual Impairment: No Limitations Hearing Ability: Normal Investigation Division Sergeant Required: No Beliefs That Will Affect Care: None marital status: Single Current Living Situation: Other Current Living Situation Comment: [facility]ate- [place] current occupational status: unemployed 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 Feels Safe at Home: Yes Childhood Exposure to Second-Hand Smoke: No Diet: regular during the past year weight has: remained stable Dental Care, Regularly: No Physical Activity Frequency: Does not Exercise Seatbelt Use: always Sunscreen Use: No Do you think of yourself as: straight/heterosexual Assistive Devices: Walker Review of Systems Review of Systems: The patient denies chest pain, palpitations, lower extremity swelling, sore throat, fevers, chills, sweats, nausea, vomiting, diarrhea , constipation, abdominal pain, pelvic pain, blood in urine or stool, dysuria, urinary frequency or urgency, lightheadedness, dizziness, vision or hearing change, loss of consciousness, rash, abnormal bruising or bleeding, focal or generalized weakness, numbness or tingling in right arm or leg, generalized arthralgias or myalgias, back or neck pain, or night sweats. The review of systems is otherwise negative other than for that already noted above, and at least 10 systems have been reviewed. Physical Exam Physical Exam: The patient is awake, alert and oriented 3, cachectic appearing. Normocephalic and atraumatic, sitting upright in bed and in no acute distress. HEENT--PERRL, EOMI, mucous membranes and oropharynx normal Neck--supple. No JVD. No bruits. Thyroid normal, trachea midline, no adenopathy. Heart--normal S1 and S2. No murmurs, rubs or gallops. Lungs--clear bilaterally, no respiratory distress, no accessory muscle use. Abdomen--normal bowel sounds and soft. Nontender. Nondistended, no hernias or masses, no organomegaly. Extremities--no cyanosis or clubbing. No edema. Dermatologic--normal skin turgor, normal color, no abnormal lymph nodes, no rash. Neurologic--cranial nerves II through XII grossly intact. Rheumatologic--normal range of motion. Psychiatric--normal affect. Results & Data Results & Data Vital Signs (Past 12 Hours) Vital Signs Temp Pulse Resp BP Pulse Ox O2 Del Method O2 Flow Rate 08/25/23 05:00 90 21 142/90 H 95 08/25/23 04:34 86 25 H 130/73 96 08/25/23 04:30 92 H 17 138/67 97 08/25/23 04:30 95 Room Air 0 08/25/23 04:27 92 H 27 H 132/78 94 08/25/23 04:15 36.5 C 93 H 23 132/78 94 Room Air 08/25/23 04:12 89 14 138/85 95 08/25/23 04:12 90 Laboratory Results Laboratory Results WBC 9.15 K/ul (4.8-10.8) 08/25/23 04:15 RBC 4.15 M/uL (4.70-6.10) L 08/25/23 04:15 Hgb 13.0 g/dl (14.0-18.0) L 08/25/23 04:15 POC Hgb 13.9 g/dl (14.0-18.0) L 08/25/23 04:19 Hct 40.8 % (42.0-52.0) L 08/25/23 04:15 POC Hct 41 % (42-52) L 08/25/23 04:19 MCV 98.3 fL (80.0-100.0) 08/25/23 04:15 MCH 31.3 pg (25.0-34.0) 08/25/23 04:15 MCHC 31.9 g/dL (32.0-36.0) L 08/25/23 04:15 RDW Std Deviation 72.5 fL (36.4-46.3) H 08/25/23 04:15 RDW Coeff of Juan 19.9 % (11.5-14.5) H 08/25/23 04:15 Plt Count 454 K/uL (130-400) H 08/25/23 04:15 MPV 8.7 fL (9.4-12.4) L 08/25/23 04:15 Immature Gran % (Auto) 0.4 % 08/25/23 04:15 Neut % (Auto) 82.2 % 08/25/23 04:15 Lymph % (Auto) 8.9 % 08/25/23 04:15 [place] % (Auto) 6.2 % 08/25/23 04:15 Eos % (Auto) 1.6 % 08/25/23 04:15 Baso % (Auto) 0.7 % 08/25/23 04:15 Neut # (Auto) 7.52 K/uL (1.40-6.50) H 08/25/23 04:15 Lymph # (Auto) 0.81 K/uL (1.20-3.40) L 08/25/23 04:15 [place] # (Auto) 0.57 K/uL (0.11-0.59) 08/25/23 04:15 Eos # (Auto) 0.15 K/uL (0.00-0.50) 08/25/23 04:15 Baso # (Auto) 0.06 K/uL (0.00-0.20) 08/25/23 04:15 Immature Gran # (Auto) 0.04 K/uL (0.01-0.20) 08/25/23 04:15 PT 10.7 Seconds (9.0-12.0) 08/25/23 04:15 INR 1.0 (0.9-1.1) 08/25/23 04:15 APTT 27 Seconds (21-31) 08/25/23 04:15 PTT Ratio 1.0 08/25/23 04:15 POC Sodium 139 mmol/L (135-144) 08/25/23 04:19 Sodium 138 mmol/L (136-145) 08/25/23 04:15 POC Potassium 4.6 mmol/L (3.3-5.0) 08/25/23 04:19 Potassium 4.5 mmol/L (3.5-5.1) 08/25/23 04:15 POC Chloride 103 mmol/L (101-112) 08/25/23 04:19 Chloride 102 mmol/L (98-107) 08/25/23 04:15 Carbon Dioxide 29 mmol/L (21-32) 08/25/23 04:15 POC Total CO2 27 mmol/L (24-31) 08/25/23 04:19 Anion Gap 7 (3-11) 08/25/23 04:15 POC Anion Gap 15.0 mmol/L (16-25) L 08/25/23 04:19 POC BUN 23 mg/dl (7-18) H 08/25/23 04:19 BUN 23 mg/dl (6-23) 08/25/23 04:15 Creatinine 0.64 mg/dl (0.6-1.4) 08/25/23 04:15 POC Creatinine 0.6 mg/dl (0.6-1.3) 08/25/23 04:19 Est Cr Clr Drug Dosing 133.2 ml/min 08/25/23 04:15 Est GFR ( Amer) 122.5 ml/min 08/25/23 04:15 Est GFR (Non-Af Amer) 105.7 ml/min 08/25/23 04:15 BUN/Creatinine Ratio 35.9 (10-20) H 08/25/23 04:15 Glucose 115 mg/dl (70-99(Fasting)) H 08/25/23 04:15 POC Glucose 114 mg/dl (70-99) H 08/25/23 04:14 POC Glucose (other) 117 mg/dl (70-99) H 08/25/23 04:19 Calcium 10.1 mg/dl (8.6-10.3) 08/25/23 04:15 POC Ioniz Calcium Kate 1.15 mmol/l (1.12-1.32) 08/25/23 04:19 Magnesium 2.2 mg/dl (1.7-2.4) 08/25/23 04:15 Total Bilirubin 0.3 mg/dl (0.2-1.0) 08/25/23 04:15 AST 20 U/L (13-39) 08/25/23 04:15 ALT 19 U/L (7-52) 08/25/23 04:15 Alkaline Phosphatase 94 U/L (34-104) 08/25/23 04:15 Troponin I High Sens 5.6 pg/ml (0-20) 08/25/23 04:15 Total Protein 7.6 gm/dl (6.0-8.3) 08/25/23 04:15 Albumin 4.6 gm/dl (3.4-5.0) 08/25/23 04:15 Globulin 3.0 gm/dl (2.5-4.0) 08/25/23 04:15 Albumin/Globulin Ratio 1.5 (0.9-2) 08/25/23 04:[address] 08/25/23 04:14 CR Exam(s): CT HEAD Without Contrast EXAM: CT Head Without Intravenous Contrast CLINICAL HISTORY: Reason for exam: neuro deficit, acute stroke suspected. TECHNIQUE: Axial computed tomography images of the head/brain without intravenous contrast. CTDI is 36.79 mGy and DLP is 624.41 mGy-cm. Automated exposure control was utilized for the study. A dose lowering technique was utilized adhering to the principles of ALARA. COMPARISON: 02/02/2023 FINDINGS: Brain: Acute right parietal lobe infarct. Right parietal lobe infarct. Chronic right superior temporal lobe infarct. Chronic left thalamic lacunar infarct. No significant white matter disease. No acute intracranial hemorrhage. No acute intracranial hemorrhage. No acute intracranial hemorrhage. Ventricles: Unremarkable. No ventriculomegaly. Bones/joints: Unremarkable. No acute fracture. Soft tissues: Unremarkable. Sinuses: Unremarkable as visualized. No acute sinusitis. Mastoid air cells: Unremarkable as visualized. No mastoid effusion. IMPRESSION: No acute findings in the head/brain. Communications: Call Doctor Stroke Electronically signed by: Rojas Trejo MD 08/25/23 04:37 AM Head CTA 08/25/23 04:14 CR Exam(s): CTA HEAD With Contrast IV Amt: 116 ML OPTIRAY 320 EXAM: CT Angiography Head With Intravenous Contrast CLINICAL HISTORY: Reason for exam: neuro deficit, acute stroke suspected. TECHNIQUE: Axial computed tomographic angiography images of the head with intravenous contrast. CTDI is 36.79 mGy and DLP is 624.41 mGy-cm. Automated exposure control was utilized for the study. A dose lowering technique was utilized adhering to the principles of ALARA. MIP reconstructed images were created and reviewed. CONTRAST: Patient received 116 ML OPTIRAY 320 of IV contrast COMPARISON: No relevant prior studies available. FINDINGS: Right internal carotid artery: No acute findings. Intracranial segment is patent with no significant stenosis. No aneurysm. Right anterior cerebral artery: Unremarkable. No occlusion or significant stenosis. No aneurysm. Right middle cerebral artery: Unremarkable. No occlusion or significant stenosis. No aneurysm. Right posterior cerebral artery: Unremarkable. No occlusion or significant stenosis. No aneurysm. Right vertebral artery: Unremarkable as visualized. Left internal carotid artery: No acute findings. Intracranial segment is patent with no significant stenosis. No aneurysm. Left anterior cerebral artery: Unremarkable. No occlusion or significant stenosis. No aneurysm. Left middle cerebral artery: Unremarkable. No occlusion or significant stenosis. No aneurysm. Left posterior cerebral artery: Unremarkable. No occlusion or significant stenosis. No aneurysm. Left vertebral artery: Unremarkable as visualized. Basilar artery: Unremarkable. No occlusion or significant stenosis. No aneurysm. IMPRESSION: No severe stenosis or major intracranial branch occlusion. Communications: Call Doctor Stroke Electronically signed by: Familia Roque MD 08/25/23 04:48 AM Neck CTA 08/25/23 04:14 CR Exam(s): CTA NECK With Contrast IV Amt: 116 ML OPTIRAY 320 EXAM: CT Angiography Neck With Intravenous Contrast CLINICAL HISTORY: Reason for exam: neuro deficit, acute stroke suspected. TECHNIQUE: Routine carotid CT angiography protocol was performed with intravenous contrast. NASCET criteria using the distal ICAs for comparison were used for evaluation of stenoses. CTDI is 36.79 mGy and DLP is 624.41 mGy-cm. Automated exposure control was utilized for the study. A dose lowering technique was utilized adhering to the principles of ALARA. MIP reconstructed images were created and reviewed. CONTRAST: Patient received 116 ML OPTIRAY 320 of IV contrast COMPARISON: None. FINDINGS: VASCULATURE: Right common carotid artery: Unremarkable. No occlusion or significant stenosis. No dissection. Right internal carotid artery: Unremarkable. Extracranial segment is patent with no occlusion or significant stenosis. No dissection. Right external carotid artery: Unremarkable. No occlusion. Right vertebral artery: Unremarkable. No occlusion or significant stenosis. No dissection. Left common carotid artery: Unremarkable. No occlusion or significant stenosis. No dissection. Left internal carotid artery: Unremarkable. Extracranial segment is patent with no occlusion or significant stenosis. No dissection. Left external carotid artery: Unremarkable. No occlusion. Left vertebral artery: Unremarkable. No occlusion or significant stenosis. No dissection. NECK: Bones/joints: Unremarkable. No acute fracture. Soft tissues: Unremarkable. Lung apices: Large cavitary mass or area of consolidation in the left upper lobe. CAROTID STENOSIS REFERENCE USING NASCET CRITERIA: % ICA stenosis = (1 - narrowest ICA diameter/diameter of distal cervical ICA) x 100. Mild - <50% stenosis. Moderate - 50-69% stenosis. Severe - 70-94% stenosis. Near occlusion - 95-99% stenosis. Occluded - 100% stenosis. IMPRESSION: No significant stenosis or occlusion in the carotid or vertebral arteries. Large cavitary mass or area of consolidation in the left upper lobe. Communications: Call Doctor Stroke Electronically signed by: Familia Roque MD 08/25/23 04:50 AM Code Status & VTE Plan Code Status Full code VTE Prophylaxis Plan VTE Prophylaxis will be ordered: Yes PG Care Time/CCT Total # of Minutes Spent Total Time Spent with Patient: Total time spent is greater than 50% in coordination of care (as documented) at patient's floor/unit and/or counseling patient: Coding Level of Care Code 19172 INT INP/OBS CARE 3/75MIN Diagnoses Infarction of parietal lobe I63.89 Adenocarcinoma of left lung C34.92 Cancer related pain G89.3 Intellectual disability F79 Severe protein-calorie malnutrition E43 Palliative care by specialist Z51.5 Cachectic R64 COPD with emphysema J43.9 Emphysema type: unspecified Current smoker F17.200 Multiple pulmonary nodules R91.8 Long-term use of high-risk medication Z79.899 (8) COPD with emphysema Emphysema type: unspecified Qualified Code(s): J43.9 - Emphysema, unspecified
[2023-08-25] MEDS ORDERED: ALBUTEROL HFA 8 GM INHALER INH PRN (06:11)
[2023-08-25] MEDS ORDERED: SODIUM CHLORIDE 0.9% 1,000 ML IV SCH (06:11)
[2023-08-25] MEDS ORDERED: ACETAMINOPHEN 325 MG TAB PO PRN (06:11)
[2023-08-25] MEDS ORDERED: ONDANSETRON INJ 2 MG/ML 2 ML VIAL IV PRN (06:11)
[2023-08-25] MEDS ORDERED: PHARMACIST DISCHARGE MED REC CONSULT PRN (06:11)
--- NOTE | 2023-08-25 08:23 | Electrocardiogram Report ---
Test Reason : Blood Pressure : / mmHG Vent. Rate : 088 BPM Atrial Rate : 088 BPM P-R Int : 142 ms QRS Dur : 090 ms QT Int : 388 ms P-R-T Axes : 058 107 074 degrees QTc Int : 469 ms Normal sinus rhythm Rightward axis Borderline ECG When compared with ECG of 13-AUG-2023 13:11, No significant change was found Confirmed by Getachew Mckinney ([id number]) on 08/25/2023 8:23:00 AM Referred By: REFERRED SELF Confirmed By:Getachew Mckinney
[2023-08-25] MEDS: CHECK fentaNYL PATCH PLACEMENT SCH ×2 (08:40→16:36)
--- NOTE | 2023-08-25 08:52 | Neurology Consultation ---
Date of Consultation August 25, 2023 Assessment & Plan (1) Ischemic stroke: History of Present Illness Attending Physician: Familia Rose MD History of Present Illness pt this morning feeling back to his baseline. CT head noted for small rt parietal acute/subacute ischemic stroke. pt denies having weakness. numbness essentially resolved. pt wanting to go home today. admission HPI: The patient presents to the emergency department with complaint of left face, arm and leg weakness on and off since about 230 this morning, that for most part has resolved prior to my examination this evening. He does note that he has had 4-5 episodes of the symptoms occurring over the past month, however, he became more concerned because these symptoms lasted longer. Primary Care Provider: Libra Arciniega DO The patient is a 62-year-old male with a past medical history including adenocarcinoma of left lung, cancer-related pain, intellectual disability, severe protein calorie malnutrition, bladder outlet obstruction, pancreatic lesion, history of CVA, cachexia, current tobacco user, and multiple pulmonary nodules patient follows with pulmonology Dr. Quijano and oncology Dr. Yoo. He presents to the emergency department with symptoms as noted above. Imaging in the emergency department: CT of head without contrast showed acute right parietal lobe infarct. CTA of head was negative, CTA of neck showed a large cavitary mass in the left upper lobe. Patient denies any associated difficulty with speech, swallowing, vision or hearing. Of note, patient continues to smoke tobacco. Patient reports that he will stay in the hospital for 1 day only Allergies Allergy/AdvReac Type Severity Reaction Status Date / Time No Known Allergies Allergy Verified 06/29/23 10:59 Home Medications Medication Instructions Recorded Confirmed Type acetaminophen 325 mg tablet 650 mg PO QID PRN Pain 01/03/21 06/29/23 History (Tylenol) aspirin 81 mg tablet,delayed 81 mg PO QAM 01/03/21 06/29/23 History release mirtazapine 15 mg tablet (Remeron) 15 mg PO HS 03/29/23 06/29/23 History cephalexin 250 mg capsule 250 mg PO QID Radiation dermatitis 06/22/23 06/29/23 Rx #28 caps ondansetron HCl 8 mg tablet 8 mg PO Q8H PRN 06/25/23 06/29/23 History prochlorperazine maleate 10 mg 10 mg PO Q6H PRN 06/25/23 06/29/23 History tablet (Compazine) gabapentin 300 mg capsule 300 mg PO BID #60 caps 06/29/23 06/29/23 Rx albuterol sulfate 90 mcg/actuation 2 inh inhalation Q4H PRN shortness 07/28/23 07/28/23 Rx aerosol inhaler (Ventolin HFA) of breath or wheezing #18 grams fluticasone 250 mcg-salmeterol 50 1 inh inhalation QPM #60 ea 07/28/23 07/28/23 Rx mcg/dose blistr powdr for inhalation (Advair Diskus) tiotropium bromide 2.5 2 puff inhalation DAILY #4 grams 07/28/23 07/28/23 Rx mcg/actuation mist for inhalation (Spiriva Respimat) fentanyl 50 mcg/hr transdermal 1 patch transdermal Q72H very 08/24/23 Rx patch severe cancer pain 1 month #10 ea lorazepam 1 mg tablet 1 mg PO Q12H PRN anxiety prior to 08/24/23 Rx radiation, insomnia, panic attack 1 month #50 tabs oxycodone 10 mg tablet 10 mg PO Q6H PRN vry severe 08/24/23 Rx breakthrough cancer pain 1 month #120 tabs Patient History Medical History (Updated 08/25/23 @ 08:52 by Bird Childs MD) Ischemic stroke Intellectual disability Adenocarcinoma of left lung Cancer related pain Bladder diverticulum Bladder outlet obstruction Lymphadenopathy Pancreatic lesion Advanced care planning/counseling discussion History of CVA (cerebrovascular accident) Cachectic History of rib fracture 2.5 months ago, medical management COPD with emphysema Lower extremity ulceration Hyperlipidemia Venous stasis ulcer resolved, "took out vein" Surgical History Hx of colonoscopy Status post left foot surgery ulcer on left foot History of tooth extraction Family History Mother Myocardial infarction Father Family hx of colon cancer Hypertension Sister Diabetes Cancer thyroid Brother Lung cancer Thyroid cancer Other No family history of adverse response to anesthesia Denies family history of Ovarian cancer Breast cancer Social History Smoking Status: Current every day smoker Tobacco Type: Cigarettes Age Started Using Tobacco: 10; packs per day: 1; Cigarettes Per Day: 2-3; Second Hand Exposure: Yes; Do You Dip or Chew Tobacco: No; Hx Alcohol Use: No Hx Substance Use: No Preferred Language: Albanian Communication Ability: Effective Visual Impairment: No Limitations Hearing Ability: Normal Clinical Lab Scientist Required: No Beliefs That Will Affect Care: None marital status: Single Current Living Situation: Other Current Living Situation Comment: [facility]ate- [employer] current occupational status: unemployed 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 Feels Safe at Home: Yes Childhood Exposure to Second-Hand Smoke: No Diet: regular during the past year weight has: remained stable Dental Care, Regularly: No Physical Activity Frequency: Does not Exercise Seatbelt Use: always Sunscreen Use: No Do you think of yourself as: straight/heterosexual Assistive Devices: Walker Review of Systems Review of Systems: All systems reviewed & are unremarkable except as noted in Subjective Constitutional: as per Subjective / HPI Eyes: as per Subjective / HPI Ear, Nose, Mouth, Throat: as per Subjective / HPI Respiratory: as per Subjective / HPI Cardiovascular: as per Subjective / HPI Gastrointestinal: as per Subjective / HPI Musculoskeletal: as per Subjective / HPI Integumentary: as per Subjective / HPI Neurologic: as per Subjective / HPI Psychiatric: as per Subjective / HPI Endocrine: as per Subjective / HPI Hematologic / Lymphatic: as per Subjective / HPI Allergy / Immunological: as per Subjective / HPI Exam (Neuro) Physical Exam: HEENT: normocephalic Neuro: Mental: AOx4, fluent speech, normal comprehension, no apraxia, no L/R confusion, no neglect, baseline mild dysarthria from his intellectual disability. CN: PERRL, Full EOM, symmetric face, intact sensation t/o face, midline T/U/P, 5/5 SCM/traps. Motor: No abnormal movements, normal tone and bulk, 5/5 t/o bilaterally Sens: intact to touch b/l grossly Coord: intact DTR: 2+ sym b/l Gait:deferred. Impression: 62 yo male with known lung cancer and having about a month of transient left side numbness. CT head noted for rt parietal acute/subacute ischemic lesion. clinically now asymptomatic and stable. Non-focal neuro exam. pt refusing mri brain as he has severe claustrophobia and wants to go home today. Recommendations: 1. Standard stroke work up as planned if pt stays longer. 2. antiplatelet therapy: * DAPT (dual antiplatelet therapy): start for pts with ABCD2 score 4 or higher. Initial loading dose with ASA 325mg and Plavix 300mg (if pt has not been started), then ASA 81mg daily and Plavix 75mg daily. Continue DAPT for 21 days if found small vessel disease only or continue for 90 days if found to have intracranial large artery atherosclerosis. After that, can continue single antiplatelet therapy (either ASA or Plavix). For this pt, please add plavix 75mg daily and continue for 21 days. 3. Images: MRI brain, pt refusing and at this point since his stroke symptoms started few weeks ago, mri brain is not absolutely need to manage pt, TTE with bubble if pt staying. 4. Permissive Hypertension not needed fo r this pt. do avoid hypotension. 6. Long-term SBP goal less than 130. 7. Plenty of hydration including IV flui d if possible (use isotonic solution) next 1-2 days. Avoid hypovolemia and hypotension. 8. Initiate DVT prevention therapy. 9. Avoid hypoglycemia, serum glucose goa l during hospitalization: 140-180. 10. Long-term HgA1c goal less than 7. 11. Start statin if not on it and no abs olute contraindication, long-term LDL goal less than 70. 12. Head of bed up 30 degrees if possibl e. 13. Stroke education by nursing and appr opriate staff. 14. Telemetry monitoring. Consider [facility] cardiac monitoring, i.e. MCOT (m [facility] cardiac outpatient telemetry) or ICM (insertable monitoring engineer, e.g. LINQ), if never had [facility] cardiac monitoring done previously. And if found to have atrial flutter or fibrillation, should consider anticoagulation therapy if no contraindication. smoke cessation recommendation. At this point, since he likely had his stroke few weeks ago and subacute in nature and pt clinically stable, no clear need to keep him inpt if pt desires to leave today. try to get TTE if possible, if not as outpt. routine follow up with his PCP is reasonable. call again if new question. Chart reviewed I have spent more than 50% educating patient about potential diagnosis and neurological evaluation and coordinating care with patient's treatment team. Total time spent (including chart review and coordination of care): 60 min (this includes chart review). Results & Data Vital Signs (Past 12 Hours) Vital Signs Temp Pulse Pulse Resp BP BP Pulse Ox 08/25/23 07:10 69 08/25/23 06:11 84 16 109/71 93 08/25/23 06:11 08/25/23 05:00 90 21 142/90 H 95 08/25/23 04:34 86 25 H 130/73 96 08/25/23 04:30 92 H 17 138/67 97 08/25/23 04:30 95 08/25/23 04:27 92 H 27 H 132/78 94 08/25/23 04:15 36.5 C 93 H 23 132/78 94 08/25/23 04:12 89 14 138/85 95 08/25/23 04:12 90 Pulse Ox O2 Del Method O2 Del Method O2 Flow Rate O2 Flow Rate 08/25/23 07:10 08/25/23 06:11 Room Air 08/25/23 06:11 94 Room Air 0 08/25/23 05:00 08/25/23 04:34 08/25/23 04:30 08/25/23 04:30 Room Air 0 08/25/23 04:27 08/25/23 04:15 Room Air 08/25/23 04:12 08/25/23 04:12 PG Care Time/CCT Total # of Minutes Spent Total Time Spent with Patient: Total time spent is greater than 50% in coordination of care (as documented) at patient's floor/unit and/or counseling patient: Coding Level of Care Code 66490 IN/OBS CONSULT LVL 4,60M Diagnoses Ischemic stroke I63.9
[2023-08-25] MEDS: ATORVASTATIN 20 MG TAB PO SCH (10:53)
[2023-08-25] MEDS: GABAPENTIN 300 MG CAP PO SCH ×2 (10:53→20:35)
[2023-08-25] MEDS: ASPIRIN 81 MG ECTAB PO SCH (10:53)
[2023-08-25] MEDS: UMECLIDINIUM BROMIDE 62.5MCG/BLISTER 7 PUFFS/INHALER INH SCH (10:55)
--- NOTE | 2023-08-25 13:29 | XCELERA ---
[id number] \\[id number]
--- NOTE | 2023-08-25 13:33 | Hospitalist Progress Note ---
Date of Service August 25, 2023 Assessment & Plan (1) Infarction of parietal lobe: Plan: Right parietal area. Ischemic. Remarkably, he has no discernible neurological deficits. The infarction is large and Decadron therapy will be considered to prevent development of cerebral edema which is likely. Neurology consultation pending. Cardiac echo pending. Continue aspirin 81 mg daily. He is unable to undergo brain MRI scanning. (2) Adenocarcinoma of left lung: Plan: Managed by oncology, Dr. Yoshi Saldivar (3) Cancer related pain: Plan: Stable. Continue current medical management (4) Intellectual disability: Plan: Supportive care (5) Severe protein-calorie malnutrition: Plan: Supportive care (6) COPD with emphysema: Plan: Smoking cessation recommended. (7) Multiple pulmonary nodules: Plan: This will need continued outpatient follow-up as an outpatient Plan The patient agrees to take aspirin 81 mg daily. However, he states adamantly that he is going home tomorrow, August 26. Cardiac echo report is pending along with neurology consultation. Admission and Anticipated Discharge Date Admission Date: August 25, 2023 Subjective Alert and oriented. Unkempt appearing. He has baseline cognitive disability. He has suffered a large right parietal CVA but fortunately he has minimal neurological deficits. Will consider initiating Decadron orally since cerebral edema is likely to develop. Neurology consultation pending. Continue aspirin therapy for now. Cardiac echo report is pending. PT, OT, speech therapy evaluations ordered. He is unable to undergo brain MRI scanning. Review of Systems 2 Review of Systems: Constitutional-no fever or chills ENT-no blurred vision, no double vision, no epistaxis, no sore throat Respiratory-no cough, no wheezing, no shortness of breath Cardiac-no palpitations, no chest pain, no syncope GI-no nausea, vomiting, diarrhea, melena, hematochezia -no urinary retention, no urinary incontinence, no dysuria, no hematuria Musculoskeletal-no joint pain, no muscle tenderness Skin-no bruising, no rashes, no pruritus Neuro-no isolated weakness, no paresthesia, no weakness Psych-no depression, no anxiety Physical Exam 2 Physical Exam: General-alert and oriented x3, no fever, no chills. Unkempt appearance HEENT-head atraumatic and normocephalic, pupils equal and reactive to light, extraocular muscles intact Neck-no lymphadenopathy or thyromegaly, trachea midline Chest-clear to auscultation. No rales, wheezing or rhonchi Cardiac-regular rate and rhythm, normal S1 and S2 Abdomen-normal bowel sounds, nontender, no hepatosplenomegaly Extremities-no cyanosis, clubbing, or edema Neuro-cranial nerves II through XII intact, motor and sensory function within normal limits, strength symmetrical, no focal deficits Psych-normal affect, normal mood Results & Data Results & Data Vital Signs (Past 12 Hours) Vital Signs Temp Pulse Pulse Resp BP BP Pulse Ox 08/25/23 11:10 36.6 C 87 20 124/79 95 08/25/23 10:30 89 08/25/23 08:40 36.5 C 96 H 18 125/76 92 08/25/23 07:10 69 08/25/23 06:11 84 16 109/71 93 08/25/23 06:11 08/25/23 05:00 90 21 142/90 H 95 08/25/23 04:34 86 25 H 130/73 96 08/25/23 04:30 92 H 17 138/67 97 08/25/23 04:30 95 08/25/23 04:27 92 H 27 H 132/78 94 08/25/23 04:15 36.5 C 93 H 23 132/78 94 08/25/23 04:12 89 14 138/85 95 08/25/23 04:12 90 Pulse Ox O2 Del Method O2 Del Method O2 Flow Rate O2 Flow Rate 08/25/23 11:10 Room Air 08/25/23 10:30 08/25/23 08:40 Room Air 08/25/23 07:10 08/25/23 06:11 Room Air 08/25/23 06:11 94 Room Air 0 08/25/23 05:00 08/25/23 04:34 08/25/23 04:30 08/25/23 04:30 Room Air 0 08/25/23 04:27 08/25/23 04:15 Room Air 08/25/23 04:12 08/25/23 04:12 Laboratory Results 08/25/23 04:15 08/25/23 04:15 PG Care Time/CCT Total # of Minutes Spent Total Time Spent with Patient: Total time spent is greater than 50% in coordination of care (as documented) at patient's floor/unit and/or counseling patient: Coding Level of Care Code 01526 SUB INP/OBS CARE 50MIN Diagnoses Infarction of parietal lobe I63.89 Adenocarcinoma of left lung C34.92 Cancer related pain G89.3 Intellectual disability F79 Severe protein-calorie malnutrition E43 COPD with emphysema J43.9 Emphysema type: unspecified Multiple pulmonary nodules R91.8 (6) COPD with emphysema Emphysema type: unspecified Qualified Code(s): J43.9 - Emphysema, unspecified
[2023-08-25] MEDS: oxyCODONE HCL IR 5 MG TAB (IMMEDIATE RELEASE) PO PRN ×2 (16:36→22:38)
[2023-08-25] MEDS ORDERED: KETOROLAC 30 MG/ML VIAL IV ONE (20:42)
[2023-08-25] MEDS ORDERED: FLUTICASONE/SALMETEROL 250/50 (ADVAIR) 14 PUFF/1 INHALER INH SCH (21:00)
[2023-08-25] MEDS ORDERED: MIRTAZAPINE TAB 15 MG TAB PO SCH (21:00)
[2023-08-25] MEDS ORDERED: FLUTICASONE/VILANTEROL 100/25MCG 14 PUFFS/INHALER INH SCH (21:45)
[2023-08-26] MEDS: CHECK fentaNYL PATCH PLACEMENT SCH ×2 (00:54→08:58)
[2023-08-26 06:44] LABS: Basophils # (auto) 0.03 K/uL (0.00-0.20); Basophils % (auto) 0.6 %; Eosinophils # (auto) 0.17 K/uL (0.00-0.50); Eosinophils % (auto) 3.4 %; Hematocrit (blood only) 36.2 % (42.0-52.0); Hemoglobin 11.7 g/dl (14.0-18.0); Immature Granulocytes # (auto) 0.02 K/uL (0.01-0.20); Immature Granulocytes % (auto) 0.4 %; Lymphocytes # (auto) 0.68 K/uL (1.20-3.40); Lymphocytes % (auto) 13.6 %; Mean Corpuscular Hemoglobin 31.9 pg (25.0-34.0); Mean Corpuscular Hgb Conc 32.3 g/dL (32.0-36.0); Mean Corpuscular Volume 98.6 fL (80.0-100.0); Mean Platelet Volume 8.7 fL (9.4-12.4); Monocytes # (auto) 0.44 K/uL (0.11-0.59); Monocytes % (auto) 8.8 %; Neutrophils # (auto) 3.67 K/uL (1.40-6.50); Neutrophils % (auto) 73.2 %; Platelet Count 396 K/uL (130-400); RDW Coefficient of Variation 19.8 % (11.5-14.5); RDW Standard Deviation 71.8 fL (36.4-46.3); Red Blood Count 3.67 M/uL (4.70-6.10); White Blood Count 5.01 K/ul (4.8-10.8)
[2023-08-26 07:24] LABS: Albumin Globulin Ratio 1.4 (0.9-2); Albumin Level 3.6 gm/dl (3.4-5.0); BUN Creatinine Ratio 41.5 (10-20); Bilirubin,Total 0.3 mg/dl (0.2-1.0); Calcium 8.8 mg/dl (8.6-10.3); Chol HDL Ratio 3.3 (0-5); Creatinine Clr Calc Pharmacy 124.4 ml/min; Est GFR (African American) 132.4 ml/min; Est GFR (Non-African American) 114.2 ml/min; Globulin 2.6 gm/dl (2.5-4.0); Magnesium 2.2 mg/dl (1.7-2.4); Potassium 4.1 mmol/L (3.5-5.1); Total Protein 6.2 gm/dl (6.0-8.3)
[2023-08-26 07:41] LABS: Estimated Average Glucose 128 mg/dl; Hemoglobin A1C 6.1 % (4.5-5.6)
--- NOTE | 2023-08-26 08:52 | Neurology Progress Note ---
Date of Service August 26, 2023 Assessment & Plan (1) Ischemic stroke: Plan: his stroke is NOT large and it is subacute in nature. no need for steroid. no new recommendations today. will sign off. call again if new question. Admission and Anticipated Discharge Date Admission Date: August 25, 2023 Subjective pt not seen. this is administrative note. Results & Data Vital Signs (Past 12 Hours) Vital Signs Temp Pulse Pulse Resp BP Pulse Ox O2 Del Method 08/26/23 07:37 36.6 C 75 20 113/70 95 Room Air 08/26/23 02:42 36.7 C 78 20 110/66 95 Room Air 08/26/23 00:39 71 08/25/23 23:03 37.0 C 73 18 109/70 96 Room Air PG Care Time/CCT Total # of Minutes Spent Total Time Spent with Patient: Total time spent is greater than 50% in coordination of care (as documented) at patient's floor/unit and/or counseling patient: Coding Level of Care Code None Diagnoses Ischemic stroke I63.9
[2023-08-26] MEDS: ASPIRIN 81 MG ECTAB PO SCH (08:56)
[2023-08-26] MEDS: UMECLIDINIUM BROMIDE 62.5MCG/BLISTER 7 PUFFS/INHALER INH SCH (08:56)
[2023-08-26] MEDS: ATORVASTATIN 20 MG TAB PO SCH (08:56)
[2023-08-26] MEDS: GABAPENTIN 300 MG CAP PO SCH (08:56)
[2023-08-26] MEDS ORDERED: CLOPIDOGREL BISULFATE 75 MG TAB PO SCH (11:15)
--- NOTE | 2023-08-26 11:37 | Pharmacy Report ---
- Date of Service August 26, 2023 - Pharmacy CVA/TIA Medication Review Medications to Prevent Stroke handout has been added to the patients discharge packet. Antiplatelet(s) * aspirin 81 mg PO daily + clopidogrel 75 mg PO daily w/ plan for monotherapy afterwards Cholesterol * High intensity statin: atorvastatin 80 mg daily DVT Prophylaxis * SCD knee Therapeutic Anticoagulation * No history of Afib/Aflutter noted Type 2 Diabetes * Patient does not have T2DM
--- NOTE | 2023-08-26 13:23 | Discharge Summary ---
Date of Service August 26, 2023 Admission HPI Per Admitting Provider The patient is a 62-year-old male with a past medical history including adenocarcinoma of left lung, cancer-related pain, intellectual disability, severe protein calorie malnutrition, bladder outlet obstruction, pancreatic lesion, history of CVA, cachexia, current tobacco user, and multiple pulmonary nodules patient follows with pulmonology Dr. Quijano and oncology Dr. Yoo. He presents to the emergency department with symptoms as noted above. Imaging in the emergency department: CT of head without contrast showed acute right parietal lobe infarct. CTA of head was negative, CTA of neck showed a large cavitary mass in the left upper lobe. Patient denies any associated difficulty with speech, swallowing, vision or hearing. Of note, patient continues to smoke tobacco. Patient reports that he will stay in the hospital for 1 day only Principal Diagnosis Ischemic right hemisphere CVA Discharge Exam General-alert and oriented x3, no fever, no chills. Unkempt appearance HEENT-head atraumatic and normocephalic, pupils equal and reactive to light, extraocular muscles intact Neck-no lymphadenopathy or thyromegaly, trachea midline Chest-clear to auscultation. No rales, wheezing or rhonchi Cardiac-regular rate and rhythm, normal S1 and S2 Abdomen-normal bowel sounds, nontender, no hepatosplenomegaly Extremities-no cyanosis, clubbing, or edema Neuro-cranial nerves II through XII intact, motor and sensory function within normal limits, strength symmetrical, no focal deficits Psych-normal affect, normal mood Discharge Data Allergies Allergy/AdvReac Type Severity Reaction Status Date / Time No Known Allergies Allergy Verified 06/29/23 10:59 Consultations 08/25/23 05:29 ED Decision to Admit Stat 08/25/23 06:11 Consult Neurology Routine Ordered Studies 08/25/23 04:14 CT angio head w con Stat CT angio neck with con Stat CT head/brain wo con Stat Hospital Course (1) Infarction of parietal lobe: Right parietal area. Ischemic. Remarkably, he has no discernible neurological deficits. The infarction is large and Decadron therapy will be considered to prevent development of cerebral edema which is likely. Neurology consultation appreciated. He is now on aspirin, Plavix, atorvastatin. Cardiac echo report noted. No evidence of shunt. He is unable to undergo brain MRI scanning. (2) Adenocarcinoma of left lung: Managed by oncology, Dr. Yoshi Saldivar (3) Cancer related pain: Stable. Continue current medical management (4) Intellectual disability: Supportive care (5) Severe protein-calorie malnutrition: Supportive care (6) COPD with emphysema: Smoking cessation recommended. (7) Multiple pulmonary nodules: This will need continued outpatient follow-up as an outpatient Plan Home today, August 26, on aspirin, Plavix, atorvastatin. Follow-up with PCP as soon as possible Total Time Total Time Spent Total Time Spent (In Minutes): 45 minutes Discharge Plan Discharge Items Patient Disposition: Home - Self-Care Reason For Visit: ACUTE RIGHT PARIETAL LOBE INFARCT Discharge Diagnosis: Ischemic right parietal CVA Activity: Resume your previous activity Non-emergency contact: Primary Care Provider Call non-emergency contact if: you have any medication questions and your symptoms worsen Follow-up/Referrals: Libra Arciniega DO [Primary Care Provider] - Diet: Regular Addtl Attending Provider Instructions: Take aspirin, Plavix, atorvastatin as directed Pending Studies at Discharge: No Stand-Alone Forms: My [facility] Bee Resilient, Smoking Cessation, Medications to Prevent Stroke Medications and DC Order Prescriptions: New atorvastatin 40 mg Tablet 80 mg PO QAM Qty: 30 0RF clopidogrel 75 mg Tablet 75 mg PO QAM Qty: 30 0RF Continued ondansetron HCl 8 mg tablet 8 mg PO Q8H PRN prochlorperazine maleate [Compazine] 10 mg tablet 10 mg PO Q6H PRN cephalexin 250 mg capsule 250 mg PO QID Qty: 28 0RF fentanyl 50 mcg/hr patch 72 hour 1 patch transdermal Q72H 30 Days Qty: 10 0RF oxycodone 10 mg tablet 10 mg PO Q6H MDD 40mg PRN (Reason: vry severe breakthrough cancer pain) 30 Days Qty: 120 0RF lorazepam 1 mg tablet 1 mg PO Q12H PRN (Reason: anxiety prior to radiation, insomnia, panic attack) 30 Days Qty: 50 0RF gabapentin 300 mg capsule 300 mg PO BID Qty: 60 5RF albuterol sulfate [Ventolin HFA] 90 mcg/actuation HFA aerosol inhaler 2 inh inhalation Q4H PRN (Reason: shortness of breath or wheezing) Qty: 18 3RF fluticasone propion-salmeterol [Advair Diskus] 250-50 mcg/dose blister with device 1 inh inhalation QPM Qty: 60 8RF Spiriva Respimat 2.5 mcg/actuation mist 2 puff inhalation DAILY Qty: 4 8RF acetaminophen [Tylenol] 325 mg Tablet 650 mg PO QID PRN (Reason: Pain) aspirin 81 mg Tablet,Delayed Release (Dr/Ec) 81 mg PO QAM mirtazapine [Remeron] 15 mg tablet 15 mg PO HS Discharge Orders: Discharge Order (Routine); Ordered 08/26/23 Ordered By: Familia Rose Admission Data Admit Date/Time: 08/25/23 05:47 Attending Provider: Familia Rose Admit Provider: Samy Noonan Primary Care Provider: Libra Arciniega Other Providers: Samy Noonan; Bird Childs Coding Level of Care Code 95463 INP/OBS DISCH >30 MIN Diagnoses Infarction of parietal lobe I63.89 Adenocarcinoma of left lung C34.92 Cancer related pain G89.3 Intellectual disability F79 Severe protein-calorie malnutrition E43 COPD with emphysema J43.9 Emphysema type: unspecified Multiple pulmonary nodules R91.8
[2023-08-26] MEDS ORDERED: STROKE PATIENT DISCHARGE STA (13:24)
[2023-08-27] MEDS ORDERED: ATORVASTATIN 40 MG TAB PO SCH (09:00)
[2023-08-27] MEDS ORDERED: fentaNYL 50 MCG/HR TDSY TD SCH (09:00)
== END 2023-08-26 16:02 | disposition home or self-care (01) | DRG 64 ==
LOC: ED 04:08 → SUATTDRO 05:47 → INTOOBSV 05:47 → EDINP 05:47 → 2S 08:35

== ENCOUNTER 2023-09-02 22:33 | Observation (INO) ==
[2023-09-02 23:10] LABS: Hematocrit (blood only) 37.2 % (42.0-52.0); Hemoglobin 12.5 g/dl (14.0-18.0); Mean Corpuscular Hemoglobin 32.2 pg (25.0-34.0); Mean Corpuscular Hgb Conc 33.6 g/dL (32.0-36.0); Mean Corpuscular Volume 95.9 fL (80.0-100.0); Platelet Count 499 K/uL (130-400); RDW Standard Deviation 60.3 fL (36.4-46.3); Red Blood Count 3.88 M/uL (4.70-6.10); White Blood Count 8.59 K/ul (4.8-10.8)
[2023-09-02 23:25] LABS: Albumin Globulin Ratio 1.4 (0.9-2); Albumin Level 4.3 gm/dl (3.4-5.0); BUN Creatinine Ratio 38.3 (10-20); Bilirubin,Total 0.6 mg/dl (0.2-1.0); Calcium 9.9 mg/dl (8.6-10.3); Creatinine Clr Calc Pharmacy 113.8 ml/min; Est GFR (African American) 124.9 ml/min; Est GFR (Non-African American) 107.8 ml/min; Magnesium 2.1 mg/dl (1.7-2.4); Potassium 4.2 mmol/L (3.5-5.1); Total Protein 7.3 gm/dl (6.0-8.3)
--- NOTE | 2023-09-02 23:38 | CT Scan Report ---
Exam(s): CT HEAD Without Contrast EXAM: CT Head Without Intravenous Contrast CLINICAL HISTORY: Reason for exam: Neuro deficit, acute, stroke suspected. TECHNIQUE: Axial computed tomography images of the head/brain without intravenous contrast. CTDI is 36.86 mGy and DLP is 547.75 mGy-cm. Automated exposure control was utilized for the study. A dose lowering technique was utilized adhering to the principles of ALARA. COMPARISON: Head CT August 25, 2023. FINDINGS: No acute intracranial hemorrhage. No midline shift or mass effect. Encephalomalacia in the RIGHT frontal and parietal lobes, consistent with old infarct. Age-related cerebral volume loss. Periventricular and subcortical white matter hypoattenuation, consistent with chronic microangiopathy. The visualized orbits appear grossly unremarkable. The calvarium is intact. The visualized paranasal sinuses and mastoid air cells are grossly clear. IMPRESSION: No acute intracranial hemorrhage, midline shift, or mass effect. Encephalomalacia in the RIGHT frontal and parietal lobes, consistent with old infarct. Electronically signed by: Joey Neumann MD 09/02/23 23:37 PM
--- NOTE | 2023-09-02 23:51 | Emergency Department Note ---
History of Present Illness General Chief complaint: Neuro Symptoms/Deficit Time Seen by Provider: 09/02/23 23:38 Source: patient, family, RN notes reviewed and old records reviewed (I have reviewed recent discharge summary from 08-08-23 for stroke) Limitations: other History of Present Illness This patient is a 63-year-old male who had a recent right-sided ischemic stroke and was started on Plavix and apparently had a normal neurologic exam and left the hospital, comes in after sometimes even having left facial throbbing then he felt numb and weak in his left arm. Is feeling a lot better than he was but still feels like is a little weak in the arm. He did not try to stand but he felt like he could not stand. He is not sure exactly what time this happened. He had no difficult speaking or swallowing no headache no change in vision acutely. He injured his left eye as a child and has paralysis of some of the muscles he tells me. He was short of breath earlier and was hyperventilating and anxious but that now feels better. No chest pain. No fever Home Medications Medication Instructions Recorded Confirmed Type acetaminophen 325 mg tablet 650 mg PO QID PRN Pain 01/03/21 09/03/23 History (Tylenol) aspirin 81 mg tablet,delayed 81 mg PO QAM 01/03/21 09/03/23 History release ondansetron HCl 8 mg tablet 8 mg PO Q8H PRN Nausea 06/25/23 09/03/23 History prochlorperazine maleate 10 mg 10 mg PO Q6H PRN Nausea And 06/25/23 09/03/23 History tablet (Compazine) Vomiting gabapentin 300 mg capsule 300 mg PO BID #60 caps 06/29/23 09/03/23 Rx albuterol sulfate 90 mcg/actuation 2 inh inhalation Q4H PRN shortness 07/28/23 09/03/23 Rx aerosol inhaler (Ventolin HFA) of breath or wheezing #18 grams fluticasone 250 mcg-salmeterol 50 1 inh inhalation QPM #60 ea 07/28/23 09/03/23 Rx mcg/dose blistr powdr for inhalation (Advair Diskus) tiotropium bromide 2.5 2 puff inhalation DAILY #4 grams 07/28/23 09/03/23 Rx mcg/actuation mist for inhalation (Spiriva Respimat) fentanyl 50 mcg/hr transdermal 1 patch transdermal Q72H very 08/24/23 09/03/23 Rx patch severe cancer pain 1 month #10 ea lorazepam 1 mg tablet 1 mg PO Q12H PRN anxiety prior to 08/24/23 09/03/23 Rx radiation, insomnia, panic attack 1 month #50 tabs oxycodone 10 mg tablet 10 mg PO Q6H PRN vry severe 08/24/23 09/03/23 Rx breakthrough cancer pain 1 month #120 tabs clopidogrel 75 mg tablet 75 mg PO QAM #30 tabs 08/26/23 09/03/23 Rx atorvastatin 40 mg tablet 80 mg (2 x 40 mg) PO QAM #90 tabs 08/28/23 09/03/23 Rx Allergies Allergy/AdvReac Type Severity Reaction Status Date / Time No Known Allergies Allergy Verified 09/03/23 00:16 Past Med/Surg History Medical History Severe protein-calorie malnutrition Multiple pulmonary nodules Current smoker COPD with emphysema Ischemic stroke Intellectual disability Adenocarcinoma of left lung Cancer related pain Bladder diverticulum Bladder outlet obstruction Lymphadenopathy Pancreatic lesion Advanced care planning/counseling discussion History of CVA (cerebrovascular accident) Cachectic History of rib fracture 2.5 months ago, medical management COPD with emphysema Lower extremity ulceration Hyperlipidemia Venous stasis ulcer resolved, "took out vein" Surgical History Hx of colonoscopy Status post left foot surgery ulcer on left foot History of tooth extraction Family History Mother Myocardial infarction Father Family hx of colon cancer Hypertension Sister Diabetes Cancer thyroid Brother Lung cancer Thyroid cancer Other No family history of adverse response to anesthesia Denies family history of Ovarian cancer Breast cancer Social History Smoking Status: Current every day smoker Tobacco Type: Cigarettes Age Started Using Tobacco: 10; packs per day: 1; Cigarettes Per Day: .5ppd; Second Hand Exposure: Yes; Do You Dip or Chew Tobacco: No; Hx Alcohol Use: No Hx Substance Use: No Preferred Language: [place] Communication Ability: Effective Visual Impairment: No Limitations Hearing Ability: Normal Internet Media Planner Required: No Beliefs That Will Affect Care: None marital status: Single Current Living Situation: Other Current Living Situation Comment: "roomates" current occupational status: unemployed 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 Feels Safe at Home: Yes Childhood Exposure to Second-Hand Smoke: No Diet: regular during the past year weight has: remained stable Dental Care, Regularly: No Physical Activity Frequency: Does not Exercise Seatbelt Use: always Sunscreen Use: No Do you think of yourself as: straight/heterosexual Assistive Devices: Walker Review of Systems A total of 10 systems reviewed and were otherwise negative Physical Exam Vital Signs Vital Signs - 24 hr 09/02/23 22:44 09/02/23 22:45 09/02/23 23:55 Temperature 36.4 C L Temperature Source Oral Pulse Rate 95 H 82 Pulse Rate from SpO2 Sensor 82 Respiratory Rate 40 H 38 H Respiratory Effort / Characteristics Non-Labored Spontaneous Respiratory Depth Normal Blood Pressure 133/84 Blood Pressure Mean 100 Pulse Oximetry 96 96 97 Oxygen Delivery Method Room Air Room Air Sepsis Recent Fever Within 48 Hours No Sepsis New/Unexplained Change in Mental Status N/A Sepsis Action Taken by Nursing No Action Required 09/03/23 00:00 09/03/23 00:00 09/03/23 00:15 Temperature Temperature Source Pulse Rate 76 Pulse Rate from SpO2 Sensor 79 Respiratory Rate 13 Respiratory Effort / Characteristics Respiratory Depth Blood Pressure 119/73 136/80 Blood Pressure Mean 88 98 Pulse Oximetry 95 Oxygen Delivery Method Sepsis Recent Fever Within 48 Hours Sepsis New/Unexplained Change in Mental Status Sepsis Action Taken by Nursing 09/03/23 00:15 Temperature Temperature Source Pulse Rate 77 Pulse Rate from SpO2 Sensor 79 Respiratory Rate 25 H Respiratory Effort / Characteristics Respiratory Depth Blood Pressure Blood Pressure Mean Pulse Oximetry 93 Oxygen Delivery Method Sepsis Recent Fever Within 48 Hours Sepsis New/Unexplained Change in Mental Status Sepsis Action Taken by Nursing General: Well developed well nourished middle-age male who in no acute distress, breathing comfortably on room air. Normal speech HEENT: Normal cephalic atraumatic. He has baseline abnormalities with movement left eye but the right moves as normal. No facial droop or asymmetry extraocular movements are intact. Oropharynx is pink with moist mucous membranes. No swelling of the mouth lips or tongue. Neck: Supple with a midline trachea. No meningeal signs or stiffness, no JVD or bruits. No Stridor. Chest: Clear to auscultation bilaterally. No wheezes or rhonchi. No increased work of breathing. Heart: Regular rate and rhythm without murmurs or gallops. Abdomen: Soft nontender, nondistended without rebound guarding or rigidity. Extremities: No cyanosis clubbing or edema. No calf tenderness or assymetry Spine/Back. Non tender to palpation. No CVA tenderness Skin: Good turgor without rashes. Neurologic exam: Cranial nerves two through 12 are intact. Motor and sensation are intact and symmetrical throughout with exception of some mild weakness in the left hand and forearm Medical Decision Making Differential Diagnosis Stroke, TIA, electrolyte or metabolic abnormality, intracranial process, cardiac disease, pulmonary, infection Medical Records Attestation: I reviewed the patient's medical records. Home Medications Current Medication List: was personally reviewed by me Laboratory Data Attestation: I reviewed the patient's lab results. 09/02/23 22:39 09/02/23 22:39 Lab Results 09/02/23 Range/Units 22:39 WBC 8.59 (4.8-10.8) K/ul RBC 3.88 L (4.70-6.10) M/uL Hgb 12.5 L (14.0-18.0) g/dl Hct 37.2 L (42.0-52.0) % MCV 95.9 (80.0-100.0) fL MCH 32.2 (25.0-34.0) pg MCHC 33.6 (32.0-36.0) g/dL RDW Std Deviation 60.3 H (36.4-46.3) fL RDW Coeff of Juan 17.0 H (11.5-14.5) % Plt Count 499 H (130-400) K/uL MPV 9.0 L (9.4-12.4) fL PT 10.9 (9.0-12.0) Seconds INR 1.0 (0.9-1.1) APTT 28 (21-31) Seconds PTT Ratio 1.0 Sodium 138 (136-145) mmol/L Potassium 4.2 (3.5-5.1) mmol/L Chloride 103 (98-107) mmol/L Carbon Dioxide 26 (21-32) mmol/L Anion Gap 9 (3-11) BUN 23 (6-23) mg/dl Creatinine 0.60 (0.6-1.4) mg/dl Est Cr Clr Drug Dosing 113.8 ml/min Est GFR ( Amer) 124.9 ml/min Est GFR (Non-Af Amer) 107.8 ml/min BUN/Creatinine Ratio 38.3 H (10-20) Glucose 108 H (70-99(Fasting)) mg/dl Calcium 9.9 (8.6-10.3) mg/dl Magnesium 2.1 (1.7-2.4) mg/dl Total Bilirubin 0.6 (0.2-1.0) mg/dl AST 40 H (13-39) U/L ALT 38 (7-52) U/L Alkaline Phosphatase 110 H (34-104) U/L Total Protein 7.3 (6.0-8.3) gm/dl Albumin 4.3 (3.4-5.0) gm/dl Globulin 3.0 (2.5-4.0) gm/dl Albumin/Globulin Ratio 1.4 (0.9-2) Imaging Data Attestation: I personally reviewed and interpreted this imaging study as follows: My Impression: Head CTno hemorrhage or mass effect seen Radiologist's Impression: Head CT 09/02/23 22:44 Exam(s): CT HEAD Without Contrast EXAM: CT Head Without Intravenous Contrast CLINICAL HISTORY: Reason for exam: Neuro deficit, acute, stroke suspected. TECHNIQUE: Axial computed tomography images of the head/brain without intravenous contrast. CTDI is 36.86 mGy and DLP is 547.75 mGy-cm. Automated exposure control was utilized for the study. A dose lowering technique was utilized adhering to the principles of ALARA. COMPARISON: Head CT August 25, 2023. FINDINGS: No acute intracranial hemorrhage. No midline shift or mass effect. Encephalomalacia in the RIGHT frontal and parietal lobes, consistent with old infarct. Age-related cerebral volume loss. Periventricular and subcortical white matter hypoattenuation, consistent with chronic microangiopathy. The visualized orbits appear grossly unremarkable. The calvarium is intact. The visualized paranasal sinuses and mastoid air cells are grossly clear. IMPRESSION: No acute intracranial hemorrhage, midline shift, or mass effect. Encephalomalacia in the RIGHT frontal and parietal lobes, consistent with old infarct. Electronically signed by: Joey Neumann MD 09/02/23 23:37 PM ECG Data Attestation: I personally reviewed and interpreted this ECG as follows: Indication: + weakness Rate (beats per minute): 92 Rhythm: + normal sinus ECG Intervals/blocks: + Normal QRS, + Normal QT and + Normal WI ECG [place]: + Normal ECG ST segments: + Normal ST segments ECG Findings: no PACs or no PVCs Comparison ECG Date: from (08/13/23) Change: no significant change MDM Narrative This patient comes in as described above. He had an episode started unknown time this evening where he felt funny in his left face and left arm. He feels significantly better. He still has some weakness of left arm not sure if this is old or new I am concerned he may have had another stroke. His CAT scan of his head was unremarkable. He has no significant electrolyte or metabolic abnormalities .EKG is unremarkable. His placed on a lunchroom monitor in room C4. He is on Plavix. He was hyperventilating earlier he tells me but feels better now he is in no respiratory distress he is not hypoxemic. I do think he needs to be admitted/observed and I consulted Dr. Johanny Tomlinson to see the patient the ER for these measures. I do not feel he is a thrombolytic candidate at this point as his symptoms have improved and its unknown clear how long they have been going on for. Continuous cardiac monitoring: Orders placed in EMR for continuous lunchroom monitor: Upon my evaluation patient will be normal sinus with a rate of 92 Impression & Plan Left-sided weakness, History of CVA (cerebrovascular accident), Acute hyperventilation, Intellectual disability Discharge Plan Visit Data Chief Complaint: Neuro Symptoms/Deficit ED Provider: Ravi Winchester Discharge Problem: Left-sided weakness, History of CVA (cerebrovascular accident), Acute hyperventilation, Intellectual disability Forms Stand Alone Forms: My [facility] [employer] Prescriptions Prescriptions: No Action ondansetron HCl 8 mg tablet 8 mg PO Q8H PRN (Reason: Nausea) prochlorperazine maleate [Compazine] 10 mg tablet 10 mg PO Q6H PRN (Reason: Nausea And Vomiting) fentanyl 50 mcg/hr patch 72 hour 1 patch transdermal Q72H 30 Days Qty: 10 0RF oxycodone 10 mg tablet 10 mg PO Q6H MDD 40mg PRN (Reason: vry severe breakthrough cancer pain) 30 Days Qty: 120 0RF lorazepam 1 mg tablet 1 mg PO Q12H PRN (Reason: anxiety prior to radiation, insomnia, panic attack) 30 Days Qty: 50 0RF gabapentin 300 mg capsule 300 mg PO BID Qty: 60 5RF atorvastatin 40 mg tablet 80 mg PO QAM Qty: 90 3RF albuterol sulfate [Ventolin HFA] 90 mcg/actuation HFA aerosol inhaler 2 inh inhalation Q4H PRN (Reason: shortness of breath or wheezing) Qty: 18 3RF fluticasone propion-salmeterol [Advair Diskus] 250-50 mcg/dose blister with device 1 inh inhalation QPM Qty: 60 8RF Spiriva Respimat 2.5 mcg/actuation mist 2 puff inhalation DAILY Qty: 4 8RF acetaminophen [Tylenol] 325 mg Tablet 650 mg PO QID PRN (Reason: Pain) aspirin 81 mg Tablet,Delayed Release (Dr/Ec) 81 mg PO QAM clopidogrel 75 mg Tablet 75 mg PO QAM Qty: 30 0RF Referrals Referrals: Lbira Arciniega DO [Primary Care Provider] -
[2023-09-03 00:08] LABS: Partial Thromboplastin Time 28 Seconds (21-31); Prothrombin Time 10.9 Seconds (9.0-12.0)
--- NOTE | 2023-09-03 00:24 | History & Physical Report ---
Date of Service September 03, 2023 Assessment & Plan (1) Left-sided weakness: Plan: 63yo male with recent right parietal lobe infarct (discharged from hospital 08/26/23) presenting with worsening of LUE weakness as well as episode of arm shaking. Question focal seizure vs recrudescence of stroke deficits vs new infarct -Observation to medical with telemetry -Continue ASA, Plavix and Atorvastatin -MRI ordered, however, patient refuses to have this study performed due to claustrophobia -Neuro checks and NIHSS History of Present Illness Chief Complaint: LUE weakness and tremor Primary Care Provider: DO Israel Vega Lawrence is a 63yo male with history of COPD, HLP, Lung CA, intellectual disability and recent ischemic stroke presenting with numbness and weakness of the LUE. Patient was recently admitted to [facility] from 08/25/22 - 08/26/22 after he presented with neurologic symptoms. He was found to have a right parietal lobe infarct. He was discharged home on ASA/Plavix and Atorvastatin. Per discharge summary, patient with no notable deficits on discharge. Patient reports some weakness of the LUE since his stroke - noted mostly with difficulty when trying to hold and lift his coffee cup. Today he had an episode of shaking in his left arm as well as worsening numbness and weakness of the LUE. He also had some palpitations and headache as well. He reports his symptoms lasted 10-15 minutes then resolved. Presently feels that his LUE is weaker than normal. Otherwise, no complaints - denies fever, chills, chest pain, palpitations, abdominal pain, nausea, vomiting, diarrhea. Allergies Allergy/AdvReac Type Severity Reaction Status Date / Time No Known Allergies Allergy Verified 09/03/23 00:16 Home Medications Medication Instructions Recorded Confirmed Type acetaminophen 325 mg tablet 650 mg PO QID PRN Pain 01/03/21 09/03/23 History (Tylenol) aspirin 81 mg tablet,delayed 81 mg PO QAM 01/03/21 09/03/23 History release ondansetron HCl 8 mg tablet 8 mg PO Q8H PRN Nausea 06/25/23 09/03/23 History prochlorperazine maleate 10 mg 10 mg PO Q6H PRN Nausea And 06/25/23 09/03/23 History tablet (Compazine) Vomiting gabapentin 300 mg capsule 300 mg PO BID #60 caps 06/29/23 09/03/23 Rx albuterol sulfate 90 mcg/actuation 2 inh inhalation Q4H PRN shortness 07/28/23 09/03/23 Rx aerosol inhaler (Ventolin HFA) of breath or wheezing #18 grams fluticasone 250 mcg-salmeterol 50 1 inh inhalation QPM #60 ea 07/28/23 09/03/23 Rx mcg/dose blistr powdr for inhalation (Advair Diskus) tiotropium bromide 2.5 2 puff inhalation DAILY #4 grams 07/28/23 09/03/23 Rx mcg/actuation mist for inhalation (Spiriva Respimat) fentanyl 50 mcg/hr transdermal 1 patch transdermal Q72H very 08/24/23 09/03/23 Rx patch severe cancer pain 1 month #10 ea lorazepam 1 mg tablet 1 mg PO Q12H PRN anxiety prior to 08/24/23 09/03/23 Rx radiation, insomnia, panic attack 1 month #50 tabs oxycodone 10 mg tablet 10 mg PO Q6H PRN vry severe 08/24/23 09/03/23 Rx breakthrough cancer pain 1 month #120 tabs clopidogrel 75 mg tablet 75 mg PO QAM #30 tabs 08/26/23 09/03/23 Rx atorvastatin 40 mg tablet 80 mg (2 x 40 mg) PO QAM #90 tabs 08/28/23 09/03/23 Rx Past Med/Surg History Medical History Severe protein-calorie malnutrition Multiple pulmonary nodules Current smoker COPD with emphysema Ischemic stroke Intellectual disability Adenocarcinoma of left lung Cancer related pain Bladder diverticulum Bladder outlet obstruction Lymphadenopathy Pancreatic lesion Advanced care planning/counseling discussion History of CVA (cerebrovascular accident) Cachectic History of rib fracture 2.5 months ago, medical management COPD with emphysema Lower extremity ulceration Hyperlipidemia Venous stasis ulcer resolved, "took out vein" Surgical History Hx of colonoscopy Status post left foot surgery ulcer on left foot History of tooth extraction Family History Mother Myocardial infarction Father Family hx of colon cancer Hypertension Sister Diabetes Cancer thyroid Brother Lung cancer Thyroid cancer Other No family history of adverse response to anesthesia Denies family history of Ovarian cancer Breast cancer Social History Smoking Status: Current every day smoker Tobacco Type: Cigarettes Age Started Using Tobacco: 10; packs per day: 1; Cigarettes Per Day: .5ppd; Second Hand Exposure: Yes; Do You Dip or Chew Tobacco: No; Hx Alcohol Use: No Hx Substance Use: No Preferred Language: Yoruba Communication Ability: Effective Visual Impairment: No Limitations Hearing Ability: Normal Foster Care Worker Required: No Beliefs That Will Affect Care: None marital status: Single Current Living Situation: Other Current Living Situation Comment: "roomates" current occupational status: unemployed 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 Feels Safe at Home: Yes Childhood Exposure to Second-Hand Smoke: No Diet: regular during the past year weight has: remained stable Dental Care, Regularly: No Physical Activity Frequency: Does not Exercise Seatbelt Use: always Sunscreen Use: No Do you think of yourself as: straight/heterosexual Assistive Devices: Walker Review of Systems Review of Systems: All systems reviewed & are unremarkable except as noted in HPI & below Physical Exam Physical Exam: General: patient with intellectual disability, speech somewhat garbled (baseline) Skin: warm, dry, intact, no rashes or lesions HEENT: NC/AT, anicteric sclera, conjunctiva without injection, external ear normal to inspection and nontender, nares patent, moist mucus membranes, dentition intact, no oropharyngeal lesions, neck supple, trachea midline, no LAD, no thyromegaly, no JVD Heart: +S1/S2, regular, no m/r/g Lungs: equal air entry bilaterally, no rales/rhonchi/wheezes Abd: +BS, soft, NT/ND, no masses/organomegaly/ascites Ext: warm, 2+ pulses in UE/LE bilaterally, no clubbing/cyanosis or edema Neuro:weakness in LUE 4/5 with +drift Results & Data Results & Data Vital Signs (Past 12 Hours) Vital Signs Temp Pulse Resp BP Pulse Ox O2 Del Method 09/03/23 00:15 77 25 H 93 09/03/23 00:15 136/80 09/03/23 00:00 76 13 95 09/03/23 00:00 119/73 09/02/23 23:55 82 38 H 97 09/02/23 22:45 36.4 C L 95 H 40 H 133/84 96 Room Air 09/02/23 22:44 96 Room Air Laboratory Results Laboratory Results WBC 8.59 K/ul (4.8-10.8) 09/02/23 22:39 RBC 3.88 M/uL (4.70-6.10) L 09/02/23 22:39 Hgb 12.5 g/dl (14.0-18.0) L 09/02/23 22:39 Hct 37.2 % (42.0-52.0) L 09/02/23 22:39 MCV 95.9 fL (80.0-100.0) 09/02/23 22:39 MCH 32.2 pg (25.0-34.0) 09/02/23 22:39 MCHC 33.6 g/dL (32.0-36.0) 09/02/23 22:39 RDW Std Deviation 60.3 fL (36.4-46.3) H 09/02/23 22:39 RDW Coeff of Juan 17.0 % (11.5-14.5) H 09/02/23 22:39 Plt Count 499 K/uL (130-400) H 09/02/23 22:39 MPV 9.0 fL (9.4-12.4) L 09/02/23 22:39 PT 10.9 Seconds (9.0-12.0) 09/02/23 22:39 INR 1.0 (0.9-1.1) 09/02/23 22:39 APTT 28 Seconds (21-31) 09/02/23 22:39 PTT Ratio 1.0 09/02/23 22:39 Sodium 138 mmol/L (136-145) 09/02/23 22:39 Potassium 4.2 mmol/L (3.5-5.1) 09/02/23 22:39 Chloride 103 mmol/L (98-107) 09/02/23 22:39 Carbon Dioxide 26 mmol/L (21-32) 09/02/23 22:39 Anion Gap 9 (3-11) 09/02/23 22:39 BUN 23 mg/dl (6-23) 09/02/23 22:39 Creatinine 0.60 mg/dl (0.6-1.4) 09/02/23 22:39 Est Cr Clr Drug Dosing 113.8 ml/min 09/02/23 22:39 Est GFR ( Amer) 124.9 ml/min 09/02/23 22:39 Est GFR (Non-Af Amer) 107.8 ml/min 09/02/23 22:39 BUN/Creatinine Ratio 38.3 (10-20) H 09/02/23 22:39 Glucose 108 mg/dl (70-99(Fasting)) H 09/02/23 22:39 Calcium 9.9 mg/dl (8.6-10.3) 09/02/23 22:39 Magnesium 2.1 mg/dl (1.7-2.4) 09/02/23 22:39 Total Bilirubin 0.6 mg/dl (0.2-1.0) 09/02/23 22:39 AST 40 U/L (13-39) H 09/02/23 22:39 ALT 38 U/L (7-52) 09/02/23 22:39 Alkaline Phosphatase 110 U/L (34-104) H 09/02/23 22:39 Total Protein 7.3 gm/dl (6.0-8.3) 09/02/23 22:39 Albumin 4.3 gm/dl (3.4-5.0) 09/02/23 22:39 Globulin 3.0 gm/dl (2.5-4.0) 09/02/23 22:39 Albumin/Globulin Ratio 1.4 (0.9-2) 09/02/23 22:39 Urine Color Yellow 09/03/23 02:42 Urine Appearance Clear (Clear) 09/03/23 02:42 Urine pH 6.5 (4.5-7.5) 09/03/23 02:42 Ur Specific [place] 1.022 (1.000-1.030) 09/03/23 02:42 Urine Protein Negative (Negative) 09/03/23 02:42 Urine Glucose (UA) Negative (Negative) 09/03/23 02:42 Urine Ketones Negative (Negative) 09/03/23 02:42 Urine Blood 2+ (Negative) H 09/03/23 02:42 Urine Nitrite Negative (Negative) 09/03/23 02:42 Urine Bilirubin Negative (Negative) 09/03/23 02:42 Urine Urobilinogen Negative (Negative) 09/03/23 02:42 Ur Leukocyte Esterase Trace (Negative) H 09/03/23 02:42 Urine WBC (Auto) 10-30 /hpf (0-5) H 09/03/23 02:42 Urine RBC (Auto) >30 /hpf (0-4) H 09/03/23 02:42 U Hyaline Cast (Auto) 1-5 /lpf (0-5) 09/03/23 02:42 U Epithel Cells (Auto) 20-30 /lpf (0-5) H 09/03/23 02:42 Urine Bacteria (Auto) Negative (Negative) 09/03/23 02:[address] 09/02/23 22:44 Exam(s): CT HEAD Without Contrast EXAM: CT Head Without Intravenous Contrast CLINICAL HISTORY: Reason for exam: Neuro deficit, acute, stroke suspected. TECHNIQUE: Axial computed tomography images of the head/brain without intravenous contrast. CTDI is 36.86 mGy and DLP is 547.75 mGy-cm. Automated exposure control was utilized for the study. A dose lowering technique was utilized adhering to the principles of ALARA. COMPARISON: Head CT August 25, 2023. FINDINGS: No acute intracranial hemorrhage. No midline shift or mass effect. Encephalomalacia in the RIGHT frontal and parietal lobes, consistent with old infarct. Age-related cerebral volume loss. Periventricular and subcortical white matter hypoattenuation, consistent with chronic microangiopathy. The visualized orbits appear grossly unremarkable. The calvarium is intact. The visualized paranasal sinuses and mastoid air cells are grossly clear. IMPRESSION: No acute intracranial hemorrhage, midline shift, or mass effect. Encephalomalacia in the RIGHT frontal and parietal lobes, consistent with old infarct. Electronically signed by: Joey Neumann MD 09/02/23 23:37 PM Code Status & VTE Plan VTE Prophylaxis Plan VTE Prophylaxis will be ordered: Yes PG Care Time/CCT Total # of Minutes Spent Total Time Spent with Patient: Total time spent is greater than 50% in coordination of care (as documented) at patient's floor/unit and/or counseling patient: Coding Level of Care Code 47541 INT INP/OBS CARE 2/55MIN Diagnoses Left-sided weakness R53.1
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
--- OUTSIDE RECORDS SUMMARY | 2023-09-03 00:39 | External Medical Summary | Summary of Care ---
Author Name Unknown Organization [facility] Address [address] [place] [address] Phone [phone] Care Team Providers Care Bandoleer Straightener Stamper Name Role Phone Libra Arciniega MD Primary Care Provider [phone] Reason for Visit * Reason Onset Date Comments Pre-op Clearance 09/01/2023 Encounter Details Date Type Department Care Team (Late st Contact Info) Description 09/01/2023 Telephone [facility]astroenterology, [facility] [address] Luisa Basurto CRNP [address] [facility] [place] [address] Pre-op Clearance Allergies No known active allergiesdocumented as of [...] on file documented as of this encounter Miscellaneous Notes * Telephone Encounter - Coreen Farah RN - 09/01/2023 4:[address] Arciniega's office. Spoke with nurse who said they will reach out to pt to schedule appt for clearance. * Telephone Encounter - Luisa Basurto CRNP - 09/01/2023 2:39 PM EST 63 year old male with history of left lung adenocarcinoma, severe protein calorie malnutrition, bladder outlet obstruction, pancreatic lesion, history of CVA, cachexia, current tobacco user, and multiple pulmonary nodules recently admitted to [facility] on 08/25/23 w/ acute right parietal lobe infarct started on dual antiplatelet therapy referred to GI for lymphadenopathy and abnormal pancreas from referral 03/11/23 6 CM septated cystic mass of the pancreas without pancreas ductal dilation Given acute right parietal lobe infarct started on dual antiplatelet therapy 08/25/23 this would needto be cleared by neurology and PCP I attempted to contact PCP who was unavailable today to discuss Please contact pcp as he tells me he does not have a neurologist as willl need to arrange clearancefor these procedures SHELL He 09/01/2023 2:41 PM documented in this encounter Plan of Treatment Upcoming Encounters Date Type Department Care Team (Late st Contact Info) Description 11/06/2023 10:30 AM EDT Procedure Only Endoscopy, [place] [address] [place] [address] Juma Dowling DO [address] [place] [address] Health Maintenance Due Date Last Done Comments [...] 2006 LUNG CANCER SCREENING - USE SMARTSET 68161 2011 Zoster Vaccines (1 of 2) 2011 [...] Not on filedocumented as of this encounter Advance Directives Latest Code Status on File Code Status Date Activated Date Inactivated Comments Full Code 04/24/2010 8:49 PM 04/27/2010 5:12 PM This o rder reflects the patients wishes and were consensually agreed upon. Question Answer Comments Discussion of Advance Directives occurred with: Patient Does the patient have a Living Will? No Does the patient have Health Care Power of Tester Rocket Engine? No Care Teams Bandoleer Straightener Stamper Relationship Specialty Start Date End Date Libra Arciniega MD [address] [place] [address] PCP - General Family Medicine 08/24/23 documented as of this encounter
--- OUTSIDE RECORDS SUMMARY | 2023-09-03 00:39 | External Medical Summary | Summary of Care ---
Author Name Unknown Organization [facility] Address [address] [place] [address] Phone [phone] Care Team Providers Care Computer Systems Auditor Name Role Phone Libra Arciniega MD Primary Care Provider Encounter Details Date Type Department Care Team (Late st Contact Info) Description 09/01/2023 Telephone Gastroenterology, [facility] [address] [place] [address] Luisa Basurto CRNP [address] [place] [address] Allergies No known active allergiesdocumented as of [...] encounter Miscellaneous Notes * Telephone Encounter - Luisa Basurto CRNP - 09/01/2023 2:39 PM EST 63 year old male with history of left lung adenocarcinoma, severe protein calorie malnutrition, bladder outlet obstruction, pancreatic lesion, history of CVA, cachexia, current tobacco user, and multiple pulmonary nodules recently admitted to [facility] on 08/25/23 w/ acute right parietal lobe [...] Upcoming Encounters Date Type Department Care Team (Latest Contact Info) Description 09/01/2023 3:00 PM EST Office Visit Gastroenterology, [facility] [address] [place] [address] Luisa Basurto CRNP [address] [place] [address] Lesion of pancreas*; Malignant neoplasm of left lung, unspecified part of lung (HCC); History of stroke 11/06/2023 10:30 AM EDT Procedure Only Endoscopy, [facility] [address] [place] [address] Juma Dowling DO [address] [place] [address] Health Maintenance Due Date Last Done Comments [...] 2006 LUNG CANCER SCREENING - USE SMARTSET 76246 2011 Zoster Vaccines (1 of 2) 2011 [...] the patient have Health Care Power of Montessori Paraprofessional? No Care Teams Computer Systems Auditor Relationship Specialty Start Date End Date Libra Arciniega MD [address] [place] [address] PCP - General Family Medicine 08/24/23 documented as of this encounter
[2023-09-03] MEDS ORDERED: oxyCODONE HCL IR 5 MG TAB (IMMEDIATE RELEASE) PO PRN (02:28)
[2023-09-03] MEDS ORDERED: ALBUTEROL HFA 8 GM INHALER INH PRN (02:28)
[2023-09-03] MEDS ORDERED: ACETAMINOPHEN 325 MG TAB PO PRN (02:28)
[2023-09-03] MEDS ORDERED: LORazepam 1 MG TAB PO PRN (02:28)
[2023-09-03 02:56] LABS: Appearance Urine Clear (Clear); Bacteria Urine Automated Negative (Negative); Bilirubin Urine Negative (Negative); Blood Urine 2+ (Negative); Color Urine Yellow; Epithelial Cell Urine Auto 20-30 /lpf (0-5); Glucose Urine UA Negative (Negative); Ketones Urine Negative (Negative); Leukocyte Esterase Urine Trace (Negative); Nitrite Urine Negative (Negative); Protein Urine Negative (Negative); RBC Urine Automated >30 /hpf (0-4); Specific Gravity Urine 1.022 (1.000-1.030); Urobilinogen Urine Negative (Negative); pH Urine 6.5 (4.5-7.5)
--- NOTE | 2023-09-03 07:59 | XRay Report ---
SINGLE VIEW CHEST CLINICAL HISTORY: Strokelike symptoms. Lung cancer. FINDINGS: 2 AP upright chest radiographs are compared to study dated 08/13/2023 and correlated with c hest CT dated 03/29/2023 as well as PET/CT dated 07/01/2023. The cardiomediastinal silhouette is top n ormal for projection. Emphysema and chronic interstitial thickening is similar to previous. Masslike consolidation at the left apex with an air-fluid level is similar to previous. The right lung appears clear. No large pleural effusion or pneumothorax is identified. The skeletal structures are osteopen ic. Left-sided rib fracture are again noted. IMPRESSION: 1. Emphysema. 2. Masslike consolidation at the left apex with an air-fluid level at the left apex is similar to pre vious. ACT 112: Negative or not required by law. Electronically signed by: Morgan Philippe M.D. 09/03/2023 7:58 AM
[2023-09-03] MEDS ORDERED: CHECK fentaNYL PATCH PLACEMENT SCH (08:00)
[2023-09-03] MEDS ORDERED: ASPIRIN 81 MG ECTAB PO SCH (09:00)
[2023-09-03] MEDS ORDERED: ATORVASTATIN 40 MG TAB PO SCH (09:00)
[2023-09-03] MEDS ORDERED: UMECLIDINIUM BROMIDE 62.5MCG/BLISTER 7 PUFFS/INHALER INH SCH (09:00)
[2023-09-03] MEDS ORDERED: GABAPENTIN 300 MG CAP PO SCH (09:00)
[2023-09-03] MEDS ORDERED: FLUTICASONE/VILANTEROL 200/25MCG 14 PUFFS/INHALER INH SCH (09:00)
[2023-09-03] MEDS ORDERED: fentaNYL 50 MCG/HR TDSY TD SCH (09:00)
[2023-09-03] MEDS ORDERED: NICOTINE 14 MG/24 HR PATCH TD SCH (09:00)
[2023-09-03] MEDS ORDERED: CLOPIDOGREL BISULFATE 75 MG TAB PO SCH (09:00)
--- NOTE | 2023-09-03 10:33 | Discharge Summary ---
Date of Service September 03, 2023 Admission HPI Per Admitting Provider Israel Bravo is a 63yo male with history of COPD, HLP, Lung CA, intellectual disability and recent ischemic stroke presenting with numbness and weakness of the LUE. Patient was recently admitted to [facility] from 08/25/22 - 08/26/22 after he presented with neurologic symptoms. He was found to have a right parietal lobe infarct. He was discharged home on ASA/Plavix and Atorvastatin. Per discharge summary, patient with no notable deficits on discharge. Patient reports some weakness of the LUE since his stroke - noted mostly with difficulty when trying to hold and lift his coffee cup. Today he had an episode of shaking in his left arm as well as worsening numbness and weakness of the LUE. He also had some palpitations and headache as well. He reports his symptoms lasted 10-15 minutes then resolved. Presently feels that his LUE is weaker than normal. Otherwise, no complaints - denies fever, chills, chest pain, palpitations, abdominal pain, nausea, vomiting, diarrhea. Principal Diagnosis weakness Discharge Exam The patient is awake, alert and oriented 3, anxious HEENT--PERRL, EOMI, mucous membranes and oropharynx mildly dry Neck--supple. No JVD. No bruits. Thyroid normal, trachea midline, no adenopathy. Heart--normal S1 and S2. No murmurs, rubs or gallops. Lungs--clear bilaterally, no respiratory distress, no accessory muscle use. Abdomen--normal bowel sounds and soft. Mild epigastric and left sided abdominal pain Extremities--no cyanosis or clubbing. No edema. Dermatologic--normal skin turgor, normal color, no abnormal lymph nodes, no rash. Neurologic--cranial nerves II through XII grossly intact. Rheumatologic--normal range of motion. Psychiatric--anxious Discharge Data Allergies Allergy/AdvReac Type Severity Reaction Status Date / Time No Known Allergies Allergy Verified 09/03/23 00:16 Consultations 09/03/23 00:04 ED Decision to Admit Stat Ordered Studies 09/02/23 22:44 CT head/brain wo con Stat Hospital Course (1) Left-sided weakness: 63yo male with recent right parietal lobe infarct (discharged from hospital 08/26/23) presenting with worsening of LUE weakness as well as episode of arm shaking. Question focal seizure vs recrudescence of stroke deficits vs new infarct -Observation to medical with telemetry -Continue ASA, Plavix and Atorvastatin -MRI ordered, however, patient refuses to have this study performed due to claustrophobia -Neuro checks and NIHSS -Upon evaluation this morning, he said he is back to baseline -Wanted to be discharged home Total Time Total Time Spent Total Time Spent (In Minutes): 35 Discharge Plan Discharge Items Patient Disposition: Home - Self-Care Reason For Visit: LUE WEAKNESS Discharge Diagnosis: weakness-resolved Activity: Resume your previous activity Non-emergency contact: Primary Care Provider, Neurologist and Oncologist Call non-emergency contact if: you have any medication questions Follow-up/Referrals: Libra Arciniega DO [Primary Care Provider] - Diet: Regular Addtl Attending Provider Instructions: please make appointment to follow up with your regular doctors Pending Studies at Discharge: No Stand-Alone Forms: My WooWho, Smoking Cessation Medications and DC Order Prescriptions: Continued ondansetron HCl 8 mg tablet 8 mg PO Q8H PRN (Reason: Nausea) prochlorperazine maleate [Compazine] 10 mg tablet 10 mg PO Q6H PRN (Reason: Nausea And Vomiting) fentanyl 50 mcg/hr patch 72 hour 1 patch transdermal Q72H 30 Days Qty: 10 0RF oxycodone 10 mg tablet 10 mg PO Q6H MDD 40mg PRN (Reason: vry severe breakthrough cancer pain) 30 Days Qty: 120 0RF lorazepam 1 mg tablet 1 mg PO Q12H PRN (Reason: anxiety prior to radiation, insomnia, panic attack) 30 Days Qty: 50 0RF gabapentin 300 mg capsule 300 mg PO BID Qty: 60 5RF atorvastatin 40 mg tablet 80 mg PO QAM Qty: 90 3RF albuterol sulfate [Ventolin HFA] 90 mcg/actuation HFA aerosol inhaler 2 inh inhalation Q4H PRN (Reason: shortness of breath or wheezing) Qty: 18 3RF fluticasone propion-salmeterol [Advair Diskus] 250-50 mcg/dose blister with device 1 inh inhalation QPM Qty: 60 8RF Spiriva Respimat 2.5 mcg/actuation mist 2 puff inhalation DAILY Qty: 4 8RF acetaminophen [Tylenol] 325 mg Tablet 650 mg PO QID PRN (Reason: Pain) aspirin 81 mg Tablet,Delayed Release (Dr/Ec) 81 mg PO QAM clopidogrel 75 mg Tablet 75 mg PO QAM Qty: 30 0RF Discharge Orders: Discharge Order (Routine); Ordered 09/03/23 Ordered By: Suman Garza Admission Data Admit Date/Time: 09/03/23 00:21 Attending Provider: Suman Garza Admit Provider: Luna Tomlinson Primary Care Provider: Libra Arciniega Other Providers: Luna Tomlinson Coding Level of Care Code 50386 INP/OBS DISCH >30 MIN Diagnoses Left-sided weakness R53.1 Time Spent (min) 35
--- NOTE | 2023-09-04 22:48 | Electrocardiogram Report ---
Test Reason : Blood Pressure : / mmHG Vent. Rate : 092 BPM Atrial Rate : 092 BPM P-R Int : 146 ms QRS Dur : 096 ms QT Int : 386 ms P-R-T Axes : 059 088 076 degrees QTc Int : 477 ms Normal sinus rhythm Possible Left atrial enlargement Cannot rule out Anterior infarct , age undetermined Incomplete right bundle branch block Abnormal ECG When compared with ECG of 25-AUG-2023 04:14, No significant change was found Confirmed by Steven Bailey ([id number]) on 09/04/2023 10:48:13 PM Referred By: REFERRED SELF Confirmed By:Steven Bailey
== END 2023-09-03 11:25 | disposition home or self-care (01) ==
LOC: EDINP 22:33 → ED 22:33 → SUATTDRO 09-03 00:21 → EDINP 09-03 02:27